=== PATIENT | male | born 1960 | race Caucasian/White ===

== ENCOUNTER 2019-10-27 17:33 | Inpatient (IN) | payer OTHER ==
[~2019-10-27] VITALS: Ht 175.3 cm; Wt 101.2 kg
[~2019-10-27 17:33] MED LIST: ATORVASTATIN CA20 MG PO; ECOTRIN325 MG PO; EXFORGE HCT 101 EAC2 PO; LANTUS100 UNITS/ SC
--- OUTSIDE RECORDS SUMMARY | 2019-10-27 17:36 | XMS REPORT | Clinical Summary ---
Author Author Julián [facility] Organization [facility] Address Unknown Phone Unavailable Care Team Providers Care Boat Master Name Role Phone Balaji Dao MD PCP Allergies Comments Active Allergy Reactions Severity Noted Date Iodine 10/08/2016 Penicillins Shortness Of High 10/08/2016 Breath Medications End Date Status Medication Sig Dispensed Refills Start Date Active atorvastatin (LIPITOR) 10 Take 80 mg by 0 MG tablet mouth daily. Active ergocalciferol (VITAMIN Take 50,000 0 D2) 50,000 unit capsule Units by mouth once a week. Active clopidogrel (PLAVIX) 75 Take 75 mg by 0 mg tablet mouth daily. Active metoprolol succinate XL Take 25 mg by 0 (TOPROL-XL) 25 mg 24 hr mouth daily. tablet Active isosorbide mononitrate Take 30 mg by 0 (IMDUR) 30 MG 24 hr mouth daily. tablet Active traMADol (ULTRAM) 50 mg Take 50 mg by 0 tablet mouth every 6 (six) hours as needed for moderate pain. Active insulin detemir U-100 Inject under 0 (LEVEMIR) 100 unit/mL the skin injection nightly. Active levothyroxine (SYNTHROID, Take 25 mcg 0 LEVOXYL) 25 mcg tablet by mouth daily. Active aspirin (ECOTRIN) 81 MG Take 81 mg by 0 enteric coated tablet mouth daily. Active omeprazole (PriLOSEC) 20 Take 20 mg by 0 MG capsule mouth daily. Active nitroglycerin (NITROSTAT) Place 0.4 mg 0 0.4 MG SL tablet under the tongue every 5 (five) minutes as needed for chest pain. 01/28/2019 Discontinued (Discontinued b y another clinician) carvedilol (COREG) 3.125 Take 3.125 mg 0 MG tablet by mouth daily. 01/28/2019 Discontinued (Discontinued b y another clinician) [id number] Take by mouth 0 iazid 10-320-25 mg tablet daily. 01/28/2019 Discontinued (Discontinued b y another clinician) insulin GLARGINE (LANTUS) Inject 17 0 100 unit/mL injection Units under (vial) the skin nightly. 01/28/2019 Discontinued (Dose adjustmen t) aspirin 325 MG tablet Take 325 mg 0 by mouth daily. Active Problems Patient Care Coordination Note 2019 TRANSPLANT UPDATE COMPLETE; ESRD DM/HTN; CAD; PVD; HX STROKE AND PAGET'S DISEASE DR. ANDRE Marks Noted Date Type 2 diabetes mellitus with stage 3 chronic kidney disease, with 10/08/2016 long-term current use of insulin Hypertensive nephrosclerosis 10/08/2016 Encounters Care Team Description Date Type Specialty Alonzo Muñoz MD 10/12/2019 Lab Lab 10/12/2019 Travel [facility] [place] ([place] - [employer] CM R EQUESTING UPDATED CLINICAL) 09/17/2019 Documentation Transplant Alonzo Muñoz MD 09/08/2019 Lab Lab 09/08/2019 Travel Alonzo Muñoz MD 08/10/2019 Lab Lab Abbey Fontaine MA PRA Kits 07/01/2019 Telephone Transplant Zahida Morales, JENNA 06/28/2019 Documentation Transplant Alonzo Muñoz MD 06/15/2019 Lab Lab Gisell Whitlock MA Speak to Coordinator 05/18/2019 Telephone Transplant Alonzo Muñoz MD 05/12/2019 Lab Lab Alonzo Muñoz MD 03/09/2019 Lab Lab Shweta Hooks, JENNA 01/29/2019 Documentation Transplant Maurice Arriaza MD End stage renal disease (HCC) (Primary D x) 01/28/2019 Lab Lab Maurice Arriaza MD End stage renal disease (HCC) (Primary D x) 01/28/2019 Lab Lab Maurice Arriaza MD End stage renal disease (HCC) (Primary D x) 01/28/2019 Lab Lab Maurice Arriaza MD ESRD (end stage renal disease) ([facility]) 01/28/2019 Hospital Radiology Encounter Maurice Arriaza MD Pre-transplant evaluation for kidney tra nsplant (Primary Dx) 01/28/2019 Office Visit Transplant Maurice Arriaza MD 01/28/2019 Social Work Transplant Maurice Arriaza MD ESRD (end stage renal disease) ([facility]) 01/28/2019 Hospital Procedural Cardiolo gy Encounter Maurice Arriaza MD ESRD (end stage renal disease) ([facility]) 01/28/2019 Office Visit Transplant Alonzo Muñoz MD 01/07/2019 Lab Lab Abbey Fontaine MA Clinical/Office Notes 01/06/2019 Telephone Transplant Delilah Mckeon Appointment 01/05/2019 Telephone Transplant Zahida Morales RN 12/24/2018 Documentation Transplant Alonzo Muñoz MD 12/09/2018 Lab Lab Kimberly Damian Kidney Eval (Listing Class ) 11/23/2018 Documentation Transplant Alonzo Muñoz MD 11/13/2018 Lab Lab Kimberly Damian Appointment (Rcvd call back from pt stat ing he and his are available to attend Kidney Txp Waitlist Listing Class on November 24, 2018. Pt started dialysis 09/04/2018 at [facility]. Added info in Epic & TR. Pt has hemo on MWF. Requested 2728 form. PRA Kits requested, Standing Order & itinerary scanned in Media, copy emailed to pt. ) 11/02/2018 Documentation Transplant Kimberly Damian 11/02/2018 Abstract Transplant Kimberly Damian Appointment (Called left v/m requesting a call back to discuss pt's availability to schedule a Kidney Transplant Waitlist Listing Class. ) 11/02/2018 Documentation Transplant after 2018 Family History Medical History Relation Name Comments Diabetes Father Hypertension Father Cancer Maternal Grandfather Diabetes Mother Hypertension Mother Relation Name Status Comments Father Maternal Grandfather Mother Social History Date Tobacco Use Types Packs/Day Years Used Never Smoker Smokeless Tobacco: Never Used Drinks/Week oz/Week Comments Alcohol Use No Sex Assigned at Date Recorded Not on file Industry Job Start Date Occupation Not on file Not on file Not on file Travel End Travel History Travel Start No recent travel history available. Date Recorded COVID-19 Exposure Response 10/12/2019 1:58 PM CDT In the last month, have you been in contact with Sherie ble to assess someone who was confirmed or suspected to have Coronavirus / COVID-19? Last Filed Vital Signs Reading Time Taken Comments Vital Sign 137/71 01/28/2019 7:50 AM CDT Blood Pressure 62 01/28/2019 7:50 AM CDT Pulse 36.2 C (97.2 F) 01/28/2019 7:29 AM CDT Temperature 17 01/28/2019 7:29 AM CDT Respiratory Rate 100% 01/28/2019 7:29 AM CDT Oxygen Saturation - - Inhaled Oxygen Concentration 92.5 kg (204 lb) 01/28/2019 7:29 AM CDT Weight 172.7 cm (5' 8") 01/28/2019 7:29 AM CDT Height 31.02 01/28/2019 7:29 AM CDT Body Mass Index Plan of Treatment Health Maintenance Due Date Last Done Comments DIABETIC RETINAL EYE EXAM 1960 DIABETIC FOOT EXAM 1968 COLONOSCOPY SCREENING 2008 SHINGLES VACCINES (#1) 2008 INFLUENZA VACCINE 01/15/2020 Procedures Comments Procedure Name Priority Date/Time Associated Diag nosis SINGLE ANTIGEN BEADS Routine 08/09/2019 7:56 AM SALES LEDGER CLERK SINGLE ANTIGEN BEADS Routine 05/10/2019 5:56 PM SALES LEDGER CLERK GRAM STAIN Routine 01/28/2019 12:29 PM CDT URINE CULTURE Routine 01/28/2019 12:29 PM CDT ECG 12-LEAD Routine 01/28/2019 ESRD (end stage renal 9:36 AM CDT disease) ([facility]) TTE COMPLETE, WO Routine 01/28/2019 ESRD (end sta ge renal CONTRAST, W DOPPLER 8:44 AM CDT disease) ([facility]) ([id number]) XR CHEST 2 VW Routine 01/28/2019 ESRD (end stage renal 8:39 AM CDT disease) ([facility]) SINGLE ANTIGEN BEADS Routine 01/28/2019 7:10 AM CDT ESTIMATED GFR Routine 01/28/2019 7:10 AM CDT DRUG ORELLANA 9, SER/MIKE, SCRN Routine 01/28/2019 ESRD (end stage renal W/RFLX TO CONF 7:10 AM CDT disease) ([facility]) URINALYSIS SCREEN AND Routine 01/28/2019 ESRD (en d stage renal MICROSCOPY, WITH REFLEX 7:10 AM CDT disease) ([facility] ) TO CULTURE TB T-SPOT Routine 01/28/2019 ESRD (end stage renal 7:10 AM CDT disease) ([facility]) HEPATITIS C VIRUS Routine 01/28/2019 ESRD (end st age renal QUANTITATIVE BY PCR 7:10 AM CDT disease) ([facility]) PARATHYROID HORMONE Routine 01/28/2019 ESRD (end stage renal 7:10 AM CDT disease) ([facility]) HEMOGLOBIN A1C Routine 01/28/2019 ESRD (end stage renal 7:10 AM CDT disease) ([facility]) PROSTATE SPECIFIC ANTIGEN Routine 01/28/2019 ESRD (end stage renal 7:10 AM CDT disease) ([facility]) LDH Routine 01/28/2019 ESRD (end stage renal 7:10 AM CDT disease) ([facility]) PHOSPHORUS LEVEL Routine 01/28/2019 ESRD (end sta ge renal 7:10 AM CDT disease) ([facility]) LIPID PANEL Routine 01/28/2019 ESRD (end stage renal 7:10 AM CDT disease) ([facility]) C-PEPTIDE Routine 01/28/2019 ESRD (end stage renal 7:10 AM CDT disease) ([facility]) PARTIAL THROMBOPLASTIN Routine 01/28/2019 ESRD (e nd stage renal TIME (PTT) 7:10 AM CDT disease) ([facility]) PROTHROMBIN TIME WITH INR Routine 01/28/2019 ESRD (end stage renal 7:10 AM CDT disease) (HCC) HC COMPLETE BLD COUNT Routine 01/28/2019 ESRD (en d stage renal W/AUTO DIFF 7:10 AM CDT disease) (HCC) SYPHILIS TOTAL ANTIBODY Routine 01/28/2019 ESRD ( end stage renal 7:10 AM CDT disease) (HCC) HEPATITIS C ANTIBODY Routine 01/28/2019 ESRD (end stage renal 7:10 AM CDT disease) (HCC) HEPATITIS B SURFACE AB, Routine 01/28/2019 ESRD ( end stage renal QUANTITATIVE 7:10 AM CDT disease) (HCC) HEPATITIS B SURFACE Routine 01/28/2019 ESRD (end stage renal ANTIGEN 7:10 AM CDT disease) (HCC) HEPATITIS B SURFACE Routine 01/28/2019 ESRD (end stage renal ANTIBODY 7:10 AM CDT disease) (HCC) HEPATITIS B CORE ANTIBODY Routine 01/28/2019 ESRD (end stage renal TOTAL 7:10 AM CDT disease) (HCC) HIV AG/AB COMBINATION Routine 01/28/2019 ESRD (en d stage renal 7:10 AM CDT disease) (HCC) COMPREHENSIVE METABOLIC Routine 01/28/2019 ESRD ( end stage renal PANEL 7:10 AM CDT disease) (HCC) OCCULT BLOOD, STOOL Routine 01/26/2019 End stage renal disease 11:54 AM CDT (HCC) OCCULT BLOOD, STOOL Routine 01/25/2019 End stage renal disease 11:52 AM CDT (HCC) OCCULT BLOOD, STOOL Routine 01/24/2019 11:50 AM CDT SINGLE ANTIGEN BEADS Routine 01/06/2019 11:35 AM CDT SINGLE ANTIGEN BEADS Routine 12/07/2018 8:05 AM CDT SINGLE ANTIGEN BEADS Routine 11/06/2018 8:24 AM CDT after 2018 Results * Single antigen beads (08/09/2019 7:56 AM SALES LEDGER CLERK) Only the most recent of 6 results within the time period is included. SAB serum ID [id number] [facility] SAB serum 08/09/2019 07:56 AM [facility] collection D&T [facility] SAB class I Negative [facility] antibody [facility] SAB cPRA class 0 [facility] SAB class II DP19 [facility] antibody [facility] SAB cPRA class [address] [facility] Single antigen See link below for PDF Lab [facility] beads Report [facility] Specimen Blood Performing Organization Address City/[facility] Ph one Number [facility] DEPARTMENT OF [address] [place] [address] PATHOLOGY AND GENOMIC MEDICINE [address] * Gram stain (01/28/2019 12:29 PM CDT) Pathologist [facility] Gram stain No WBC's or organisms seen. [facility] result Comment: [place] Specimen Information [facility] Specimen Source: Urine Specimen Site: Clean catch Specimen Urine Performing Organization Address City/[facility] Ph one Number [facility] DEPARTMENT OF [address] [place] [address] PATHOLOGY AND GENOMIC MEDICINE [address] * Urine culture (01/28/2019 12:29 PM CDT) Pathologist [facility] Urine culture Klebsiella pneumoniae [facility] isolate 10-4 cfu/ml [facility] HOSPITAL characteristics of this assay on this isolate were validated by the Microbiology Laboratory at [facility]. This source has not been approved by the U.S. Food and Drug Administration. The results are not intended to be used as the sole means for clinical diagnosis or patient management. The Microbiology Laboratory is authorized under the clinical Laboratory Improvement Amendments of 1988 (CLIA-88) to perform high complexity testing. (A) Comment: Specimen Information Specimen Source: Urine Specimen Site: Clean catch Specimen Urine Antibiotic Method Susceptibility Organism Ampicillin ASCENCION >16 mcg/mL: Resistant Klebsiella pneumoniae Amoxicillin/Clavulanate ASCENCION <=2/1 mcg/mL: Susceptible Klebsiella pneumoniae Amikacin ASCENCION <=4 mcg/mL: Susceptible Klebsiella pneumoniae Aztreonam ASCENCION <=1 mcg/mL: Susceptible Klebsiella pneumoniae Ceftazidime ASCENCION <=0.5 mcg/mL: Susceptible Klebsiella pneumoniae Ciprofloxacin ASCENCION <=0.5 mcg/mL: Susceptible Klebsiella pneumoniae Ceftriaxone ASCENCION <=0.5 mcg/mL: Susceptible Klebsiella pneumoniae Cefuroxime Sodium ASCENCION <=4 mcg/mL: Susceptible Klebsiella pneumoniae Cefazolin ASCENCION <=1 mcg/mL: Susceptible Klebsiella pneumoniae Cefepime ASCENCION <=0.5 mcg/mL: Susceptible Klebsiella pneumoniae Nitrofurantoin ASCENCION 64 mcg/mL: Resistant Klebsiella pneumoniae Cefoxitin ASCENCION <=4 mcg/mL: Susceptible Klebsiella pneumoniae Gentamicin ASCENCION 1 mcg/mL: Susceptible Klebsiella pneumoniae Imipenem ASCENCION <=0.25 mcg/mL: Susceptible Klebsiella pneumoniae Levofloxacin ASCENCION <=1 mcg/mL: Susceptible Klebsiella pneumoniae Meropenem ASCENCION <=0.125 mcg/mL: Susceptible Klebsiella pneumoniae Tobramycin ASCENCION 1 mcg/mL: Susceptible Klebsiella pneumoniae Ampicillin/Sulbactam ASCENCION 8/4 mcg/mL: Susceptible Klebsiella pneumoniae Trimethoprim/Sulfamethoxazole ASCENCION >2/38 mcg/mL: Resistant Klebsiella pneumoniae Tetracycline ASCENCION 2 mcg/mL: Susceptible Klebsiella pneumoniae Piperacillin/Tazobactam ASCENCION 4/4 mcg/mL: Susceptible Klebsiella pneumoniae Ertapenem ASCENCION <=0.125 mcg/mL: Susceptible Klebsiella pneumoniae Tigecycline ASCENCION 1 mcg/mL: Susceptible Klebsiella pneumoniae Performing Organization Address City/State/Zipcode Ph one Number [facility] DEPARTMENT OF [address] [place] [address] PATHOLOGY AND GENOMIC MEDICINE [facility] [place] [address] [place] [address] * EKG 12-LEAD (01/28/2019 9:36 AM CDT) Ventricular 69 [facility] MUSE rate Atrial rate 69 [facility] MUSE WV interval 244 [facility] QRSD interval 88 [facility] QT interval 414 [facility] QTC interval 443 [facility] P axis 1 10 [facility] M[facility] QRS axis 1 2 [facility] M[facility] T wave axis 30 [facility] EKG impression Sinus rhythm with 1st degree [facility] MUSE AV block-Otherwise normal ECG-In automated comparison with ECG of 26-NOV-2016 08:37,-No significant change was found- Specimen Narrative Performed At This result has an attachment that is n ot available. Performing Organization Address City/State/Zipcode Ph one Number [facility] MUSE [address] [facility] [place] [address] * Echocardiogram complete w contrast and 3D if needed (01/28/2019 8:44 AM CDT) Specimen Narrative Performed At [facility] Echo cardiography Report [id number] [facility], [place] [address] Pat.Name: MARKO NIXON JR Pat.ID: [id number] .Date: 01/28/2019 Refer.MD: MAURICE ARRIAZA MD Exam Time: 7:54:00 AM Study Type:Routine Echo Height: 68in BSA: 2.06 m2 Age: 5 1960,58Y Sex: MALE BP: 137/71 HR: 62 bpm Sonogrphr: Diana Landeros, BS, RDCS Pa t. Stat.:Outpatient Room: [facility] Study Status:Final Echo Event ID:[id number] Order ID: [id number] Reason for Study:Renal Transplant Evalu ation History / Clinical:Diabetes, Hyperlipid emia, Hypertension, Stroke Procedures:2D Echo, Colorflow Doppler, Strain Race: C SUMMARY: LV EF is normal. RV systolic function is normal. FINDINGS: LV: LV size is normal. LV EF i s normal. Overall wall motion is normal. Estimated EF is 65-69% RV: RV size is normal. RV syst olic function is normal. LA: LA volume is moderately en larged. RA: RA volume is normal. pooss ibly catheter . AO: Aortic root diameter is no rmal. SHER: No pericardial effusion. AV: Aortic valve sclerosis. MV: No structural MV abnormali ties noted. PV: No structural PV abnormali ties noted. TV: No structural TV abnormali ties noted. A trace of tricuspid regurgitation Jones: LV relaxation is reduced, a ppropriate for age. LV filling pressure is normal. Hep atic vein pressure is normal, RA pressure < 5mmHg. Other: Insufficient TR jet to sukumar mate PA systolic pressure. MEASUREMENTS: 2D Parasternal [place] LVOT 2.1 cm LA Ds 4.5 cm LVIDd 4.4 cm Index 2.1 cm/m Ao An 2.4 cm LVIDs 2.9 cm Ao Rtd 3.6 cm Index 1.8 cm/m LV%fs 35 % LV Mass 305.3 g (122-17 4) IVSd 1.5 cm LVM Index 148.2 g/m2 LVPWd 1.7 cm RWT 0.8 Left Ventricle LV EF 62 % (63-7 7) LA Sng Plane LA Area 22.9 cm2 (8.8-23. 4) LA Vol 72.2 ml Index 35.1 ml/m LA LngAx 6.1 cm RA Sng Plane RA Area 12.5 cm2 (8.3-19. 5) RA Vol 28 ml Index 13.6 ml/m RA LngAx 4.6 cm MMODE Tricuspid Valve TAPSE 2.1 cm DOPPLER LVOT Stroke Vol LVOT 2.1 cm LVOT CO 4.6 l/min LVOT TVI 22.1 cm LVOT CI 2.2 l/m/m2 LVOT Tm 351 msec HR 60 bpm LVOT SV 76.6 ml Signed 01/29/2019 10:32 PM Darlene Horan M.D. Procedure Note Interface, Radiology Results In - 01/29/2019 10:32 PM CDT Echocardiography Report [id number] [address] Pat.Name: MARKO NIXON JR Pat.ID: [id number] .Date: 01/28/2019 Refer.MD: MAURICE ARRIAZA MD Exam Time: 7:54:00 AM Study Type:Routine Echo Height: 68in BSA: 2.06 m2 Age: 3 1960,58Y Sex: MALE BP: 137/71 HR: 62 bpm Sonogrphr: ANAHI Jennings, RDCS Pat. Stat.:Outpatient Room: [place] [address] Study Status:Final Echo Event ID:[id number] Order ID: [id number] Reason for Study:Renal Transplant Evaluation History / Clinical:Diabetes, Hyperlipidemia, Hypertension, Stroke Procedures:2D Echo, Colorflow Doppler, Strain Race: C SUMMARY: LV EF is normal. RV systolic function is normal. FINDINGS: LV: LV size is normal. LV EF is normal. Overall wall motion is normal. Estimated EF is 65-69% RV: RV size is normal. RV systolic function is normal. LA: LA volume is moderately enlarged. RA: RA volume is normal. poossibly catheter . AO: Aortic root diameter is normal. SHER: No pericardial effusion. AV: Aortic valve sclerosis. MV: No structural MV abnormalities noted. PV: No structural PV abnormalities noted. TV: No structural TV abnormalities noted. A trace of tricuspid regurgitation Jones: LV relaxation is reduced, appropriate for age. LV filling pressure is normal. Hepatic vein pressure is normal, RA pressure < 5mmHg. Other: Insufficient TR jet to estimate PA systolic pressure. MEASUREMENTS: 2D Parasternal [place] LVOT 2.1 cm LA Ds 4.5 cm LVIDd 4.4 cm Index 2.1 cm/m Ao An 2.4 cm LVIDs 2.9 cm Ao Rtd 3.6 cm Index 1.8 cm/m LV%fs 35 % LV Mass 305.3 g (122-174) IVSd 1.5 cm LVM Index 148.2 g/m2 LVPWd 1.7 cm RWT 0.8 Left Ventricle LV EF 62 % (63-77) LA Sng Plane LA Area 22.9 cm2 (8.8-23.4) LA Vol 72.2 ml Index 35.1 ml/m LA LngAx 6.1 cm RA Sng Plane RA Area 12.5 cm2 (8.3-19.5) RA Vol 28 ml Index 13.6 ml/m RA LngAx 4.6 cm MMODE Tricuspid Valve TAPSE 2.1 cm DOPPLER LVOT Stroke Vol LVOT 2.1 cm LVOT CO 4.6 l/min LVOT TVI 22.1 cm LVOT CI 2.2 l/m/m2 LVOT Tm 351 msec HR 60 bpm LVOT SV 76.6 ml Signed 01/29/2019 10:32 PM Darlene Horan M.D. Performing Organization Address City/State/[facility] Ph one Number [facility] [address] [place] [address] * XR Chest 2 Vw (01/28/2019 8:39 AM CDT) Specimen Narrative Performed At EXAMINATION: XR CHEST 2 VW [facility] CLINICAL HISTORY: N18.6 End stage dee al disease, transplant evalution update COMPARISON: Chest x-ray 11/26/2016, CT AP 01/27/2017 FINDINGS: Lines and tubes: Right IJ tunneled dial ysis catheter is seen with tip overlying the superior cavoatrial junction. Heart and mediastinum: Cardiomediastina l silhouette is normal in contour. Lungs and pleura: Left basilar atelecta sis. Bones: No acute osseous abnormality. Soft tissues: Cholecystectomy clips are visualized. Slightly distended gastric bubble. IMPRESSION: Left basilar atelectasis. Lungs are oth erwise clear of focal airspace disease. [facility]-[id number] Dictated and approved by radiology resi dent/fellow: Nadir Arteaga M.D. I, Tyree Lucas MD, personally reviewed the images and resident's/fellow's findings and agree with the final repor t. Procedure Note Interface, Radiology Results Incoming - 01/28/2019 11:30 AM CDT EXAMINATION: XR CHEST 2 VW CLINICAL HISTORY: N18.6 End stage renal disease, transplant evalution update COMPARISON: Chest x-ray 11/26/2016, CT AP 01/27/2017 FINDINGS: Lines and tubes: Right IJ tunneled dialysis catheter is seen with tip overlying the superior cavoatrial junction. Heart and mediastinum: Cardiomediastinal silhouette is normal in contour. Lungs and pleura: Left basilar atelectasis. Bones: No acute osseous abnormality. Soft tissues: Cholecystectomy clips are visualized. Slightly distended gastric bubble. IMPRESSION: Left basilar atelectasis. Lungs are otherwise clear of focal airspace disease. [facility]-[id number] Dictated and approved by student affairs vice president/fellow: Nadir Arteaga M.D. I, Tyree Lucas MD, personally reviewed the images and resident's/fellow's findings and agree with the final report. Performing Organization Address City/State/[facility] Cent[facility] Ph one Number [facility] [address] [place] [address] * Urinalysis screen and microscopy, with reflex to culture (01/28/2019 7:10 AM CDT) Specimen site Clean catch [facility] Color, UA Michelle [facility] Appearance, UA Cloudy [facility] Specific 1.022 1.001 - 1.035 [facility] gravity, [facility] pH, UA 5.0 5.0 - 8.5 [facility] Protein, UA 3+ (A) Negative [facility] Glucose, UA 1+ (A) Negative [facility] Ketones, UA Trace (A) Negative [facility] Bilirubin, UA Positive@UBIL (A) Negative [facility] Blood, UA Negative Negative [facility] Nitrite, UA Negative Negative [facility] Urobilinogen, 4.0 (A) <2.0 [facility] Leukocyte Trace (A) Negative [facility] esterase, [facility] WBC, UA 3 (H) 0 - 1 /HPF [facility] RBC, UA 2 0 - 5 /HPF [facility] Bacteria, UA Few None seen [facility] Yeast, UA None seen [facility] Yeast with None seen [facility] pseudohyphae[facility] Granular casts, 5 (H) 0 - 1 /LPF [facility] Hyaline casts, >20 (A) /LPF [facility] Specimen Urine Performing Organization Address City/[facility] Cent[facility] Ph one Number [facility] DEPARTMENT OF [address] [place] [address] PATHOLOGY AND GENOMIC MEDICINE [address] * Estimated GFR (01/28/2019 7:10 AM CDT) Pathologist [facility] Estimated GFR 18 (A) mL/min/1.73 m2 [facility] Comment: [facility] Interpretation G1 >=90 Normal or high G2 60-89 Mildly decreased G3a 45-59 Mildly to moderately decreased G3b 30-44 Moderately to severely decreased G4 15-29 Severely decreased G5 <15 Kidney failure The eGFR was calculated using the Chronic Kidney Disease Epidemiology Collaboration (CKD-EPI) equation. Interpretation is based on recommendations of the National Kidney Foundation-Kidney Disease Outcomes Quality Initiative (NKF-KDOQI) published in 2014. Specimen Plasma specimen Performing Organization Address Good [facility] Ph one Number [facility] [place] [address] PATHOLOGY AND [facility] MEDICINE [address] * Syphilis total antibody (01/28/2019 7:10 AM CDT) Pathologist [facility] Syphilis total Non-reactiveComment: No Non-reactive [place] antibody serological evidence of [place] syphilis infection. HOSPITAL Specimen Blood Performing Organization Address City/State/Zipcode Ph one Number [facility] DEPARTMENT OF [address] [place] [address] PATHOLOGY AND GENOMIC MEDICINE [address] * HIV Ag/Ab combination (01/28/2019 7:10 AM CDT) Pathologist [facility] HIV Ag/Ab Non-reactive Non-reactive [facility] Specimen Blood Performing Organization Address City/[facility] Ph one Number [facility] DEPARTMENT OF [address] [place] [address] PATHOLOGY AND GENOMIC MEDICINE [address] [place] [address] HOSPITAL * TB T-SPOT (01/28/2019 7:10 AM CDT) TB T-SPOT SEE NOTE [facility] - [facility] Comment: REF LAB T-SPOT TUBERCULOSIS Nil Control: 0 Panel A: 1 Panel B: 2 Positive Control: SAT Result: NEGATIVE NOTE: TMTC INDICATES TOO MANY SPOTS TO COUNT SAT INDICATES THE WELL WAS SATURATED RESULTS INTERPRETATION: RESULTS ARE NEGATIVE WHEN (PANEL A-NIL) OR (PANEL B-NIL) <= 4 SPOTS, INCLUDING VALUES LESS THAN ZERO. RESULTS ARE POSITIVE WHEN (PANEL A-NIL) OR (PANEL B-NIL) >= 8 SPOTS RESULTS ARE BORDERELINE WHEN EITHER (PANEL A-NIL) OR (PANEL B-NIL) = 5,6,0R 7. THE TEST IS INVALID WHEN EITHER OF THE FOLLOWING CONDITIONS IS MET: 1.) THE NIL CONTROL HAS >10 SPOTS 2.) THE MITOGEN (POSITIVE CONTROL) HAS <20 SPOTS AND BOTH (PANEL A-NIL) AND (PANEL B-NIL) <= 4 SPOTS. M. TUBERCULOSIS INFECTION UNLIKELY, BUT CANNOT BE EXCLUDED ESPECIALLY WHEN: 1. ANY ILLNESS IS CONSISTENT WITH TB DISEASE. 2. LIKELIHOOD OF PROGRESSION TO DISEASE (e.g. DUE TO IMMUNOSUPPRESSION) IS INCREASED. LIMITATIONS: DIAGNOSING OR EXCLUDING TUBERCULOSIS DISEASE, AND ASSESSING THE PROBABILITY OF LTBI, REQUIRES A COMBINATION OF EPIDEMIOLOGICAL, HISTORICAL, MEDICAL, AND DIAGNOSTIC FINDINGS THAT SHOULD BE TAKEN INTO ACCOUNT WHEN INTERPRETING T-SPOT.TB REFER TO THE MOST RECENT CDC GUIDANCE (HTTP: //WWW.CDC.GOV/[email or web address]/TB) FOR DETAILED RECOMMENDATIONS ABOUT DIAGNOSING TB INFECTION (INCLUDING DISEASE) AND SELECTING PERSONS FOR TESTING. 1.) A FALSE NEGATIVE RESULT CAN BE CAUSED BY INCORRECT BLOOD SAMPLE COLLECTION OR IMPROPER HANDLING OF THE SPECIMEN, AFFECTING LYMPHOCYTE FUNCTION 2.) THE PERFORMANCE OF T-SPOT.TB HAS NOT BEEN ADEQUATELY EVALUATED WITH SPECIMENS FROM INDIVIDUALS YOUNGER THAN AGE 17 YEARS, IN WOMEN, AND IN PATIENTS WITH HEMOPHILIA. 3-) A FALSE POSITIVE RESULT WAS OBTAINED FOR T-SPOT.TB WHEN TESTED IN SUBJECTS WITH M. XENOPI, M. KANSASII, AND M. GORDONAE. WHILE ESAT-6 AND CFP-10 ANTIGENS ARE ABSENT FROM BCG STRAINS OF M. BOVIS AND FROM MOST ENVIRONMENTAL MYCOBACTERIA, IT IS POSSIBLE THAT A POSITIVE T-SPOT.TB RESULT MAY BE DUE TO INFECTION WITH M. KANSASII, M. SZULGAI, M. GORDONAE, OR M. MARINUM. ALTERNATIVE TESTS WOULD BE REQUIRED IF THESE INFECTIONS ARE SUSPECTED. 4.) A NEGATIVE TEST RESULT DOES NOT EXCLUDE THE POSSIBILITY OF EXPOSURE TO, OR INFECTION WITH, M. TUBERCULOSIS. PATIENTS WITH RECENT EXPOSURE TO TB INFECTED INDIVIDUALS EXHIBITING A NEGATIVE T-SPOT.TB RESULT SHOULD BE CONSIDERED FOR RETESTING WITHIN 6 WEEKS OR IF OTHER RELEVANT CLINICAL SYMPTOMS INDICATE POSSIBLE INFECTION. 5.) A POSITIVE TEST RESULT DOES NOT RULE IN ACTIVE TB DISEASE; OTHER TESTS SHOULD BE PERFORMED TO CONFIRM THE DIAGNOSIS OF ACTIVE TB DISEASE SUCH SPUTUM SMEAR AND CULTURE, PCR AND CHEST RADIOGRAPHY. 6.) T-SPOT.TB TEST HAS NOT BEEN EVALUATED IN SUBJECTS WHO HAVE RECEIVED >1 MONTH OF ANTI-TB THERAPY. 7. ) REFRIGERATED AND FROZEN SAMPLES ARE NOT RECOMMENDED FOR USE WITH T=SPOT.TB TEST. Performed by: [facility] Molecular Tuberculosis Laboratory [facility] ([id number]) [place], [place] [address] Specimen Blood Performing Organization Address City/State/Zipcode Ph one Number [facility] DEPARTMENT OF [address] [place] [address] PATHOLOGY AND GENOMIC MEDICINE [facility] * Hepatitis B surface Ab, quantitative (01/28/2019 7:10 AM CDT) Pathologist [facility] Hepatitis B >1000.00 IU/L [facility] REF [facility] surface Ab Comment: The anti-HBs is greater than or equal to 10 IU/L. This patient has either had an antibody response to HBV vaccination, received a transfusion, or has recovered from HBV infection. This patient should be considered immune to hepatitis B. An anti-HBs result greater than or equal to 10 IU/L implies immunity. For post-vaccination antibody testing guidelines for the general public refer to MMWR June 07, 2005/Vol. 54(No. 16);1-23, and for healthcare workers refer to MMWR June 04, 2013/Vol. 62(No. 10);1-19. Reference Interval: anti-HBs 9.99 IU/L or less ....... Negative 10.00 IU/L or greater .... Positive Results greater than 1,000.00 IU/L are reported as greater than 1,000.00 IU/L. This assay should not be used for blood donor screening, associated re-entry protocols, or for screening Human Cell, Tissues and Cellular and Tissue-Based Products (HCT/P). Performed by [facility], [address] [place] [address] [email or web address], Arturo Brown MD - Lab. Director Specimen Serum Performing Organization Address City/[facility]/Zipcode Ph one Number [facility] [address] [place] [address] [facility] [address] [place] [address] * Hepatitis C antibody (01/28/2019 7:10 AM CDT) Hepatitis C Ab Non-reactive Non-reactive [facility] Specimen Blood Performing Organization Address City/[facility]/Zipcode Ph one Number [facility] DEPARTMENT OF [address] [place] [address] PATHOLOGY AND GENOMIC MEDICINE [address] * Drug orellana 9, ser/mike, scrn w/rflx to conf (01/28/2019 7:10 AM CDT) Amphetamines, Negative Cutoff 30 ng/mL [facility] B s/p, screen Methamphetamine Negative Cutoff 30 ng/mL [facility] AB , s/p, screen Barbiturates, Negative Cutoff 75 ng/mL [facility] B s/p, screen Benzodiazepines Negative Cutoff 75 ng/mL [facility] , s/p, screen Cocaine, s/p, Negative Cutoff 30 ng/mL [facility] B screen Methadone, s/p, Negative Cutoff 40 ng/mL [facility] screen Opiates, s/p, Negative Cutoff 30 ng/mL [facility] B screen Oxycodone, s/p, Negative Cutoff 30 ng/mL [facility] AB screen Phencyclidine, Negative Cutoff 15 ng/mL [facility] B s/p, screen Cannabinoids, Negative Cutoff 30 ng/mL [facility] B s/p, screen Drug screen See Note [facility] comments, serum Comment: INTERPRETIVE INFORMATION: Drug Screen 9 Panel, Serum or Plasma - Immunoassay Screen with Reflex to Mass Spectrometry Confirmation/Quantitation 1. Methodology: Qualitative Immunoassay Screen 2. Drugs/Drug classes reported as "Positive" are automatically reflexed to mass spectrometry confirmation/quantitation testing. An immunoassay unconfirmed positive screen result may be useful for medical purposes but does not meet forensic standards. 3. The absence of expected drug(s) and/or drug metabolite(s) may indicate non-compliance, inappropriate timing of specimen collection relative to drug administration, poor drug absorption, or limitations of testing. The concentration at which the screening test can detect a drug or metabolite varies within a drug class. Specimens for which drugs or drug classes are detected by the screen are automatically reflexed to a second, more specific technology (mass spectrometry). The concentration value must be greater than or equal to the cutoff to be reported as positive. Interpretive questions should be directed to the laboratory. 4. For medical purposes only; not valid for forensic use. Test developed and characteristics determined by [facility]. See Compliance Statement B: [email or web address] Performed by [facility], [address] [place] [id number] [email or web address], Arturo Brown MD - Lab. Director Specimen Blood Performing Organization Address [facility] one Number [facility] [address] [place] [address] [place] [address] * Hepatitis B core antibody total (01/28/2019 7:10 AM CDT) [facility] Hepatitis B Non-reactive Non-reactive [facility] core total Ab [facility] Specimen Blood Performing Organization Address [facility] Ph one Number [facility] DEPARTMENT OF [address] [place] [address] PATHOLOGY AND GENOMIC MEDICINE [address] * Hepatitis C virus quantitative by PCR (01/28/2019 7:10 AM CDT) [facility] Hepatitis C Not-Detected Not-Detected IU/mL [facility] C See link below for PDF Lab [facility] quantitative, ReportComment: Case Number: [facility] PCR [id number] HOSPITAL Specimen Blood Performing Organization Address [facility] Ph one Number [facility] DEPARTMENT OF [address] [place] [address] PATHOLOGY AND GENOMIC MEDICINE [address] * C-peptide (01/28/2019 7:10 AM CDT) [facility] C-peptide 13.8 (H) 1.1 - 4.4 ng/mL [facility] Specimen Plasma specimen Performing Organization Address City/[facility] Ph one Number [facility] DEPARTMENT OF [address] [place] [address] PATHOLOGY AND [facility] MEDICINE [address] * Hepatitis B surface antibody (01/28/2019 7:10 AM CDT) Pathologist [facility] Hepatitis B Reactive (A) Non-reactive [facility] Ab [facility] Specimen Blood Performing Organization Address City/[facility] one Number [facility] DEPARTMENT OF [address] [place] [address] PATHOLOGY AND [facility] MEDICINE [address] * Hepatitis B surface antigen (01/28/2019 7:10 AM CDT) Pathologist [facility] Hepatitis B Non-reactive Non-reactive [facility] Ag [facility] Specimen Blood Performing Organization Address [facility] one Number [facility] [place] [address] PATHOLOGY AND [facility] MEDICINE [address] * Partial thromboplastin time, activated (01/28/2019 7:10 AM CDT) [facility] PTT 31.2 23.0 - 36.0 sec [facility] Comment: [facility] PTT therapeutic range for HOSPITAL unfractionated heparin is 61.0-112.0 seconds which corresponds to Anti-Xa 0.3-0.7 U/ml. Specimen Blood Performing Organization Address [facility] one Number [facility] DEPARTMENT OF [address] [place] [address] PATHOLOGY AND [facility] MEDICINE [address] * Prothrombin time with INR (01/28/2019 7:10 AM CDT) [facility] Prothrombin 13.7 11.5 - 14.5 sec [facility] INR 1.1 [facility] Comment: [place] The International Normalized HOSPITAL Ratio (INR) is a therapeutic monitoring tool for patients who are stable on oral anticoagulant therapy. An INR of 2.0-3.0 is suggested for deep vein thrombosis/pulmonary embolism. Specimen Blood Performing Organization Address [facility] one Number [facility] DEPARTMENT OF [address] [place] [address] PATHOLOGY AND GENOMIC MEDICINE [address] * CBC with platelet and differential (01/28/2019 7:10 AM CDT) WBC 7.93 4.50 - 11.00 k/uL [facility] RBC 4.03 (L) 4.40 - 6.00 m/uL [facility] HGB 13.2 (L) 14.0 - 18.0 g/dL [facility] HCT 40.3 (L) 41.0 - 51.0 % [facility] MCV 100.0 82.0 - 100.0 fL [facility] MCH 32.8 27.0 - 34.0 pg [facility] MCHC 32.8 31.0 - 37.0 g/dL [facility] RDW - SD 49.7 37.0 - 55.0 fL [facility] MPV 11.2 8.8 - 13.2 fL [facility] Platelet count 136 (L) 150 - 400 k/uL [facility] Nucleated RBC 0.00 /100 WBC [facility] Neutrophils 57.1 39.0 - 69.0 % [facility] Lymphocytes 31.7 25.0 - 45.0 % [facility] Monocytes 7.6 0.0 - 10.0 % [facility] Eosinophils 2.8 0.0 - 5.0 % [facility] Basophils 0.4 0.0 - 1.0 % [facility] Immature 0.4Comment: "Immature 0.0 - 1.0 % [facility] granulocytes granulocytes" (promyelocytes, METHOD IST myelocytes, metamyelocytes) HOSPITAL Specimen Blood Performing Organization Address City/[facility] Ph one Number [facility] DEPARTMENT OF [address] [place] [address] PATHOLOGY AND GENOMIC MEDICINE [address] * Prostate specific antigen (01/28/2019 7:10 AM CDT) Pathologist [facility] PSA 0.5 0.0 - 4.0 ng/mL [facility] Comment: [place] The BENEDICT 8000 PSA immunoassay [facility] was used. Results obtained with different assay methods or kits should not be used interchangeably and may be different. Specimen Plasma specimen Performing Organization Address City/[facility] Ph one Number [facility] DEPARTMENT OF [address] [place] [address] PATHOLOGY AND GENOMIC MEDICINE [address] * Phosphorus level (01/28/2019 7:10 AM CDT) Phosphorus 3.0 2.4 - 4.5 mg/dL [facility] Specimen Plasma specimen Performing Organization Address City/[facility] Ph one Number [facility] DEPARTMENT OF [address] [place] [address] PATHOLOGY AND GENOMIC MEDICINE [address] * Parathyroid hormone (01/28/2019 7:10 AM CDT) PTH 244 (H) 15 - 65 pg/mL [facility] Specimen Blood Performing Organization Address City/[facility] Ph one Number [facility] DEPARTMENT OF [address] [place] [address] PATHOLOGY AND GENOMIC MEDICINE [address] * LDH (01/28/2019 7:10 AM CDT) LDH 199 87 - 225 U/L [facility] Specimen Plasma specimen Performing Organization Address [facility] Ph one Number [facility] DEPARTMENT OF [address] [place] [address] PATHOLOGY AND GENOMIC MEDICINE [address] * Hemoglobin A1c (01/28/2019 7:10 AM CDT) Hemoglobin A1C 5.8 (H) 4.0 - 5.6 % [facility] Comment: [place] HbA1c cutoffs for diagnosing HOSPITAL diabetes: 4.0% - 5.6% = normal 5.7% - 6.4% = increased risk for diabetes (prediabetes) >=6.5% = diabetes Goals for glycemic control (ADA 2016) < 7.0% Target for non adults with diabetes. More or less stringent targets may be appropriate for individual patients. <7.5% Target for Children and adolescents with type 1 diabetes. Specimen Blood Performing Organization Address City/[facility] Ph one Number [facility] DEPARTMENT OF [address] [place] [address] PATHOLOGY AND GENOMIC MEDICINE [address] * Lipid panel (01/28/2019 7:10 AM CDT) Cholesterol 87 <200 mg/dL [facility] Triglycerides 131 <150 mg/dL [facility] HDL cholesterol 43 >40 mg/dL [facility] LDL cholesterol 29Comment: Result obtained by <100 mg/dL [facility] direct LDL measurement [facility] Comment: [place] Total Cholesterol (mg/dL) HOSPITAL <200 Desirable 200-239 Borderline-high >=240 High Triglycerides (mg/dL) <150 Normal 150-199 Borderline-high 200-499 High >=500 Very high HDL Cholesterol (mg/dL) <40 Low (male) <40 Low (female) LDL Cholesterol (mg/dL) <100 Optimal 100-129 Near or above optimal 130-159 Borderline-high 160-189 High >=190 Very high Risk Catergories that modify LDL goals. Risk Catergories LDL goal (mg/dL) CHD and CHD risk equivalent <100 (10-year risk >20%) Multiple (2+) risk factors <130 (10-year risk =<20%) 0-1 risk factors <160 (<10-year risk) Defining levels of lipids in metabolic syndrome Triglycerides >=150 mg/dL HDL Cholesterol Men <40 mg/dL Women <40 mg/dL Non-HDL cholesterol is a second target for therapy in persons with high triglycerides (>=200 mg/dL) Specimen Plasma specimen Performing Organization Address City/State/Zipcoor Ph one Number [facility] DEPARTMENT OF [address] [place] [address] PATHOLOGY AND GENOMIC MEDICINE [address] * Comprehensive metabolic panel (01/28/2019 7:10 AM CDT) Sodium 142 135 - 148 mEq/L [facility] Potassium 4.2 3.5 - 5.0 mEq/L [facility] Chloride 99 98 - 112 mEq/L [facility] CO2 27 24 - 31 mEq/L [facility] Anion gap 16@ANIO (H) 7 - 15 mEq/L [facility] BUN 19 8 - 23 mg/dL [facility] Creatinine 3.51 (H) 0.70 - 1.20 mg/dL [facility] Glucose 135 (H) 65 - 99 mg/dL [facility] Calcium 9.4 8.8 - 10.2 mg/dL [facility] Protein 8.6 (H) 6.3 - 8.3 g/dL [facility] Comment: [facility] 4.6-7.0 g/dL 1 week 4.4-7.6 g/dL 7 months-1year 5.1-7.3 g/dL 1-2 years 5.6-7.5 g/dL >3 years 6.0-8.0 g/dL 18-150 6.3-8.3 g/dL Albumin 4.0 3.5 - 5.0 g/dL [facility] A/G ratio 0.9 0.7 - 3.8 [facility] Alkaline 233 (H) 40 - 129 U/L [facility] phosphatase [facility] AST 33 10 - 50 U/L [facility] ALT 42 5 - 50 U/L [facility] Total bilirubin 1.0 0.0 - 1.2 mg/dL [facility] Specimen Plasma specimen Performing Organization Address [facility] Ph one Number [facility] DEPARTMENT OF [address] [place] [address] PATHOLOGY AND GENOMIC MEDICINE [address] * Occult blood, stool (01/26/2019 11:54 AM CDT) Only the most recent of 3 results within the time period is included. Occult blood, Negative for occult blood. [facility] stool Comment: [facility] Specimen Information HOSPITAL Specimen Source: Stool Specimen Site: Nonpreserved Specimen Stool - Nonpreserved Performing Organization Address City/[facility] Ph one Number [facility] DEPARTMENT OF [address] [place] [address] PATHOLOGY AND GENOMIC MEDICINE [address] after 2018 Insurance Type Payer Benefit Subscriber ID Effective Phone Address Plan / Dates Group Transplant ANNIKA ROBLERO xxxxxxxxxxx [id number] [employer] resent O ANNIKA JOHNSON xxxxxxxxxxx [id number] SEYBOLD resent [facility] [place] Directives For more information, please contact: [phone] 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
--- OUTSIDE RECORDS SUMMARY | 2019-10-27 17:36 | XMS REPORT | Clinical Summary ---
Author Author JEFFY [facility] Organization [facility] Address Unknown Phone Unavailable Care Team Providers Care Machine Wood Sander Name Role Phone Balaji Dao MD PCP Unavailable Rigoberto Gardner Shayy Unavailable Allergies Comments Active Allergy Reactions Severity Noted Date Iodine Shortness Of High 10/08/2016 Breath, Rash Penicillins Shortness Of High 10/08/2016 Breath Shellfish Containing Shortness Of High 6 Products Breath, Rash Medications End Date Status Medication Sig Dispensed Refills Start Date Active insulin detemir (LEVEMIR) Inject 4 0 06/17 100 unit/mL injection Units 8 subcutaneousl y nightly . Active aspirin 81 MG EC tablet Take 81 mg by 0 mouth daily. Active clopidogrel (PLAVIX) 75 Take 75 mg by 0 mg tablet mouth daily. Active isosorbide mononitrate Take 30 mg by 0 (IMDUR) 30 MG 24 hr mouth daily. tablet Active levothyroxine (SYNTHROID, Take 25 mcg 0 LEVOTHROID) 25 MCG tablet by mouth Every morning on an empty stomach. Active metoprolol (TOPROL-XL) 25 Take 25 mg by 0 MG 24 hr tablet mouth daily. Active omeprazole (PRILOSEC) 20 Take 20 mg by 0 MG capsule mouth 2 (two) times daily as needed. Active ondansetron (ZOFRAN-ODT) Take 4 mg by 0 4 MG disintegrating mouth every 8 tablet (eight) hours as needed for Nausea. Active nitroglycerin (NITROSTAT) 1 tablet 0 04/0 0.4 MG SL tablet under the 9 tongue at onset of attack. Repeat as needed up to 3 times. Active atorvastatin (LIPITOR) 80 Take 80 mg by 0 MG tablet mouth daily. Active Bacillus coagulans (BACID Take 1 0 05/0 WITH LACTOSPORE) 1 capsule by 9 billion cell Cap mouth daily. Active diphenhydrAMINE Take 50 mg by 0 (BENADRYL) 50 MG mouth daily. capsuleIndications: allergic reaction Active amLODIPine (NORVASC) 2.5 Take 2.5 mg 0 02/19 MG tablet by mouth 9 daily. 07/06/2019 Discontinued ergocalciferol Take 50,000 0 (ERGOCALCIFEROL) 50,000 Units by unit capsule mouth once a week . 06/24/2019 Discontinued triamcinolone (KENALOG) Apply 0 0.1 % topical cream topically as needed to affected area. . 06/24/2019 Discontinued traMADol (ULTRAM) 50 mg Take 50 mg by 0 tablet mouth every 6 (six) hours as needed for Pain. Active Problems Problem Noted Date End stage renal disease 10/06/2018 ESRD (end stage renal disease) 11/24/2017 Encounters Care Team Description Date Type Specialty Maddie Howe MD ESRD (end stage renal disease) (HCC) (Pr imary Dx) 08/05/2019 Office Visit Cardiology Momo Ingram MD 07/20/2019 Anesthesia Event Maddie Howe MD LAPAROSCOPY,INSERT PERITONEAL CATHETER 07/20/2019 Surgery Maddie Howe MD 07/20/2019 Hospital Encounter Maddie Howe MD 07/19/2019 Orders Only Cardiology 07/06/2019 Hospital Pre-Admission Testi ng Encounter Maddie Howe MD ESRD (end stage renal disease) (HCC) (Pr imary Dx) 06/24/2019 Office Visit Cardiology Maddie Howe MD ESRD (end stage renal disease) (HCC) (Pr imary Dx) 04/29/2019 Office Visit Cardiology Arsenio Mobley MD Chronic renal failure, unspecified CKD s tage 04/15/2019 Hospital Radiology Encounter Arsenio Mobley MD Arteriovenous fistula stenosis, sequela (Primary Dx); Chronic renal failure, unspecified CKD stage 04/12/2019 Outside Orders Central Scheduling Maddie Howe MD ESRD (end stage renal disease) (HCC) (Pr imary Dx) 11/26/2018 Office Visit Cardiology Holden Lawrence MD 11/10/2018 Anesthesia Event Maddie Howe MD CREATION,A-V FISTULA BY BASILIC VEIN TRA NSPOSITION 11/10/2018 Surgery Maddie Howe MD 11/10/2018 Hospital Encounter 10/27/2018 Hospital Pre-Admission Testi ng Encounter after 2018 Family History Medical History Relation Name Comments Diabetes Mother Relation Name Status Comments Father Mother Alive Social History Date Tobacco Use Types Packs/Day Years Used Never Smoker Smokeless Tobacco: Never Used Tobacco Cessation: Counseling Given: No Alcohol Use Drinks/Week oz/Week Comments No Sex Assigned at Date Recorded Not on file Industry Job Start Date Occupation Not on file Not on file Not on file Travel End Travel History Travel Start No recent travel history available. Last Filed Vital Signs Time Taken Vital Sign Reading 08/05/2019 10:17 AM PAPER MILL MANAGER Blood Pressure 129/67 08/05/2019 10:17 AM PAPER MILL MANAGER Pulse 69 08/05/2019 10:17 AM PAPER MILL MANAGER Temperature 36.1 C (97 F) 08/05/2019 10:17 AM PAPER MILL MANAGER Respiratory Rate 14 08/05/2019 10:17 AM PAPER MILL MANAGER Oxygen Saturation 100% - Inhaled Oxygen - Concentration 08/05/2019 10:17 AM PAPER MILL MANAGER Weight 95.3 kg (210 lb) 08/05/2019 10:17 AM PAPER MILL MANAGER Height 171.5 cm (5' 7.5") 08/05/2019 10:17 AM PAPER MILL MANAGER Body Mass Index 32.41 Plan of Treatment Health Maintenance Due Date Last Done Comments COLON CANCER SCREENING 1960 COLONOSCOPY PNEUMOCOCCAL VACCINE 2-64 Completed 10/07/2017, 12/29/2014, 11/05/2001 YEARS AT RISK INFLUENZA VACCINE Completed 02/11/2019, 018, 04/07/2017, Additional history exists Procedures Comments Procedure Name Priority Date/Time Associated Diag nosis TRANSFUSION SERVICE 07/21/2019 REPORT - SCAN 6:06 PM PAPER MILL MANAGER HGB/HCT (H&H) - STAT LAB STAT 07/20/2019 11:43 AM PAPER MILL MANAGER GLUCOSE-STAT LAB STAT 07/20/2019 11:43 AM PAPER MILL MANAGER POTASSIUM-STAT LAB STAT 07/20/2019 11:43 AM PAPER MILL MANAGER LAPAROSCOPY,INSERT 07/20/2019 End stage renal di sease PERITONEAL CATHETER 8:00 AM PAPER MILL MANAGER (HCC) Case Notes HARD COPY ON FILE/PRANAV 06/28 @ 11:18 TYPE AND SCREEN, Routine 07/20/2019 AUTOMATED 7:00 AM PAPER MILL MANAGER GLUCOSE-STAT LAB STAT 07/20/2019 7:00 AM PAPER MILL MANAGER HGB/HCT (H&H) - STAT LAB Routine 07/20/2019 7:00 AM PAPER MILL MANAGER POTASSIUM-STAT LAB STAT 07/20/2019 7:00 AM PAPER MILL MANAGER POCT-GLUCOSE METER Routine 07/20/2019 5:40 AM PAPER MILL MANAGER IR THROMOBOLYSIS/DECLOT Routine 04/15/2019 Chroni c renal failure, AV FISTULA/GRAFT 11:55 AM CDT unspecified CKD sta ge CBC W/PLT COUNT & AUTO Routine 04/15/2019 DIFFERENTIAL 8:24 AM CDT BASIC METABOLIC PANEL (7) Routine 04/15/2019 8:24 AM CDT APTT Routine 04/15/2019 8:24 AM CDT PROTHROMBIN TIME/INR Routine 04/15/2019 8:24 AM CDT CBC W/PLT COUNT & AUTO Routine 04/15/2019 DIFFERENTIAL 8:24 AM CDT RHYTHM STRIP - SCAN 11/12/2018 7:50 AM CDT TRANSFUSION SERVICE 11/11/2018 REPORT - SCAN 6:05 PM CDT HGB/HCT (H&H) - STAT LAB STAT 11/10/2018 4:25 PM CDT GLUCOSE-STAT LAB STAT 11/10/2018 4:25 PM CDT POTASSIUM-STAT LAB STAT 11/10/2018 4:25 PM CDT CREATION,A-V FISTULA BY 11/10/2018 End stage dee al disease BASILIC VEIN 1:00 PM CDT (HCC) TRANSPOSITION Case Notes NO ICU BED NEEDED GLUCOSE-STAT LAB STAT 11/10/2018 9:12 AM CDT POTASSIUM-STAT LAB STAT 11/10/2018 9:12 AM CDT HGB/HCT (H&H) - STAT LAB Routine 11/10/2018 9:12 AM CDT after 2018 Results * TRANSFUSION SERVICE REPORT - SCAN (07/21/2019 6:06 PM PAPER MILL MANAGER) Only the most recent of 2 results within the time period is included. Narrative Performed At This result has an attachment that is n ot available. * Potassium-Stat Lab (07/20/2019 11:43 AM PAPER MILL MANAGER) Only the most recent of 4 results within the time period is included. Potassium 4.1 3.6 - 5.5 meq/L [facility] Specimen Blood, Arterial Performing Organization Address [facility] one Number [address] [phone] [place] [address] * Glucose-Stat Lab (07/20/2019 11:43 AM PAPER MILL MANAGER) Only the most recent of 4 results within the time period is included. Glucose 116 (H) 70 - 110 mg/dL [facility] Specimen Blood, Arterial Performing Organization Address [facility] one Number [address] [facility] * HGB/HCT (H&H)-Stat Lab (07/20/2019 11:43 AM PAPER MILL MANAGER) Only the most recent of 4 results within the time period is included. Hemoglobin 11.3 (L) 13.0 - 16.8 g/dL [facility] Hematocrit 33.0 (L) 40.0 - 50.0 % [facility] Specimen Blood, Arterial Performing Organization Address [facility] one Number [address] 0 [phone] [place] [address] * Type and screen, automated (07/20/2019 7:00 AM PAPER MILL MANAGER) ABO/RH AUTOMATED (BEAKER) A NEGATIVE [facility] Ab Scrn NEGATIVE [facility] Specimen Blood Performing Organization Address [facility] Ph one Number [facility] [address] [place] [address] [facility] * POC-Glucose meter (07/20/2019 5:40 AM PAPER MILL MANAGER) POC-Glucose Meter 119 (H)Comment: : TESTED AT 70 - 110 mg/dL [address] [address]: National Sales Manager/Public Address System Operator ID = [id number] for JACKY VIRAMONTES Specimen Blood Performing Organization Address [facility] one Number [address] [phone] [place] [address] * IR Thromobolysis/Declot AV Fistula/Graft (04/15/2019 11:55 AM CDT) Specimen Narrative Performed At FINAL REPORT [employer] AV shunt evaluation. History: Renal failure, malfunctioning left upper extremity arteriovenous fistula. Modality: Ultrasound and fluoroscopy. Service Restorer Emergency:Hossein Poe MD. Roll Forming Machine Operator: MD Karlee (Fellow) MD Kai (Resident). Sedation: Moderate sedation was adminis tered. 1 mg of Versed and50 mcg of fentanyl IV was used for moderat e sedation monitored under my direction. Total intra-service time of sedation [id number]. The patient's vital signs were monitored th roughout the procedure and recorded in the patient's medical recor d by the nurse. Approach: Left upper extremity AV fistula. Estimated blood loss:< 5 cc. Specimen: None. Fluoroscopy Time: 6.2 min. Reference Air Kerma (Ka, r): 153 mGy. Technique: Informed written consent was obtained. Discussion of risks, benefits, and alternatives were made with the pat ient. The patient expressed understanding and agreed to proceed. A universal timeout was performed prior to starting the procedu re.All elements maximal sterile barrier technique was utilized for this procedure, including utilization of sterile scrub solution f or skin prep, a large sterile sheet to cover the areas of the patient that were not prepped, and hand hygiene, mask, head covering, and sterile gown for performing radiologist and scrub technologist. Initial ultrasound images demonstrate d iffusely diminutive/non-mature left upper extremity arteriovenous fist hafsa. 1% lidocaine was used for local anesthesia. Using ultrasound guid ance, following acquisition of permanent images, the left upper extrem ity arteriovenous fistula was accessed with a 21-gauge micropuncture needle towards the central venous system. A 0.018 wire was advance d centrally. The needle was exchanged for a 4 Lithuanian micropuncture sheath. DSA runs of left upper extremity central venous system were pe rformed. The micropuncture sheath was exchanged over 0.035 Bentson wire for a 6 Lithuanian short vascular sheath. The foc al stenosis the sheath was removed and hemostasis achieved using 2 -0 chromic pursestring suture. At the junction of the left subclavian and brachiocephalic veins was angioplastied using a 10 mm x 4 cm Must ang over the wire balloon, 8 mm high pressure balloon, an 8 mm x 6 c m drug coated balloon. Post angioplasty venography was performed. All catheters and wires were removed. T he sheath were removed and hemostasis achieved using 2-0 chromic p urse-string suture. A sterile dressing was applied. The patient pita ated the procedure without immediate complication. The patient rec eived 3000 units of heparin intravenously during the course the pro cedure. FINDINGS: Left upper extremity arteriovenous fist hafsa evaluation demonstrates approximately 70% stenosis at the junct ion of the left subclavian and brachiocephalic veins. Post angioplasty venography demonstrate s improved flow but with persistent moderate residual stenosis. Remainder of left central veins and art erial anastomosis are patent. IMPRESSION: Successful left upper extremity arterio venous fistula evaluation demonstrating diffusely diminutive/non- mature fistula with high-grade stenosis at the junction of the left hodgson bclavian and brachiocephalic veins. After angioplasty, there is impr reji flow with persistent residual stenosis. Recommend short-term follow-up evaluation for fistula maturation. Signed: Hossein Poe MD Report Verified Date/Time: 9 15:48:14 Reading Location: [facility] P048 Angio Bod y Reading Room Procedure Note Interface, External Ris In - 04/15/2019 3:50 PM CDT FINAL REPORT AV shunt evaluation. History: Renal failure, malfunctioning left upper extremity arteriovenous fistula. Modality: Ultrasound and fluoroscopy. Service Restorer Emergency: Hossein Poe MD. Roll Forming Machine Operator: MD Karlee (Fellow) MD Kai (Resident). Sedation: Moderate sedation was administered. 1 mg of Versed and 50 mcg of fentanyl IV was used for moderate sedation monitored under my direction. Total intra-service time of sedation was 45 minutes. The patient's vital signs were monitored throughout the procedure and recorded in the patient's medical record by the nurse. Approach: Left upper extremity AV fistula. Estimated blood loss: < 5 cc. Specimen: None. Fluoroscopy Time: 6.2 min. Reference Air Kerma (Ka, r): 153 mGy. Technique: Informed written consent was obtained. Discussion of risks, benefits, and alternatives were made with the patient. The patient expressed understanding and agreed to proceed. A universal timeout was performed prior to starting the procedure. All elements maximal sterile barrier technique was utilized for this procedure, including utilization of sterile scrub solution for skin prep, a large sterile sheet to cover the areas of the patient that were not prepped, and hand hygiene, mask, head covering, and sterile gown for performing radiologist and scrub technologist. Initial ultrasound images demonstrate diffusely diminutive/non-mature left upper extremity arteriovenous fistula. 1% lidocaine was used for local anesthesia. Using ultrasound guidance, following acquisition of permanent images, the left upper extremity arteriovenous fistula was accessed with a 21-gauge micropuncture needle towards the central venous system. A 0.018 wire was advanced centrally. The needle was exchanged for a 4 Lithuanian micropuncture sheath. DSA runs of left upper extremity central venous system were performed. The micropuncture sheath was exchanged over 0.035 Bentson wire for a 6 Lithuanian short vascular sheath. The foca l stenosis the sheath was removed and hemostasis achieved using 2-0 chromic pursestring suture. At the junction of the left subclavian and brachiocephalic veins was angioplastied using a 10 mm x 4 cm [place] over the wire balloon, 8 mm high pressure balloon, an 8 mm x 6 cm drug coated balloon. Post angioplasty venography was performed. All catheters and wires were removed. The sheath were removed and hemostasis achieved using 2-0 chromic purse-string suture. A sterile dressing was applied. The patient tolerated the procedure without immediate complication. The patient received 3000 units of heparin intravenously during the course the procedure. FINDINGS: Left upper extremity arteriovenous fistula evaluation demonstrates approximately 70% stenosis at the junction of the left subclavian and brachiocephalic veins. Post angioplasty venography demonstrates improved flow but with persistent moderate residual stenosis. Remainder of left central veins and arterial anastomosis are patent. IMPRESSION: Successful left upper extremity arteriovenous fistula evaluation demonstrating diffusely diminutive/non-mature fistula with high-grade stenosis at the junction of the left subclavian and brachiocephalic veins. After angioplasty, there is improved flow with persistent residual stenosis. Recommend short-term follow-up evaluation for fistula maturation. Signed: Hossein Poe MD Report Verified Date/Time: 04/15/2019 15:48:14 Reading Location: [place] [address] Angio Body Reading Room Performing Organization Address City/State/Zipcode Ph one Number GE RIS * CBC with platelet count + automated diff (04/15/2019 8:24 AM CDT) WBC 6.8 3.5 - 10.5 K/L [facility] RBC 4.00 (L) 4.63 - 6.08 M/L [facility] Hemoglobin 12.9 (L) 13.7 - 17.5 GM/DL [facility] Hematocrit 39.7 (L) 40.1 - 51.0 % [facility] MCV 99.3 (H) 79.0 - 92.2 fL [facility] MCH 32.3 (H) 25.7 - 32.2 pg [facility] MCHC 32.5 32.3 - 36.5 GM/DL [facility] RDW 13.4 11.6 - 14.4 % [facility] Platelets 120 (L) 150 - 450 K/CU MM [facility] MPV 10.5 9.4 - 12.4 fL [facility] nRBC 0 0 - 0 /100 WBC [facility] % Neutros 88 % [facility] % Lymphs 10 % [facility] % Monos 2 % [facility] % Eos 0 % [facility] % Baso 0 % [facility] # Neutros 5.96 (H) 1.78 - 5.38 K/L [facility] # Lymphs 0.68 (L) 1.32 - 3.57 K/L [facility] # Monos 0.10 (L) 0.30 - 0.82 K/L [facility] # Eos 0.00 (L) 0.04 - 0.54 K/L [facility] # Baso 0.02 0.01 - 0.08 K/L [facility] Immature 1 0 - 1 % [facility] Granulocytes-Relative [facility] Specimen Blood Performing Organization Address City/[facility] Ph one Number [place] [address] [phone] [place] [address] * aPTT (04/15/2019 8:24 AM CDT) PTT 31.6 22.5 - 36.0 seconds [facility] Specimen Blood Performing Organization Address City/[facility] Ph one Number [place] [address] [facility] * Prothrombin time/INR (04/15/2019 8:24 AM CDT) Protime 13.6 11.9 - 14.2 seconds [facility] INR 1.1 <=5.9 [facility] Specimen Blood Narrative Performed At Effective 11/11/2018: PT Reference Range Change [facility] Merari Iraheta [facility] New: 11.9-14.2Previous: 11.7-14.7 [facility] MEDICAL CE NTER RECOMMENDED COUMADIN/WARFARIN INR THERA PY RANGES STANDARD DOSE: 2.0-3.0Includes: PRO PHYLAXIS for venous thrombosis, systemic embolization; TREATMENT for venous thro mbosis and/or pulmonary embolus. HIGH RISK: Target INR is 2.5-3.5 for pa tients wiht mechanical heart valves. Performing Organization Address [facility] one Number [address] [facility] * Basic Metabolic Panel (04/15/2019 8:24 AM CDT) Sodium 137 136 - 145 meq/L [facility] Potassium 4.8 3.5 - 5.1 meq/L [facility] Chloride 99 98 - 107 meq/L [facility] CO2 26 22 - 29 meq/L [facility] BUN 50 (H) 7 - 21 mg/dL [facility] Creatinine 4.13 (H) 0.57 - 1.25 mg/dL [facility] Glucose 232 (H) 70 - 105 mg/dL [facility] Calcium 9.6 8.4 - 10.2 mg/dL [facility] EGFR 15Comment: ESTIMATED GFR IS mL/min/1.73 sq m [facility] NOT ACCURATE CREATININE [facility] CLEARANCE IN PREDICTING GLOMERULAR FILTRATION RATE. ESTIMATED GFR IS NOT APPLICABLE FOR DIALYSIS PATIENTS. Specimen Blood Performing Organization Address [facility] Ph one Number [address] [address] [facility] * RHYTHM STRIP - SCAN (11/12/2018 7:50 AM CDT) Narrative Performed At This result has an attachment that is n ot available. after 2018 Insurance Payer Benefit Subscriber ID Type Phone Address Plan / Group [employer] - [employer] xxxxxxxxxxx HMO/POS NETWORK [phone] Advance Directives Patient has advance care planning documents, and code status on file. For more i nformation, please contact: [facility] [address] [place] [address] Date Inactivated Comments Code Status Date Activated 07/20/2019 2:56 PM Full Code 07/20/2019 5:43 AM This code status was determined by: Patient 11/10/2018 9:16 PM Full Code 11/10/2018 9:03 AM This code status was determined by: Patient 10/06/2018 12:40 PM Full Code 10/06/2018 5:52 AM This code status was determined by: Patient 11/24/2017 2:22 PM Full Code 11/24/2017 5:41 AM This code status was determined by: Patient
--- OUTSIDE RECORDS SUMMARY | 2019-10-27 17:37 | XMS REPORT ---
Author Author [facility] t Organization [facility] Address [address] [place] [address] Phone Unavailable Care Team Providers Care Segmental Paving Supervisor Name Role Phone Feliberto LANDEROS, Olvin Carpio PCP Cameron LANDEROS, Duran Rosado Attphys Shaun Pollock Attphys Unavailable YAN HODGE Attphys Unavailable Thalia Fontaine MA Attphys Unavailable Andrew WEST, Zahida Attphys Unavailable Gisell Whitlock MA Attphys Unavailable Judy ROGERS Attphys Unavailable Arsalan LANDEROS, Rigoberto Richards Attphys Jessee WEST, Shweta Attphys Unavailable Delilah Mckeon Attphys Unavailable Kimberly Damian Attphys Unavailable CATIE RG Attphys Unavailable YAN HODGE Admphys Unavailable Judy ROGERS Admphys Unavailable Payers Payer Name Policy Type Policy Number Effective Date Expiration Date S ource CIGNACIGNA LIFESOURCExxxxxxxxxxx2010-PresentTransplant xxxxxxxxxxx 2010 00:00:00 Julián Ryder Problems Condition Name Condition Details Condition Category Status Onset Date Resolution Date Last Treatment Date Treating Clinician Comments Source 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, 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, with long-term current use of insulin Disease Active 2016-10-08 00:00:[address] Hypertensive nephrosclerosis Hypertensive nephrosclerosis Disease Active 2016-10-08 00:00:00 Julián Ryder Allergies, Adverse Reactions, Alerts Allergy Name Allergy Type Status Severity Reaction(s) Onset Date Inacti ve Date Treating Clinician Comments Source iodine DA Active 2018-08-17 00:00:00 [facility] Penicillins DA Active 2018-08-15 00:00:00 [facility] Iodine Propensity to adverse reactions to drug Active 2016-10-08 00:00:00 Julián Ryder Penicillins Propensity to adverse reactions to drug Active Shortness Of Breath 2016-10-08 00:00:00 Julián Ryder Penicillins DA Active 2016-05-26 00:00:00 [facility] SEAFOOD DA Active 2016-05-26 00:00:00 [facility] Family History Family Member Diagnosis Comments Start Date Stop Date Source Natural father Diabetes [facility] Natural father Hypertension Julián Ryder Maternal grandfather [facility] Natural mother Diabetes [facility] Natural mother Hypertension Julián Ryder Social History Social Habit Start Date Stop Date Quantity Comments Source Sex Assigned At Parmjitbobby Ryder Exposure to SARS-CoV-2 (event) Unable to assess Julián Ryder Alcohol intake 2019-01-28 00:00:00 2019-01-28 00:00:00 Current non-drinker of alcohol (finding) Julián Ryder Smoking Status Start Date Stop Date Source Never smoker Julián Schaeffer t Medications Ordered Medication Name Filled Medication Name Start Date Stop Da te Current Medication? Ordering Clinician Indication Dosage Frequency Signature (SIG) Comments Components Source atorvastatin (LIPITOR) 10 MG tablet 2019-01-28 15:19:00 Yes 80mg QD Take 80 mg by mouth daily. Julián Ryder ergocalciferol (VITAMIN D2) 50,000 unit capsule 2019-01-28 15:19 :00 Yes [id number] Q7D Take 50,000 Units by mouth once a week. Julián Ryder insulin detemir U-100 (LEVEMIR) 100 unit/mL injection 2019-01-28 15:19:00 Yes QD Inject under the skin nightly. Julián Ryder levothyroxine (SYNTHROID, LEVOXYL) 25 mcg tablet 2019-01-28 15:19:00 Yes 25ug QD Take 25 mcg by mouth daily. Julián Ryder aspirin (ECOTRIN) 81 MG enteric coated tablet 2019-01-28 15:19:0 0 Yes 81mg QD Take 81 mg by mouth daily. Baylee Ryder omeprazole (PriLOSEC) 20 MG capsule 2019-01-28 15:19:00 Yes 20mg QD Take 20 mg by mouth daily. Julián Ryder nitroglycerin (NITROSTAT) 0.4 MG SL tablet 2019-01-28 15:19:[address] 0.4 mg under the tongue every 5 (five) minutes a s needed for chest pain. Julián Ryder clopidogrel (PLAVIX) 75 mg tablet 2019-01-28 15:18:59 Yes 75mg QD Take 75 mg by mouth daily. Julián Ryder metoprolol succinate XL (TOPROL-XL) 25 mg 24 hr tablet 2019-01-28 15:18:59 Yes 25mg QD Take 25 mg by mouth daily. Julián Ryder isosorbide mononitrate (IMDUR) 30 MG 24 hr tablet 2019-01-28 15:18:59 Yes 30mg QD Take 30 mg by mouth daily. Julián Ryder traMADol (ULTRAM) 50 mg tablet 2019-01-28 15:18:59 Yes 50mg Q6H Take 50 mg by mouth every 6 (six) hours as needed for moderate pain. Julián Ryder insulin GLARGINE (LANTUS) 100 unit/mL injection (vial) 2019-01-28 15:18:28 2019-01-28 00:00:00 No 17U QD Inject 17 Units unde r the skin nightly. Julián Ryder carvedilol (COREG) 3.125 MG tablet 2019-01-28 15:18:18 201 02-21-15 00:00:00 No 3.125mg QD Take 3.125 mg by mouth daily. Julián Ryder jvUHMLRsgq-hizjicyus-nmoogtzms 10-320-25 mg tablet 2019-01-28 15:18:08 2019-01-28 00:00:00 No QD Take by mouth daily. Julián Hagenist aspirin 325 MG tablet 2019-01-28 15:15:46 2019-01-28 00:00:00 No 325mg QD Take 325 mg by mouth daily. Gallego Franck benitez Vital Signs Vital Name Observation Time Observation Value Comments Source Systolic blood pressure 2019-01-28 12:50:00 137 mm[Hg] Julián Hagenist Diastolic blood pressure 2019-01-28 12:50:00 71 mm[Hg] Julián Hagenist Heart rate 2019-01-28 12:50:00 62 /min Julián [facility] Body temperature 2019-01-28 12:29:00 36.22 Kathleen Quang cannon [facility] Respiratory rate 2019-01-28 12:29:00 17 /min Quang Ryder Body height 2019-01-28 12:29:00 172.7 cm Gallego [facility] Body weight 2019-01-28 12:29:00 92.534 kg Julián Hagenist BMI 2019-01-28 12:29:00 31.02 kg/m2 Julián Ryder Oxygen saturation in Arterial blood by Pulse oximetry 01-28 12:29:00 100 /min Julián Ryder Procedures Procedure Date / Time Performed Performing Clinician Sourc e SINGLE ANTIGEN BEADS 2019-08-09 13:56:00 Alonzo Barnes SINGLE ANTIGEN BEADS 2019-05-10 23:56:00 Alonzo Barnes URINE CULTURE 2019-01-28 17:29:00 Kellee Arriaza GRAM STAIN 2019-01-28 17:29:00 Kellee Arriaza ECG 12-LEAD 2019-01-28 14:36:00 Kellee Arriaza TTE COMPLETE, WO CONTRAST, W DOPPLER ([id number]) 2019-01-28 13:4 4:53 Kellee Arriaza XR CHEST 2 VW 2019-01-28 13:39:40 Kellee Arriaza COMPREHENSIVE METABOLIC PANEL 2019-01-28 12:10:00 Vinay Arriaza HIV AG/AB COMBINATION 2019-01-28 12:10:00 Kellee Arriaza HEPATITIS B CORE ANTIBODY TOTAL 2019-01-28 12:10:00 Arriaza, Ramon Ryder HEPATITIS B SURFACE ANTIGEN 2019-01-28 12:10:00 Arriaza, Kellee Ryder HEPATITIS B SURFACE AB, QUANTITATIVE 2019-01-28 12:10:00 Arriaza, Kellee Ryder HEPATITIS C ANTIBODY 2019-01-28 12:10:00 Arriaza, Kellee Ryder SYPHILIS TOTAL ANTIBODY 2019-01-28 12:10:00 Arriaza, Kellee Ryder HC COMPLETE BLD COUNT W/AUTO DIFF 2019-01-28 12:10:00 Arriaza, Kranthi Ryder PROTHROMBIN TIME WITH INR 2019-01-28 12:10:00 Arriaza, Kellee Ryder PARTIAL THROMBOPLASTIN TIME (PTT) 2019-01-28 12:10:00 Arriaza, Kranthi Ryder C-PEPTIDE 2019-01-28 12:10:00 Arriaza, Kellee Ryder LIPID PANEL 2019-01-28 12:10:00 Arriaza, Kellee Ryder PHOSPHORUS LEVEL 2019-01-28 12:10:00 Arriaza, Kellee Chaves on [facility] LDH 2019-01-28 12:10:00 Arriaza, Kellee Ryder PROSTATE SPECIFIC ANTIGEN 2019-01-28 12:10:00 Arriaza, Kellee Ryder HEMOGLOBIN A1C 2019-01-28 12:10:00 Arriaza, Kellee Ryder PARATHYROID HORMONE 2019-01-28 12:10:00 Arriaza, Kellee Ryder HEPATITIS C VIRUS QUANTITATIVE BY PCR 2019-01-28 12:10:00 Arriaza , Kellee Ryder TB T-SPOT 2019-01-28 12:10:00 Arriaza, Kellee Ryder URINALYSIS SCREEN AND MICROSCOPY, WITH REFLEX TO CULTURE 201 02-21-15 12:10:00 Arriaza, Kellee Ryder DRUG MANCIA 9, SER/MIKE, SCRN W/RFLX TO CONF 2019-01-28 12:10:00 Arriaza, Kellee Ryder ESTIMATED GFR 2019-01-28 12:10:00 Arriaza, Kellee Ryder SINGLE ANTIGEN BEADS 2019-01-28 12:10:00 Arriaza, Kellee Ryder OCCULT BLOOD, STOOL 2019-01-26 16:54:00 Kellee Arriaza OCCULT BLOOD, STOOL 2019-01-25 16:52:00 Kellee Arriaza OCCULT BLOOD, STOOL 2019-01-24 16:50:00 Kellee Arriaza SINGLE ANTIGEN BEADS 2019-01-06 16:35:00 Alonzo Barnes [facility] SINGLE ANTIGEN BEADS 2018-12-07 13:05:00 Cameron Alonzo Garzon [facility] [place] [facility] SINGLE ANTIGEN BEADS 2018-11-06 13:24:00 Cameron Alonzo cannon [facility] Plan of Care Planned Activity Planned Date Details Comments Source Future Scheduled Test [code = ] Future Scheduled Test [code = ] Future Scheduled Test [code = ] Future Scheduled Test [code = ] Future Scheduled Test [code = ] Encounters Start Date/Time End Date/Time [facility] Source 2019-10-11 00:00:00 2019-10-11 00:00:00 Outpatient ALONZO BARNES [facility] [id number] Julián Ryder 2019-09-06 00:00:00 2019-09-06 00:00:00 Outpatient CAMERON KATIE [facility] [id number] Julián Ryder 2019-08-09 00:00:00 2019-08-09 00:00:00 Outpatient CAMERON KATIE [facility] [id number] Julián Ryder Results Test Description Test Time Test Comments Results Result Comments Source Single antigen beads 2019-08-19 22:34:08 Test Item SAB serum ID (test code = 5866) [id number] SAB serum collection D&T (test code = 5867) 08/09/2019 07:56 AM SAB class I antibody assignment (test code = 5870) Negative SAB cPRA class I (test code = 5868) 0 SAB class II antibody assignment (test code = 5871) DP19 SAB cPRA class II (test code = 5869) 0 Case number (test code = [id number]) [id number] Single antigen beads (test code = 4604) See link below for PDF Lab Report Julián RyderGLUCOSE-STAT [id number] 12:03:00* Test Item Value Reference Range Interpretation Comments GLUCOSE RANDOM (BEAKER) (test code = 652) 116 mg/dL 70-110 H HGB/HCT (H&H) - STAT [id number] 12:03:00* Test Item Value Reference Range Interpretation Comments HEMOGLOBIN (BEAKER) (test code = 410) 11.3 g/dL 13.0-16.8 L HEMATOCRIT (BEAKER) (test code = 411) 33.0 % 40.0-50.0 L POTASSIUM-STAT [id number] 11:59:00* Test Item Value Reference Range Interpretation Comments POTASSIUM (BEAKER) (test code = 379) 4.1 meq/L 3.6-5.5 GLUCOSE-STAT [id number] 07:17:00* Test Item Value Reference Range Interpretation Comments GLUCOSE RANDOM (BEAKER) (test code = 652) 143 mg/dL 70-110 H HGB/HCT (H&H) - STAT [id number] 07:17:00* Test Item Value Reference Range Interpretation Comments HEMOGLOBIN (BEAKER) (test code = 410) 11.5 g/dL 13.0-16.8 L HEMATOCRIT (BEAKER) (test code = 411) 34.0 % 40.0-50.0 L POTASSIUM-STAT [id number] 07:16:00* Test Item Value Reference Range Interpretation Comments POTASSIUM (BEAKER) (test code = 379) 4.5 meq/L 3.6-5.5 POCT-GLUCOSE [id number] 05:52:00* Test Item Value Reference Range Interpretation Comments POC-GLUCOSE METER (BEAKER) (test code = 1538) 119 mg/dL 70-110 H : TESTED AT [address], [address]: Farmworker Fur/Computer Discovery Teacher ID = [id number] for SAMI VIRAMONTESIVANA WARNER, THROMBECTOMY, A-V [id number] 15:48:00Reason for Exam:->ckd, failure FINAL REPORT AV shunt evaluation. History: Renal failure, malfunctioning left upper extremity arteriovenous fistula. Modality: Ultrasound and fluoro scopy. Household Appliances Service Technician: Hossein Poe MD. Rehabilitation Counsellor: MD Karlee (Fellow)Flavia lacey MD (Resident). Sedation: Moderate sedation w as administered. 1 mg of Versed and 50 [...] 5 cc. Specimen: None. Fluoroscopy Time: 6.2 min.Reference Air Kerma (Ka, r): 153 mGy. Technique: [...] scrub technologist. Initial ultrasound images demonstrate diffusely diminutive/non- mature left upper extremity arteriovenous fistula. 1% lidocaine was used for local anesthesia. Using ultrasound guidance, following acquisition of permanent images, the left upper extremity arteriovenous fistula was accessed with a 21- gauge micropuncture needle towards the central venous system. A 0.018 wire was advanced centrally. The needle was exchanged for a 4 Norwegian micropuncture sheath. DSA runs of left upper extremity central venous system were performed. The micropuncture sheath was exchanged over 0.035 Bentson wire for a 6 Norwegian short vascular sheath. The focal stenosis the sheath was removed and hemostasis achieved using 2-0 chromic pursestring suture. At the junction of the left subc lavian and brachiocephalic veins was angioplastied using a 10 mm x 4 cm Bowman over the wire balloon, 8 mm high pressure balloon, an 8 mm x 6 cm drug coated ba lloon. Post angioplasty venography was performed. All catheters and wires were r emoved. The sheath were removed and hemostasis achieved using 2-0 chromic purse- string suture. A sterile dressing was applied. The patient tolerated the procedu re without immediate complication. The patient received 3000 units of heparin in travenously during the course the procedure. FINDINGS: Left upper extremity arteriovenous fistula e valuation demonstrates approximately 70% stenosis at the junction of the left hodgson bclavian and brachiocephalic veins. Post angioplasty venography demonstrates imp roved flow but with persistent moderate residual stenosis. Remainder of left ce ntral veins and arterial anastomosis are patent. IMPRESSION: Suc cessful left upper extremity arteriovenous fistula evaluation demonstrating diff usely diminutive/non-mature fistula with high-grade stenosis at the junction of the left subclavian and brachiocephalic veins. After angioplasty, there is impro sri flow with persistent residual stenosis. Recommend short-term follow-up evalu ation for fistula maturation. Signed: Hossein Poe MDReport Verified Date/Time: 04/15/2019 15:48:14 Reading Location: [facility] P048 Angio Body Reading Room 2019-04-15 08:57:00* Test Item Value Reference Range Interpretation Comments PARTIAL THROMBOPLASTIN TIME (BEAKER) (test code = 760) 31.6 seconds 22.5-36.0 PROTHROMBIN TIME/[id number] 08:56:00* Test Item Value Reference Range Interpretation Comments PROTIME (BEAKER) (test code = 759) 13.6 seconds 11.9-14.2 INR (BEAKER) (test code = 370) 1.1 <=5.9 Effective 11/11/2018: PT Reference Range ChangeNew: 11.9-14.2 Previous: 11.7-14. 7RECOMMENDED COUMADIN/WARFARIN INR THERAPY RANGESSTANDARD DOSE: 2.0-3.0 Include s: PROPHYLAXIS for venous thrombosis, systemic embolization; TREATMENT for venou s thrombosis and/or pulmonary embolus.HIGH RISK: Target INR is 2.5-3.5 for patie nts wiht mechanical heart valves.BASIC METABOLIC [id number] 08:47:00* Test Item Value Reference Range Interpretation Comments SODIUM (BEAKER) (test code = 381) 137 meq/L 136-145 POTASSIUM (BEAKER) (test code = 379) 4.8 meq/L 3.5-5.1 CHLORIDE (BEAKER) (test code = 382) 99 meq/L 98-107 CO2 (BEAKER) (test code = 355) 26 meq/L 22-29 BLOOD UREA NITROGEN (BEAKER) (test code = 354) 50 mg/dL 7-21 H CREATININE (BEAKER) (test code = 358) 4.13 mg/dL 0.57-1.25 H GLUCOSE RANDOM (BEAKER) (test code = 652) 232 mg/dL 70-105 H CALCIUM (BEAKER) (test code = 697) 9.6 mg/dL 8.4-10.2 EGFR (BEAKER) (test code = 1092) 15 mL/min/1.73 sq m ESTIMATED GFR IS NOT ACCURATE CREATININE CLEARANCE IN PREDICTING GLOMERULAR FILTRATION RATE. ESTIMATED GFR IS NOT APPLICABLE FOR DIALYSIS PATIENTS. CBC W/PLT COUNT & AUTO [id number] 08:39:00* Test Item Value Reference Range Interpretation Comments WHITE BLOOD CELL COUNT (BEAKER) (test code = 775) 6.8 K/ L 3.5- 10.5 RED BLOOD CELL COUNT (BEAKER) (test code = 761) 4.00 M/ L 4.63-6 .08 L HEMOGLOBIN (BEAKER) (test code = 410) 12.9 GM/DL 13.7-17.5 L HEMATOCRIT (BEAKER) (test code = 411) 39.7 % 40.1-51.0 L MEAN CORPUSCULAR VOLUME (BEAKER) (test code = 753) 99.3 fL 79. 0-92.2 H MEAN CORPUSCULAR HEMOGLOBIN (BEAKER) (test code = 751) 32.3 pg 25.7-32.2 H MEAN CORPUSCULAR HEMOGLOBIN CONC (BEAKER) (test code = 752) 32.5 GM/DL 32.3-36.5 RED CELL DISTRIBUTION WIDTH (BEAKER) (test code = 412) 13.4 % 11.6-14.4 PLATELET COUNT (BEAKER) (test code = 756) 120 K/CU MM 150-450 L MEAN PLATELET VOLUME (BEAKER) (test code = 754) 10.5 fL 9.4-12 .4 NUCLEATED RED BLOOD CELLS (BEAKER) (test code = 413) 0 /100 WBC 0 -0 NEUTROPHILS RELATIVE PERCENT (BEAKER) (test code = 429) 88 % LYMPHOCYTES RELATIVE PERCENT (BEAKER) (test code = 430) 10 % MONOCYTES RELATIVE PERCENT (BEAKER) (test code = 431) 2 % EOSINOPHILS RELATIVE PERCENT (BEAKER) (test code = 432) 0 % BASOPHILS RELATIVE PERCENT (BEAKER) (test code = 437) 0 % NEUTROPHILS ABSOLUTE COUNT (BEAKER) (test code = 670) 5.96 K/ L 1.78-5.38 H LYMPHOCYTES ABSOLUTE COUNT (BEAKER) (test code = 414) 0.68 K/ L 1.32-3.57 L MONOCYTES ABSOLUTE COUNT (BEAKER) (test code = 415) 0.10 K/ L 0. 30-0.82 L EOSINOPHILS ABSOLUTE COUNT (BEAKER) (test code = 416) 0.00 K/ L 0.04-0.54 L BASOPHILS ABSOLUTE COUNT (BEAKER) (test code = 417) 0.02 K/ L 0. 01-0.08 IMMATURE GRANULOCYTES-RELATIVE PERCENT (BEAKER) (test code = 2801) 1 % 0-1 Echocardiogram complete w contrast and 3D if [id number] 03:32:00Interface, Radiology Results In - 01/29/2019 10:32 PM CDT Echocardiography Report [address] [place] [address] Pat.Name: MARKO CABRALES JR Pat.ID: [id number] .Date: 01/28/2019 Refer.MD: KELLEE ARRIAZA MD Exam Time: 7:54:00 AM Study Type:Routine Echo Height: 68in BSA: 2.06 m2 Age: 5 1960,58Y Sex: MALE BP: 137/71 HR: 62 bpm Sonogrphr: ANAHI Jennings, RDCS Pat. Stat.:Outpatient Room: Treatment [facility] Study Status:Final Echo Event ID:[id number] Order ID: [id number] Reason for Study: Renal Transplant EvaluationHistory / Clinical:Diabetes, Hyperlipidemia, Hyperten peter, StrokeProcedures:2D Echo, Colorflow Doppler, StrainRace: C SUMMARY: LV EF is normal. RV systolic function is normal. FINDINGS: LV: LV size i s normal. LV EF is normal. Overall wall motion is normal. Estimated EF is 65-69%RV: RV size is normal. RV systolic function is normal.LA: LA volume is moderately enlarged.RA: RA volume is normal. poossibly dasia ter .AO: Aortic root diameter is normal.SHER: No pericardial effusion. AV: Aortic valve sclerosis.MV: No structural MV abnormalities noted. PV: No structural PV abnormalities noted.TV: No structural TV abnorm alities noted. A trace of tricuspid regurgitation Jones: LV relaxati on is reduced, appropriate for age. LV filling pressure is normal. Hep atic vein pressure is normal, RA pressure < 5mmHg.Other: Insufficient TR jet to estimate PA systolic pressure. MEASUREMENTS: 2DParasternal Long [place] LVOT 2.1 cm LA Ds 4.5 cm LVIDd 4.4 cm Index 2.1 cm/m2 Ao An 2.4 cm LVIDs 2.9 cm Ao Rtd 3.6 cm Index 1.8 cm/m2 LV%fs 35 % LV Mass 305.3 g (122-174) IVSd 1.5 cm LVM Index 148.2 g/m2 LVPWd 1.7 cm RWT 0.8 Left Ventricle LV EF 62 % (63-77) LA Sng Plane LA Area 22.9 cm2 (8.8-23.4) LA Vol 72.2 ml Index 35.1 ml/m2 LA LngAx 6.1 cm RA Sng Plane RA Area 12.5 cm2 (8.3-19.5) RA Vol 28 ml Index 13.6 ml/m2 RA LngAx 4.6 cm MMODETricuspid Valve TAPSE 2.1 cm DOPPLERLVOT Stroke Vol LVOT 2.1 cm LVOT CO 4.6 l/min LVOT TVI 22.1 cm LVOT CI 2.2 l/m/m2 LVOT Tm 351 msec HR 60 bpm LVOT SV 76.6 ml Signed 01/29/2019 10:32 PMSu Edgar Horan M.D.[facility] [id number] 21:02:04* Test Item Value Reference Range Interpretation Comments Ventricular rate (test code = 253) 69 Atrial rate (test code = 255) 69 WI interval (test code = 266) 244 QRSD interval (test code = 260) 88 QT interval (test code = 264) 414 QTC interval (test code = 265) 443 P axis 1 (test code = 267) 10 QRS axis 1 (test code = 268) 2 T wave axis (test code = 270) 30 EKG impression (test code = 273) Sinus rhythm with 1st degree AV block-Otherwise normal ECG-In automated comparison with ECG of 26-NOV-2016 08:37,-No significant change was found- [facility] blood, [id number] 20:08:17* Test Item Value Reference Range Interpretation Comments Occult blood, stool (test code = 2334-1) Negative for occult blood. Specimen InformationSpecimen Source: StoolSpecimen Site: Nonpreserved [facility]XR Chest 2 [id number] 16:27:02Hm Interface, Radiology Results Incoming - 01/28/2019 11:30 AM CDTEXAMINATION: XR CHEST 2 VWCLINICAL HISTORY: N18.6 End stage renal disease, transplant evalution updateCOMPARISON: Chest x- ray 11/26/2016, CT AP 01/27/2017FINDINGS:Lines and tubes: Right IJ tunneled dialysis catheter is seen with tip overlying the superior cavoatrial junction.Heart and mediastinum: Cardiomediastinal silhouette is normal in contour.Lungs and pleura: Left basilar atelectasis.Bones: No acute osseous abnormality.Soft tissues: Cholecystectomy clips are visualized.Slightly diste nded gastric bubble.IMPRESSION:Left basilar atelectasis. Lungs are otherwise ibrahima ar of focal airspace disease.[facility]-[id number] and approved by radiology re sident/fellow: Nadir Arteaga M.D.I, Tyree Lucas MD, personally reviewed the images and resident's/fellow's findings and agree with the final report.Julián RyderHGB/HCT (H&H) - STAT [id number] 16:38:00* Test Item Value Reference Range Interpretation Comments HEMOGLOBIN (BEAKER) (test code = 410) 10.2 g/dL 13.0-16.8 L HEMATOCRIT (BEAKER) (test code = 411) 30.0 % 40.0-50.0 L GLUCOSE-STAT [id number] 16:37:00* Test Item Value Reference Range Interpretation Comments GLUCOSE RANDOM (BEAKER) (test code = 652) 107 mg/dL 70-110 POTASSIUM-STAT [id number] 16:37:00* Test Item Value Reference Range Interpretation Comments POTASSIUM (BEAKER) (test code = 379) 3.8 meq/L 3.6-5.5 POTASSIUM-STAT [id number] 09:17:00* Test Item Value Reference Range Interpretation Comments POTASSIUM (BEAKER) (test code = 379) 3.7 meq/L 3.6-5.5 HGB/HCT (H&H) - STAT [id number] 09:17:00* Test Item Value Reference Range Interpretation Comments HEMOGLOBIN (BEAKER) (test code = 410) 10.3 g/dL 13.0-16.8 L HEMATOCRIT (BEAKER) (test code = 411) 30.0 % 40.0-50.0 L GLUCOSE-STAT [id number] 09:17:00* Test Item Value Reference Range Interpretation Comments GLUCOSE RANDOM (BEAKER) (test code = 652) 128 mg/dL 70-110 H GLUCOSE-STAT [id number] 09:27:00* Test Item Value Reference Range Interpretation Comments GLUCOSE RANDOM (BEAKER) (test code = 652) 121 mg/dL 70-110 H HGB/HCT (H&H) - STAT [id number] 09:27:00* Test Item Value Reference Range Interpretation Comments HEMOGLOBIN (BEAKER) (test code = 410) 10.9 g/dL 13.0-16.8 L HEMATOCRIT (BEAKER) (test code = 411) 32.0 % 40.0-50.0 L POTASSIUM-STAT [id number] 09:26:00* Test Item Value Reference Range Interpretation Comments POTASSIUM (BEAKER) (test code = 379) 4.1 meq/L 3.6-5.5 HGB/HCT (H&H) - STAT [id number] 06:36:00* Test Item Value Reference Range Interpretation Comments HEMOGLOBIN (BEAKER) (test code = 410) 11.8 g/dL 13.0-16.8 L HEMATOCRIT (BEAKER) (test code = 411) 35.0 % 40.0-50.0 L GLUCOSE-STAT [id number] 06:36:00* Test Item Value Reference Range Interpretation Comments GLUCOSE RANDOM (BEAKER) (test code = 652) 147 mg/dL 70-110 H POTASSIUM-STAT [id number] 06:34:00* Test Item Value Reference Range Interpretation Comments POTASSIUM (BEAKER) (test code = 379) 3.9 meq/L 3.6-5.5 POCT-GLUCOSE [id number] 06:15:00* Test Item Value Reference Range Interpretation Comments POC-GLUCOSE METER (BEAKER) (test code = 1538) 141 mg/dL 70-110 H TESTED AT [facility] [address] [place] [address] [id number] 12:06:00* Test Item Value Reference Range Interpretation Comments GLUBED (test code = GLUBED) 189 MG/DL 70-110 H Performed by certified sugar reprocess operator head at [facility] [id number] 12:00:00* Test Item Value Reference Range Interpretation Comments GLUBED (test code = GLUBED) 151 MG/DL 70-110 H Performed by certified sugar reprocess operator head at [facility] [id number] 18:42:00* Test Item Value Reference Range Interpretation Comments GLUBED (test code = GLUBED) 149 MG/DL 70-110 H Performed by certified sugar reprocess operator head at [facility] [id number] 10:58:00* Test Item Value Reference Range Interpretation Comments GLUBED (test code = GLUBED) 122 MG/DL 70-110 H Performed by certified sugar reprocess operator head at [facility] [id number] 09:50:00* Test Item Value Reference Range Interpretation Comments GLUBED (test code = GLUBED) 150 MG/DL 70-110 H Performed by certified sugar reprocess operator head at [facility] [id number] 07:41:00* Test Item Value Reference Range Interpretation Comments PHOSPHOROUS (test code = PHOS) 3.9 mg/dL 2.5-4.9 N [id number] 05:53:00* Test Item Value Reference Range Interpretation Comments GLUBED (test code = GLUBED) 115 MG/DL 70-110 H Performed by certified sugar reprocess operator head at [facility] [id number] 19:21:00* Test Item Value Reference Range Interpretation Comments GLUBED (test code = GLUBED) 126 MG/DL 70-110 H Performed by certified sugar reprocess operator head at [facility] [id number] 16:12:00* Test Item Value Reference Range Interpretation Comments GLUBED (test code = GLUBED) 125 MG/DL 70-110 H Performed by certified sugar reprocess operator head at [facility] [id number] 10:54:00* Test Item Value Reference Range Interpretation Comments GLUBED (test code = GLUBED) 180 MG/DL 70-110 H Performed by certified sugar reprocess operator head at [facility] COMPREHENSIVE METABOLIC [id number] 07:47:00* Test Item Value Reference Range Interpretation Comments SODIUM (test code = NA) 139 mEq/L 134-147 N POTASSIUM (test code = K) 3.8 mEq/L 3.4-5.0 N CHLORIDE (test code = CL) 104 mEq/L 100-108 N CARBON DIOXIDE (test code = CO2) 28 mEq/L 21-33 N ANION GAP (test code = GAP) 11 0-20 N GLUCOSE (test code = GLU) 137 mg/dL 70-110 H BLOOD UREA NITROGEN (test code = BUN) 38 mg/dL 7-18 H GLOMERULAR FILTRATION RATE (test code = GFR) 20.0 90-95 L Units of measure = ml/min/1.73 m2 CREATININE (test code = CREAT) 3.2 mg/dL 0.6-1.3 H TOTAL PROTEIN (test code = PROT) 7.5 g/dL 6.4-8.2 N ALBUMIN (test code = ALB) 3.40 g/dL 3.4-5.0 N CALCIUM (test code = CA) 8.5 mg/dL 8.0-10.5 N BILIRUBIN TOTAL (test code = BILT) 0.60 mg/dL 0.0-1.0 N SGOT/AST (test code = AST) 30 IUnit/L 15-37 N SGPT/ALT (test code = ALT) 48 IUnit/L 15-65 N ALKALINE PHOSPHATASE TOTAL (test code = ALKP) 150 IUnit/L 20-125 H CBC W/AUTO [id number] 07:21:00* Test Item Value Reference Range Interpretation Comments WHITE BLOOD CELL (test code = WBC) 8.45 x10 3/uL 4.5-11.0 N RED BLOOD CELL (test code = RBC) 3.44 x10 6/uL 4.00-5.60 L HEMOGLOBIN (test code = HGB) 10.9 g/dL 12.5-16.9 L HEMATOCRIT (test code = HCT) 35.3 % 37.5-50.7 L MEAN CELL VOLUME (test code = MCV) 102.6 fL 81.0-99.0 H MEAN CELL HGB (test code = MCH) 31.7 pg 27.0-33.0 N MEAN CELL HGB CONCETRATION (test code = MCHC) 30.9 g/dL 33.0-37. 0 L RED CELL DISTRIBUTION WIDTH CV (test code = RDW) 14.6 % 11.5- 14.5 H RED CELL DISTRIBUTION WIDTH SD (test code = RDW-SD) 54.0 fL 37 .0-54.0 N PLATELET COUNT (test code = PLT) 206 x10 3/uL 150-400 N MEAN PLATELET VOLUME (test code = MPV) 10.8 fL 7.0-9.0 H NEUTROPHIL % (test code = NT%) 58.1 % 56.0-77.0 N IMMATURE GRANULOCYTE % (test code = IG%) 1.7 % 0.0-2.0 N LYMPHOCYTE % (test code = LY%) 25.2 % 14.0-32.0 N MONOCYTE % (test code = MO%) 9.3 % 4.8-9.0 H EOSINOPHIL % (test code = EO%) 4.9 % 0.3-3.7 H BASOPHIL % (test code = BA%) 0.8 % 0.0-2.0 N NUCLEATED RBC % (test code = NRBC%) 0.0 % 0-0 N NEUTROPHIL # (test code = NT#) 4.91 x10 3/uL 2.0-7.6 N IMMATURE GRANULOCYTE # (test code = IG#) 0.14 x10 3/uL 0.00-0.03 H LYMPHOCYTE # (test code = LY#) 2.13 x10 3/uL 1.0-3.8 N MONOCYTE # (test code = MO#) 0.79 x10 3/uL 0.1-0.8 N EOSINOPHIL # (test code = EO#) 0.41 x10 3/uL 0.0-0.2 H BASOPHIL # (test code = BA#) 0.07 x10 3/uL 0.0-0.2 N NUCLEATED RBC # (test code = NRBC#) 0.00 x10 3/uL 0.0-0.1 N MANUAL DIFF REQUIRED (test code = MDIFF) NO [id number] 06:42:00* Test Item Value Reference Range Interpretation Comments GLUBED (test code = GLUBED) 136 MG/DL 70-110 H Performed by certified sugar reprocess operator head at [facility] [id number] 20:23:00* Test Item Value Reference Range Interpretation Comments GLUBED (test code = GLUBED) 181 MG/DL 70-110 H Performed by certified sugar reprocess operator head at [facility] [id number] 17:30:00* Test Item Value Reference Range Interpretation Comments GLUBED (test code = GLUBED) 99 MG/DL 70-110 N Performed by certified sugar reprocess operator head at [facility] [id number] 13:20:00* Test Item Value Reference Range Interpretation Comments ALBUMIN (test code = ALB) 3.00 g/dL 3.4-5.0 L [id number] 13:20:00* Test Item Value Reference Range Interpretation Comments PREALBUMIN (test code = PREALB) 19.4 mg/dL 16.0-40.0 N [id number] 11:21:00* Test Item Value Reference Range Interpretation Comments GLUBED (test code = GLUBED) 151 MG/DL 70-110 H Performed by certified sugar reprocess operator head at [facility] [id number] 06:32:00* Test Item Value Reference Range Interpretation Comments GLUBED (test code = GLUBED) 170 MG/DL 70-110 H Performed by certified sugar reprocess operator head at [facility] [id number] 20:30:00* Test Item Value Reference Range Interpretation Comments GLUBED (test code = GLUBED) 141 MG/DL 70-110 H Performed by certified sugar reprocess operator head at [facility] [id number] 16:13:00* Test Item Value Reference Range Interpretation Comments GLUBED (test code = GLUBED) 97 MG/DL 70-110 N Performed by certified sugar reprocess operator head at [facility] [id number] 15:51:00* Test Item Value Reference Range Interpretation Comments GLUBED (test code = GLUBED) 126 MG/DL 70-110 H Performed by certified sugar reprocess operator head at [facility] [id number] 05:35:00* Test Item Value Reference Range Interpretation Comments GLUBED (test code = GLUBED) 132 MG/DL 70-110 H Performed by certified sugar reprocess operator head at [facility]2019-03-16 20:19:00* Test Item Value Reference Range Interpretation Comments GLUBED (test code = GLUBED) 126 MG/DL 70-110 H Performed by certified sugar reprocess operator head at [facility] [id number] 18:05:00* Test Item Value Reference Range Interpretation Comments GLUBED (test code = GLUBED) 154 MG/DL 70-110 H Performed by certified sugar reprocess operator head at [facility] [id number] 06:11:00* Test Item Value Reference Range Interpretation Comments GLUBED (test code = GLUBED) 140 MG/DL 70-110 H Performed by certified sugar reprocess operator head at [facility] [id number] 20:26:00* Test Item Value Reference Range Interpretation Comments GLUBED (test code = GLUBED) 129 MG/DL 70-110 H Performed by certified sugar reprocess operator head at [facility] [id number] 17:17:00* Test Item Value Reference Range Interpretation Comments GLUBED (test code = GLUBED) 142 MG/DL 70-110 H Performed by certified sugar reprocess operator head at [facility] [id number] 11:18:00* Test Item Value Reference Range Interpretation Comments GLUBED (test code = GLUBED) 121 MG/DL 70-110 H Performed by certified sugar reprocess operator head at [facility] [id number] 08:13:00* Test Item Value Reference Range Interpretation Comments GLUBED (test code = GLUBED) 116 MG/DL 70-110 H Performed by certified sugar reprocess operator head at [facility] [id number] 05:49:00* Test Item Value Reference Range Interpretation Comments GLUBED (test code = GLUBED) 114 MG/DL 70-110 H Performed by certified sugar reprocess operator head at [facility] [id number] 20:44:00* Test Item Value Reference Range Interpretation Comments GLUBED (test code = GLUBED) 118 MG/DL 70-110 H Performed by certified sugar reprocess operator head at [facility] [id number] 16:04:00* Test Item Value Reference Range Interpretation Comments GLUBED (test code = GLUBED) 103 MG/DL 70-110 N Performed by certified sugar reprocess operator head at [facility] [id number] 11:23:00* Test Item Value Reference Range Interpretation Comments GLUBED (test code = GLUBED) 126 MG/DL 70-110 H Performed by certified sugar reprocess operator head at [facility] [id number] 09:02:00* Test Item Value Reference Range Interpretation Comments GLUBED (test code = GLUBED) 101 MG/DL 70-110 N Performed by certified sugar reprocess operator head at [facility] [id number] 05:48:00* Test Item Value Reference Range Interpretation Comments GLUBED (test code = GLUBED) 152 MG/DL 70-110 H Performed by certified sugar reprocess operator head at [facility] [id number] 20:21:00* Test Item Value Reference Range Interpretation Comments GLUBED (test code = GLUBED) 132 MG/DL 70-110 H Performed by certified sugar reprocess operator head at [facility] [id number] 18:12:00* Test Item Value Reference Range Interpretation Comments GLUBED (test code = GLUBED) 154 MG/DL 70-110 H Performed by certified sugar reprocess operator head at [facility] CBC W/AUTO [id number] 10:17:00* Test Item Value Reference Range Interpretation Comments WHITE BLOOD CELL (test code = WBC) 8.32 x10 3/uL 4.5-11.0 N RED BLOOD CELL (test code = RBC) 2.78 x10 6/uL 4.00-5.60 L HEMOGLOBIN (test code = HGB) 9.1 g/dL 12.5-16.9 L HEMATOCRIT (test code = HCT) 29.4 % 37.5-50.7 L MEAN CELL VOLUME (test code = MCV) 105.8 fL 81.0-99.0 H MEAN CELL HGB (test code = MCH) 32.7 pg 27.0-33.0 N MEAN CELL HGB CONCETRATION (test code = MCHC) 31.0 g/dL 33.0-37. 0 L RED CELL DISTRIBUTION WIDTH CV (test code = RDW) 14.5 % 11.5- 14.5 N RED CELL DISTRIBUTION WIDTH SD (test code = RDW-SD) 56.4 fL 37 .0-54.0 H PLATELET COUNT (test code = PLT) 188 x10 3/uL 150-400 N MEAN PLATELET VOLUME (test code = MPV) 11.1 fL 7.0-9.0 H NEUTROPHIL % (test code = NT%) 49.8 % 56.0-77.0 L IMMATURE GRANULOCYTE % (test code = IG%) 4.2 % 0.0-2.0 H LYMPHOCYTE % (test code = LY%) 28.4 % 14.0-32.0 N MONOCYTE % (test code = MO%) 11.5 % 4.8-9.0 H EOSINOPHIL % (test code = EO%) 5.4 % 0.3-3.7 H BASOPHIL % (test code = BA%) 0.7 % 0.0-2.0 N NUCLEATED RBC % (test code = NRBC%) 0.0 % 0-0 N NEUTROPHIL # (test code = NT#) 4.14 x10 3/uL 2.0-7.6 N IMMATURE GRANULOCYTE # (test code = IG#) 0.35 x10 3/uL 0.00-0.03 H LYMPHOCYTE # (test code = LY#) 2.36 x10 3/uL 1.0-3.8 N MONOCYTE # (test code = MO#) 0.96 x10 3/uL 0.1-0.8 H EOSINOPHIL # (test code = EO#) 0.45 x10 3/uL 0.0-0.2 H BASOPHIL # (test code = BA#) 0.06 x10 3/uL 0.0-0.2 N NUCLEATED RBC # (test code = NRBC#) 0.00 x10 3/uL 0.0-0.1 N MANUAL DIFF REQUIRED (test code = MDIFF) NO RBC [id number] 10:17:00* Test Item Value Reference Range Interpretation Comments POLYCHROMASIA (test code = POLC) 1+ CBC W/AUTO [id number] 08:34:00* Test Item Value Reference Range Interpretation Comments WHITE BLOOD CELL (test code = WBC) 8.32 x10 3/uL 4.5-11.0 N RED BLOOD CELL (test code = RBC) 2.78 x10 6/uL 4.00-5.60 L HEMOGLOBIN (test code = HGB) 9.1 g/dL 12.5-16.9 L HEMATOCRIT (test code = HCT) 29.4 % 37.5-50.7 L MEAN CELL VOLUME (test code = MCV) 105.8 fL 81.0-99.0 H MEAN CELL HGB (test code = MCH) 32.7 pg 27.0-33.0 N MEAN CELL HGB CONCETRATION (test code = MCHC) 31.0 g/dL 33.0-37. 0 L RED CELL DISTRIBUTION WIDTH CV (test code = RDW) 14.5 % 11.5- 14.5 N RED CELL DISTRIBUTION WIDTH SD (test code = RDW-SD) 56.4 fL 37 .0-54.0 H PLATELET COUNT (test code = PLT) 188 x10 3/uL 150-400 N MEAN PLATELET VOLUME (test code = MPV) 11.1 fL 7.0-9.0 H NEUTROPHIL % (test code = NT%) 49.8 % 56.0-77.0 L IMMATURE GRANULOCYTE % (test code = IG%) 4.2 % 0.0-2.0 H LYMPHOCYTE % (test code = LY%) 28.4 % 14.0-32.0 N MONOCYTE % (test code = MO%) 11.5 % 4.8-9.0 H EOSINOPHIL % (test code = EO%) 5.4 % 0.3-3.7 H BASOPHIL % (test code = BA%) 0.7 % 0.0-2.0 N NUCLEATED RBC % (test code = NRBC%) 0.0 % 0-0 N NEUTROPHIL # (test code = NT#) 4.14 x10 3/uL 2.0-7.6 N IMMATURE GRANULOCYTE # (test code = IG#) 0.35 x10 3/uL 0.00-0.03 H LYMPHOCYTE # (test code = LY#) 2.36 x10 3/uL 1.0-3.8 N MONOCYTE # (test code = MO#) 0.96 x10 3/uL 0.1-0.8 H EOSINOPHIL # (test code = EO#) 0.45 x10 3/uL 0.0-0.2 H BASOPHIL # (test code = BA#) 0.06 x10 3/uL 0.0-0.2 N NUCLEATED RBC # (test code = NRBC#) 0.00 x10 3/uL 0.0-0.1 N MANUAL DIFF REQUIRED (test code = MDIFF) NO RBC [id number] 08:34:00* Test Item Value Reference Range Interpretation Comments ANISOCYTOSIS (test code = ANISO) CBC W/AUTO [id number] 08:34:00* Test Item Value Reference Range Interpretation Comments WHITE BLOOD CELL (test code = WBC) 8.32 x10 3/uL 4.5-11.0 N RED BLOOD CELL (test code = RBC) 2.78 x10 6/uL 4.00-5.60 L HEMOGLOBIN (test code = HGB) 9.1 g/dL 12.5-16.9 L HEMATOCRIT (test code = HCT) 29.4 % 37.5-50.7 L MEAN CELL VOLUME (test code = MCV) 105.8 fL 81.0-99.0 H MEAN CELL HGB (test code = MCH) 32.7 pg 27.0-33.0 N MEAN CELL HGB CONCETRATION (test code = MCHC) 31.0 g/dL 33.0-37. 0 L RED CELL DISTRIBUTION WIDTH CV (test code = RDW) 14.5 % 11.5- 14.5 N RED CELL DISTRIBUTION WIDTH SD (test code = RDW-SD) 56.4 fL 37 .0-54.0 H PLATELET COUNT (test code = PLT) 188 x10 3/uL 150-400 N MEAN PLATELET VOLUME (test code = MPV) 11.1 fL 7.0-9.0 H NEUTROPHIL % (test code = NT%) 49.8 % 56.0-77.0 L IMMATURE GRANULOCYTE % (test code = IG%) 4.2 % 0.0-2.0 H LYMPHOCYTE % (test code = LY%) 28.4 % 14.0-32.0 N MONOCYTE % (test code = MO%) 11.5 % 4.8-9.0 H EOSINOPHIL % (test code = EO%) 5.4 % 0.3-3.7 H BASOPHIL % (test code = BA%) 0.7 % 0.0-2.0 N NUCLEATED RBC % (test code = NRBC%) 0.0 % 0-0 N NEUTROPHIL # (test code = NT#) 4.14 x10 3/uL 2.0-7.6 N IMMATURE GRANULOCYTE # (test code = IG#) 0.35 x10 3/uL 0.00-0.03 H LYMPHOCYTE # (test code = LY#) 2.36 x10 3/uL 1.0-3.8 N MONOCYTE # (test code = MO#) 0.96 x10 3/uL 0.1-0.8 H EOSINOPHIL # (test code = EO#) 0.45 x10 3/uL 0.0-0.2 H BASOPHIL # (test code = BA#) 0.06 x10 3/uL 0.0-0.2 N NUCLEATED RBC # (test code = NRBC#) 0.00 x10 3/uL 0.0-0.1 N MANUAL DIFF REQUIRED (test code = MDIFF) NO RBC [id number] 08:34:00* Test Item Value Reference Range Interpretation Comments ANISOCYTOSIS (test code = ANISO) BASIC METABOLIC [id number] 07:46:00* Test Item Value Reference Range Interpretation Comments SODIUM (test code = NA) 137 mEq/L 134-147 N POTASSIUM (test code = K) 3.4 mEq/L 3.4-5.0 N CHLORIDE (test code = CL) 102 mEq/L 100-108 N CARBON DIOXIDE (test code = CO2) 28 mEq/L 21-33 N ANION GAP (test code = GAP) 10 0-20 N GLUCOSE (test code = GLU) 136 mg/dL 70-110 H BLOOD UREA NITROGEN (test code = BUN) 45 mg/dL 7-18 H GLOMERULAR FILTRATION RATE (test code = GFR) 12.5 90-95 L Units of measure = ml/min/1.73 m2 CREATININE (test code = CREAT) 4.8 mg/dL 0.6-1.3 H CALCIUM (test code = CA) 8.1 mg/dL 8.0-10.5 N [id number] 07:20:00* Test Item Value Reference Range Interpretation Comments GLUBED (test code = GLUBED) 192 MG/DL 70-110 H Performed by certified sugar reprocess operator head at [facility] [id number] 22:03:00* Test Item Value Reference Range Interpretation Comments GLUBED (test code = GLUBED) 141 MG/DL 70-110 H Performed by certified sugar reprocess operator head at [facility] [id number] 16:15:00* Test Item Value Reference Range Interpretation Comments GLUBED (test code = GLUBED) 127 MG/DL 70-110 H Performed by certified sugar reprocess operator head at [facility] [id number] 16:15:00* Test Item Value Reference Range Interpretation Comments GLUBED (test code = GLUBED) 138 MG/DL 70-110 H Performed by certified sugar reprocess operator head at [facility] [id number] 16:15:00* Test Item Value Reference Range Interpretation Comments GLUBED (test code = GLUBED) 151 MG/DL 70-110 H Performed by certified sugar reprocess operator head at [facility] [id number] 11:03:00* Test Item Value Reference Range Interpretation Comments GLUBED (test code = GLUBED) 109 MG/DL 70-110 N Performed by certified sugar reprocess operator head at [facility] COMPREHENSIVE METABOLIC [id number] 07:54:00* Test Item Value Reference Range Interpretation Comments SODIUM (test code = NA) 136 mEq/L 134-147 N POTASSIUM (test code = K) 3.8 mEq/L 3.4-5.0 N CHLORIDE (test code = CL) 101 mEq/L 100-108 N CARBON DIOXIDE (test code = CO2) 28 mEq/L 21-33 N ANION GAP (test code = GAP) 11 0-20 N GLUCOSE (test code = GLU) 156 mg/dL 70-110 H BLOOD UREA NITROGEN (test code = BUN) 31 mg/dL 7-18 H GLOMERULAR FILTRATION RATE (test code = GFR) 16.4 90-95 L Units of measure = ml/min/1.73 m2 CREATININE (test code = CREAT) 3.8 mg/dL 0.6-1.3 H TOTAL PROTEIN (test code = PROT) 7.4 g/dL 6.4-8.2 N ALBUMIN (test code = ALB) 3.00 g/dL 3.4-5.0 L CALCIUM (test code = CA) 8.5 mg/dL 8.0-10.5 N BILIRUBIN TOTAL (test code = BILT) 0.70 mg/dL 0.0-1.0 N SGOT/AST (test code = AST) 43 IUnit/L 15-37 H SGPT/ALT (test code = ALT) 75 IUnit/L 15-65 H ALKALINE PHOSPHATASE TOTAL (test code = ALKP) 150 IUnit/L 20-125 H [id number] 07:54:00* Test Item Value Reference Range Interpretation Comments PHOSPHOROUS (test code = PHOS) 3.3 mg/dL 2.5-4.9 N [id number] 07:54:00* Test Item Value Reference Range Interpretation Comments MAGNESIUM (test code = MAG) 1.50 mg/dL 1.8-2.4 L CBC W/AUTO [id number] 06:59:00* Test Item Value Reference Range Interpretation Comments WHITE BLOOD CELL (test code = WBC) 7.39 x10 3/uL 4.5-11.0 N RED BLOOD CELL (test code = RBC) 2.89 x10 6/uL 4.00-5.60 L HEMOGLOBIN (test code = HGB) 9.5 g/dL 12.5-16.9 L HEMATOCRIT (test code = HCT) 30.2 % 37.5-50.7 L MEAN CELL VOLUME (test code = MCV) 104.5 fL 81.0-99.0 H MEAN CELL HGB (test code = MCH) 32.9 pg 27.0-33.0 N MEAN CELL HGB CONCETRATION (test code = MCHC) 31.5 g/dL 33.0-37. 0 L RED CELL DISTRIBUTION WIDTH CV (test code = RDW) 14.4 % 11.5- 14.5 N RED CELL DISTRIBUTION WIDTH SD (test code = RDW-SD) 54.6 fL 37 .0-54.0 H PLATELET COUNT (test code = PLT) 199 x10 3/uL 150-400 N MEAN PLATELET VOLUME (test code = MPV) 11.1 fL 7.0-9.0 H NEUTROPHIL % (test code = NT%) 62.5 % 56.0-77.0 N IMMATURE GRANULOCYTE % (test code = IG%) 2.4 % 0.0-2.0 H LYMPHOCYTE % (test code = LY%) 21.2 % 14.0-32.0 N MONOCYTE % (test code = MO%) 8.1 % 4.8-9.0 N EOSINOPHIL % (test code = EO%) 5.1 % 0.3-3.7 H BASOPHIL % (test code = BA%) 0.7 % 0.0-2.0 N NUCLEATED RBC % (test code = NRBC%) 0.0 % 0-0 N NEUTROPHIL # (test code = NT#) 4.61 x10 3/uL 2.0-7.6 N IMMATURE GRANULOCYTE # (test code = IG#) 0.18 x10 3/uL 0.00-0.03 H LYMPHOCYTE # (test code = LY#) 1.57 x10 3/uL 1.0-3.8 N MONOCYTE # (test code = MO#) 0.60 x10 3/uL 0.1-0.8 N EOSINOPHIL # (test code = EO#) 0.38 x10 3/uL 0.0-0.2 H BASOPHIL # (test code = BA#) 0.05 x10 3/uL 0.0-0.2 N NUCLEATED RBC # (test code = NRBC#) 0.00 x10 3/uL 0.0-0.1 N MANUAL DIFF REQUIRED (test code = MDIFF) NO [id number] 06:53:00* Test Item Value Reference Range Interpretation Comments GLUBED (test code = GLUBED) 183 MG/DL 70-110 H Performed by certified sugar reprocess operator head at [facility] [id number] 06:01:00* Test Item Value Reference Range Interpretation Comments GLUBED (test code = GLUBED) 110 MG/DL 70-110 N Performed by certified sugar reprocess operator head at [facility] [id number] 07:30:00* Test Item Value Reference Range Interpretation Comments GLUBED (test code = GLUBED) 125 MG/DL 70-110 H Performed by certified sugar reprocess operator head at [facility] [id number] 16:30:00* Test Item Value Reference Range Interpretation Comments GLUBED (test code = GLUBED) 149 MG/DL 70-110 H Performed by certified sugar reprocess operator head at [facility] [id number] 08:42:00* Test Item Value Reference Range Interpretation Comments GLUBED (test code = GLUBED) 121 MG/DL 70-110 H Performed by certified sugar reprocess operator head at [facility] [id number] 07:05:00* Test Item Value Reference Range Interpretation Comments GLUBED (test code = GLUBED) 128 MG/DL 70-110 H Performed by certified sugar reprocess operator head at [facility] [id number] 16:49:00* Test Item Value Reference Range Interpretation Comments GLUBED (test code = GLUBED) 141 MG/DL 70-110 H Performed by certified sugar reprocess operator head at [facility] [id number] 11:37:00* Test Item Value Reference Range Interpretation Comments GLUBED (test code = GLUBED) 216 MG/DL 70-110 H Performed by certified sugar reprocess operator head at [facility] [id number] 08:58:00* Test Item Value Reference Range Interpretation Comments GLUBED (test code = GLUBED) 140 MG/DL 70-110 H Performed by certified sugar reprocess operator head at [facility] BASIC METABOLIC [id number] 05:07:00* Test Item Value Reference Range Interpretation Comments SODIUM (test code = NA) 140 mEq/L 134-147 N POTASSIUM (test code = K) 4.2 mEq/L 3.4-5.0 N SP ECIMEN 1+ HEMOLYZED.Results known to be adversely affected by hemolysis are: Potassium Magnesium LDH Phosphorus CHLORIDE (test code = CL) 105 mEq/L 100-108 N CARBON DIOXIDE (test code = CO2) 29 mEq/L 21-33 N ANION GAP (test code = GAP) 10 0-20 N GLUCOSE (test code = GLU) 130 mg/dL 70-110 H BLOOD UREA NITROGEN (test code = BUN) 26 mg/dL 7-18 H GLOMERULAR FILTRATION RATE (test code = GFR) 18.0 90-95 L Units of measure = ml/min/1.73 m2 CREATININE (test code = CREAT) 3.5 mg/dL 0.6-1.3 H CALCIUM (test code = CA) 7.9 mg/dL 8.0-10.5 L CBC W/AUTO [id number] 04:34:00* Test Item Value Reference Range Interpretation Comments WHITE BLOOD CELL (test code = WBC) 6.41 x10 3/uL 4.5-11.0 N RED BLOOD CELL (test code = RBC) 2.62 x10 6/uL 4.00-5.60 L HEMOGLOBIN (test code = HGB) 8.7 g/dL 12.5-16.9 L HEMATOCRIT (test code = HCT) 27.0 % 37.5-50.7 L MEAN CELL VOLUME (test code = MCV) 103.1 fL 81.0-99.0 H MEAN CELL HGB (test code = MCH) 33.2 pg 27.0-33.0 H MEAN CELL HGB CONCETRATION (test code = MCHC) 32.2 g/dL 33.0-37. 0 L RED CELL DISTRIBUTION WIDTH CV (test code = RDW) 14.2 % 11.5- 14.5 N RED CELL DISTRIBUTION WIDTH SD (test code = RDW-SD) 53.1 fL 37 .0-54.0 N PLATELET COUNT (test code = PLT) 173 x10 3/uL 150-400 N MEAN PLATELET VOLUME (test code = MPV) 11.2 fL 7.0-9.0 H NEUTROPHIL % (test code = NT%) 64.4 % 56.0-77.0 N IMMATURE GRANULOCYTE % (test code = IG%) 0.9 % 0.0-2.0 N LYMPHOCYTE % (test code = LY%) 23.2 % 14.0-32.0 N MONOCYTE % (test code = MO%) 8.0 % 4.8-9.0 N EOSINOPHIL % (test code = EO%) 3.0 % 0.3-3.7 N BASOPHIL % (test code = BA%) 0.5 % 0.0-2.0 N NUCLEATED RBC % (test code = NRBC%) 0.0 % 0-0 N NEUTROPHIL # (test code = NT#) 4.13 x10 3/uL 2.0-7.6 N IMMATURE GRANULOCYTE # (test code = IG#) 0.06 x10 3/uL 0.00-0.03 H LYMPHOCYTE # (test code = LY#) 1.49 x10 3/uL 1.0-3.8 N MONOCYTE # (test code = MO#) 0.51 x10 3/uL 0.1-0.8 N EOSINOPHIL # (test code = EO#) 0.19 x10 3/uL 0.0-0.2 N BASOPHIL # (test code = BA#) 0.03 x10 3/uL 0.0-0.2 N NUCLEATED RBC # (test code = NRBC#) 0.00 x10 3/uL 0.0-0.1 N MANUAL DIFF REQUIRED (test code = MDIFF) NO [id number] 17:33:00* Test Item Value Reference Range Interpretation Comments GLUBED (test code = GLUBED) 200 MG/DL 70-110 H Performed by certified sugar reprocess operator head at [facility] [id number] 13:46:00* Test Item Value Reference Range Interpretation Comments GLUBED (test code = GLUBED) 162 MG/DL 70-110 H Performed by certified sugar reprocess operator head at [facility] [id number] 10:08:00* Test Item Value Reference Range Interpretation Comments GLUBED (test code = GLUBED) 153 MG/DL 70-110 H Performed by certified sugar reprocess operator head at [facility] BASIC METABOLIC [id number] 05:00:00* Test Item Value Reference Range Interpretation Comments SODIUM (test code = NA) 137 mEq/L 134-147 N POTASSIUM (test code = K) 3.7 mEq/L 3.4-5.0 N CHLORIDE (test code = CL) 102 mEq/L 100-108 N CARBON DIOXIDE (test code = CO2) 28 mEq/L 21-33 N ANION GAP (test code = GAP) 11 0-20 N GLUCOSE (test code = GLU) 172 mg/dL 70-110 H BLOOD UREA NITROGEN (test code = BUN) 39 mg/dL 7-18 H GLOMERULAR FILTRATION RATE (test code = GFR) 11.9 90-95 L Units of measure = ml/min/1.73 m2 CREATININE (test code = CREAT) 5.0 mg/dL 0.6-1.3 H CALCIUM (test code = CA) 7.7 mg/dL 8.0-10.5 L CBC W/AUTO [id number] 04:40:00* Test Item Value Reference Range Interpretation Comments WHITE BLOOD CELL (test code = WBC) 7.31 x10 3/uL 4.5-11.0 N RED BLOOD CELL (test code = RBC) 2.39 x10 6/uL 4.00-5.60 L HEMOGLOBIN (test code = HGB) 7.9 g/dL 12.5-16.9 L HEMATOCRIT (test code = HCT) 24.7 % 37.5-50.7 L MEAN CELL VOLUME (test code = MCV) 103.3 fL 81.0-99.0 H MEAN CELL HGB (test code = MCH) 33.1 pg 27.0-33.0 H MEAN CELL HGB CONCETRATION (test code = MCHC) 32.0 g/dL 33.0-37. 0 L RED CELL DISTRIBUTION WIDTH CV (test code = RDW) 14.1 % 11.5- 14.5 N RED CELL DISTRIBUTION WIDTH SD (test code = RDW-SD) 53.1 fL 37 .0-54.0 N PLATELET COUNT (test code = PLT) 146 x10 3/uL 150-400 L MEAN PLATELET VOLUME (test code = MPV) 11.0 fL 7.0-9.0 H NEUTROPHIL % (test code = NT%) 68.6 % 56.0-77.0 N IMMATURE GRANULOCYTE % (test code = IG%) 0.8 % 0.0-2.0 N LYMPHOCYTE % (test code = LY%) 22.4 % 14.0-32.0 N MONOCYTE % (test code = MO%) 6.8 % 4.8-9.0 N EOSINOPHIL % (test code = EO%) 1.0 % 0.3-3.7 N BASOPHIL % (test code = BA%) 0.4 % 0.0-2.0 N NUCLEATED RBC % (test code = NRBC%) 0.0 % 0-0 N NEUTROPHIL # (test code = NT#) 5.01 x10 3/uL 2.0-7.6 N IMMATURE GRANULOCYTE # (test code = IG#) 0.06 x10 3/uL 0.00-0.03 H LYMPHOCYTE # (test code = LY#) 1.64 x10 3/uL 1.0-3.8 N MONOCYTE # (test code = MO#) 0.50 x10 3/uL 0.1-0.8 N EOSINOPHIL # (test code = EO#) 0.07 x10 3/uL 0.0-0.2 N BASOPHIL # (test code = BA#) 0.03 x10 3/uL 0.0-0.2 N NUCLEATED RBC # (test code = NRBC#) 0.00 x10 3/uL 0.0-0.1 N MANUAL DIFF REQUIRED (test code = MDIFF) NO - CT HEAD/BRAIN W/O [id number] 18:28:00 Name: MARKO CABRALES [facility] Waldo Ortiz : 1960 Age/S: 57 / M [address] [place] [address] Blvd Unit #: [id number] Loc: [place] [address] Phys: Griselda Reyes MD Acct: [id number] Dis Date: Status: ADM IN PHONE #: [phone] Exam Date: 08/20/2018 1822 FAX #: [phone] Reason: CHANGES IN VISION, DIZZINESS, LIGHTHEADEDNESS EXAMS: CPT CODE: [id number] CT HEAD/BRAIN W/O CONT 35785 STUDY: - CT HEAD/BRAIN W/O CONT 08/20/2018 4:09 PM Ordering Physician: Griselda Jean-Baptiste MD Patient Name: MARKO CABRALES MR: [id number] : 1960; Age: 57 years y/o Male Clinical Indication: CHANGES IN VISION, DIZZINESS, LIGHTHEADEDNESS Comparison: MR brain 05/26/2016. TECHNIQUE: Multiple contiguous transaxial noncontrast CT images were obtained through the head. Coronal and sagittal reformatted images were prepared. DLP: 1143.50 mGy-cm FINDINGS: BRAIN PARENCHYMA: Mild diffuse age-appropriate atrophy is present associated with mild nonspecific periventricular low attenuation most consistent with old microangiopathic ischemic change. No evidence of acute intracranial hemorrhage, mass lesion, mass effect, midline shift, or extra-axial fluid collection. Stable tiny old right occipital lob e infarction. VENTRICLES: The lateral ventricles, third ventricle, fourth ventricle, and basilar cisterns are appropriate for degree of atro phy present. PARANASAL SINUSES: Moderate sized mucus retention cys t in the left maxillary sinus. Minimal mucoperiosteal thickening in the e thmoid sinus. The visualized portions of the remaining paranasal sinuses are clear. MASTOIDS: Minimal thickening inferiorly in the le ft mastoid air cells. The right mastoid air cells are clear. ORBITS: The visualized portions of the orbits are normal. SOFT T ISSUES: No significant abnormality. SKULL: No acute fracture or hodgson spicious osseous lesion. PAGE 1 Signed Report (CONTINUED) Name: MARKO CABRALES [facility] : 1960 Age/S: 57 / M [address] [place] [address] B [address]vd Unit #: [id number] Loc: [place] [address] Phys: Griselda Reyes MD Acct: [id number] Dis Date: Status: ADM IN PHONE #: [phone] Exam Date: 08/20/20181821 FAX #: [phone] Reason: CHANGES IN VISION, DIZZINESS, LIGHTHEAD EDNESS EXAMS: CPT CODE: [id number] CT HEAD/BRAIN W/O CONT 45303 < Continued> IMPRESSION: Mild diffuse age-appropriate atrophy is present associated with mild nonspecific periventricular low attenuation most consistent with old microangiopathic ischemic change. No acute intracranial abnormality. 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 Mild chronic sinusitis. SL: TPAINTER-H at 1828 Reported and signed by: Aren Wang M.D. CC: Griselda Jean-Baptiste MD; Balaji Dao MD; Kellee Silva DO Technologist:Kristian Laird, RT(R)(CT) CTDI: DLP: Trnscb Date/Time: 08/20/2018 (1827) [email or web address] Orig Print D/T: S: 08/20/2018 (183) CTDI: DLP: PAGE 2 Signed Report [id number] 17:40:00* Test Item Value Reference Range Interpretation Comments GLUBED (test code = GLUBED) 184 MG/DL 70-110 H Performed by certified sugar reprocess operator head at [facility] [id number] 11:48:00* Test Item Value Reference Range Interpretation Comments GLUBED (test code = GLUBED) 182 MG/DL 70-110 H Performed by certified sugar reprocess operator head at [facility] [id number] 08:43:00* Test Item Value Reference Range Interpretation Comments GLUBED (test code = GLUBED) 223 MG/DL 70-110 H Performed by certified sugar reprocess operator head at [facility] BASIC METABOLIC [id number] 04:59:00* Test Item Value Reference Range Interpretation Comments SODIUM (test code = NA) 134 mEq/L 134-147 N POTASSIUM (test code = K) 4.2 mEq/L 3.4-5.0 N CHLORIDE (test code = CL) 100 mEq/L 100-108 N CARBON DIOXIDE (test code = CO2) 29 mEq/L 21-33 N ANION GAP (test code = GAP) 9 0-20 N GLUCOSE (test code = GLU) 296 mg/dL 70-110 H BLOOD UREA NITROGEN (test code = BUN) 24 mg/dL 7-18 H GLOMERULAR FILTRATION RATE (test code = GFR) 18.0 90-95 L Units of measure = ml/min/1.73 m2 CREATININE (test code = CREAT) 3.5 mg/dL 0.6-1.3 H CALCIUM (test code = CA) 8.0 mg/dL 8.0-10.5 N CBC W/AUTO [id number] 04:50:00* Test Item Value Reference Range Interpretation Comments WHITE BLOOD CELL (test code = WBC) 5.79 x10 3/uL 4.5-11.0 N RED BLOOD CELL (test code = RBC) 2.70 x10 6/uL 4.00-5.60 L HEMOGLOBIN (test code = HGB) 8.8 g/dL 12.5-16.9 L HEMATOCRIT (test code = HCT) 27.9 % 37.5-50.7 L MEAN CELL VOLUME (test code = MCV) 103.3 fL 81.0-99.0 H MEAN CELL HGB (test code = MCH) 32.6 pg 27.0-33.0 N MEAN CELL HGB CONCETRATION (test code = MCHC) 31.5 g/dL 33.0-37. 0 L RED CELL DISTRIBUTION WIDTH CV (test code = RDW) 13.8 % 11.5- 14.5 N RED CELL DISTRIBUTION WIDTH SD (test code = RDW-SD) 52.0 fL 37 .0-54.0 N PLATELET COUNT (test code = PLT) 133 x10 3/uL 150-400 L MEAN PLATELET VOLUME (test code = MPV) 10.7 fL 7.0-9.0 H NEUTROPHIL % (test code = NT%) 85.1 % 56.0-77.0 H IMMATURE GRANULOCYTE % (test code = IG%) 0.5 % 0.0-2.0 N LYMPHOCYTE % (test code = LY%) 10.4 % 14.0-32.0 L MONOCYTE % (test code = MO%) 4.0 % 4.8-9.0 L EOSINOPHIL % (test code = EO%) 0.0 % 0.3-3.7 L BASOPHIL % (test code = BA%) 0.0 % 0.0-2.0 N NUCLEATED RBC % (test code = NRBC%) 0.0 % 0-0 N NEUTROPHIL # (test code = NT#) 4.93 x10 3/uL 2.0-7.6 N IMMATURE GRANULOCYTE # (test code = IG#) 0.03 x10 3/uL 0.00-0.03 N LYMPHOCYTE # (test code = LY#) 0.60 x10 3/uL 1.0-3.8 L MONOCYTE # (test code = MO#) 0.23 x10 3/uL 0.1-0.8 N EOSINOPHIL # (test code = EO#) 0.00 x10 3/uL 0.0-0.2 N BASOPHIL # (test code = BA#) 0.00 x10 3/uL 0.0-0.2 N NUCLEATED RBC # (test code = NRBC#) 0.00 x10 3/uL 0.0-0.1 N MANUAL DIFF REQUIRED (test code = MDIFF) NO [id number] 17:20:00* Test Item Value Reference Range Interpretation Comments GLUBED (test code = GLUBED) 169 MG/DL 70-110 H Performed by certified sugar reprocess operator head at [facility] [id number] 16:07:00* Test Item Value Reference Range Interpretation Comments GLUBED (test code = GLUBED) 160 MG/DL 70-110 H Performed by certified sugar reprocess operator head at [facility] [id number] 14:09:00* Test Item Value Reference Range Interpretation Comments GLUBED (test code = GLUBED) 98 MG/DL 70-110 N Performed by certified sugar reprocess operator head at [facility] [id number] 13:44:00* Test Item Value Reference Range Interpretation Comments GLUBED (test code = GLUBED) 72 MG/DL 70-110 N Performed by certified sugar reprocess operator head at [facility] [id number] 08:08:00* Test Item Value Reference Range Interpretation Comments GLUBED (test code = GLUBED) 125 MG/DL 70-110 H Performed by certified sugar reprocess operator head at [facility] RENAL FUNCTION [id number] 05:27:00* Test Item Value Reference Range Interpretation Comments SODIUM (test code = NA) 137 mEq/L 134-147 N POTASSIUM (test code = K) 3.7 mEq/L 3.4-5.0 N CHLORIDE (test code = CL) 102 mEq/L 100-108 N CARBON DIOXIDE (test code = CO2) 30 mEq/L 21-33 N ANION GAP (test code = GAP) 9 0-20 N GLUCOSE (test code = GLU) 139 mg/dL 70-110 H BLOOD UREA NITROGEN (test code = BUN) 28 mg/dL 7-18 H GLOMERULAR FILTRATION RATE (test code = GFR) 15.9 90-95 L Units of measure = ml/min/1.73 m2 CREATININE (test code = CREAT) 3.9 mg/dL 0.6-1.3 H ALBUMIN (test code = ALB) 2.60 g/dL 3.4-5.0 L CALCIUM (test code = CA) 7.7 mg/dL 8.0-10.5 L PHOSPHOROUS (test code = PHOS) 4.0 mg/dL 2.5-4.9 CBC W/AUTO [id number] 05:06:00* Test Item Value Reference Range Interpretation Comments WHITE BLOOD CELL (test code = WBC) 6.00 x10 3/uL 4.5-11.0 N RED BLOOD CELL (test code = RBC) 2.57 x10 6/uL 4.00-5.60 L HEMOGLOBIN (test code = HGB) 8.4 g/dL 12.5-16.9 L HEMATOCRIT (test code = HCT) 26.6 % 37.5-50.7 L MEAN CELL VOLUME (test code = MCV) 103.5 fL 81.0-99.0 H MEAN CELL HGB (test code = MCH) 32.7 pg 27.0-33.0 N MEAN CELL HGB CONCETRATION (test code = MCHC) 31.6 g/dL 33.0-37. 0 L RED CELL DISTRIBUTION WIDTH CV (test code = RDW) 13.7 % 11.5- 14.5 N RED CELL DISTRIBUTION WIDTH SD (test code = RDW-SD) 51.8 fL 37 .0-54.0 N PLATELET COUNT (test code = PLT) 124 x10 3/uL 150-400 L MEAN PLATELET VOLUME (test code = MPV) 10.6 fL 7.0-9.0 H NEUTROPHIL % (test code = NT%) 64.1 % 56.0-77.0 N IMMATURE GRANULOCYTE % (test code = IG%) 0.7 % 0.0-2.0 N LYMPHOCYTE % (test code = LY%) 22.0 % 14.0-32.0 N MONOCYTE % (test code = MO%) 8.8 % 4.8-9.0 N EOSINOPHIL % (test code = EO%) 3.7 % 0.3-3.7 N BASOPHIL % (test code = BA%) 0.7 % 0.0-2.0 N NUCLEATED RBC % (test code = NRBC%) 0.0 % 0-0 N NEUTROPHIL # (test code = NT#) 3.85 x10 3/uL 2.0-7.6 N IMMATURE GRANULOCYTE # (test code = IG#) 0.04 x10 3/uL 0.00-0.03 H LYMPHOCYTE # (test code = LY#) 1.32 x10 3/uL 1.0-3.8 N MONOCYTE # (test code = MO#) 0.53 x10 3/uL 0.1-0.8 N EOSINOPHIL # (test code = EO#) 0.22 x10 3/uL 0.0-0.2 H BASOPHIL # (test code = BA#) 0.04 x10 3/uL 0.0-0.2 N NUCLEATED RBC # (test code = NRBC#) 0.00 x10 3/uL 0.0-0.1 N MANUAL DIFF REQUIRED (test code = MDIFF) NO [id number] 15:49:00* Test Item Value Reference Range Interpretation Comments GLUBED (test code = GLUBED) 122 MG/DL 70-110 H Performed by certified sugar reprocess operator head at [facility] - XR FLUOROSCOPY 0-60 [id number] 15:13:00 FAX: Balaji Dimas MD [phone] [place]: St: ADM FAX: Kellee Silva DO FAX: Shine Chang MD [phone] Name: MARKO CABRALES [facility] [place] : 1960 Age/S: 57/M [address] [place] [address] Unit #: [id number] Loc: G.M303 [place] [address] Phys: Shine Azevedo MD Acct: [id number] Dis Date: Status: ADM IN ONE #: [phone] Exam Date: 08/18/2018 1325 FAX #: [phone] Reason: ESRD EXAMS: CPT CODE: [id number] XR FLUOROSCOPY 0-60 MIN 65511 Intraprocedural fluoroscopy was provided by the Department of Radiology. Any images obta ined were interpreted by the surgeon intraoperatively. Refer ence air kerma: 1.9 mGy, fluoroscopy time 6 seconds SL: T R-H at 0235 Reported and signed by: Louie Rocha M.D. CC: Balaji Dao MD; Kellee Silva DO; Shine Azevedo MD Technologist: JOSE ALFREDO Rodriguez) Trnscrd Evelina ate/Time/By: 08/18/2018 (5839) : By: DelmarG Orig Print D/T: S: 10/2018 (7960) PAGE 1 Signed Repor t - XR CHEST 1 [id number] 15:12:00 FAX: Balaji Dimas MD [phone] [place]: St: ADM FAX: Yari Fields NP [phone] FAX: Kellee Silva DO --------- Name: MARKO CABRALES [facility] : 1960 Age/S: 57/M [address] [place] [address] Blvd Un it #: [id number] Loc: [place] [address] Phys: Yari Oliveira NP Acct: [id number] Dis Date: Status: ADM IN ONE #: [phone] Exam Date: 08/18/2018 1450 FAX #: [phone] Reason: s/p right IJ tunneled HD cath placement EXAMS: CPT CODE: [id number] XR CHEST 1 V 62129 EXAM: CHEST SI NGLE VIEW HISTORY: 57-year-old male status post tunneled dialysis catheter placement COMPARISON: Chest radiograph 08/14/2018 FINDINGS: Improved congestion. Improved aeration of the right lung base. Mild left basilar subsegmental atelectasis. No definite pneum othorax identified. The cardiomediastinal silhouette is stably prominent. Osseous structures are unchanged. Interval removal of endotracheal tube and right internal jugular dialysis catheter. Interval placement of tunn eled right internal jugular dialysis catheter with tip in the SVC. IMPRESSION: 1. Interval placement of tunneled right i nternal jugular dialysis catheter with tip in the SVC. 2. Impro sri congestion. SL: [id number] Electr onically Signed by Eduard Correia on 08/18/2018 at 1512 Reported and signed by: Kofi Correia M.D. CC: Balaji Dao MD; Gerardo Oliveira NP; Kellee Silva DO Technologist: RT Yusef(R) Trnscrd Date/Time/By: 08/18/2018 (1512) : By: MontanaRH17 Orig Print D/T: S: 08/18/2018 (3351) PAGE 1 Signed Report [id number] 13:51:00* Test Item Value Reference Range Interpretation Comments GLUBED (test code = GLUBED) 95 MG/DL 70-110 N Performed by certified sugar reprocess operator head at [facility] [id number] 07:41:00* Test Item Value Reference Range Interpretation Comments GLUBED (test code = GLUBED) 129 MG/DL 70-110 H Performed by certified sugar reprocess operator head at [facility] PROTHROMBIN [id number] 05:33:00* Test Item Value Reference Range Interpretation Comments PROTHROMBIN TIME PATIENT (test code = PTP) 12.7 SECONDS 9.3-12.9 N INTERNATIONAL NORMAL RATIO (test code = INR) 1.1 0.8-1.2 N TARGET INR BY INDICATION Indication INR1. Prophylaxis of venous thrombosis 2.0 - 3.0 (orthopedic surgery), Prophylaxis of venous thrombosis (other than high-risk surgery), Treatment of Deep Vein Thrombosis/Pulmonary Embolism, Prevention of systemic embolism - Tissue heart valves, Acute Myocardial Infarction (to prevent systemic embolism), Valvular heart disease, Atrial Fibrillation, Bileaflet mechanical valve in aortic position.2. Mechanical prosthetic valves (high risk), 2.5 - 3.5 Presence of Lupus Anticoagulant or Antiphospholipid Antibodies, Prevention of systemic embolism - Acute Myocardial Infarction (to prevent recurrent infarct). THROMBOPLASTIN TIME [id number] 05:33:00* Test Item Value Reference Range Interpretation Comments THROMBOPLASTIN TIME PARTIAL (test code = PTT) 33.5 Seconds 25.0-39. 5 N Therapeutic Range: 61.8-83.8 Sec Effective 07/14/2013 BASIC METABOLIC [id number] 05:31:00* Test Item Value Reference Range Interpretation Comments SODIUM (test code = NA) 137 mEq/L 134-147 N POTASSIUM (test code = K) 3.7 mEq/L 3.4-5.0 N CHLORIDE (test code = CL) 102 mEq/L 100-108 N CARBON DIOXIDE (test code = CO2) 31 mEq/L 21-33 N ANION GAP (test code = GAP) 8 0-20 N GLUCOSE (test code = GLU) 142 mg/dL 70-110 H BLOOD UREA NITROGEN (test code = BUN) 23 mg/dL 7-18 H GLOMERULAR FILTRATION RATE (test code = GFR) 18.6 90-95 L Units of measure = ml/min/1.73 m2 CREATININE (test code = CREAT) 3.4 mg/dL 0.6-1.3 H CALCIUM (test code = CA) 7.6 mg/dL 8.0-10.5 L COMMENTS: To be done morning of Heart CathCBC W/AUTO [id number] 05:10:00* Test Item Value Reference Range Interpretation Comments WHITE BLOOD CELL (test code = WBC) 6.55 x10 3/uL 4.5-11.0 N RED BLOOD CELL (test code = RBC) 2.45 x10 6/uL 4.00-5.60 L HEMOGLOBIN (test code = HGB) 8.1 g/dL 12.5-16.9 L HEMATOCRIT (test code = HCT) 25.7 % 37.5-50.7 L MEAN CELL VOLUME (test code = MCV) 104.9 fL 81.0-99.0 H MEAN CELL HGB (test code = MCH) 33.1 pg 27.0-33.0 H MEAN CELL HGB CONCETRATION (test code = MCHC) 31.5 g/dL 33.0-37. 0 L RED CELL DISTRIBUTION WIDTH CV (test code = RDW) 13.8 % 11.5- 14.5 N RED CELL DISTRIBUTION WIDTH SD (test code = RDW-SD) 52.8 fL 37 .0-54.0 N PLATELET COUNT (test code = PLT) 113 x10 3/uL 150-400 L MEAN PLATELET VOLUME (test code = MPV) 10.5 fL 7.0-9.0 H NEUTROPHIL % (test code = NT%) 66.7 % 56.0-77.0 N IMMATURE GRANULOCYTE % (test code = IG%) 0.6 % 0.0-2.0 N LYMPHOCYTE % (test code = LY%) 18.5 % 14.0-32.0 N MONOCYTE % (test code = MO%) 9.0 % 4.8-9.0 N EOSINOPHIL % (test code = EO%) 4.6 % 0.3-3.7 H BASOPHIL % (test code = BA%) 0.6 % 0.0-2.0 N NUCLEATED RBC % (test code = NRBC%) 0.0 % 0-0 N NEUTROPHIL # (test code = NT#) 4.37 x10 3/uL 2.0-7.6 N IMMATURE GRANULOCYTE # (test code = IG#) 0.04 x10 3/uL 0.00-0.03 H LYMPHOCYTE # (test code = LY#) 1.21 x10 3/uL 1.0-3.8 N MONOCYTE # (test code = MO#) 0.59 x10 3/uL 0.1-0.8 N EOSINOPHIL # (test code = EO#) 0.30 x10 3/uL 0.0-0.2 H BASOPHIL # (test code = BA#) 0.04 x10 3/uL 0.0-0.2 N NUCLEATED RBC # (test code = NRBC#) 0.00 x10 3/uL 0.0-0.1 N MANUAL DIFF REQUIRED (test code = MDIFF) NO COMMENTS: To be done morning of Heart [id number] 16:17:00* Test Item Value Reference Range Interpretation Comments GLUBED (test code = GLUBED) 191 MG/DL 70-110 H Performed by certified sugar reprocess operator head at [facility] TOTAL IRON BINDING [id number] 12:09:00* Test Item Value Reference Range Interpretation Comments SERUM IRON (test code = IRON) 62 mcg/dL 35-150 N TOTAL IRON BINDING CAPACITY (test code = TIBC) 182 mcg/dL 260-445 L UIBC (test code = UIBC) 120 mcg/dL IRON SATURATION (test code = FESAT) 34.1 % 14-34 H [id number] 12:09:00* Test Item Value Reference Range Interpretation Comments FERRITIN (test code = RIK) 244.8 ng/mL 23.9-336.2 N [id number] 08:07:00* Test Item Value Reference Range Interpretation Comments GLUBED (test code = GLUBED) 116 MG/DL 70-110 H Performed by certified sugar reprocess operator head at [facility] BASIC METABOLIC [id number] 06:52:00* Test Item Value Reference Range Interpretation Comments SODIUM (test code = NA) 137 mEq/L 134-147 N POTASSIUM (test code = K) 3.5 mEq/L 3.4-5.0 N CHLORIDE (test code = CL) 101 mEq/L 100-108 N CARBON DIOXIDE (test code = CO2) 29 mEq/L 21-33 N ANION GAP (test code = GAP) 11 0-20 N GLUCOSE (test code = GLU) 136 mg/dL 70-110 H BLOOD UREA NITROGEN (test code = BUN) 34 mg/dL 7-18 H GLOMERULAR FILTRATION RATE (test code = GFR) 16.4 90-95 L Units of measure = ml/min/1.73 m2 CREATININE (test code = CREAT) 3.8 mg/dL 0.6-1.3 H CALCIUM (test code = CA) 7.4 mg/dL 8.0-10.5 L CBC W/AUTO [id number] 06:48:00* Test Item Value Reference Range Interpretation Comments WHITE BLOOD CELL (test code = WBC) 7.52 x10 3/uL 4.5-11.0 N RED BLOOD CELL (test code = RBC) 2.37 x10 6/uL 4.00-5.60 L HEMOGLOBIN (test code = HGB) 7.8 g/dL 12.5-16.9 L HEMATOCRIT (test code = HCT) 24.4 % 37.5-50.7 L MEAN CELL VOLUME (test code = MCV) 103.0 fL 81.0-99.0 H MEAN CELL HGB (test code = MCH) 32.9 pg 27.0-33.0 N MEAN CELL HGB CONCETRATION (test code = MCHC) 32.0 g/dL 33.0-37. 0 L RED CELL DISTRIBUTION WIDTH CV (test code = RDW) 14.1 % 11.5- 14.5 N RED CELL DISTRIBUTION WIDTH SD (test code = RDW-SD) 52.7 fL 37 .0-54.0 N PLATELET COUNT (test code = PLT) 123 x10 3/uL 150-400 L MEAN PLATELET VOLUME (test code = MPV) 11.3 fL 7.0-9.0 H NEUTROPHIL % (test code = NT%) 67.7 % 56.0-77.0 N IMMATURE GRANULOCYTE % (test code = IG%) 0.7 % 0.0-2.0 N LYMPHOCYTE % (test code = LY%) 18.4 % 14.0-32.0 N MONOCYTE % (test code = MO%) 8.8 % 4.8-9.0 N EOSINOPHIL % (test code = EO%) 4.0 % 0.3-3.7 H BASOPHIL % (test code = BA%) 0.4 % 0.0-2.0 N NUCLEATED RBC % (test code = NRBC%) 0.0 % 0-0 N NEUTROPHIL # (test code = NT#) 5.10 x10 3/uL 2.0-7.6 N IMMATURE GRANULOCYTE # (test code = IG#) 0.05 x10 3/uL 0.00-0.03 H LYMPHOCYTE # (test code = LY#) 1.38 x10 3/uL 1.0-3.8 N MONOCYTE # (test code = MO#) 0.66 x10 3/uL 0.1-0.8 N EOSINOPHIL # (test code = EO#) 0.30 x10 3/uL 0.0-0.2 H BASOPHIL # (test code = BA#) 0.03 x10 3/uL 0.0-0.2 N NUCLEATED RBC # (test code = NRBC#) 0.00 x10 3/uL 0.0-0.1 N MANUAL DIFF REQUIRED (test code = MDIFF) NO [id number] 23:23:00* Test Item Value Reference Range Interpretation Comments TROPONIN-I (test code = TROPI) < 0.015 ng/mL 0.000-0.045 N Negative: <= 0.045 Positive: >= 0.046 Correlation with serial results, other cardiac markers andclinical findings is necessary to determine the clinicalsignificance of this result. Results using different methodologies should not be comparedto one another as quantitative results may vary by method. [id number] 16:25:00* Test Item Value Reference Range Interpretation Comments GLUBED (test code = GLUBED) 167 MG/DL 70-110 H Performed by certified sugar reprocess operator head at [facility] HGB [id number] 14:55:00* Test Item Value Reference Range Interpretation Comments HEMOGLOBIN (test code = HGB) 7.9 g/dL 12.5-16.9 L HEMATOCRIT (test code = HCT) 24.8 % 37.5-50.7 L BASIC METABOLIC [id number] 06:41:00* Test Item Value Reference Range Interpretation Comments SODIUM (test code = NA) 137 mEq/L 134-147 N POTASSIUM (test code = K) 3.5 mEq/L 3.4-5.0 N CHLORIDE (test code = CL) 101 mEq/L 100-108 N CARBON DIOXIDE (test code = CO2) 30 mEq/L 21-33 N ANION GAP (test code = GAP) 10 0-20 N GLUCOSE (test code = GLU) 139 mg/dL 70-110 H BLOOD UREA NITROGEN (test code = BUN) 32 mg/dL 7-18 H GLOMERULAR FILTRATION RATE (test code = GFR) 18.0 90-95 L Units of measure = ml/min/1.73 m2 CREATININE (test code = CREAT) 3.5 mg/dL 0.6-1.3 H CALCIUM (test code = CA) 8.0 mg/dL 8.0-10.5 N [id number] 06:41:00* Test Item Value Reference Range Interpretation Comments PHOSPHOROUS (test code = PHOS) 3.0 mg/dL 2.5-4.9 CBC W/AUTO [id number] 06:10:00* Test Item Value Reference Range Interpretation Comments WHITE BLOOD CELL (test code = WBC) 9.87 x10 3/uL 4.5-11.0 N RED BLOOD CELL (test code = RBC) 2.35 x10 6/uL 4.00-5.60 L HEMOGLOBIN (test code = HGB) 7.8 g/dL 12.5-16.9 L HEMATOCRIT (test code = HCT) 24.3 % 37.5-50.7 L MEAN CELL VOLUME (test code = MCV) 103.4 fL 81.0-99.0 H MEAN CELL HGB (test code = MCH) 33.2 pg 27.0-33.0 H MEAN CELL HGB CONCETRATION (test code = MCHC) 32.1 g/dL 33.0-37. 0 L RED CELL DISTRIBUTION WIDTH CV (test code = RDW) 14.2 % 11.5- 14.5 N RED CELL DISTRIBUTION WIDTH SD (test code = RDW-SD) 53.3 fL 37 .0-54.0 N PLATELET COUNT (test code = PLT) 104 x10 3/uL 150-400 L MEAN PLATELET VOLUME (test code = MPV) 10.9 fL 7.0-9.0 H NEUTROPHIL % (test code = NT%) 78.2 % 56.0-77.0 H IMMATURE GRANULOCYTE % (test code = IG%) 0.9 % 0.0-2.0 N LYMPHOCYTE % (test code = LY%) 10.6 % 14.0-32.0 L MONOCYTE % (test code = MO%) 7.4 % 4.8-9.0 N EOSINOPHIL % (test code = EO%) 2.7 % 0.3-3.7 N BASOPHIL % (test code = BA%) 0.2 % 0.0-2.0 N NUCLEATED RBC % (test code = NRBC%) 0.0 % 0-0 N NEUTROPHIL # (test code = NT#) 7.71 x10 3/uL 2.0-7.6 H IMMATURE GRANULOCYTE # (test code = IG#) 0.09 x10 3/uL 0.00-0.03 H LYMPHOCYTE # (test code = LY#) 1.05 x10 3/uL 1.0-3.8 N MONOCYTE # (test code = MO#) 0.73 x10 3/uL 0.1-0.8 N EOSINOPHIL # (test code = EO#) 0.27 x10 3/uL 0.0-0.2 H BASOPHIL # (test code = BA#) 0.02 x10 3/uL 0.0-0.2 N NUCLEATED RBC # (test code = NRBC#) 0.00 x10 3/uL 0.0-0.1 N MANUAL DIFF REQUIRED (test code = MDIFF) NO [id number] 16:28:00* Test Item Value Reference Range Interpretation Comments GLUBED (test code = GLUBED) 157 MG/DL 70-110 H Performed by certified sugar reprocess operator head at [facility] [id number] 08:50:00* Test Item Value Reference Range Interpretation Comments GLUBED (test code = GLUBED) 95 MG/DL 70-110 N Performed by certified sugar reprocess operator head at [facility] BASIC METABOLIC [id number] 06:11:00* Test Item Value Reference Range Interpretation Comments SODIUM (test code = NA) 137 mEq/L 134-147 N POTASSIUM (test code = K) 3.7 mEq/L 3.4-5.0 N CHLORIDE (test code = CL) 102 mEq/L 100-108 N CARBON DIOXIDE (test code = CO2) 29 mEq/L 21-33 N ANION GAP (test code = GAP) 10 0-20 N GLUCOSE (test code = GLU) 101 mg/dL 70-110 N BLOOD UREA NITROGEN (test code = BUN) 23 mg/dL 7-18 H GLOMERULAR FILTRATION RATE (test code = GFR) 21.5 90-95 L Units of measure = ml/min/1.73 m2 CREATININE (test code = CREAT) 3.0 mg/dL 0.6-1.3 H CALCIUM (test code = CA) 8.4 mg/dL 8.0-10.5 N [id number] 06:11:00* Test Item Value Reference Range Interpretation Comments LIPASE (test code = LIP) 722 IUnit/L 73-393 H CBC W/AUTO [id number] 05:48:00* Test Item Value Reference Range Interpretation Comments WHITE BLOOD CELL (test code = WBC) 12.39 x10 3/uL 4.5-11.0 H RED BLOOD CELL (test code = RBC) 2.76 x10 6/uL 4.00-5.60 L HEMOGLOBIN (test code = HGB) 9.0 g/dL 12.5-16.9 L HEMATOCRIT (test code = HCT) 28.1 % 37.5-50.7 L MEAN CELL VOLUME (test code = MCV) 101.8 fL 81.0-99.0 H MEAN CELL HGB (test code = MCH) 32.6 pg 27.0-33.0 N MEAN CELL HGB CONCETRATION (test code = MCHC) 32.0 g/dL 33.0-37. 0 L RED CELL DISTRIBUTION WIDTH CV (test code = RDW) 14.4 % 11.5- 14.5 N RED CELL DISTRIBUTION WIDTH SD (test code = RDW-SD) 51.9 fL 37 .0-54.0 N PLATELET COUNT (test code = PLT) 113 x10 3/uL 150-400 L MEAN PLATELET VOLUME (test code = MPV) 11.2 fL 7.0-9.0 H NEUTROPHIL % (test code = NT%) 76.0 % 56.0-77.0 N IMMATURE GRANULOCYTE % (test code = IG%) 1.1 % 0.0-2.0 N LYMPHOCYTE % (test code = LY%) 10.1 % 14.0-32.0 L MONOCYTE % (test code = MO%) 10.4 % 4.8-9.0 H EOSINOPHIL % (test code = EO%) 2.1 % 0.3-3.7 N BASOPHIL % (test code = BA%) 0.3 % 0.0-2.0 N NUCLEATED RBC % (test code = NRBC%) 0.0 % 0-0 N NEUTROPHIL # (test code = NT#) 9.41 x10 3/uL 2.0-7.6 H IMMATURE GRANULOCYTE # (test code = IG#) 0.14 x10 3/uL 0.00-0.03 H LYMPHOCYTE # (test code = LY#) 1.25 x10 3/uL 1.0-3.8 N MONOCYTE # (test code = MO#) 1.29 x10 3/uL 0.1-0.8 H EOSINOPHIL # (test code = EO#) 0.26 x10 3/uL 0.0-0.2 H BASOPHIL # (test code = BA#) 0.04 x10 3/uL 0.0-0.2 N NUCLEATED RBC # (test code = NRBC#) 0.00 x10 3/uL 0.0-0.1 N MANUAL DIFF REQUIRED (test code = MDIFF) NO [id number] 16:50:00* Test Item Value Reference Range Interpretation Comments GLUBED (test code = GLUBED) 121 MG/DL 70-110 H Performed by certified sugar reprocess operator head at [facility] ARTERIAL BLOOD [id number] 10:08:00* Test Item Value Reference Range Interpretation Comments ARTERIAL BLOOD GAS PH (test code = PHA) 7.432 7.35-7.45 N ARTERIAL BLOOD GAS PCO2 (test code = PCO2A) 44.0 mmHg 35-45 N ARTERIAL BLOOD GAS PO2 (test code = PO2A) 148 mmHg 80-100 H BICARBONATE TOTAL HCO3 (test code = HCO3) 29.3 mmol/L 22.0-26.0 H BASE EXCESS (test code = DANAE) 5.0 mmol/L -4-4 H ABG O2 SATURATION (test code = SATA) 99 % 90-100 N FIO2 (test code = FIO2A) 35 % ABG DELIVERY (test code = FAMILIA) Vent ABG VENT MODE (test code = MODEA) PSV ABG PEEP (test code = PEEPA) 5 cmH2O ABG PRESSURE SUPPORT (test code = PSABG) 5 cmH2O Performed by certified sugar reprocess operator head at [facility] ABG TEMPERATURE (test code = TEMPA) 98.6 F ABG SITE (test code = SITEA) R Rad PREDICTED AA GRADIENT (test code = AP) 51 PREDICTED PO2 (test code = OP) 146 a/A RATIO (test code = RATIO) 0.75 TCO2 ARTERIAL (test code = TCO2A) 31 A-A GRADIENT (test code = AAGRADE) 49 - XR CHEST 1 [id number] 07:31:00 FAX: Eloise Treadwell MD [phone] [place]: St: [facility] FAX: Balaji Dimas MD [phone] FAX: Kellee Silva DO Name: MARKO CABRALES [facility] : 1960 Age/S: 57/M [address] [place] [address] Unit #: [id number] Loc: G.[address] [address] Phys: Eloise Treadwell MD Acct: [id number] Dis Date: Status: ADM IN ONE #: [phone] Exam Date: 08/14/2018 0555 FAX #: [phone] Reason: ETT EXAMS: CPT CODE: [id number] XR CHEST 1 V 73436 PROCEDURE: [facility] Radiograph. Clinical Indication: Endotracheal tube placement, pancreatitis, renal insufficiency. Comparison: Chest radiogr aph 08/13/2018. FINDINGS: The chest shows minimal va scular congestion and edema. There is blunting of the right costophrenic angle suggesting a small right pleural effusion. There is subsegmental at electasis at the lung bases. Support lines are in stable position. The cardiac silhouette is enlarged. Degenerative change involves the thoracic spine. IMPRESSION: 1. Essentially stable c hest with findings suggesting CHF and bibasilar subsegmental atelectasis . SL: CY-H Electronic ally Signed by Eduard Cano on 08/14/2018 at 0731 Reported and signed by: Morgan mcdermott M.D. CC: Eloise Treadwell MD; Balaji Dao MD; Kellee Soler Technologist: Ella Barahona, RT(R); Brandon Katz, RT(R) Trnscrd Date/Time/By: 08/14/2018 (0731) : By: MontanaTDO Orig Print D/T: S: 06/2018 (0728) PAGE 1 Signed Repo rt BASIC METABOLIC [id number] 05:55:00* Test Item Value Reference Range Interpretation Comments SODIUM (test code = NA) 138 mEq/L 134-147 N POTASSIUM (test code = K) 3.2 mEq/L 3.4-5.0 L CHLORIDE (test code = CL) 104 mEq/L 100-108 N CARBON DIOXIDE (test code = CO2) 29 mEq/L 21-33 N ANION GAP (test code = GAP) 8 0-20 N GLUCOSE (test code = GLU) 102 mg/dL 70-110 N BLOOD UREA NITROGEN (test code = BUN) 29 mg/dL 7-18 H GLOMERULAR FILTRATION RATE (test code = GFR) 15.4 90-95 L Units of measure = ml/min/1.73 m2 CREATININE (test code = CREAT) 4.0 mg/dL 0.6-1.3 H CALCIUM (test code = CA) 7.6 mg/dL 8.0-10.5 L [id number] 05:55:00* Test Item Value Reference Range Interpretation Comments PHOSPHOROUS (test code = PHOS) 2.3 mg/dL 2.5-4.9 L [id number] 05:55:00* Test Item Value Reference Range Interpretation Comments LIPASE (test code = LIP) 1035 IUnit/L 73-393 H CBC W/AUTO [id number] 05:37:00* Test Item Value Reference Range Interpretation Comments WHITE BLOOD CELL (test code = WBC) 9.54 x10 3/uL 4.5-11.0 N RED BLOOD CELL (test code = RBC) 2.52 x10 6/uL 4.00-5.60 L HEMOGLOBIN (test code = HGB) 8.4 g/dL 12.5-16.9 L HEMATOCRIT (test code = HCT) 25.3 % 37.5-50.7 L MEAN CELL VOLUME (test code = MCV) 100.4 fL 81.0-99.0 H MEAN CELL HGB (test code = MCH) 33.3 pg 27.0-33.0 H MEAN CELL HGB CONCETRATION (test code = MCHC) 33.2 g/dL 33.0-37. 0 N RED CELL DISTRIBUTION WIDTH CV (test code = RDW) 14.0 % 11.5- 14.5 N RED CELL DISTRIBUTION WIDTH SD (test code = RDW-SD) 49.7 fL 37 .0-54.0 N PLATELET COUNT (test code = PLT) 107 x10 3/uL 150-400 L MEAN PLATELET VOLUME (test code = MPV) 10.8 fL 7.0-9.0 H NEUTROPHIL % (test code = NT%) 71.4 % 56.0-77.0 N IMMATURE GRANULOCYTE % (test code = IG%) 1.2 % 0.0-2.0 N LYMPHOCYTE % (test code = LY%) 14.4 % 14.0-32.0 N MONOCYTE % (test code = MO%) 9.1 % 4.8-9.0 H EOSINOPHIL % (test code = EO%) 3.7 % 0.3-3.7 N BASOPHIL % (test code = BA%) 0.2 % 0.0-2.0 N NUCLEATED RBC % (test code = NRBC%) 0.0 % 0-0 N NEUTROPHIL # (test code = NT#) 6.82 x10 3/uL 2.0-7.6 N IMMATURE GRANULOCYTE # (test code = IG#) 0.11 x10 3/uL 0.00-0.03 H LYMPHOCYTE # (test code = LY#) 1.37 x10 3/uL 1.0-3.8 N MONOCYTE # (test code = MO#) 0.87 x10 3/uL 0.1-0.8 H EOSINOPHIL # (test code = EO#) 0.35 x10 3/uL 0.0-0.2 H BASOPHIL # (test code = BA#) 0.02 x10 3/uL 0.0-0.2 N NUCLEATED RBC # (test code = NRBC#) 0.00 x10 3/uL 0.0-0.1 N MANUAL DIFF REQUIRED (test code = MDIFF) NO ARTERIAL BLOOD [id number] 04:36:00* Test Item Value Reference Range Interpretation Comments ARTERIAL BLOOD GAS PH (test code = PHA) 7.474 7.35-7.45 H ARTERIAL BLOOD GAS PCO2 (test code = PCO2A) 36.5 mmHg 35-45 N ARTERIAL BLOOD GAS PO2 (test code = PO2A) 110 mmHg 80-100 H BICARBONATE TOTAL HCO3 (test code = HCO3) 26.8 mmol/L 22.0-26.0 H BASE EXCESS (test code = DANAE) 3.0 mmol/L -4-4 N ABG O2 SATURATION (test code = SATA) 99 % 90-100 N FIO2 (test code = FIO2A) 35 % ABG DELIVERY (test code = FAMILIA) Vent ABG VENT MODE (test code = MODEA) AC v con ABG VENT RESP RATE (test code = RRA) 14 /MIN ABG TIDAL VOLUME (test code = TVA) 550 ml ABG PEEP (test code = PEEPA) 5 cmH2O Performed by certified sugar reprocess operator head at [facility] ABG TEMPERATURE (test code = TEMPA) 98.6 F ABG SITE (test code = SITEA) R Rad PREDICTED AA GRADIENT (test code = AP) 53 PREDICTED PO2 (test code = OP) 152 a/A RATIO (test code = RATIO) 0.53 TCO2 ARTERIAL (test code = TCO2A) 28 A-A GRADIENT (test code = AAGRADE) 96 ARTERIAL BLOOD [id number] 17:40:00* Test Item Value Reference Range Interpretation Comments ARTERIAL BLOOD GAS PH (test code = PHA) 7.475 7.35-7.45 H ARTERIAL BLOOD GAS PCO2 (test code = PCO2A) 37.0 mmHg 35-45 N ARTERIAL BLOOD GAS PO2 (test code = PO2A) 68 mmHg 80-100 L BICARBONATE TOTAL HCO3 (test code = HCO3) 27.2 mmol/L 22.0-26.0 H BASE EXCESS (test code = DANAE) 4.0 mmol/L -4-4 N ABG O2 SATURATION (test code = SATA) 95 % 90-100 N FIO2 (test code = FIO2A) 60 % ABG DELIVERY (test code = FAMILIA) Vent ABG VENT MODE (test code = MODEA) AC v con ABG VENT RESP RATE (test code = RRA) 14 /MIN ABG TIDAL VOLUME (test code = TVA) 550 ml ABG PEEP (test code = PEEPA) 5 cmH2O Performed by certified sugar reprocess operator head at [facility] ABG TEMPERATURE (test code = TEMPA) 37.0 F ABG SITE (test code = SITEA) R Rad PREDICTED AA GRADIENT (test code = AP) 99 PREDICTED PO2 (test code = OP) 284 a/A RATIO (test code = RATIO) 0.18 TCO2 ARTERIAL (test code = TCO2A) 28 A-A GRADIENT (test code = AAGRADE) 315 - XR ABDOMEN 1V ([facility])2018-08-13 17:29:00 FAX: Eloise Treadwell MD [phone] [place]: St: ADM FAX: Balaji Dimas MD [phone] FAX: Kellee Silva DO Name: MARKO CABRALES [facility] : 1960 Age/S: 57/M [address] [place] [address] Unit #: [id number] Loc: G.M[address] [place] [address] Phys: Eloise Treadwell MD Acct: [id number] Dis Date: Status: ADM IN ONE #: [phone] Exam Date: 08/13/2018 1726 FAX #: [phone] Reason: NG PLACEMENT EXAMS: CPT CODE: [id number] XR ABDOMEN 1V ([facility]) [address] PROCEDURE: - XR ABDOMEN 1V ([facility]), 08/13/2018 at 1713 hours INDICATION: 57 years Male, NG PLACEMENT. COMPARISON: 08/13/2018 at 1604 hours FINDINGS: Gastric tube courses along the expected esophagus and stom ach with the tip over the distal stomach/proximal duodenum in the right up per quadrant SL: DREW at 1729 Reported and signed by: Liat Bernal M.D. CC: Eloise Treadwell MD; Balaji Hoyt; Kellee Silva DO Technologist: Aimee Hardy, RT(R)(M); Adelina Landon T(R) Trnscrd Date/Time/By: 08/13/2018 (6774) : By: [email or web address] Orig Print D/T: S: 08/13/2018 (9319) PAGE 1 Signed Report [id number] 17:19:00* Test Item Value Reference Range Interpretation Comments TROPONIN-I (test code = TROPI) 0.026 ng/mL 0.000-0.045 N Negative: <= 0.045 Positive: >= 0.046 Correlation with serial results, other cardiac markers andclinical findings is necessary to determine the clinicalsignificance of this result. Results using different methodologies should not be comparedto one another as quantitative results may vary by method. - XR ABDOMEN 1V ([facility])2018-08-13 16:28:00 FAX: Eloise Treadwell MD [phone] [place]: St: ADM FAX: Baljai Dimas MD [phone] FAX: Kellee Silva DO Name: MARKO CABRALES [facility] : 1960 Age/S: 57/M [address] [place] [address] Unit #: [id number] Loc: G.[address] [place] [address] Phys: Eloise Treadwell MD Acct: [id number] Dis Date: Status: ADM IN PH ONE #: [phone] Exam Date: 08/13/2018 1623 FAX #: [phone] Reason: NGT Placement EXAMS: CPT CODE: [id number] XR ABDOMEN 1V ([facility]) [address] 1 VIEW ABDOMEN 4:08 PM INDICATION: NG tube placement. COMP ARISON: Today's 1:29 PM abdomen x-ray. I do not identify an NG tub e within the [id number]. Stomach is moderately distended with air. Valentín wel gas pattern otherwise normal. Soft tissues and bones normal.. IMPRESSION: NG tube is not demonstrated within the fi eld-of-view. The tip does not extend into the gastric lumen. Recommend chest x-ray to locate NG tube. END IMP RESSION [id number] at 9888 Reported and signed by: Eileen Cortes CC: Eloise Treadwell MD; Balaji Dao MD; Kellee Alvarado chnologist: Elvia Solorzano, RT(R), RTT; Maribel Miller RT(R) Trnscrd Date/ Time/By: 08/13/2018 (3344) : By: MontanaRTB Orig Print D/T: S: 08/13/19 (1697) PAGE 1 Signed Report - XR CHEST 1 [id number] 16:23:00 FAX: Eloise Treadwell MD [phone] [place]: St: ADM FAX: Balaji Dimas MD [phone] FAX: Kellee Silva DO --------- Name: MARKO CABRALES [facility] : 1960 Age/S: 57/M [address] [place] [address] it #: [id number] Loc: G.M[address] [place] [address] Phys: Eloise Treadwell MD Acct: [id number] Dis Date: Status: ADM IN ONE #: [phone] Exam Date: 08/13/2018 1622 FAX #: [phone] Reason: Post intubation EXAMS: CPT CODE: [id number] XR CHEST 1 V 61319 1 VIEW CXR. PORTABLE EXAM 4:07 PM HISTORY: ET tube placement. COMPARISON: 08/09/2018 chest x-ray. Endotracheal tube is in pl juliane and the tip is at the level of the medial aspect of the clavicles. St able right IJ central venous catheter. Mild amount of atelectasis left ba se. The lungs are hypoinflated. Cardiomediastinal silhouette stable bone s intact. IMPRESSION: ET tube in apparent good position. Chest otherwise stable at a 4 day interval. END OF IMPRESSION SL: [id number] at 1623 Reported and signed by: Chris Fontaine M.D. CC: Eloise Treadwell MD; Balaji Dao MD; Kellee Silva DO Technologist: Elvia Solorzano, RT(R), RTT; Maribel Miller, RT(R) Trnscrd Date/Time/By: (8415) : By: MontanaRTB Orig Print D/T: S: 08/13/2018 (1823) PAGE 1 Signed Report [id number] 15:42:00* Test Item Value Reference Range Interpretation Comments GLUBED (test code = GLUBED) 144 MG/DL 70-110 H Performed by certified sugar reprocess operator head at [facility] - XR ABDOMEN 1V ([facility])2018-08-13 14:28:00 FAX: Rehan Heck MD [phone] [place]: St: ADM FAX: Balaji Dimas MD [phone] FAX: Kellee Silva DO Name: MARKO ACBRALES [facility] : 1960 Age/S: 57/M [address] [place] [address] Unit #: [id number] Loc: G.M[address] [place] [address] Phys: Rehan Altamirano MD Acct: [id number] Dis Date: Status: ADM IN PH ONE #: [phone] Exam Date: 08/13/2018 1415 FAX #: [phone] Reason: ABDOMINAL PAIN EXAMS: CPT CODE: [id number] XR ABDOMEN 1V ([facility]) 43609 ABDOMEN SINGLE VIEW HISTORY: Pancreatitis. COMPARISON: FINDINGS: There are no dilated small bowel loops or small bowel air-fluid levels. There is no gross colonic abnormality. There is no gr oss free intraperitoneal air. No abnormal calcifications identified. The lung bases are clear. Patient is post cholecystectomy. I MPRESSION: Nonspecific/unobstructed abdominal bowel gas patter n. SL:01 at 1423 Reported and signed by: Momo López M.D. CC: Rehan Altamirano MD; Balaji Dao MD; Kellee Silva DO Technologist: RT Rakesh(Adelina) Trnscrd Date/Time/By: 0 08/13/2018 (2947) : By: Vanita Orig Print D/T: S: 08/13/2018 (0326) PAGE 1 Signed Report [id number] 07:52:00* Test Item Value Reference Range Interpretation Comments GLUBED (test code = GLUBED) 142 MG/DL 70-110 H Performed by certified sugar reprocess operator head at [facility] BASIC METABOLIC [id number] 06:11:00* Test Item Value Reference Range Interpretation Comments SODIUM (test code = NA) 138 mEq/L 134-147 N POTASSIUM (test code = K) 3.6 mEq/L 3.4-5.0 N CHLORIDE (test code = CL) 105 mEq/L 100-108 N CARBON DIOXIDE (test code = CO2) 32 mEq/L 21-33 N ANION GAP (test code = GAP) 5 0-20 N GLUCOSE (test code = GLU) 125 mg/dL 70-110 H BLOOD UREA NITROGEN (test code = BUN) 25 mg/dL 7-18 H GLOMERULAR FILTRATION RATE (test code = GFR) 15.0 90-95 L Units of measure = ml/min/1.73 m2 CREATININE (test code = CREAT) 4.1 mg/dL 0.6-1.3 H CALCIUM (test code = CA) 7.1 mg/dL 8.0-10.5 L [id number] 06:11:00* Test Item Value Reference Range Interpretation Comments ALBUMIN (test code = ALB) 2.30 g/dL 3.4-5.0 L [id number] 06:11:00* Test Item Value Reference Range Interpretation Comments PHOSPHOROUS (test code = PHOS) 2.5 mg/dL 2.5-4.9 [id number] 06:11:00* Test Item Value Reference Range Interpretation Comments PREALBUMIN (test code = PREALB) 9.6 mg/dL 16.0-40.0 L BASIC METABOLIC [id number] 06:05:00* Test Item Value Reference Range Interpretation Comments SODIUM (test code = NA) 138 mEq/L 134-147 N POTASSIUM (test code = K) 3.6 mEq/L 3.4-5.0 N CHLORIDE (test code = CL) 105 mEq/L 100-108 N CARBON DIOXIDE (test code = CO2) 32 mEq/L 21-33 N ANION GAP (test code = GAP) 5 0-20 N GLUCOSE (test code = GLU) 125 mg/dL 70-110 H BLOOD UREA NITROGEN (test code = BUN) 25 mg/dL 7-18 H GLOMERULAR FILTRATION RATE (test code = GFR) 15.0 90-95 L Units of measure = ml/min/1.73 m2 CREATININE (test code = CREAT) 4.1 mg/dL 0.6-1.3 H CALCIUM (test code = CA) 7.1 mg/dL 8.0-10.5 L [id number] 06:05:00* Test Item Value Reference Range Interpretation Comments ALBUMIN (test code = ALB) 2.30 g/dL 3.4-5.0 L [id number] 06:05:00* Test Item Value Reference Range Interpretation Comments PHOSPHOROUS (test code = PHOS) 2.5 mg/dL 2.5-4.9 [id number] 06:05:00* Test Item Value Reference Range Interpretation Comments PREALBUMIN (test code = PREALB) mg/dL 16.0-40.0 CBC W/AUTO [id number] 05:59:00* Test Item Value Reference Range Interpretation Comments WHITE BLOOD CELL (test code = WBC) 9.88 x10 3/uL 4.5-11.0 N RED BLOOD CELL (test code = RBC) 2.51 x10 6/uL 4.00-5.60 L HEMOGLOBIN (test code = HGB) 8.3 g/dL 12.5-16.9 L HEMATOCRIT (test code = HCT) 25.3 % 37.5-50.7 L MEAN CELL VOLUME (test code = MCV) 100.8 fL 81.0-99.0 H MEAN CELL HGB (test code = MCH) 33.1 pg 27.0-33.0 H MEAN CELL HGB CONCETRATION (test code = MCHC) 32.8 g/dL 33.0-37. 0 L RED CELL DISTRIBUTION WIDTH CV (test code = RDW) 13.8 % 11.5- 14.5 N RED CELL DISTRIBUTION WIDTH SD (test code = RDW-SD) 49.7 fL 37 .0-54.0 N PLATELET COUNT (test code = PLT) 102 x10 3/uL 150-400 L MEAN PLATELET VOLUME (test code = MPV) 10.3 fL 7.0-9.0 H NEUTROPHIL % (test code = NT%) 72.7 % 56.0-77.0 N IMMATURE GRANULOCYTE % (test code = IG%) 1.1 % 0.0-2.0 N LYMPHOCYTE % (test code = LY%) 11.5 % 14.0-32.0 L MONOCYTE % (test code = MO%) 10.7 % 4.8-9.0 H EOSINOPHIL % (test code = EO%) 3.7 % 0.3-3.7 N BASOPHIL % (test code = BA%) 0.3 % 0.0-2.0 N NUCLEATED RBC % (test code = NRBC%) 0.0 % 0-0 N NEUTROPHIL # (test code = NT#) 7.17 x10 3/uL 2.0-7.6 N IMMATURE GRANULOCYTE # (test code = IG#) 0.11 x10 3/uL 0.00-0.03 H LYMPHOCYTE # (test code = LY#) 1.14 x10 3/uL 1.0-3.8 N MONOCYTE # (test code = MO#) 1.06 x10 3/uL 0.1-0.8 H EOSINOPHIL # (test code = EO#) 0.37 x10 3/uL 0.0-0.2 H BASOPHIL # (test code = BA#) 0.03 x10 3/uL 0.0-0.2 N NUCLEATED RBC # (test code = NRBC#) 0.00 x10 3/uL 0.0-0.1 N MANUAL DIFF REQUIRED (test code = MDIFF) NO [id number] 16:56:00* Test Item Value Reference Range Interpretation Comments GLUBED (test code = GLUBED) 121 MG/DL 70-110 H Performed by certified sugar reprocess operator head at [facility] [id number] 12:08:00* Test Item Value Reference Range Interpretation Comments GLUBED (test code = GLUBED) 164 MG/DL 70-110 H Performed by certified sugar reprocess operator head at [facility] [id number] 09:49:00* Test Item Value Reference Range Interpretation Comments GLUBED (test code = GLUBED) 147 MG/DL 70-110 H Performed by certified sugar reprocess operator head at [facility] BASIC METABOLIC [id number] 05:47:00* Test Item Value Reference Range Interpretation Comments SODIUM (test code = NA) 139 mEq/L 134-147 N POTASSIUM (test code = K) 3.3 mEq/L 3.4-5.0 L CHLORIDE (test code = CL) 105 mEq/L 100-108 N CARBON DIOXIDE (test code = CO2) 30 mEq/L 21-33 N ANION GAP (test code = GAP) 7 0-20 N GLUCOSE (test code = GLU) 126 mg/dL 70-110 H BLOOD UREA NITROGEN (test code = BUN) 16 mg/dL 7-18 GLOMERULAR FILTRATION RATE (test code = GFR) 21.5 90-95 L Units of measure = ml/min/1.73 m2 CREATININE (test code = CREAT) 3.0 mg/dL 0.6-1.3 H CALCIUM (test code = CA) 6.9 mg/dL 8.0-10.5 L [id number] 05:47:00* Test Item Value Reference Range Interpretation Comments PHOSPHOROUS (test code = PHOS) 1.9 mg/dL 2.5-4.9 L CBC W/AUTO [id number] 05:22:00* Test Item Value Reference Range Interpretation Comments WHITE BLOOD CELL (test code = WBC) 8.70 x10 3/uL 4.5-11.0 N RED BLOOD CELL (test code = RBC) 2.49 x10 6/uL 4.00-5.60 L HEMOGLOBIN (test code = HGB) 8.4 g/dL 12.5-16.9 L HEMATOCRIT (test code = HCT) 25.5 % 37.5-50.7 L MEAN CELL VOLUME (test code = MCV) 102.4 fL 81.0-99.0 H MEAN CELL HGB (test code = MCH) 33.7 pg 27.0-33.0 H MEAN CELL HGB CONCETRATION (test code = MCHC) 32.9 g/dL 33.0-37. 0 L RED CELL DISTRIBUTION WIDTH CV (test code = RDW) 13.8 % 11.5- 14.5 N RED CELL DISTRIBUTION WIDTH SD (test code = RDW-SD) 50.9 fL 37 .0-54.0 N PLATELET COUNT (test code = PLT) 108 x10 3/uL 150-400 L MEAN PLATELET VOLUME (test code = MPV) 10.2 fL 7.0-9.0 H NEUTROPHIL % (test code = NT%) 73.6 % 56.0-77.0 N IMMATURE GRANULOCYTE % (test code = IG%) 1.0 % 0.0-2.0 N LYMPHOCYTE % (test code = LY%) 12.6 % 14.0-32.0 L MONOCYTE % (test code = MO%) 9.1 % 4.8-9.0 H EOSINOPHIL % (test code = EO%) 3.4 % 0.3-3.7 N BASOPHIL % (test code = BA%) 0.3 % 0.0-2.0 N NUCLEATED RBC % (test code = NRBC%) 0.0 % 0-0 N NEUTROPHIL # (test code = NT#) 6.39 x10 3/uL 2.0-7.6 N IMMATURE GRANULOCYTE # (test code = IG#) 0.09 x10 3/uL 0.00-0.03 H LYMPHOCYTE # (test code = LY#) 1.10 x10 3/uL 1.0-3.8 N MONOCYTE # (test code = MO#) 0.79 x10 3/uL 0.1-0.8 N EOSINOPHIL # (test code = EO#) 0.30 x10 3/uL 0.0-0.2 H BASOPHIL # (test code = BA#) 0.03 x10 3/uL 0.0-0.2 N NUCLEATED RBC # (test code = NRBC#) 0.00 x10 3/uL 0.0-0.1 N MANUAL DIFF REQUIRED (test code = MDIFF) NO [id number] 05:05:00* Test Item Value Reference Range Interpretation Comments GLUBED (test code = GLUBED) 120 MG/DL 70-110 H Performed by certified sugar reprocess operator head at [facility] [id number] 21:00:00* Test Item Value Reference Range Interpretation Comments GLUBED (test code = GLUBED) 149 MG/DL 70-110 H Performed by certified sugar reprocess operator head at [facility] [id number] 20:31:00* Test Item Value Reference Range Interpretation Comments GLUBED (test code = GLUBED) 134 MG/DL 70-110 H Performed by certified sugar reprocess operator head at [facility] [id number] 12:01:00* Test Item Value Reference Range Interpretation Comments GLUBED (test code = GLUBED) 156 MG/DL 70-110 H Performed by certified sugar reprocess operator head at [facility] [id number] 08:21:00* Test Item Value Reference Range Interpretation Comments GLUBED (test code = GLUBED) 155 MG/DL 70-110 H Performed by certified sugar reprocess operator head at [facility] ACUTE HEPATITIS [id number] 07:27:00* Test Item Value Reference Range Interpretation Comments AB HEPATITIS A IGM (test code = HAVMAB) NON REACTIVE INDEX NON REAC T. AG HEPATITIS B SURFACE (test code = HBSAG) NON REACTIVE INDEX NonRe active AB HEPATITIS B CORE IGM (test code = HBCMAB) NON REACTIVE INDEX NON REACT. AB HEPATITIS C (test code = HCVAB) NON REACTIVE INDEX NON REACT. COMMENTS: At start of hemodialysisAB HEPATITIS B [id number] 07:27:00* Test Item Value Reference Range Interpretation Comments AB HEPATITIS B SURFACE (test code = HBSAB) < 3.1 mIU/mL Immunity>9. 9 L Status of Immunity Anti-HBs Level Inconsistent with Immunity 0.0 - 9.9Consistent with Immunity >9.9Performed At: [facility] [id number] [place], [place] [id number] Garret Prado MD Ph:[phone] COMMENTS: At start of hemodialysisBASIC METABOLIC [id number] 05:30:00* Test Item Value Reference Range Interpretation Comments SODIUM (test code = NA) 142 mEq/L 134-147 N POTASSIUM (test code = K) 3.3 mEq/L 3.4-5.0 L CHLORIDE (test code = CL) 107 mEq/L 100-108 N CARBON DIOXIDE (test code = CO2) 32 mEq/L 21-33 N ANION GAP (test code = GAP) 6 0-20 N GLUCOSE (test code = GLU) 154 mg/dL 70-110 H BLOOD UREA NITROGEN (test code = BUN) 30 mg/dL 7-18 H GLOMERULAR FILTRATION RATE (test code = GFR) 17.4 90-95 L Units of measure = ml/min/1.73 m2 CREATININE (test code = CREAT) 3.6 mg/dL 0.6-1.3 H CALCIUM (test code = CA) 7.0 mg/dL 8.0-10.5 L [id number] 05:30:00* Test Item Value Reference Range Interpretation Comments LIPASE (test code = LIP) 915 IUnit/L 73-393 H CBC W/AUTO [id number] 05:21:00* Test Item Value Reference Range Interpretation Comments WHITE BLOOD CELL (test code = WBC) 8.30 x10 3/uL 4.5-11.0 N RED BLOOD CELL (test code = RBC) 2.61 x10 6/uL 4.00-5.60 L HEMOGLOBIN (test code = HGB) 8.8 g/dL 12.5-16.9 L HEMATOCRIT (test code = HCT) 26.5 % 37.5-50.7 L MEAN CELL VOLUME (test code = MCV) 101.5 fL 81.0-99.0 H MEAN CELL HGB (test code = MCH) 33.7 pg 27.0-33.0 H MEAN CELL HGB CONCETRATION (test code = MCHC) 33.2 g/dL 33.0-37. 0 N RED CELL DISTRIBUTION WIDTH CV (test code = RDW) 13.9 % 11.5- 14.5 N RED CELL DISTRIBUTION WIDTH SD (test code = RDW-SD) 50.7 fL 37 .0-54.0 N PLATELET COUNT (test code = PLT) 109 x10 3/uL 150-400 L MEAN PLATELET VOLUME (test code = MPV) 10.4 fL 7.0-9.0 H NEUTROPHIL % (test code = NT%) 72.7 % 56.0-77.0 N IMMATURE GRANULOCYTE % (test code = IG%) 1.0 % 0.0-2.0 N LYMPHOCYTE % (test code = LY%) 12.9 % 14.0-32.0 L MONOCYTE % (test code = MO%) 10.5 % 4.8-9.0 H EOSINOPHIL % (test code = EO%) 2.5 % 0.3-3.7 N BASOPHIL % (test code = BA%) 0.4 % 0.0-2.0 N NUCLEATED RBC % (test code = NRBC%) 0.0 % 0-0 N NEUTROPHIL # (test code = NT#) 6.04 x10 3/uL 2.0-7.6 N IMMATURE GRANULOCYTE # (test code = IG#) 0.08 x10 3/uL 0.00-0.03 H LYMPHOCYTE # (test code = LY#) 1.07 x10 3/uL 1.0-3.8 N MONOCYTE # (test code = MO#) 0.87 x10 3/uL 0.1-0.8 H EOSINOPHIL # (test code = EO#) 0.21 x10 3/uL 0.0-0.2 H BASOPHIL # (test code = BA#) 0.03 x10 3/uL 0.0-0.2 N NUCLEATED RBC # (test code = NRBC#) 0.00 x10 3/uL 0.0-0.1 N MANUAL DIFF REQUIRED (test code = MDIFF) NO [id number] 05:19:00* Test Item Value Reference Range Interpretation Comments GLUBED (test code = GLUBED) 144 MG/DL 70-110 H Performed by certified sugar reprocess operator head at [facility] [id number] 04:31:00* Test Item Value Reference Range Interpretation Comments GLUBED (test code = GLUBED) 143 MG/DL 70-110 H Performed by certified sugar reprocess operator head at [facility] [id number] 00:40:00* Test Item Value Reference Range Interpretation Comments GLUBED (test code = GLUBED) 130 MG/DL 70-110 H Performed by certified sugar reprocess operator head at [facility] [id number] 20:30:00* Test Item Value Reference Range Interpretation Comments GLUBED (test code = GLUBED) 183 MG/DL 70-110 H Performed by certified sugar reprocess operator head at [facility] [id number] 18:18:00* Test Item Value Reference Range Interpretation Comments GLUBED (test code = GLUBED) 168 MG/DL 70-110 H Performed by certified sugar reprocess operator head at [facility] [id number] 18:18:00* Test Item Value Reference Range Interpretation Comments GLUBED (test code = GLUBED) 235 MG/DL 70-110 H Performed by certified sugar reprocess operator head at [facility] BASIC METABOLIC [id number] 05:58:00* Test Item Value Reference Range Interpretation Comments SODIUM (test code = NA) 141 mEq/L 134-147 N POTASSIUM (test code = K) 3.5 mEq/L 3.4-5.0 CHLORIDE (test code = CL) 108 mEq/L 100-108 N CARBON DIOXIDE (test code = CO2) 26 mEq/L 21-33 ANION GAP (test code = GAP) 11 0-20 N GLUCOSE (test code = GLU) 176 mg/dL 70-110 H BLOOD UREA NITROGEN (test code = BUN) 68 mg/dL 7-18 H GLOMERULAR FILTRATION RATE (test code = GFR) 9.5 90-95 L Units of measure = ml/min/1.73 m2 CREATININE (test code = CREAT) 6.1 mg/dL 0.6-1.3 H CALCIUM (test code = CA) 7.2 mg/dL 8.0-10.5 L [id number] 05:58:00* Test Item Value Reference Range Interpretation Comments LIPASE (test code = LIP) 999 IUnit/L 73-393 H CBC W/AUTO [id number] 05:44:00* Test Item Value Reference Range Interpretation Comments WHITE BLOOD CELL (test code = WBC) 7.24 x10 3/uL 4.5-11.0 RED BLOOD CELL (test code = RBC) 2.74 x10 6/uL 4.00-5.60 L HEMOGLOBIN (test code = HGB) 8.9 g/dL 12.5-16.9 L HEMATOCRIT (test code = HCT) 27.3 % 37.5-50.7 L MEAN CELL VOLUME (test code = MCV) 99.6 fL 81.0-99.0 H MEAN CELL HGB (test code = MCH) 32.5 pg 27.0-33.0 N MEAN CELL HGB CONCETRATION (test code = MCHC) 32.6 g/dL 33.0-37. 0 L RED CELL DISTRIBUTION WIDTH CV (test code = RDW) 13.9 % 11.5- 14.5 N RED CELL DISTRIBUTION WIDTH SD (test code = RDW-SD) 49.9 fL 37 .0-54.0 N PLATELET COUNT (test code = PLT) 106 x10 3/uL 150-400 L MEAN PLATELET VOLUME (test code = MPV) 10.9 fL 7.0-9.0 H NEUTROPHIL % (test code = NT%) 79.3 % 56.0-77.0 H IMMATURE GRANULOCYTE % (test code = IG%) 0.8 % 0.0-2.0 N LYMPHOCYTE % (test code = LY%) 9.8 % 14.0-32.0 L MONOCYTE % (test code = MO%) 8.6 % 4.8-9.0 N EOSINOPHIL % (test code = EO%) 1.4 % 0.3-3.7 N BASOPHIL % (test code = BA%) 0.1 % 0.0-2.0 N NUCLEATED RBC % (test code = NRBC%) 0.0 % 0-0 N NEUTROPHIL # (test code = NT#) 5.74 x10 3/uL 2.0-7.6 N IMMATURE GRANULOCYTE # (test code = IG#) 0.06 x10 3/uL 0.00-0.03 H LYMPHOCYTE # (test code = LY#) 0.71 x10 3/uL 1.0-3.8 L MONOCYTE # (test code = MO#) 0.62 x10 3/uL 0.1-0.8 N EOSINOPHIL # (test code = EO#) 0.10 x10 3/uL 0.0-0.2 N BASOPHIL # (test code = BA#) 0.01 x10 3/uL 0.0-0.2 N NUCLEATED RBC # (test code = NRBC#) 0.00 x10 3/uL 0.0-0.1 N MANUAL DIFF REQUIRED (test code = MDIFF) NO LACTIC [id number] 05:05:00* Test Item Value Reference Range Interpretation Comments LACTIC ACID (test code = LACT) 0.5 mmol/L 0.4-1.9 N [id number] 04:41:00* Test Item Value Reference Range Interpretation Comments GLUBED (test code = GLUBED) 168 MG/DL 70-110 H Performed by certified sugar reprocess operator head at [facility] [id number] 01:15:00* Test Item Value Reference Range Interpretation Comments GLUBED (test code = GLUBED) 136 MG/DL 70-110 H Performed by certified sugar reprocess operator head at [facility] [id number] 20:47:00* Test Item Value Reference Range Interpretation Comments GLUBED (test code = GLUBED) 150 MG/DL 70-110 H Performed by certified sugar reprocess operator head at [facility] [id number] 18:13:00* Test Item Value Reference Range Interpretation Comments GLUBED (test code = GLUBED) 139 MG/DL 70-110 H Performed by certified sugar reprocess operator head at [facility] TOTAL IRON BINDING [id number] 13:54:00* Test Item Value Reference Range Interpretation Comments SERUM IRON (test code = IRON) 40 mcg/dL 35-150 N TOTAL IRON BINDING CAPACITY (test code = TIBC) 167 mcg/dL 260-445 L UIBC (test code = UIBC) 127 mcg/dL IRON SATURATION (test code = FESAT) 24.0 % 14-34 N VITAMIN [id number] 13:54:00* Test Item Value Reference Range Interpretation Comments VITAMIN B12 (test code = VITB12) 106 pg/mL 193-986 L [id number] 13:54:00* Test Item Value Reference Range Interpretation Comments FERRITIN (test code = RIK) 138.8 ng/mL 23.9-336.2 N [id number] 13:44:00* Test Item Value Reference Range Interpretation Comments GLUBED (test code = GLUBED) 143 MG/DL 70-110 H Performed by certified sugar reprocess operator head at [facility] [id number] 11:19:00* Test Item Value Reference Range Interpretation Comments GLUBED (test code = GLUBED) 124 MG/DL 70-110 H Performed by certified sugar reprocess operator head at [facility] ACUTE HEPATITIS [id number] 10:40:00* Test Item Value Reference Range Interpretation Comments AB HEPATITIS A IGM (test code = HAVMAB) NON REACTIVE INDEX NON REAC T. AG HEPATITIS B SURFACE (test code = HBSAG) NON REACTIVE INDEX NonRe active AB HEPATITIS B CORE IGM (test code = HBCMAB) NON REACTIVE INDEX NON REACT. AB HEPATITIS C (test code = HCVAB) NON REACTIVE INDEX NON REACT. COMMENTS: At start of hemodialysisAB HEPATITIS B [id number] 10:40:00* Test Item Value Reference Range Interpretation Comments AB HEPATITIS B SURFACE (test code = HBSAB) COMMENTS: At start of hemodialysisACUTE HEPATITIS [id number] 10:11:00* Test Item Value Reference Range Interpretation Comments AB HEPATITIS A IGM (test code = HAVMAB) INDEX NON REACT. AG HEPATITIS B SURFACE (test code = HBSAG) NON REACTIVE INDEX NonRe active AB HEPATITIS B CORE IGM (test code = HBCMAB) INDEX NON REACT . AB HEPATITIS C (test code = HCVAB) INDEX NON REACT. COMMENTS: At start of hemodialysisAB HEPATITIS B [id number] 10:11:00* Test Item Value Reference Range Interpretation Comments AB HEPATITIS B SURFACE (test code = HBSAB) COMMENTS: At start of hemodialysisB-TYPE NATRIURETIC [id number] 06:52:00 * Test Item Value Reference Range Interpretation Comments B-TYPE NATRIURETIC PEPTIDE (test code = BNP) 524.7 PG/ML 0-100 H HGBA1C%2018-08-09 06:40:00* Test Item Value Reference Range Interpretation Comments HGBA1C% (test code = HGBA1C%) 5.7 %A1C 4.8-6.0 N - XR CHEST 1 [id number] 05:58:00 FAX: Patito Rebollar MD [place]: St: ADM FAX: Balaji Dimas MD [phone] FAX: Silva,Kellee DO Name: MARKO CABRALES [facility] [place] : 1960 Age/S: 57/M [address] [place] [address] Blvd Unit #: [id number] Loc: G.M303 [place] [address] Phys: Patito Rebollar MD Acct: [id number] Dis Date: Status: ADM IN ONE #: [phone] Exam Date: 08/09/2018542 FAX #: [phone] Reason: r/o pulmonary edema EXAMS: CPT CODE: [id number] XR CHEST 1 V 58165 Chest, single view dated 08/09/2018. HISTORY: Pulmonary edema. Comp arison is made to a prior study dated 08/08/2018. A right jugular c entral venous catheter is identified with the tip projecting the superior vena cava. There is no evidence of pneumothorax. The heart is enlarged. The cardiomediastinal shadow is stable. The lungs appear clear. The pul monary vasculature is normal in caliber. No acute pleural space abnormali ties are detected. IMPRESSION: 1. Cardiomegaly without radiographic evidence of acute congestive heart failure. SL: 131 at 0558 Reported and signed by: Payam Sebastian M.D. CC: Patito Rebollar MD; Balaji Dao MD; Kellee Silva DO Technologist: Arya Butcher, RT(R); RT Rakesh(R) [facility] Date/Time/By: 08/09/19 19 (0558) : By: Bill Orig Print D/T: S: 08/09/2018 (0601) PAGE 1 Signed Report BASIC METABOLIC [id number] 05:24:00* Test Item Value Reference Range Interpretation Comments SODIUM (test code = NA) 138 mEq/L 134-147 N POTASSIUM (test code = K) 5.4 mEq/L 3.4-5.0 H CHLORIDE (test code = CL) 113 mEq/L 100-108 H CARBON DIOXIDE (test code = CO2) 12 mEq/L 21-33 L ANION GAP (test code = GAP) 18 0-20 N GLUCOSE (test code = GLU) 106 mg/dL 70-110 BLOOD UREA NITROGEN (test code = BUN) 119 mg/dL 7-18 H GLOMERULAR FILTRATION RATE (test code = GFR) 5.2 90-95 L Units of measure = ml/min/1.73 m2 CREATININE (test code = CREAT) 10.2 mg/dL 0.6-1.3 H CALCIUM (test code = CA) 7.2 mg/dL 8.0-10.5 L LIPID PROFILE (CORONARY RISK)2018-08-09 05:24:00* Test Item Value Reference Range Interpretation Comments TRIGLYCERIDES (test code = TRIG) 140 mg/dL 40-150 N CHOLESTEROL (test code = CHOL) 56 mg/dL <200 CHOLESTEROL/HDL RATIO (test code = CHOLHDL) 2.43 RATIO 3.43-4.97 L RISK ASSOCIATED WITH CHOL/HDL RATIOS: RISK MALE FEMALE1/2 AVERAGE 3.43 3.27AVERAGE 4.97 4.442X AVERAGE 9.55 7.053X AVERAGE 23.39 11.04 NOTE THAT THE REFERENCE VALUE IS RELATEDTO RISK LEVELS RECOMMENDED BY THE NATL.HEART, LUNG, AND BLOOD INST. HDL CHOLESTEROL (test code = HDL) 23.0 mg/dL 32-72 L LIPOPROTEIN LDL (test code = LDL) 23 mg/dL 0-100 N <100 [id number] NEAR OPTIMAL/ABOVE [id number] HIGH>PX=740 VERY HIGH*Guidelines provided by the National Cholesterol EducationProgram Adult Treatment Panel III [id number] 05:24:00* Test Item Value Reference Range Interpretation Comments PHOSPHOROUS (test code = PHOS) 6.5 mg/dL 2.5-4.9 H [id number] 05:24:00* Test Item Value Reference Range Interpretation Comments LIPASE (test code = LIP) 1040 IUnit/L 73-393 H [id number] 05:24:00* Test Item Value Reference Range Interpretation Comments MAGNESIUM (test code = MAG) 1.80 mg/dL 1.8-2.4 N T4 [id number] 05:24:00* Test Item Value Reference Range Interpretation Comments T4 FREE (test code = T4F) 0.9 ng/dL 0.77-1.61 N THYROID STIMULATING [id number] 05:24:00* Test Item Value Reference Range Interpretation Comments THYROID STIMULATING HORMONE (test code = TSH) 1.45 0.42-5.4 7 N Results in fausto- International Units/mL [id number] 05:24:00* Test Item Value Reference Range Interpretation Comments TROPONIN-I (test code = TROPI) < 0.015 ng/mL 0.000-0.045 N Negative: <= 0.045 Positive: >= 0.046 Correlation with serial results, other cardiac markers andclinical findings is necessary to determine the clinicalsignificance of this result. Results using different methodologies should not be comparedto one another as quantitative results may vary by method. CALCIUM [id number] 05:24:00* Test Item Value Reference Range Interpretation Comments CALCIUM IONIZED (test code = MATT) 1.10 MMOL/L 1.12-1.32 L BASIC METABOLIC [id number] 05:16:00* Test Item Value Reference Range Interpretation Comments SODIUM (test code = NA) mEq/L 134-147 POTASSIUM (test code = K) mEq/L 3.4-5.0 CHLORIDE (test code = CL) mEq/L 100-108 CARBON DIOXIDE (test code = CO2) mEq/L 21-33 ANION GAP (test code = GAP) 0-20 GLUCOSE (test code = GLU) mg/dL 70-110 BLOOD UREA NITROGEN (test code = BUN) mg/dL 7-18 GLOMERULAR FILTRATION RATE (test code = GFR) 90-95 CREATININE (test code = CREAT) mg/dL 0.6-1.3 CALCIUM (test code = CA) mg/dL 8.0-10.5 LIPID PROFILE (CORONARY RISK)2018-08-09 05:16:00* Test Item Value Reference Range Interpretation Comments TRIGLYCERIDES (test code = TRIG) mg/dL 40-150 CHOLESTEROL (test code = CHOL) mg/dL <200 CHOLESTEROL/HDL RATIO (test code = CHOLHDL) RATIO 3.43-4.97 HDL CHOLESTEROL (test code = HDL) mg/dL 32-72 LIPOPROTEIN LDL (test code = LDL) mg/dL 0-100 [id number] 05:16:00* Test Item Value Reference Range Interpretation Comments PHOSPHOROUS (test code = PHOS) mg/dL 2.5-4.9 [id number] 05:16:00* Test Item Value Reference Range Interpretation Comments LIPASE (test code = LIP) IUnit/L 73-393 [id number] 05:16:00* Test Item Value Reference Range Interpretation Comments MAGNESIUM (test code = MAG) mg/dL 1.8-2.4 T4 [id number] 05:16:00* Test Item Value Reference Range Interpretation Comments T4 FREE (test code = T4F) ng/dL 0.77-1.61 THYROID STIMULATING [id number] 05:16:00* Test Item Value Reference Range Interpretation Comments THYROID STIMULATING HORMONE (test code = TSH) 0.42-5.4 7 [id number] 05:16:00* Test Item Value Reference Range Interpretation Comments TROPONIN-I (test code = TROPI) ng/mL 0.000-0.045 CALCIUM [id number] 05:16:00* Test Item Value Reference Range Interpretation Comments CALCIUM IONIZED (test code = MATT) 1.10 MMOL/L 1.12-1.32 L PROTHROMBIN [id number] 05:09:00* Test Item Value Reference Range Interpretation Comments PROTHROMBIN TIME PATIENT (test code = PTP) 12.4 SECONDS 9.3-12.9 N INTERNATIONAL NORMAL RATIO (test code = INR) 1.1 0.8-1.2 N TARGET INR BY INDICATION Indication INR1. Prophylaxis of venous thrombosis 2.0 - 3.0 (orthopedic surgery), Prophylaxis of venous thrombosis (other than high-risk surgery), Treatment of Deep Vein Thrombosis/Pulmonary Embolism, Prevention of systemic embolism - Tissue heart valves, Acute Myocardial Infarction (to prevent systemic embolism), Valvular heart disease, Atrial Fibrillation, Bileaflet mechanical valve in aortic position.2. Mechanical prosthetic valves (high risk), 2.5 - 3.5 Presence of Lupus Anticoagulant or Antiphospholipid Antibodies, Prevention of systemic embolism - Acute Myocardial Infarction (to prevent recurrent infarct). CBC W/AUTO [id number] 04:48:00* Test Item Value Reference Range Interpretation Comments WHITE BLOOD CELL (test code = WBC) 11.30 x10 3/uL 4.5-11.0 H RED BLOOD CELL (test code = RBC) 2.79 x10 6/uL 4.00-5.60 L HEMOGLOBIN (test code = HGB) 9.4 g/dL 12.5-16.9 L HEMATOCRIT (test code = HCT) 29.2 % 37.5-50.7 L MEAN CELL VOLUME (test code = MCV) 104.7 fL 81.0-99.0 H MEAN CELL HGB (test code = MCH) 33.7 pg 27.0-33.0 H MEAN CELL HGB CONCETRATION (test code = MCHC) 32.2 g/dL 33.0-37. 0 L RED CELL DISTRIBUTION WIDTH CV (test code = RDW) 14.0 % 11.5- 14.5 N RED CELL DISTRIBUTION WIDTH SD (test code = RDW-SD) 52.7 fL 37 .0-54.0 N PLATELET COUNT (test code = PLT) 135 x10 3/uL 150-400 L MEAN PLATELET VOLUME (test code = MPV) 11.5 fL 7.0-9.0 H NEUTROPHIL % (test code = NT%) 82.3 % 56.0-77.0 H IMMATURE GRANULOCYTE % (test code = IG%) 0.9 % 0.0-2.0 N LYMPHOCYTE % (test code = LY%) 8.8 % 14.0-32.0 L MONOCYTE % (test code = MO%) 7.4 % 4.8-9.0 N EOSINOPHIL % (test code = EO%) 0.4 % 0.3-3.7 N BASOPHIL % (test code = BA%) 0.2 % 0.0-2.0 N NUCLEATED RBC % (test code = NRBC%) 0.2 % 0-0 H NEUTROPHIL # (test code = NT#) 9.30 x10 3/uL 2.0-7.6 H IMMATURE GRANULOCYTE # (test code = IG#) 0.10 x10 3/uL 0.00-0.03 H LYMPHOCYTE # (test code = LY#) 0.99 x10 3/uL 1.0-3.8 L MONOCYTE # (test code = MO#) 0.84 x10 3/uL 0.1-0.8 H EOSINOPHIL # (test code = EO#) 0.05 x10 3/uL 0.0-0.2 N BASOPHIL # (test code = BA#) 0.02 x10 3/uL 0.0-0.2 N NUCLEATED RBC # (test code = NRBC#) 0.02 x10 3/uL 0.0-0.1 N MANUAL DIFF REQUIRED (test code = MDIFF) NO [id number] 04:37:00* Test Item Value Reference Range Interpretation Comments GLUBED (test code = GLUBED) 72 MG/DL 70-110 N Performed by certified sugar reprocess operator head at [facility] RESPIRATORY VIRUS PANEL [id number] 02:13:00* Test Item Value Reference Range Interpretation Comments RSV A PCR (test code = RSV A) Negative Negative RSV B PCR (test code = RSV B) Negative Negative INFLUENZA A (test code = FLUAPCR) Negative Negative INFLUENZA A SUBTYPE H1 (test code = FLUAH1) Negative Negative INFLUENZA A SUBTYPE H3 (test code = FLUAH3) Negative Negative INFLUENZA B (test code = FLUBPCR) Negative Negative PARAINFLUENZA TYPE 1 PCR (test code = PIF1) Negative Negative PARAINFLUENZA TYPE 2 PCR (test code = PIF2) Negative Negative PARAINFLUENZA TYPE 3 PCR (test code = PIF3) Negative Negative PARAINFLUENZA TYPE 4 PCR (test code = PIF4) Negative Negative RHINOVIRUS PCR (test code = RHINO) Negative Negative METAPNEUMOVIRUS PCR (test code = METAPNEU) Negative Negative ADENOVIRUS PCR (test code = ADENOPCR) Negative Negative BORDETELLA PERTUSSIS DNA PCR (test code = BORDPERDNA) Negative Negative B PARAPERTUSSIS BY PCR (test code = BPARAPCR) Negative Negative BORDETELLA HOLMESII (test code = BORDHOLM) Negative Negative Testing was performed using nucleic acid amplificationincluding Bordetella parapertussis/brochiseptica, Bordetella holmesii, and Bordetella pertussis. COMPLEMENT BETA C1 (test code = COMBC1) RVP Comment Testing was performed using nucleic acid amplificationincluding influenza A, influenza A H1, influenza A H3,influenza B, RSV-A, RSV-B, Adenovirus, HumanMetapneumovirus, Parainfluenza 1,2,3 and 4, Rhinovirus, Bordetella parapertussis/brochiseptica, Bordetella holmesii, and Bordetella pertussis. BASIC METABOLIC [id number] 00:26:00* Test Item Value Reference Range Interpretation Comments SODIUM (test code = NA) 140 mEq/L 134-147 N POTASSIUM (test code = K) 5.2 mEq/L 3.4-5.0 H CHLORIDE (test code = CL) 115 mEq/L 100-108 H CARBON DIOXIDE (test code = CO2) 13 mEq/L 21-33 L ANION GAP (test code = GAP) 17 0-20 N GLUCOSE (test code = GLU) 79 mg/dL 70-110 BLOOD UREA NITROGEN (test code = BUN) 123 mg/dL 7-18 H GLOMERULAR FILTRATION RATE (test code = GFR) 5.0 90-95 L Units of measure = ml/min/1.73 m2 CREATININE (test code = CREAT) 10.7 mg/dL 0.6-1.3 H CALCIUM (test code = CA) 7.1 mg/dL 8.0-10.5 L INFLUENZA A [id number] 00:13:00* Test Item Value Reference Range Interpretation Comments INFLUENZA A (test code = FLUAPCR) Negative Negative INFLUENZA B (test code = FLUBPCR) Negative Negative [id number] 00:04:00* Test Item Value Reference Range Interpretation Comments TROPONIN-I (test code = TROPI) < 0.015 ng/mL 0.000-0.045 N Negative: <= 0.045 Positive: >= 0.046 Correlation with serial results, other cardiac markers andclinical findings is necessary to determine the clinicalsignificance of this result. Results using different methodologies should not be comparedto one another as quantitative results may vary by method. COMMENTS: 3 troponins total (including troponin done in ED)- XR CHEST 1 V 2018-08-08 23:58:00 FAX: Patito Rebollar MD [place]: St: ADM FAX: Balaji Dimas MD [phone] FAX: Kellee Silva DO Name: MARKO CABRALES [facility] : 1960 Age/S: 57/M [address] [place] [address] Bl Unit #: [id number] Loc: G.03 [place] [address] Phys: Patito Rebollar MD Acct: [id number] Dis Date: Status: ADM IN PH ONE #: [phone] Exam Date: 08/08/2018 2352 FAX #: [phone] Reason: post central line placement EXAMS: CPT CODE: [id number] XR CHEST 1 V 60414 CHEST, ONE VIE W: HISTORY: Central line placement COMPARISON EXAM (S): Prior chest x-ray obtained earlier today. FINDINGS: This si ngle portable view was obtained at 2344 hours on 08/08/[address] ment of a right IJ central line with tip projected over the distal third o f the SVC. No evidence of pneumothorax. The cardiac silhoue tte remains moderately enlarged. Shallow inspiration produces crowding of the parenchymal markings. No dominant consolidations, effusions or pneum othorax. IMPRESSION: 1. Status post r ight IJ line placement without complication. 2. Mild to moderate cardi omegaly. 3. No other change since earlier today. SL:01 Electronically Sig will by Eduard Garcia on 08/08/2018 at 235 8 Reported and signed by: Brien pugh M.D. CC: Patito Rebollar MD; Balaji Dao MD; Kellee Silva DO Lexii hnologist: Shayna Ray, RT(R) Trnscrd Date/T ramon/By: 08/08/2018 (8462) : By: Jeremiah Orig Print D/T: S: 9 (0001) PAGE 1 Signed Report [id number] 23:09:00* Test Item Value Reference Range Interpretation Comments GLUBED (test code = GLUBED) 124 MG/DL 70-110 H Performed by certified sugar reprocess operator head at [facility] VENOUS BLOOD [id number] 20:49:00* Test Item Value Reference Range Interpretation Comments VENOUS BLOOD GAS PH (test code = PHV) 7.05 7.33-7.45 LL VENOUS BLOOD GAS PCO2 (test code = PCO2V) 36 mmHg 43-47 L VENOUS BLOOD GAS PO2 (test code = PO2V) 56 mmHg 10-50 H VBG HCO3 (test code = HCO3V) 9.8 mmol/L 22-27 L VBG BASE EXCESS (test code = TANA) -21.0 mmol/L -4.0-4.0 L VENOUS BLOOD GAS O2 SAT. (test code = O2SATV) 75 % 60-80 N VENOUS BLOOD GAS DELIVERY (test code = DELV) Cannula VENOUS BLOOD GAS TEMP (test code = TEMPV) 98.0 F VENOUS BLOOD GAS SITE (test code = SITEV) Other VENOUS TCO2 (test code = TCO2V) 11 BASIC METABOLIC [id number] 20:35:00* Test Item Value Reference Range Interpretation Comments SODIUM (test code = NA) 135 mEq/L 134-147 N POTASSIUM (test code = K) 5.7 mEq/L 3.4-5.0 H CHLORIDE (test code = CL) 112 mEq/L 100-108 H CARBON DIOXIDE (test code = CO2) 12 mEq/L 21-33 L ANION GAP (test code = GAP) 17 0-20 N GLUCOSE (test code = GLU) 111 mg/dL 70-110 H BLOOD UREA NITROGEN (test code = BUN) 120 mg/dL 7-18 H GLOMERULAR FILTRATION RATE (test code = GFR) 5.0 90-95 L Units of measure = ml/min/1.73 m2 CREATININE (test code = CREAT) 10.7 mg/dL 0.6-1.3 H CALCIUM (test code = CA) 7.1 mg/dL 8.0-10.5 L - CT ABD PELVIS W/O [id number] 20:29:00 Name: MARKO CABRALES [facility] : 1960 Age/S: 57 / M [address] [place] [address] Unit #: [id number] Loc: [place] [address] Phys: Dania Ramirez MD Acct: [id number] Dis Date: Status: ADM IN PHONE #: [phone] Exam Date: 08/08/20181944 FAX #: [phone] Reason: n/v/diarrhea llq abdominal pain X 1 week EXAMS: CPT CODE: [id number] CT ABD PELVIS W/O CONT [id number] Clinical Indication: n/v/diarrhea llq abdominal pain X 1 week Comparison: None TECHNIQUE: Helical imaging was performed without injection of IV contrast, from the lung base through the symphysis with multiplanar reformations obtained. IV CONTRAST: No IV contrast was administered. GI CONTRAST: No oral contrast was administered. DLP: 660 mGy-cm FINDINGS: Evaluations of the internal organs are limited due to the lack of IV contrast. ABDOMEN AND PELVIS WITHOUT CONTRAST: LUNG BASE: Atelectasis is seen at the lung bases. The heart is enlarged. LIVER: The liver has normal contour and is unremarkable. GALLBLADDER: The gallbladder has been surgically removed. PANC REAS: The pancreas is unremarkable. SPLEEN: The spleen is unremark able. ADRENALS: The right adrenal gland is unremarkable. The lef t adrenal gland is unremarkable. KIDNEYS: There is no eviden ce of renal or ureteral calculi. There is no evidence of hydronephrosis. BOWEL: The visualized portion of the esophagus is unremarkable. The stomach is unremarkable. The small bowel is normal in caliber and there is no evidence of masses or obstruction. . The colon is normal in c aliber without any masses. APPENDIX: The appendix is unremarkable. PELVIS: There are no pelvic mass. The urinary bladder is decompre ssed. The prostate gland is unremarkable. PERITONEUM: There is no evidence for free intraperitoneal fluid or PAGE 1 Signed Report (CONTINUED) Name: MARKO CABRALES [facility] : 1960 Age/S: 57 / M [address] [place] [address] Blvd Unit #: [id number] Loc: [place] [facility] [place] [address] Phys: Dania Ramirez MD Acct: [id number] Dis Date: Status: A DM IN PHONE #: [phone] Exam Date: 07/18 FAX #: [phone] Reason: n/v/diarrhea l lq abdominal pain X 1 week EXAMS: CPT CODE: [id number] CT ABD PELVIS W/O CONT 7 4176 <Continued> air. There is mild diffuse fat stranding around the mesenteric fat in the mid abdomen. SOFT TISSUES: The soft tissues are unremarkable. There is no evidence of masses or hernias. LYMPH NODES: There is no evidence of mesenteric, retroperitoneal, or inguinal lymphadenopathy. VASCULATURE: The abdominal aorta is normal in caliber. MUSCULOSKELETAL: No aggressive bone lesions are seen. IMPRESSION: Diffuse mesenteric fat stranding in the mid abdomen. 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 Cholecystectomy. Normal appendix. SL: [id number] at 2028 Reported and signed by: Damaso Ku M.D. CC: Balaji Dao MD; Dania Ramirez MD Technologist:Oswaldo Mckinnon RT(R) CTDI: DLP: Trnscb Date/Time: 08/08/2018 (2028) DonnaR.LNV Orig Print D/T: S: 08/08/2018 (2031) CTDI: DLP: PAGE 2 Signed Report HEPATIC FUNCTION [id number] 18:43:00* Test Item Value Reference Range Interpretation Comments TOTAL PROTEIN (test code = PROT) 7.3 g/dL 6.4-8.2 N ALBUMIN (test code = ALB) 3.20 g/dL 3.4-5.0 L BILIRUBIN TOTAL (test code = BILT) 0.40 mg/dL 0.0-1.0 N BILIRUBIN DIRECT (test code = BILD) 0.20 MG/DL 0.0-0.30 N BILIRUBIN INDIRECT (test code = BILIND) 0.20 MG/DL SGOT/AST (test code = AST) 31 IUnit/L 15-37 N SGPT/ALT (test code = ALT) 49 IUnit/L 15-65 N ALKALINE PHOSPHATASE TOTAL (test code = ALKP) 185 IUnit/L 20-125 H [id number] 18:43:00* Test Item Value Reference Range Interpretation Comments LIPASE (test code = LIP) 1520 IUnit/L 73-393 H PROTHROMBIN [id number] 18:34:00* Test Item Value Reference Range Interpretation Comments PROTHROMBIN TIME PATIENT (test code = PTP) 11.7 SECONDS 9.3-12.9 N INTERNATIONAL NORMAL RATIO (test code = INR) 1.1 0.8-1.2 N TARGET INR BY INDICATION Indication INR1. Prophylaxis of venous thrombosis 2.0 - 3.0 (orthopedic surgery), Prophylaxis of venous thrombosis (other than high-risk surgery), Treatment of Deep Vein Thrombosis/Pulmonary Embolism, Prevention of systemic embolism - Tissue heart valves, Acute Myocardial Infarction (to prevent systemic embolism), Valvular heart disease, Atrial Fibrillation, Bileaflet mechanical valve in aortic position.2. Mechanical prosthetic valves (high risk), 2.5 - 3.5 Presence of Lupus Anticoagulant or Antiphospholipid Antibodies, Prevention of systemic embolism - Acute Myocardial Infarction (to prevent recurrent infarct). THROMBOPLASTIN TIME [id number] 18:34:00* Test Item Value Reference Range Interpretation Comments THROMBOPLASTIN TIME PARTIAL (test code = PTT) 29.8 Seconds 25.0-39. 5 N Therapeutic Range: 61.8-83.8 Sec Effective 07/14/2013 CBC W/AUTO [id number] 18:29:00* Test Item Value Reference Range Interpretation Comments WHITE BLOOD CELL (test code = WBC) 10.15 x10 3/uL 4.5-11.0 N RED BLOOD CELL (test code = RBC) 3.02 x10 6/uL 4.00-5.60 L HEMOGLOBIN (test code = HGB) 10.1 g/dL 12.5-16.9 L HEMATOCRIT (test code = HCT) 31.2 % 37.5-50.7 L MEAN CELL VOLUME (test code = MCV) 103.3 fL 81.0-99.0 H MEAN CELL HGB (test code = MCH) 33.4 pg 27.0-33.0 H MEAN CELL HGB CONCETRATION (test code = MCHC) 32.4 g/dL 33.0-37. 0 L RED CELL DISTRIBUTION WIDTH CV (test code = RDW) 14.0 % 11.5- 14.5 N RED CELL DISTRIBUTION WIDTH SD (test code = RDW-SD) 52.5 fL 37 .0-54.0 N PLATELET COUNT (test code = PLT) 130 x10 3/uL 150-400 L MEAN PLATELET VOLUME (test code = MPV) 11.2 fL 7.0-9.0 H NEUTROPHIL % (test code = NT%) 83.0 % 56.0-77.0 H IMMATURE GRANULOCYTE % (test code = IG%) 0.7 % 0.0-2.0 N LYMPHOCYTE % (test code = LY%) 9.8 % 14.0-32.0 L MONOCYTE % (test code = MO%) 5.3 % 4.8-9.0 N EOSINOPHIL % (test code = EO%) 0.9 % 0.3-3.7 N BASOPHIL % (test code = BA%) 0.3 % 0.0-2.0 N NUCLEATED RBC % (test code = NRBC%) 0.0 % 0-0 N NEUTROPHIL # (test code = NT#) 8.43 x10 3/uL 2.0-7.6 H IMMATURE GRANULOCYTE # (test code = IG#) 0.07 x10 3/uL 0.00-0.03 H LYMPHOCYTE # (test code = LY#) 0.99 x10 3/uL 1.0-3.8 L MONOCYTE # (test code = MO#) 0.54 x10 3/uL 0.1-0.8 N EOSINOPHIL # (test code = EO#) 0.09 x10 3/uL 0.0-0.2 N BASOPHIL # (test code = BA#) 0.03 x10 3/uL 0.0-0.2 N NUCLEATED RBC # (test code = NRBC#) 0.00 x10 3/uL 0.0-0.1 N MANUAL DIFF REQUIRED (test code = MDIFF) NO TROPONIN-I [id number] 18:12:00* Test Item Value Reference Range Interpretation Comments TROPONIN-I RAPID (test code = TROPIRAP) 0.01 ng/mL 0.00-0.08 N Performed by certified sugar reprocess operator head [facility] Global Task Force with joint leadership from the EuropeanSociety of Cardiology (ESC), the [place] [employer] Foundation (ACCF), the [place] [employer] Association(AHA) and the World Heart Federation (WHF) refined past criteria of myocardial infarction (NV) with a universal definition of myocardial infarction that supports the use of cTnI as a preferred biomarker for myocardial injury. The universal definition of NV, according to this taskforce, is defined as a typical rise and gradual fall ofcardiac biomarkers (preferably troponin) with at least onevalue above the 99th percentile of the upper reference limit (URL) together with evidence of myocardial ischemia with at least one of the following:* ischemic symptoms,* pathological Q waves on electrocardiogram (ECG),* ischemic ECG changes,* or imaging evidence of new loss of viable myocardium or new regional wall motion abnormality. An elevated troponin value alone is not sufficient todiagnose a myocardial infarction. Rather, the patient sclinical presentation (history, physical exam) and ECGshould be used in conjunction with troponin in thediagnostic evaluation of suspected myocardial infarction. Aserial sampling protocol is recommended to facilitate the identification of temporal changes in troponin levels characteristic of NV. - XR CHEST 1 [id number] 18:12:00 FAX: Balaji Dimas MD [phone] [place]: St: REG FAX: Dania Leo MD [phone] Name: MARKO CABRALES [facility] : 1960 Age/S: 57/M [address] [place] [address] Unit #: [id number] Loc: [place] [address] Phys: Dania Ramirez MD Acct: [id number] Dis Date: Status: REG ER PHONE #: [phone] Exam Date: 08/08/20181809 FAX #: [phone] Reason: Abdominal Pain EXAMS: CPT CODE: [id number] XR CHEST 1 V 71137 Clinical Indication: Abdominal Pain Comparison: None FINDINGS: The frontal chest radiograph shows normal lung volumes without interstitial or airspace opacities, pleural effusions or pneumothorax. The heart is normal in size. The trachea is midline. There are no clinically significant osseous abnormalities noted. IMPRESSION: No chest radiographic evidence of acute cardiopulmonary disease. SL: [id number] at 1812 Reported and signed by: Damaso Ku M.D. CC: Balaji Dao MD; Dania Ramirez MD Technologist: Bridgette Zimmerman RT(R) Trnscrd Date/Time/By: 08/08/2018 (1811) : By: MontanaLNV Orig Print D/T: S: 08/08/2018 (1814) PAGE 1 Signed Report CHEMISTRY 8 PROFILE 2018-08-08 18:09:00* Test Item Value Reference Range Interpretation Comments ISTAT-SODIUM (test code = NAP) MMOL/L 134-147 ISTAT-POTASSIUM (test code = KP) MMOL/L 3.4-5.0 ISTAT-CHLORIDE (test code = CLP) MMOL/L 100-108 ISTAT CARBON DIOXIDE (test code = ISTAT-CO2) mmol/L 21-33 L ISTAT CALCIUM IONIZED (test code = ISTAT-MATT) MG/DL 1.12-1.3 2 ISTAT-GLUCOSE (test code = GLUP) MG/DL 70-110 H ISTAT-BUN (test code = BUNP) MG/DL 7-18 H BEDSIDE CREATININE (test code = CREATBED) MG/DL 0.6-1.3 H GLOMERULAR FILTRATION RATE POC (test code = GFRBED) 5 ML/MIN CHEMISTRY 8 [id number] 18:09:00* Test Item Value Reference Range Interpretation Comments ISTAT-SODIUM (test code = NAP) 136 MMOL/L 134-147 N ISTAT-POTASSIUM (test code = KP) 5.5 MMOL/L 3.4-5.0 H ISTAT-CHLORIDE (test code = CLP) 111 MMOL/L 100-108 H Performed by certified sugar reprocess operator head at [facility] ISTAT CARBON DIOXIDE (test code = ISTAT-CO2) 13.0 mmol/L 21-33 L ISTAT CALCIUM IONIZED (test code = ISTAT-MATT) 1.06 MG/DL 1.12-1.3 2 L ISTAT-GLUCOSE (test code = GLUP) 118 MG/DL 70-110 H ISTAT-BUN (test code = BUNP) 124 MG/DL 7-18 H BEDSIDE CREATININE (test code = CREATBED) 12.0 MG/DL 0.6-1.3 H GLOMERULAR FILTRATION RATE POC (test code = GFRBED) 5 ML/MIN LACTIC ACID [id number] 18:09:00* Test Item Value Reference Range Interpretation Comments LACTIC ACID POC (test code = LACTP) 1.1 MMOL/L 0.90-1.70 N Performed by certified sugar reprocess operator head at [facility] POTASSIUM-STAT [id number] 10:07:00* Test Item Value Reference Range Interpretation Comments POTASSIUM (BEAKER) (test code = 379) 4.3 meq/L 3.6-5.5 GLUCOSE-STAT [id number] 10:07:00* Test Item Value Reference Range Interpretation Comments GLUCOSE RANDOM (BEAKER) (test code = 652) 124 mg/dL 70-110 H [id number] 07:17:00* Test Item Value Reference Range Interpretation Comments POTASSIUM (BEAKER) (test code = 379) 4.7 meq/L 3.5-5.1 If diabeticIf Potassium greater than 5.5 mEq/L, call nephrologistGLUCOSE 2017-11-24 07:17:00* Test Item Value Reference Range Interpretation Comments GLUCOSE RANDOM (BEAKER) (test code = 652) 139 mg/dL 70-105 H If diabeticIf Potassium greater than 5.5 mEq/L, call nephrologistHEMOGLOBIN AND [id number] 06:34:00* Test Item Value Reference Range Interpretation Comments HEMOGLOBIN (BEAKER) (test code = 410) 11.0 GM/DL 13.7-17.5 L HEMATOCRIT (BEAKER) (test code = 411) 33.5 % 40.1-51.0 L CBC W/PLT COUNT & AUTO [id number] 23:17:00* Test Item Value Reference Range Interpretation Comments WHITE BLOOD CELL COUNT (BEAKER) (test code = 775) 7.9 10e3/ L 4.0- 10.0 RED BLOOD CELL COUNT (BEAKER) (test code = 761) 3.05 10e6/ L 4.20-5 .80 L HEMOGLOBIN (BEAKER) (test code = 410) 10.7 g/dL 13.0-16.8 L HEMATOCRIT (BEAKER) (test code = 411) 31.6 % 40.0-50.0 L MEAN CORPUSCULAR VOLUME (BEAKER) (test code = 753) 103.8 fL 82. 0-98.0 H MEAN CORPUSCULAR HEMOGLOBIN (BEAKER) (test code = 751) 35.0 pg 27.0-33.0 H MEAN CORPUSCULAR HEMOGLOBIN CONC (BEAKER) (test code = 752) 33.7 g/dL 32.0-36.0 RED CELL DISTRIBUTION WIDTH (BEAKER) (test code = 412) 13.6 % 10.3-14.2 PLATELET COUNT (BEAKER) (test code = 756) 164 10e3/ L 150-430 MEAN PLATELET VOLUME (BEAKER) (test code = 754) 7.4 fL 6.5-10 .5 NEUTROPHILS RELATIVE PERCENT (BEAKER) (test code = 429) 64 % LYMPHOCYTES RELATIVE PERCENT (BEAKER) (test code = 430) 25 % MONOCYTES RELATIVE PERCENT (BEAKER) (test code = 431) 6 % EOSINOPHILS RELATIVE PERCENT (BEAKER) (test code = 432) 4 % BASOPHILS RELATIVE PERCENT (BEAKER) (test code = 437) 1 % NEUTROPHILS ABSOLUTE COUNT (BEAKER) (test code = 670) 5.09 10e3/ L 1.80-8.00 LYMPHOCYTES ABSOLUTE COUNT (BEAKER) (test code = 414) 1.99 10e3/ L 1.48-4.50 MONOCYTES ABSOLUTE COUNT (BEAKER) (test code = 415) 0.49 10e3/ L 0. 00-1.30 EOSINOPHILS ABSOLUTE COUNT (BEAKER) (test code = 416) 0.29 10e3/ L 0.00-0.50 BASOPHILS ABSOLUTE COUNT (BEAKER) (test code = 417) 0.06 10e3/ L 0. 00-0.20 COMPREHENSIVE METABOLIC [id number] 23:17:00* Test Item Value Reference Range Interpretation Comments TOTAL PROTEIN (BEAKER) (test code = 770) 7.1 gm/dL 6.0-8.5 ALBUMIN (BEAKER) (test code = 1145) 3.7 g/dL 3.5-5.0 ALKALINE PHOSPHATASE (BEAKER) (test code = 346) 166 U/L 30-115 H BILIRUBIN TOTAL (BEAKER) (test code = 377) 0.7 mg/dL 0.1-1.2 SODIUM (BEAKER) (test code = 381) 142 meq/L 135-148 POTASSIUM (BEAKER) (test code = 379) 5.3 meq/L 3.6-5.5 CHLORIDE (BEAKER) (test code = 382) 108 meq/L 98-106 H CO2 (BEAKER) (test code = 355) 20 meq/L 24-32 L BLOOD UREA NITROGEN (BEAKER) (test code = 354) 39 mg/dL 10-26 H CREATININE (BEAKER) (test code = 358) 3.06 mg/dL 0.50-1.20 H GLUCOSE RANDOM (BEAKER) (test code = 652) 106 mg/dL 70-110 CALCIUM (BEAKER) (test code = 697) 8.4 mg/dL 8.5-10.5 L AST (SGOT) (BEAKER) (test code = 353) 22 U/L 5-40 ALT (SGPT) (BEAKER) (test code = 347) 33 U/L 5-50 EGFR (BEAKER) (test code = 1092) 21 mL/min/1.73 sq m ESTIMATED GFR IS NOT ACCURATE CREATININE CLEARANCE IN PREDICTING GLOMERULAR FILTRATION RATE. ESTIMATED GFR IS NOT APPLICABLE FOR DIALYSIS PATIENTS.
[2019-10-27] MEDS ORDERED: MORPHINE SULFATE 2 MG/ML SYR 1ML IV PRN (18:15)
[2019-10-27] MEDS ORDERED: ONDANSETRON HCL INJ 2MG/ML 2ML 2 MG/ML VIAL IV PRN (18:15)
[2019-10-27] MEDS ORDERED: DEXTROSE 50% SYRINGE 50 ML IV PRN (18:15)
[2019-10-27] MEDS ORDERED: NITROGLYCERIN 0.4 MG SUBL SL PRN (18:15)
--- OUTSIDE RECORDS SUMMARY | 2019-10-27 18:17 | XMS REPORT | Clinical Summary ---
Author Author JEFFY [facility] Organization [facility] Address Unknown Phone Unavailable Care Team Providers [facility] [employer] [employer] Name Role Phone Balaji Dao MD PCP [...] Taken Vital Sign Reading 08/05/2019 10:17 AM SPRING MACHINE OPERATOR Blood Pressure 129/67 08/05/2019 10:17 AM SPRING MACHINE OPERATOR Pulse 69 08/05/2019 10:17 AM SPRING MACHINE OPERATOR Temperature 36.1 C (97 F) 08/05/2019 10:17 AM SPRING MACHINE OPERATOR Respiratory Rate 14 08/05/2019 10:17 AM SPRING MACHINE OPERATOR Oxygen Saturation 100% - Inhaled Oxygen - Concentration 08/05/2019 10:17 AM SPRING MACHINE OPERATOR Weight 95.3 kg (210 lb) 08/05/2019 10:17 AM SPRING MACHINE OPERATOR Height 171.5 cm (5' 7.5") 08/05/2019 10:17 AM SPRING MACHINE OPERATOR Body Mass Index 32.41 Plan of Treatment Health Maintenance Due Date Last Done Comments COLON CANCER SCREENING 1960 COLONOSCOPY PNEUMOCOCCAL VACCINE 2-64 Completed 10/07/2017, 12/29/2014, 11/05/2001 YEARS AT RISK INFLUENZA VACCINE Completed 02/11/2019, 018, 04/07/2017, Additional history exists Procedures Comments Procedure Name Priority Date/Time Associated Diag nosis TRANSFUSION SERVICE 07/21/2019 REPORT - SCAN 6:06 PM SPRING MACHINE OPERATOR HGB/HCT (H&H) - STAT LAB STAT 07/20/2019 11:43 AM SPRING MACHINE OPERATOR GLUCOSE-STAT LAB STAT 07/20/2019 11:43 AM SPRING MACHINE OPERATOR POTASSIUM-STAT LAB STAT 07/20/2019 11:43 AM SPRING MACHINE OPERATOR LAPAROSCOPY,INSERT 07/20/2019 End stage renal di sease PERITONEAL CATHETER 8:00 AM SPRING MACHINE OPERATOR (HCC) Case Notes HARD COPY ON FILE/PRANAV 06/28 @ 11:18 TYPE AND SCREEN, Routine 07/20/2019 AUTOMATED 7:00 AM SPRING MACHINE OPERATOR GLUCOSE-STAT LAB STAT 07/20/2019 7:00 AM SPRING MACHINE OPERATOR HGB/HCT (H&H) - STAT LAB Routine 07/20/2019 7:00 AM SPRING MACHINE OPERATOR POTASSIUM-STAT LAB STAT 07/20/2019 7:00 AM SPRING MACHINE OPERATOR POCT-GLUCOSE METER Routine 07/20/2019 5:40 AM SPRING MACHINE OPERATOR IR THROMOBOLYSIS/DECLOT Routine 04/15/2019 Chroni c renal [...] SERVICE REPORT - SCAN (07/21/2019 6:06 PM SPRING MACHINE OPERATOR) Only the most recent of 2 results within the time period is included. Narrative Performed At This result has an attachment that is n ot available. * Potassium-Stat Lab (07/20/2019 11:43 AM SPRING MACHINE OPERATOR) Only the most recent of 4 results within the time period is included. Potassium 4.1 3.6 - 5.5 meq/L [facility] Specimen Blood, Arterial Performing Organization Address [facility] one Number [address] 0 [phone] [place] [address] * Glucose-Stat Lab (07/20/2019 11:43 AM SPRING MACHINE OPERATOR) Only the most recent of 4 results within the time period is included. Glucose 116 (H) 70 - 110 mg/dL [facility] Specimen Blood, Arterial Performing Organization Address [facility] one Number [address] [facility] * HGB/HCT (H&H)-Stat Lab (07/20/2019 11:43 AM SPRING MACHINE OPERATOR) Only the most recent of 4 results within the time period is included. Hemoglobin 11.3 (L) 13.0 - 16.8 g/dL [facility] Hematocrit 33.0 (L) 40.0 - 50.0 % [facility] Specimen Blood, Arterial Performing Organization Address [facility] one Number [address] 0 [phone] [place] [address] * Type and screen, automated (07/20/2019 7:00 AM SPRING MACHINE OPERATOR) ABO/RH AUTOMATED (BEAKER) A NEGATIVE [facility] Ab Scrn NEGATIVE [facility] Specimen Blood Performing Organization Address [facility] Ph one Number [facility] [address] [place] [address] [facility] * POC-Glucose meter (07/20/2019 5:40 AM SPRING MACHINE OPERATOR) POC-Glucose Meter 119 (H)Comment: : TESTED AT 70 - 110 mg/dL [address] [address]: Climatology Professor/Sign Painter Apprentice ID = [id number] for JACKY VIRAMONTES Specimen Blood Performing Organization Address [facility] Ph one Number [address] [phone] [place] [address] * IR Thromobolysis/Declot AV Fistula/Graft (04/15/2019 11:55 AM CDT) Specimen Narrative Performed At FINAL REPORT [employer] AV shunt evaluation. History: Renal failure, malfunctioning left upper extremity arteriovenous fistula. Modality: Ultrasound and fluoroscopy. Quality Process Engineer:Hossein Poe MD. Park Interpreter: MD Karlee (Fellow) MD Kai (Resident). Sedation: Moderate sedation was adminis tered. 1 mg of Versed and50 mcg of fentanyl IV was used for moderat e sedation monitored under my direction. Total intra-service time of sedation [id number]. The patient's vital signs were monitored th [...] The needle was exchanged for a 4 [place] micropuncture sheath. DSA runs of left upper extremity central venous system were pe rformed. The micropuncture sheath was exchanged over 0.035 Bentson wire for a 6 [place] short vascular sheath. The foc al stenosis [...] Report Verified Date/Time: 9 15:48:14 Reading Location: [facility] P048 Angio Bod y Reading Room Procedure Note Interface, External Ris In - 04/15/2019 3:50 PM CDT FINAL REPORT AV shunt evaluation. History: Renal failure, malfunctioning left upper extremity arteriovenous fistula. Modality: Ultrasound and fluoroscopy. Quality Process Engineer: Hossein Poe MD. Park Interpreter: MD Karlee (Fellow) MD Kai (Resident). Sedation: [...] The needle was exchanged for a 4 [place] micropuncture sheath. DSA runs of left upper extremity central venous system were performed. The micropuncture sheath was exchanged over 0.035 Bentson wire for a 6 [place] short vascular sheath. The foca l stenosis the sheath was removed and hemostasis achieved using 2-0 chromic pursestring suture. At the junction of the left subclavian and brachiocephalic veins was angioplastied using a 10 mm x 4 cm [place] over the wire balloon, 8 mm high [...] Report Verified Date/Time: 04/15/2019 15:48:14 Reading Location: [place] [address] Angio Body Reading Room Performing Organization Address City/State/Zipcode Ph one Number [facility] * CBC with platelet count + automated diff (04/15/2019 8:24 AM CDT) WBC 6.8 3.5 - 10.5 K/L [facility] RBC 4.00 (L) 4.63 - 6.08 M/L [facility] Hemoglobin 12.9 (L) 13.7 - 17.5 GM/DL [facility] Hematocrit 39.7 (L) 40.1 - 51.0 % [facility] MCV 99.3 (H) 79.0 - 92.2 fL [facility] MCH 32.3 (H) 25.7 - 32.2 pg [facility] MCHC 32.5 32.3 - 36.5 GM/DL [facility] RDW 13.4 11.6 - 14.4 % [facility] Platelets 120 (L) 150 - 450 K/CU MM [facility] MPV 10.5 9.4 - 12.4 fL [facility] nRBC 0 0 - 0 /100 WBC [facility] % Neutros 88 % [facility] % Lymphs 10 % [facility] % Monos 2 % [facility] % Eos 0 % [facility] % Baso 0 % [facility] # Neutros 5.96 (H) 1.78 - 5.38 K/L [facility] # Lymphs 0.68 (L) 1.32 - 3.57 K/L [facility] # Monos 0.10 (L) 0.30 - 0.82 K/L [facility] # Eos 0.00 (L) 0.04 - 0.54 K/L [facility] # Baso 0.02 0.01 - 0.08 K/L [facility] Immature 1 0 - 1 % [facility] Granulocytes-Relative [facility] Specimen Blood Performing Organization Address City/[facility] Ph one Number [place] [address] [phone] [place] [address] * aPTT (04/15/2019 8:24 AM CDT) PTT 31.6 22.5 - 36.0 seconds [facility] Specimen Blood Performing Organization Address City/[facility] Ph one Number [place] [address] [facility] * Prothrombin time/INR (04/15/2019 8:24 AM CDT) Protime 13.6 11.9 - 14.2 seconds [facility] INR 1.1 <=5.9 [facility] Specimen Blood Narrative Performed At Effective 11/11/2018: PT Reference Range Change [facility] Merari Iraheta [facility] New: 11.9-14.2Previous: 11.7-14.7 [facility] MED[facility] CE NTER RECOMMENDED COUMADIN/WARFARIN INR THERA PY RANGES STANDARD DOSE: 2.0-3.0Includes: PRO PHYLAXIS for venous thrombosis, systemic embolization; TREATMENT for venous thro mbosis and/or pulmonary embolus. HIGH RISK: Target INR is 2.5-3.5 for pa tients wiht mechanical heart valves. Performing Organization Address [facility] one Number [address] [facility] * Basic Metabolic Panel (04/15/2019 8:24 AM CDT) Sodium 137 136 - 145 meq/L [facility] Potassium 4.8 3.5 - 5.1 meq/L [facility] Chloride 99 98 - 107 meq/L [facility] CO2 26 22 - 29 meq/L [facility] BUN 50 (H) 7 - 21 mg/dL [facility] Creatinine 4.13 (H) 0.57 - 1.25 mg/dL [facility] Glucose 232 (H) 70 - 105 mg/dL [facility] Calcium 9.6 8.4 - 10.2 mg/dL [facility] EGFR 15Comment: ESTIMATED GFR IS mL/min/1.73 sq m NOT ACCURATE CREATININE [facility] CLEARANCE IN PREDICTING GLOMERULAR FILTRATION RATE. ESTIMATED GFR IS NOT APPLICABLE FOR DIALYSIS PATIENTS. Specimen Blood Performing Organization Address [facility] Ph one Number [address] [address] [facility] * RHYTHM STRIP - SCAN (11/12/2018 7:50 AM CDT) Narrative Performed At This result has an attachment that is n ot available. after 2018 Insurance Payer Benefit Subscriber ID Type Phone Address Plan / Group [employer] xxxxxxxxxxx HMO/POS NETWORK [phone] Advance Directives Patient has advance care planning documents, and code status on file. For more i nformation, please contact: [facility] [address] [place] [address] Date Inactivated Comments Code Status Date Activated [...]
--- OUTSIDE RECORDS SUMMARY | 2019-10-27 18:17 | XMS REPORT | Clinical Summary ---
Author Author Julián Denominational Organization [employer] Den[employer] Address Unknown Phone Unavailable Care Team Providers Care House Father Name Role Phone Balaji Dao MD PCP [...] 01/28/2019 Discontinued (Discontinued b y another clinician) [id number] Take by mouth 0 iazid 10-320-25 mg [...] Lab Alonzo Muñoz MD 03/09/2019 Lab Lab Shwtea Hooks, JENNA 01/29/2019 Documentation Transplant Maurice Arriaza MD End stage renal disease (HCC) (Primary D x) 01/28/2019 Lab Lab Maurice Arriaza MD End stage renal disease (HCC) (Primary D x) 01/28/2019 Lab Lab Maurice Arriaza MD End stage renal disease (HCC) (Primary D x) 01/28/2019 Lab Lab Maurice Arriaza MD ESRD (end stage renal disease) ([facility]) 01/28/2019 Hospital Radiology Encounter Maurice Arriaza MD Pre-transplant evaluation for kidney tra nsplant (Primary Dx) 01/28/2019 Office Visit Transplant Maurice Arriaza MD 01/28/2019 Social Work Transplant Maurice Arriaza MD ESRD (end stage renal disease) ([facility]) 01/28/2019 Hospital Procedural Cardiolo gy Encounter Maurice Arriaza MD ESRD (end stage renal disease) ([facility]) 01/28/2019 Office Visit Transplant Alonzo [...] 24, 2018. Pt started dialysis 09/04/2018 at [facility]. Added info in Epic & TR. 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 SINGLE ANTIGEN BEADS Routine 05/10/2019 5:56 PM [employer] INSPECTOR GRAM STAIN Routine 01/28/2019 12:29 PM CDT URINE CULTURE Routine 01/28/2019 12:29 PM CDT ECG 12-LEAD Routine 01/28/2019 ESRD (end stage renal 9:36 AM CDT disease) ([facility]) TTE COMPLETE, WO Routine 01/28/2019 ESRD (end sta ge renal CONTRAST, W DOPPLER 8:44 AM CDT disease) ([facility]) ([id number]) XR CHEST 2 VW Routine 01/28/2019 ESRD (end stage renal 8:39 AM CDT disease) ([facility]) SINGLE ANTIGEN BEADS Routine 01/28/2019 7:10 AM CDT ESTIMATED GFR Routine 01/28/2019 7:10 AM CDT DRUG ORELLANA 9, SER/MIKE, SCRN Routine 01/28/2019 ESRD (end stage renal W/RFLX TO CONF 7:10 AM CDT disease) ([facility]) URINALYSIS SCREEN AND Routine 01/28/2019 ESRD (en d stage renal MICROSCOPY, WITH REFLEX 7:10 AM CDT disease) ([facility] ) TO CULTURE TB T-SPOT Routine 01/28/2019 ESRD (end stage renal 7:10 AM CDT disease) ([facility]) HEPATITIS C VIRUS Routine 01/28/2019 ESRD (end st age renal QUANTITATIVE BY PCR 7:10 AM CDT disease) ([facility]) PARATHYROID HORMONE Routine 01/28/2019 ESRD (end stage renal 7:10 AM CDT disease) ([facility]) HEMOGLOBIN A1C Routine 01/28/2019 ESRD (end stage renal 7:10 AM CDT disease) ([facility]) PROSTATE SPECIFIC ANTIGEN Routine 01/28/2019 ESRD (end stage renal 7:10 AM CDT disease) ([facility]) LDH Routine 01/28/2019 ESRD (end stage renal 7:10 AM CDT disease) ([facility]) PHOSPHORUS LEVEL Routine 01/28/2019 ESRD (end sta ge renal 7:10 AM CDT disease) ([facility]) LIPID PANEL Routine 01/28/2019 ESRD (end stage renal 7:10 AM CDT disease) ([facility]) C-PEPTIDE Routine 01/28/2019 ESRD (end stage renal 7:10 AM CDT disease) ([facility]) PARTIAL THROMBOPLASTIN Routine 01/28/2019 ESRD (e nd stage renal TIME (PTT) 7:10 AM CDT disease) ([facility]) PROTHROMBIN TIME WITH INR Routine [...] * Single antigen beads (08/09/2019 7:56 AM DRY GOODS INSPECTOR) Only the most recent of 6 results within the time period is included. SAB serum ID [id number] [facility] SAB serum 08/09/2019 07:56 AM [place] collection D&T [facility] SAB class I Negative [facility] antibody [facility] SAB cPRA class [address] [facility] SAB class II DP19 [facility] antibody [facility] SAB cPRA class 0 [facility] Single antigen See link below for PDF Lab [facility] beads Report [facility] Specimen Blood Performing Organization Address City/[facility] Ph one Number [facility] DEPARTMENT OF [address] [place] [address] PATHOLOGY AND GENOMIC MEDICINE [address] * Gram stain (01/28/2019 12:29 PM CDT) Pathologist [facility] Gram stain No WBC's or organisms seen. [facility] [place] result Comment: [facility] Specimen Information [facility] Specimen Source: Urine Specimen Site: Clean catch Specimen Urine Performing Organization Address City/[facility] Ph one Number [facility] DEPARTMENT OF [address] [place] [address] PATHOLOGY AND GENOMIC MEDICINE [address] * Urine culture (01/28/2019 12:29 PM CDT) Pathologist [facility] Urine culture Klebsiella pneumoniae [facility] [place] isolate 10-4 cfu/ml [facility] HOSPITAL characteristics of this assay on this isolate were validated by the Microbiology Laboratory at [facility]. This source has not been approved by [...] Performing Organization Address City/State/Zipcode Ph one Number [facility] DEPARTMENT OF [address] [place] [address] PATHOLOGY AND GENOMIC MEDICINE [facility] [place] [facility] [address] [place] [address] * EKG 12-LEAD (01/28/2019 9:36 AM CDT) Ventricular 69 [facility] MUSE rate Atrial rate 69 [facility] MUSE WV interval 244 [facility] M[facility] QRSD interval 88 [facility] MUSE QT interval 414 [facility] MUSE QTC interval 443 [facility] MUSE P axis 1 10 [facility] MUSE QRS axis 1 2 [facility] MUSE T wave axis 30 [facility] MUSE EKG impression Sinus rhythm with 1st degree [facility] MUSE AV block-Otherwise normal ECG-In automated comparison with ECG of 26-NOV-2016 08:37,-No significant change was found- Specimen Narrative Performed At This result has an attachment that is n ot available. Performing Organization Address City/State/Zipcode Ph one Number [facility] MUSE [address] [facility] [place] [address] * Echocardiogram complete w contrast and 3D if needed (01/28/2019 8:44 AM CDT) Specimen Narrative Performed At [facility] Echo cardiography Report [id number] [facility], [place] [address] Pat.Name: MARKO NIXON JR Pat.ID: [id number] .Date: 01/28/2019 Refer.MD: MAURICE ARRIAZA MD Exam Time: 7:54:00 AM Study Type:Routine Echo Height: 68in BSA: 2.06 m2 Age: 5 1960,58Y Sex: MALE BP: 137/71 HR: 62 bpm Sonogrphr: Diana Landeros, BS, RDCS Pa t. Stat.:Outpatient Room: Treatment [facility] Study Status:Final Echo Event ID:[id number] Order ID: [id number] Reason for Study:Renal Transplant Evalu ation History [...] PA systolic pressure. MEASUREMENTS: 2D Parasternal [place] LVOT 2.1 cm LA Ds 4.5 cm [...] - 01/29/2019 10:32 PM CDT Echocardiography Report [id number] [address] Pat.Name: MARKO NIXON JR Pat.ID: [id number] .Date: 01/28/2019 Refer.MD: MAURICE ARRIAZA MD Exam Time: 7:54:00 AM Study Type:Routine Echo Height: 68in BSA: 2.06 m2 Age: 5 1960,58Y Sex: MALE BP: 137/71 HR: 62 bpm Sonogrphr: ANAHI Jennings, RDCS Pat. Stat.:Outpatient Room: [place] [address] Study Status:Final Echo Event ID:[id number] Order ID: [id number] Reason for Study:Renal Transplant Evaluation History / [...] PA systolic pressure. MEASUREMENTS: 2D Parasternal [place] LVOT 2.1 cm LA Ds 4.5 cm [...] PM Darlene Horan M.D. Performing Organization Address City/State/[facility] Ph one Number [facility] [address] [place] [address] * XR Chest 2 Vw (01/28/2019 8:39 [...] oth erwise clear of focal airspace disease. [facility]-[id number] Dictated and approved by radiology resi dent/fellow: [...] are otherwise clear of focal airspace disease. [facility]-[id number] Dictated and approved by sr vice president/fellow: Nadir Arteaga M.D. I, Tyree Lucas MD, personally reviewed the images and resident's/fellow's findings and agree with the final report. Performing Organization Address City/State/[facility] Ph one Number [facility] [address] [place] [address] * Urinalysis screen and microscopy, with reflex to culture (01/28/2019 7:10 AM CDT) Specimen site Clean catch [facility] Color, UA Michelle [facility] Appearance, UA Cloudy [facility] Specific 1.022 1.001 - 1.035 [place] gravity, [facility] pH, UA 5.0 5.0 - 8.5 [facility] Protein, UA 3+ (A) Negative [facility] Glucose, UA 1+ (A) Negative [facility] Ketones, UA Trace (A) Negative [facility] Bilirubin, UA Positive@UBIL (A) Negative [facility] Blood, UA Negative Negative [facility] Nitrite, UA Negative Negative [facility] Urobilinogen, 4.0 (A) <2.0 [facility] Leukocyte Trace (A) Negative [facility] [place] esterase, [facility] WBC, UA 3 (H) 0 - 1 /HPF [facility] RBC, UA 2 0 - 5 /HPF [facility] Bacteria, UA Few None seen [facility] Yeast, UA None seen [facility] Yeast with None seen [facility] [place] [facility] Granular casts, 5 (H) 0 - 1 /LPF [facility] Hyaline casts, >20 (A) /LPF [facility] Specimen Urine Performing Organization Address City/[facility] Ph one Number [facility] DEPARTMENT OF [address] [place] [address] PATHOLOGY AND GENOMIC MEDICINE [address] * Estimated GFR (01/28/2019 7:10 AM CDT) Pathologist [facility] Estimated GFR 18 (A) mL/min/1.73 m2 [facility] [place] Comment: [facility] Interpretation G1 >=90 Normal or high G2 [...] 2014. Specimen Plasma specimen Performing Organization Address [facility] Ph one Number [facility] [place] [address] PATHOLOGY AND [facility] MEDICINE [address] * Syphilis total antibody (01/28/2019 7:10 AM CDT) Pathologist [facility] Syphilis total Non-reactiveComment: No Non-reactive [place] [facility] antibody serological evidence of [facility] syphilis infection. HOSPITAL Specimen Blood Performing Organization Address City/State/Zipcode Ph one Number [facility] DEPARTMENT OF [address] [place] [address] PATHOLOGY AND GENOMIC MEDICINE [address] * HIV Ag/Ab combination (01/28/2019 7:10 AM CDT) Pathologist [facility] HIV Ag/Ab Non-reactive Non-reactive [facility] Specimen Blood Performing Organization Address City/[facility] Cent[facility] Ph one Number [facility] DEPARTMENT OF [address] [place] [address] PATHOLOGY AND GENOMIC MEDICINE [address] [place] [address] HOSPITAL * TB T-SPOT (01/28/2019 7:10 AM [...] FOR USE WITH T=SPOT.TB TEST. Performed by: [facility] Molecular Tuberculosis Laboratory [facility] ([id number]) [place], [place] [address] Specimen Blood Performing Organization Address City/State/Zipcode Ph one Number [facility] DEPARTMENT OF [address] [place] [address] PATHOLOGY AND GENOMIC MEDICINE [facility] * Hepatitis B surface Ab, quantitative (01/28/2019 7:10 AM CDT) Pathologist [facility] Hepatitis B >1000.00 IU/L [facility] REF LAB surface Ab Comment: The anti-HBs [...] Cellular and Tissue-Based Products (HCT/P). Performed by [facility], [address] [place] [address] www.[email or web address], Arturo Brown MD - Lab. Director Specimen Serum Performing Organization Address City/[facility]/Zipcode Ph one Number [facility] [address] [place] [address] [facility] [address] [place] [address] * Hepatitis C antibody (01/28/2019 7:10 AM CDT) Hepatitis C Ab Non-reactive Non-reactive [facility] Specimen Blood Performing Organization Address City/[facility]/Zipcode Ph one Number [facility] DEPARTMENT OF [address] [place] [address] PATHOLOGY AND GENOMIC MEDICINE [address] * Drug orellana 9, ser/mike, scrn [...] use. Test developed and characteristics determined by [facility]. See Compliance Statement B: Canines.Five minutes/CS Performed by [facility], [address] [place] [id number] www.[email or web address], Arturo Brown MD - Lab. Director Specimen Blood Performing Organization Address [facility] one Number [facility] [address] [place] [address] REF [address] [place] [address] * Hepatitis B core antibody total (01/28/2019 7:10 AM CDT) [facility] Hepatitis B Non-reactive Non-reactive [place] core total Ab [facility] Specimen Blood Performing Organization Address [facility] Ph one Number [facility] DEPARTMENT OF [address] [place] [address] PATHOLOGY AND GENOMIC MEDICINE [address] * Hepatitis C virus quantitative by PCR (01/28/2019 7:10 AM CDT) [facility] Hepatitis C Not-Detected Not-Detected IU/mL [facility] Hepatitis C See link below for PDF Lab [facility] [place] quantitative, ReportComment: Case Number: [facility] PCR [id number] HOSPITAL Specimen Blood Performing Organization Address [facility] Ph one Number [facility] DEPARTMENT OF [address] [place] [address] PATHOLOGY AND GENOMIC MEDICINE [address] * C-peptide (01/28/2019 7:10 AM CDT) [facility] C-peptide 13.8 (H) 1.1 - 4.4 ng/mL [facility] Specimen Plasma specimen Performing Organization Address City/[facility] Ph one Number [facility] DEPARTMENT OF [address] [place] [address] PATHOLOGY AND [facility] [address] * Hepatitis B surface antibody (01/28/2019 7:10 AM CDT) Pathologist [facility] Hepatitis B Reactive (A) Non-reactive [facility] Ab [facility] Specimen Blood Performing Organization Address City/[facility] one Number [facility] DEPARTMENT OF [address] [place] [address] PATHOLOGY AND [facility] [address] * Hepatitis B surface antigen (01/28/2019 7:10 AM CDT) Pathologist [facility] Hepatitis B Non-reactive Non-reactive [facility] Ag [facility] Specimen Blood Performing Organization Address [facility] one Number [facility] [place] [address] PATHOLOGY AND [facility] [address] * Partial thromboplastin time, activated (01/28/2019 7:10 AM CDT) [facility] PTT 31.2 23.0 - 36.0 sec [place] [place] Comment: [facility] PTT therapeutic range for HOSPITAL unfractionated heparin is 61.0-112.0 seconds which corresponds to Anti-Xa 0.3-0.7 U/ml. Specimen Blood Performing Organization Address [facility] one Number [facility] DEPARTMENT OF [address] [place] [address] PATHOLOGY AND [facility] [address] * Prothrombin time with INR (01/28/2019 7:10 AM CDT) [facility] Prothrombin 13.7 11.5 - 14.5 sec [facility] INR 1.1 [place] Comment: [facility] The International Normalized HOSPITAL Ratio (INR) is a therapeutic monitoring tool for patients who are stable on oral anticoagulant therapy. An INR of 2.0-3.0 is suggested for deep vein thrombosis/pulmonary embolism. Specimen Blood Performing Organization Address [facility] one Number [facility] DEPARTMENT OF [address] [place] [address] PATHOLOGY AND GENOMIC MEDICINE [address] * CBC with platelet and differential (01/28/2019 7:10 AM CDT) WBC 7.93 4.50 - 11.00 k/uL [facility] RBC 4.03 (L) 4.40 - 6.00 m/uL [facility] HGB 13.2 (L) 14.0 - 18.0 g/dL [facility] HCT 40.3 (L) 41.0 - 51.0 % [facility] MCV 100.0 82.0 - 100.0 fL [facility] MCH 32.8 27.0 - 34.0 pg [facility] MCHC 32.8 31.0 - 37.0 g/dL [facility] RDW - SD 49.7 37.0 - 55.0 fL [facility] MPV 11.2 8.8 - 13.2 fL [facility] Platelet count 136 (L) 150 - 400 k/uL [facility] Nucleated RBC 0.00 /100 WBC [facility] Neutrophils 57.1 39.0 - 69.0 % [facility] Lymphocytes 31.7 25.0 - 45.0 % [facility] Monocytes 7.6 0.0 - 10.0 % [facility] Eosinophils 2.8 0.0 - 5.0 % [facility] Basophils 0.4 0.0 - 1.0 % [facility] Immature 0.4Comment: "Immature 0.0 - 1.0 % [facility] [place] granulocytes granulocytes" (promyelocytes, METHOD IST myelocytes, metamyelocytes) HOSPITAL Specimen Blood Performing Organization Address City/[facility] Ph one Number [facility] DEPARTMENT OF [address] [place] [address] PATHOLOGY AND GENOMIC MEDICINE [address] * Prostate specific antigen (01/28/2019 7:10 AM CDT) Pathologist [facility] PSA 0.5 0.0 - 4.0 ng/mL [place] Comment: [facility] The BENEDICT 8000 PSA immunoassay [facility] was used. Results obtained with different assay methods or kits should not be used interchangeably and may be different. Specimen Plasma specimen Performing Organization Address City/[facility] Ph one Number [facility] DEPARTMENT OF [address] [place] [address] PATHOLOGY AND GENOMIC MEDICINE [address] * Phosphorus level (01/28/2019 7:10 AM CDT) Phosphorus 3.0 2.4 - 4.5 mg/dL [facility] Specimen Plasma specimen Performing Organization Address City/[facility] Ph one Number [facility] DEPARTMENT OF [address] [place] [address] PATHOLOGY AND GENOMIC MEDICINE [address] * Parathyroid hormone (01/28/2019 7:10 AM CDT) PTH 244 (H) 15 - 65 pg/mL [facility] Specimen Blood Performing Organization Address City/[facility] Ph one Number [facility] DEPARTMENT OF [address] [place] [address] PATHOLOGY AND GENOMIC MEDICINE [address] * LDH (01/28/2019 7:10 AM CDT) LDH 199 87 - 225 U/L [facility] Specimen Plasma specimen Performing Organization Address [facility] Ph one Number [facility] DEPARTMENT OF [address] [place] [address] PATHOLOGY AND GENOMIC MEDICINE [address] * Hemoglobin A1c (01/28/2019 7:10 AM CDT) Hemoglobin A1C 5.8 (H) 4.0 - 5.6 % [facility] [place] Comment: [facility] HbA1c cutoffs for diagnosing HOSPITAL diabetes: 4.0% - 5.6% = normal 5.7% - 6.4% = increased risk for diabetes (prediabetes) >=6.5% = diabetes Goals for glycemic control (ADA 2016) < 7.0% Target for non adults with diabetes. More or less stringent targets may be appropriate for individual patients. <7.5% Target for Children and adolescents with type 1 diabetes. Specimen Blood Performing Organization Address City/[facility] Ph one Number [facility] DEPARTMENT OF [address] [place] [address] PATHOLOGY AND GENOMIC MEDICINE [address] * Lipid panel (01/28/2019 7:10 AM CDT) Cholesterol 87 <200 mg/dL [facility] Triglycerides 131 <150 mg/dL [facility] HDL cholesterol 43 >40 mg/dL [facility] LDL cholesterol 29Comment: Result obtained by <100 mg/dL [facility] direct LDL measurement [facility] Lipid panel [facility] interpretation Comment: [facility] Total Cholesterol (mg/dL) HOSPITAL <200 Desirable 200-239 [...] mg/dL) Specimen Plasma specimen Performing Organization Address City/State/Zipcosc Ph one Number [facility] DEPARTMENT OF [address] [place] [address] PATHOLOGY AND GENOMIC MEDICINE [address] * Comprehensive metabolic panel (01/28/2019 7:10 AM CDT) Sodium 142 135 - 148 mEq/L [facility] Potassium 4.2 3.5 - 5.0 mEq/L [facility] Chloride 99 98 - 112 mEq/L [facility] CO2 27 24 - 31 mEq/L [facility] Anion gap 16@ANIO (H) 7 - 15 mEq/L [facility] BUN 19 8 - 23 mg/dL [facility] Creatinine 3.51 (H) 0.70 - 1.20 mg/dL [facility] Glucose 135 (H) 65 - 99 mg/dL [facility] Calcium 9.4 8.8 - 10.2 mg/dL [facility] Protein 8.6 (H) 6.3 - 8.3 g/dL [facility] [place] Comment: [facility] 4.6-7.0 g/dL 1 week 4.4-7.6 g/dL 7 months-1year 5.1-7.3 g/dL 1-2 years 5.6-7.5 g/dL >3 years 6.0-8.0 g/dL 18-150 6.3-8.3 g/dL Albumin 4.0 3.5 - 5.0 g/dL [facility] A/G ratio 0.9 0.7 - 3.8 [facility] Alkaline 233 (H) 40 - 129 U/L [facility] [place] phosphatase [facility] AST 33 10 - 50 U/L [facility] ALT 42 5 - 50 U/L [facility] Total bilirubin 1.0 0.0 - 1.2 mg/dL [facility] Specimen Plasma specimen Performing Organization Address [facility] Ph one Number [facility] DEPARTMENT OF [address] [place] [address] PATHOLOGY AND GENOMIC MEDICINE [address] * Occult blood, stool (01/26/2019 11:54 AM CDT) Only the most recent of 3 results within the time period is included. Occult blood, Negative for occult blood. [facility] [place] stool Comment: [facility] Specimen Information HOSPITAL Specimen Source: Stool Specimen Site: Nonpreserved Specimen Stool - Nonpreserved Performing Organization Address City/[facility] Ph one Number [facility] DEPARTMENT OF [address] [place] [address] PATHOLOGY AND GENOMIC MEDICINE [address] after 2018 Insurance Type Payer Benefit Subscriber ID Effective Phone Address Plan / Dates Group Transplant ANNIKA ROBLERO xxxxxxxxxxx 2010-P LIFES[employer] resent O ANNIKA JOHNSON xxxxxxxxxxx 2010-P SEYBOLD resent [facility] Advance Directives For more information, please contact: [phone] Patient 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
--- OUTSIDE RECORDS SUMMARY | 2019-10-27 18:18 | XMS REPORT ---
Author Author [facility] t Organization [facility] Address [address] [place] [address] Phone Unavailable Care Team Providers Care Bait Tier Name Role Phone Feliberto LANDEROS, Olvin Carpio [...] Comments Source iodine DA Active 2018-08-17 00:00:00 [facility] Penicillins DA Active 2018-08-15 00:00:00 [facility] Iodine Propensity to adverse reactions to drug Active 2016-10-08 00:00:00 Julián Ryder Penicillins Propensity to adverse reactions to drug Active Shortness Of Breath 2016-10-08 00:00:00 Julián Ryder Penicillins DA Active 2016-05-26 00:00:00 [facility] SEAFOOD DA Active 2016-05-26 00:00:00 [facility] Family History Family Member Diagnosis Comments Start Date Stop Date Source Natural father Diabetes [facility]odist Natural father Hypertension Julián Ryder Maternal grandfather Cancer [facility] Natural mother Diabetes [facility] Natural mother Hypertension Julián Ryder Social History Social Habit Start Date Stop Date Quantity Comments Source Sex Assigned At Parmjit bondsloulou Ryder Exposure to SARS-CoV-2 (event) Unable to [...] 50,000 unit capsule 2019-01-28 15:19 :00 Yes [id number] Q7D Take 50,000 Units by mouth once [...] 3.125 mg by mouth daily. Julián Ryder azTYECFubr-nqzrovkij-mkecnxabb 10-320-25 mg tablet 2019-01-28 15:18:08 2019-01-28 00:00:00 No QD Take by mouth daily. Julián Ryder aspirin 325 MG tablet 2019-01-28 15:15:46 2019-01-28 00:00:00 No 325mg QD Take 325 mg by mouth daily. Julián Franck benitez Vital Signs Vital Name Observation Time Observation Value Comments Source Systolic blood pressure 2019-01-28 12:50:00 137 mm[Hg] Julián Ryder Diastolic blood pressure 2019-01-28 12:50:00 71 mm[Hg] Julián Ryder Heart rate 2019-01-28 12:50:00 62 /min Julián Ryder Body temperature 2019-01-28 12:29:00 36.22 Kathleen Quang davis [facility] Respiratory rate 2019-01-28 12:29:00 17 /min Quang Ryder Body height 2019-01-28 12:29:00 172.7 cm Julián Ryder Body weight 2019-01-28 12:29:00 92.534 kg Julián Ryder BMI 2019-01-28 12:29:00 31.02 kg/m2 Julián Ryder [...] Arriaza TTE COMPLETE, WO CONTRAST, W DOPPLER ([id number]) 2019-01-28 13:4 4:53 Kellee Arriaza XR CHEST [...] LEVEL 2019-01-28 12:10:00 Arriaza, Kellee Chaves on [facility] LDH 2019-01-28 12:10:00 Arriaza, Kellee Ryder PROSTATE SPECIFIC ANTIGEN 2019-01-28 12:10:00 Arriaza, Kellee Ryder HEMOGLOBIN A1C 2019-01-28 12:10:00 Arriaza, Kellee Ryder PARATHYROID HORMONE 2019-01-28 12:10:00 Arriaza, Kellee Ryder HEPATITIS C VIRUS QUANTITATIVE BY PCR 2019-01-28 12:10:00 Arriaza , Kellee Ryder TB T-SPOT 2019-01-28 12:10:00 Arriaza, Kellee Ryder URINALYSIS SCREEN AND MICROSCOPY, WITH REFLEX TO CULTURE 201 02-21-15 12:10:00 Arsalan, Kellee Ryder DRUG MANCIA 9, SER/MIKE, SCRN W/RFLX TO CONF 2019-01-28 12:10:00 Arriaza, Kellee Ryder ESTIMATED GFR 2019-01-28 12:10:00 Arriaza, Kellee Ryder SINGLE ANTIGEN BEADS 2019-01-28 12:10:00 Arriaza, Kellee Ryder OCCULT BLOOD, STOOL 2019-01-26 16:54:00 Kellee Arriaza OCCULT BLOOD, STOOL 2019-01-25 16:52:00 Kellee Arriaza OCCULT BLOOD, STOOL 2019-01-24 16:50:00 Kellee Arriaza SINGLE ANTIGEN BEADS 2019-01-06 16:35:00 Alonzo Barnes [facility] SINGLE ANTIGEN BEADS 2018-12-07 13:05:00 Alonzo Barnes [facility] SINGLE ANTIGEN BEADS 2018-11-06 13:24:00 Cameron Alonzo cannon [facility] Plan of Care Planned Activity Planned Date Details Comments Source Future Scheduled Test [code = ] Future Scheduled Test [code = ] Future Scheduled Test [code = ] Future Scheduled Test [code = ] Future Scheduled Test [code = ] Encounters Start Date/Time End Date/Time [facility]counter [facility] ID Source 2019-10-11 00:00:00 2019-10-11 00:00:00 Outpatient ALONZO BARNES [facility] [id number] Julián Ryder 2019-09-06 00:00:00 2019-09-06 00:00:00 Outpatient CAMERON KATIE [facility] [id number] Julián Ryder 2019-08-09 00:00:00 2019-08-09 00:00:00 Outpatient CAMERON KATIE [facility] [id number] Julián Ryder Results Test Description Test Time Test Comments Results Result Comments Source Single antigen beads 2019-08-19 22:34:08 Test Item SAB serum ID (test code = 5866) [id number] SAB serum collection D&T (test code = 5867) 08/09/2019 07:56 AM SAB class I antibody assignment (test code = 5870) Negative SAB cPRA class I (test code = 5868) 0 SAB class II antibody assignment (test code = 5871) DP19 SAB cPRA class II (test code = 5869) 0 Case number (test code = 9329716) [id number] Single antigen beads (test code = 4604) See link below for PDF Lab Report Julián RyderGLUCOSE-STAT [id number] 12:03:00* Test Item Value Reference Range Interpretation Comments GLUCOSE RANDOM (BEAKER) (test code = 652) 116 mg/dL 70-110 H HGB/HCT (H&H) - STAT [id number] 12:03:00* Test Item Value Reference Range Interpretation Comments HEMOGLOBIN (BEAKER) (test code = 410) 11.3 g/dL 13.0-16.8 L HEMATOCRIT (BEAKER) (test code = 411) 33.0 % 40.0-50.0 L POTASSIUM-STAT [id number] 11:59:00* Test Item Value Reference Range Interpretation Comments POTASSIUM (BEAKER) (test code = 379) 4.1 meq/L 3.6-5.5 GLUCOSE-STAT [id number] 07:17:00* Test Item Value Reference Range Interpretation Comments GLUCOSE RANDOM (BEAKER) (test code = 652) 143 mg/dL 70-110 H HGB/HCT (H&H) - STAT [id number] 07:17:00* Test Item Value Reference Range Interpretation Comments HEMOGLOBIN (BEAKER) (test code = 410) 11.5 g/dL 13.0-16.8 L HEMATOCRIT (BEAKER) (test code = 411) 34.0 % 40.0-50.0 L POTASSIUM-STAT [id number] 07:16:00* Test Item Value Reference Range Interpretation Comments POTASSIUM (BEAKER) (test code = 379) 4.5 meq/L 3.6-5.5 POCT-GLUCOSE [id number] 05:52:00* Test Item Value Reference Range Interpretation Comments POC-GLUCOSE METER (BEAKER) (test code = 1538) 119 mg/dL 70-110 H : TESTED AT [address], [address]: Offset Platemaker/Paste Mixer ID = [id number] for WANDERJACKY, THROMBECTOMY, A-V [id number] 15:48:00Reason for Exam:->ckd, failure FINAL REPORT AV shunt evaluation. History: Renal failure, malfunctioning left upper extremity arteriovenous fistula. Modality: Ultrasound and fluoro scopy. Sprinkler Fitter: Hossein Poe MD. Venture Capital Analyst: MD Karlee (Fellow)Flavia lacey MD (Resident). Sedation: [...] The needle was exchanged for a 4 Togolese micropuncture sheath. DSA runs of left upper extremity central venous system were performed. The micropuncture sheath was exchanged over 0.035 Bentson wire for a 6 Togolese short vascular sheath. The focal stenosis the sheath was removed and hemostasis achieved using 2-0 chromic pursestring suture. At the junction of the left subc lavian and brachiocephalic veins was angioplastied using a 10 mm x 4 cm Dante over the wire balloon, 8 mm high [...] MDReport Verified Date/Time: 04/15/2019 15:48:14 Reading Location: [facility] P048 Angio Body Reading Room 2019-04-15 08:57:00* Test Item Value Reference Range Interpretation Comments PARTIAL THROMBOPLASTIN TIME (BEAKER) (test code = 760) 31.6 seconds 22.5-36.0 PROTHROMBIN TIME/[id number] 08:56:00* Test Item Value Reference Range Interpretation [...] patie nts wiht mechanical heart valves.BASIC METABOLIC [id number] 08:47:00* Test Item Value Reference Range Interpretation [...] DIALYSIS PATIENTS. CBC W/PLT COUNT & AUTO [id number] 08:39:00* Test Item Value Reference Range Interpretation [...] Echocardiogram complete w contrast and 3D if [id number] 03:32:00Interface, Radiology Results In - 01/29/2019 10:32 PM CDT Echocardiography Report [address] [place] [address] Pat.Name: MARKO CABRALES Pat.ID: [id number] .Date: 01/28/2019 Refer.MD: KELLEE ARRIAZA MD Exam Time: 7:54:00 AM Study Type:Routine Echo Height: 68in BSA: 2.06 m2 Age: 3 1960,58Y Sex: MALE BP: 137/71 HR: 62 bpm Sonogrphr: ANAHI Jennings, CS Pat. Stat.:Outpatient Room: Treatment [facility] Study Status:Final Echo Event ID:[id number] Order ID: [id number] Reason for Study: Renal Transplant EvaluationHistory / [...] estimate PA systolic pressure. MEASUREMENTS: 2DParasternal Long Stafford LVOT 2.1 cm LA Ds 4.5 cm [...] ml Signed 01/29/2019 10:32 PMSu Edgar Horan M.D.[facility] [id number] 21:02:04* Test Item Value Reference Range Interpretation Comments Ventricular rate (test code = 253) 69 Atrial rate (test code = 255) 69 CO interval (test code = 266) 244 QRSD [...] of 26-NOV-2016 08:37,-No significant change was found- [place] MethodistOccult blood, [id number] 20:08:17* Test Item Value Reference Range Interpretation Comments Occult blood, stool (test code = 2334-1) Negative for occult blood. Specimen InformationSpecimen Source: StoolSpecimen Site: Nonpreserved [place] MethodistXR Chest 2 [id number] 16:27:02Hm Interface, Radiology Results Incoming - 01/28/2019 [...] are otherwise ibrahima ar of focal airspace disease.[facility]-[id number] and approved by radiology re sident/fellow: Nadir Arteaga M.D.I, Tyree Lucas MD, personally reviewed the images and resident's/fellow's findings and agree with the final report.Julián MethodkrystalHGB/HCT (H&H) - STAT [id number] 16:38:00* Test Item Value Reference Range Interpretation Comments HEMOGLOBIN (BEAKER) (test code = 410) 10.2 g/dL 13.0-16.8 L HEMATOCRIT (BEAKER) (test code = 411) 30.0 % 40.0-50.0 L GLUCOSE-STAT [id number] 16:37:00* Test Item Value Reference Range Interpretation Comments GLUCOSE RANDOM (BEAKER) (test code = 652) 107 mg/dL 70-110 POTASSIUM-STAT [id number] 16:37:00* Test Item Value Reference Range Interpretation Comments POTASSIUM (BEAKER) (test code = 379) 3.8 meq/L 3.6-5.5 POTASSIUM-STAT [id number] 09:17:00* Test Item Value Reference Range Interpretation Comments POTASSIUM (BEAKER) (test code = 379) 3.7 meq/L 3.6-5.5 HGB/HCT (H&H) - STAT [id number] 09:17:00* Test Item Value Reference Range Interpretation Comments HEMOGLOBIN (BEAKER) (test code = 410) 10.3 g/dL 13.0-16.8 L HEMATOCRIT (BEAKER) (test code = 411) 30.0 % 40.0-50.0 L GLUCOSE-STAT [id number] 09:17:00* Test Item Value Reference Range Interpretation Comments GLUCOSE RANDOM (BEAKER) (test code = 652) 128 mg/dL 70-110 H GLUCOSE-STAT [id number] 09:27:00* Test Item Value Reference Range Interpretation Comments GLUCOSE RANDOM (BEAKER) (test code = 652) 121 mg/dL 70-110 H HGB/HCT (H&H) - STAT [id number] 09:27:00* Test Item Value Reference Range Interpretation Comments HEMOGLOBIN (BEAKER) (test code = 410) 10.9 g/dL 13.0-16.8 L HEMATOCRIT (BEAKER) (test code = 411) 32.0 % 40.0-50.0 L POTASSIUM-STAT [id number] 09:26:00* Test Item Value Reference Range Interpretation Comments POTASSIUM (BEAKER) (test code = 379) 4.1 meq/L 3.6-5.5 HGB/HCT (H&H) - STAT [id number] 06:36:00* Test Item Value Reference Range Interpretation Comments HEMOGLOBIN (BEAKER) (test code = 410) 11.8 g/dL 13.0-16.8 L HEMATOCRIT (BEAKER) (test code = 411) 35.0 % 40.0-50.0 L GLUCOSE-STAT [id number] 06:36:00* Test Item Value Reference Range Interpretation Comments GLUCOSE RANDOM (BEAKER) (test code = 652) 147 mg/dL 70-110 H POTASSIUM-STAT [id number] 06:34:00* Test Item Value Reference Range Interpretation Comments POTASSIUM (BEAKER) (test code = 379) 3.9 meq/L 3.6-5.5 POCT-GLUCOSE [id number] 06:15:00* Test Item Value Reference Range Interpretation Comments POC-GLUCOSE METER (BEAKER) (test code = 1538) 141 mg/dL 70-110 H TESTED AT [facility] [address] [facility] [address] [id number] 12:06:00* Test Item Value Reference Range Interpretation Comments GLUBED (test code = GLUBED) 189 MG/DL 70-110 H Performed by certified paver operator at [facility] [id number] 12:00:00* Test Item Value Reference Range Interpretation Comments GLUBED (test code = GLUBED) 151 MG/DL 70-110 H Performed by certified paver operator at [facility] [id number] 18:42:00* Test Item Value Reference Range Interpretation Comments GLUBED (test code = GLUBED) 149 MG/DL 70-110 H Performed by certified paver operator at [facility] [id number] 10:58:00* Test Item Value Reference Range Interpretation Comments GLUBED (test code = GLUBED) 122 MG/DL 70-110 H Performed by certified paver operator at [facility] [id number] 09:50:00* Test Item Value Reference Range Interpretation Comments GLUBED (test code = GLUBED) 150 MG/DL 70-110 H Performed by certified paver operator at [facility] [id number] 07:41:00* Test Item Value Reference Range Interpretation Comments PHOSPHOROUS (test code = PHOS) 3.9 mg/dL 2.5-4.9 N [id number] 05:53:00* Test Item Value Reference Range Interpretation Comments GLUBED (test code = GLUBED) 115 MG/DL 70-110 H Performed by certified paver operator at [facility] [id number] 19:21:00* Test Item Value Reference Range Interpretation Comments GLUBED (test code = GLUBED) 126 MG/DL 70-110 H Performed by certified paver operator at [facility] [id number] 16:12:00* Test Item Value Reference Range Interpretation Comments GLUBED (test code = GLUBED) 125 MG/DL 70-110 H Performed by certified paver operator at [facility] [id number] 10:54:00* Test Item Value Reference Range Interpretation Comments GLUBED (test code = GLUBED) 180 MG/DL 70-110 H Performed by certified paver operator at [facility] COMPREHENSIVE METABOLIC [id number] 07:47:00* Test Item Value Reference Range Interpretation [...] ALKP) 150 IUnit/L 20-125 H CBC W/AUTO [id number] 07:21:00* Test Item Value Reference Range Interpretation [...] DIFF REQUIRED (test code = MDIFF) NO [id number] 06:42:00* Test Item Value Reference Range Interpretation Comments GLUBED (test code = GLUBED) 136 MG/DL 70-110 H Performed by certified paver operator at [facility] [id number] 20:23:00* Test Item Value Reference Range Interpretation Comments GLUBED (test code = GLUBED) 181 MG/DL 70-110 H Performed by certified paver operator at [facility] [id number] 17:30:00* Test Item Value Reference Range Interpretation Comments GLUBED (test code = GLUBED) 99 MG/DL 70-110 N Performed by certified paver operator at [facility] [id number] 13:20:00* Test Item Value Reference Range Interpretation Comments ALBUMIN (test code = ALB) 3.00 g/dL 3.4-5.0 L [id number] 13:20:00* Test Item Value Reference Range Interpretation Comments PREALBUMIN (test code = PREALB) 19.4 mg/dL 16.0-40.0 N [id number] 11:21:00* Test Item Value Reference Range Interpretation Comments GLUBED (test code = GLUBED) 151 MG/DL 70-110 H Performed by certified paver operator at [facility] [id number] 06:32:00* Test Item Value Reference Range Interpretation Comments GLUBED (test code = GLUBED) 170 MG/DL 70-110 H Performed by certified paver operator at [facility] [id number] 20:30:00* Test Item Value Reference Range Interpretation Comments GLUBED (test code = GLUBED) 141 MG/DL 70-110 H Performed by certified paver operator at [facility] [id number] 16:13:00* Test Item Value Reference Range Interpretation Comments GLUBED (test code = GLUBED) 97 MG/DL 70-110 N Performed by certified paver operator at [facility] [id number] 15:51:00* Test Item Value Reference Range Interpretation Comments GLUBED (test code = GLUBED) 126 MG/DL 70-110 H Performed by certified paver operator at [facility]2019-03-17 05:35:00* Test Item Value Reference Range Interpretation Comments GLUBED (test code = GLUBED) 132 MG/DL 70-110 H Performed by certified paver operator at [facility]2019-03-16 20:19:00* Test Item Value Reference Range Interpretation Comments GLUBED (test code = GLUBED) 126 MG/DL 70-110 H Performed by certified paver operator at [facility] [id number] 18:05:00* Test Item Value Reference Range Interpretation Comments GLUBED (test code = GLUBED) 154 MG/DL 70-110 H Performed by certified paver operator at [facility] [id number] 06:11:00* Test Item Value Reference Range Interpretation Comments GLUBED (test code = GLUBED) 140 MG/DL 70-110 H Performed by certified paver operator at [facility] [id number] 20:26:00* Test Item Value Reference Range Interpretation Comments GLUBED (test code = GLUBED) 129 MG/DL 70-110 H Performed by certified paver operator at [facility] [id number] 17:17:00* Test Item Value Reference Range Interpretation Comments GLUBED (test code = GLUBED) 142 MG/DL 70-110 H Performed by certified paver operator at [facility] [id number] 11:18:00* Test Item Value Reference Range Interpretation Comments GLUBED (test code = GLUBED) 121 MG/DL 70-110 H Performed by certified paver operator at [facility] [id number] 08:13:00* Test Item Value Reference Range Interpretation Comments GLUBED (test code = GLUBED) 116 MG/DL 70-110 H Performed by certified paver operator at [facility] [id number] 05:49:00* Test Item Value Reference Range Interpretation Comments GLUBED (test code = GLUBED) 114 MG/DL 70-110 H Performed by certified paver operator at [facility] [id number] 20:44:00* Test Item Value Reference Range Interpretation Comments GLUBED (test code = GLUBED) 118 MG/DL 70-110 H Performed by certified paver operator at [facility] [id number] 16:04:00* Test Item Value Reference Range Interpretation Comments GLUBED (test code = GLUBED) 103 MG/DL 70-110 N Performed by certified paver operator at [facility] [id number] 11:23:00* Test Item Value Reference Range Interpretation Comments GLUBED (test code = GLUBED) 126 MG/DL 70-110 H Performed by certified paver operator at [facility] [id number] 09:02:00* Test Item Value Reference Range Interpretation Comments GLUBED (test code = GLUBED) 101 MG/DL 70-110 N Performed by certified paver operator at [facility] [id number] 05:48:00* Test Item Value Reference Range Interpretation Comments GLUBED (test code = GLUBED) 152 MG/DL 70-110 H Performed by certified paver operator at [facility] [id number] 20:21:00* Test Item Value Reference Range Interpretation Comments GLUBED (test code = GLUBED) 132 MG/DL 70-110 H Performed by certified paver operator at [facility] [id number] 18:12:00* Test Item Value Reference Range Interpretation Comments GLUBED (test code = GLUBED) 154 MG/DL 70-110 H Performed by certified paver operator at [facility] CBC W/AUTO [id number] 10:17:00* Test Item Value Reference Range Interpretation [...] REQUIRED (test code = MDIFF) NO RBC [id number] 10:17:00* Test Item Value Reference Range Interpretation Comments POLYCHROMASIA (test code = POLC) 1+ CBC W/AUTO [id number] 08:34:00* Test Item Value Reference Range Interpretation [...] REQUIRED (test code = MDIFF) NO RBC [id number] 08:34:00* Test Item Value Reference Range Interpretation Comments ANISOCYTOSIS (test code = ANISO) CBC W/AUTO [id number] 08:34:00* Test Item Value Reference Range Interpretation [...] REQUIRED (test code = MDIFF) NO RBC [id number] 08:34:00* Test Item Value Reference Range Interpretation Comments ANISOCYTOSIS (test code = ANISO) BASIC METABOLIC [id number] 07:46:00* Test Item Value Reference Range Interpretation [...] code = CA) 8.1 mg/dL 8.0-10.5 N [id number] 07:20:00* Test Item Value Reference Range Interpretation Comments GLUBED (test code = GLUBED) 192 MG/DL 70-110 H Performed by certified paver operator at [facility] [id number] 22:03:00* Test Item Value Reference Range Interpretation Comments GLUBED (test code = GLUBED) 141 MG/DL 70-110 H Performed by certified paver operator at [facility] [id number] 16:15:00* Test Item Value Reference Range Interpretation Comments GLUBED (test code = GLUBED) 127 MG/DL 70-110 H Performed by certified paver operator at [facility] [id number] 16:15:00* Test Item Value Reference Range Interpretation Comments GLUBED (test code = GLUBED) 138 MG/DL 70-110 H Performed by certified paver operator at [facility] [id number] 16:15:00* Test Item Value Reference Range Interpretation Comments GLUBED (test code = GLUBED) 151 MG/DL 70-110 H Performed by certified paver operator at [facility] [id number] 11:03:00* Test Item Value Reference Range Interpretation Comments GLUBED (test code = GLUBED) 109 MG/DL 70-110 N Performed by certified paver operator at [facility] COMPREHENSIVE METABOLIC [id number] 07:54:00* Test Item Value Reference Range Interpretation [...] code = ALKP) 150 IUnit/L 20-125 H [id number] 07:54:00* Test Item Value Reference Range Interpretation Comments PHOSPHOROUS (test code = PHOS) 3.3 mg/dL 2.5-4.9 N [id number] 07:54:00* Test Item Value Reference Range Interpretation Comments MAGNESIUM (test code = MAG) 1.50 mg/dL 1.8-2.4 L CBC W/AUTO [id number] 06:59:00* Test Item Value Reference Range Interpretation [...] DIFF REQUIRED (test code = MDIFF) NO [id number] 06:53:00* Test Item Value Reference Range Interpretation Comments GLUBED (test code = GLUBED) 183 MG/DL 70-110 H Performed by certified paver operator at [facility] [id number] 06:01:00* Test Item Value Reference Range Interpretation Comments GLUBED (test code = GLUBED) 110 MG/DL 70-110 N Performed by certified paver operator at [facility] [id number] 07:30:00* Test Item Value Reference Range Interpretation Comments GLUBED (test code = GLUBED) 125 MG/DL 70-110 H Performed by certified paver operator at [facility] [id number] 16:30:00* Test Item Value Reference Range Interpretation Comments GLUBED (test code = GLUBED) 149 MG/DL 70-110 H Performed by certified paver operator at [facility] [id number] 08:42:00* Test Item Value Reference Range Interpretation Comments GLUBED (test code = GLUBED) 121 MG/DL 70-110 H Performed by certified paver operator at [facility] [id number] 07:05:00* Test Item Value Reference Range Interpretation Comments GLUBED (test code = GLUBED) 128 MG/DL 70-110 H Performed by certified paver operator at [facility] [id number] 16:49:00* Test Item Value Reference Range Interpretation Comments GLUBED (test code = GLUBED) 141 MG/DL 70-110 H Performed by certified paver operator at [facility] [id number] 11:37:00* Test Item Value Reference Range Interpretation Comments GLUBED (test code = GLUBED) 216 MG/DL 70-110 H Performed by certified paver operator at [facility] [id number] 08:58:00* Test Item Value Reference Range Interpretation Comments GLUBED (test code = GLUBED) 140 MG/DL 70-110 H Performed by certified paver operator at [facility] BASIC METABOLIC [id number] 05:07:00* Test Item Value Reference Range Interpretation [...] CA) 7.9 mg/dL 8.0-10.5 L CBC W/AUTO [id number] 04:34:00* Test Item Value Reference Range Interpretation [...] DIFF REQUIRED (test code = MDIFF) NO [id number] 17:33:00* Test Item Value Reference Range Interpretation Comments GLUBED (test code = GLUBED) 200 MG/DL 70-110 H Performed by certified paver operator at [facility] [id number] 13:46:00* Test Item Value Reference Range Interpretation Comments GLUBED (test code = GLUBED) 162 MG/DL 70-110 H Performed by certified paver operator at [facility] [id number] 10:08:00* Test Item Value Reference Range Interpretation Comments GLUBED (test code = GLUBED) 153 MG/DL 70-110 H Performed by certified paver operator at [facility] BASIC METABOLIC [id number] 05:00:00* Test Item Value Reference Range Interpretation [...] CA) 7.7 mg/dL 8.0-10.5 L CBC W/AUTO [id number] 04:40:00* Test Item Value Reference Range Interpretation [...] = MDIFF) NO - CT HEAD/BRAIN W/O [id number] 18:28:00 Name: MARKO CABRALES [facility] Waldo Ortiz : 1960 Age/S: 57 / M [address] [place] [address] Blvd Unit #: [id number] Loc: [place] [address] Phys: Griselda Reyes MD Acct: [id number] Dis Date: Status: ADM IN PHONE #: [phone] Exam Date: 08/20/2018 1822 FAX #: [phone] Reason: CHANGES IN VISION, DIZZINESS, LIGHTHEADEDNESS EXAMS: CPT CODE: [id number] CT HEAD/BRAIN W/O CONT 85669 STUDY: - CT HEAD/BRAIN W/O CONT 08/20/2018 4:09 PM Ordering Physician: Griselda Jean-Baptiste MD Patient Name: MARKO CABRALES MR: [id number] : 1960; Age: 57 years y/o Male [...] 1 Signed Report (CONTINUED) Name: MARKO CABRALES [facility] : 1960 Age/S: 57 / M [address] [place] [address] [address] Unit #: [id number] Loc: [place] [address] Phys: Griselda Reyes MD Acct: [id number] Dis Date: Status: ADM IN PHONE #: [phone] Exam Date: 08/20/20181821 FAX #: [phone] Reason: CHANGES IN VISION, DIZZINESS, LIGHTHEAD EDNESS EXAMS: CPT CODE: [id number] CT HEAD/BRAIN W/O CONT 55074 < Continued> IMPRESSION: Mild diffuse age-appropriate atrophy [...] RT(R)(CT) CTDI: DLP: Trnscb Date/Time: 08/20/2018 (1827) t.SDR.TP6 Orig Print D/T: S: 08/20/2018 (183) CTDI: DLP: PAGE 2 Signed Report [id number] 17:40:00* Test Item Value Reference Range Interpretation Comments GLUBED (test code = GLUBED) 184 MG/DL 70-110 H Performed by certified paver operator at [facility] [id number] 11:48:00* Test Item Value Reference Range Interpretation Comments GLUBED (test code = GLUBED) 182 MG/DL 70-110 H Performed by certified paver operator at [facility] [id number] 08:43:00* Test Item Value Reference Range Interpretation Comments GLUBED (test code = GLUBED) 223 MG/DL 70-110 H Performed by certified paver operator at [facility] BASIC METABOLIC [id number] 04:59:00* Test Item Value Reference Range Interpretation [...] CA) 8.0 mg/dL 8.0-10.5 N CBC W/AUTO [id number] 04:50:00* Test Item Value Reference Range Interpretation [...] DIFF REQUIRED (test code = MDIFF) NO [id number] 17:20:00* Test Item Value Reference Range Interpretation Comments GLUBED (test code = GLUBED) 169 MG/DL 70-110 H Performed by certified paver operator at [facility] [id number] 16:07:00* Test Item Value Reference Range Interpretation Comments GLUBED (test code = GLUBED) 160 MG/DL 70-110 H Performed by certified paver operator at [facility] [id number] 14:09:00* Test Item Value Reference Range Interpretation Comments GLUBED (test code = GLUBED) 98 MG/DL 70-110 N Performed by certified paver operator at [facility] [id number] 13:44:00* Test Item Value Reference Range Interpretation Comments GLUBED (test code = GLUBED) 72 MG/DL 70-110 N Performed by certified paver operator at [facility] [id number] 08:08:00* Test Item Value Reference Range Interpretation Comments GLUBED (test code = GLUBED) 125 MG/DL 70-110 H Performed by certified paver operator at [facility] RENAL FUNCTION [id number] 05:27:00* Test Item Value Reference Range Interpretation [...] = PHOS) 4.0 mg/dL 2.5-4.9 CBC W/AUTO [id number] 05:06:00* Test Item Value Reference Range Interpretation [...] DIFF REQUIRED (test code = MDIFF) NO [id number] 15:49:00* Test Item Value Reference Range Interpretation Comments GLUBED (test code = GLUBED) 122 MG/DL 70-110 H Performed by certified paver operator at [facility] - XR FLUOROSCOPY 0-60 [id number] 15:13:00 FAX: Balaji Dimas MD [phone] [place]: St: ADM FAX: Kellee Silva DO FAX: Shine Chang MD [phone] Name: MARKO CABRALES [facility] : 1960 Age/S: 57/M [address] [place] [address] Unit #: [id number] Loc: [address] [place] [address] Phys: Shine Azevedo MD Acct: [id number] Dis Date: Status: ADM IN ONE #: [phone] Exam Date: 08/18/2018 1325 FAX #: [phone] Reason: ESRD EXAMS: CPT CODE: [id number] XR FLUOROSCOPY 0-60 MIN 43733 Intraprocedural fluoroscopy was provided by the Department of Radiology. Any images obta ined were interpreted by the surgeon intraoperatively. Refer ence air kerma: 1.9 mGy, fluoroscopy time 6 seconds SL: T R-H at 1873 Reported and signed by: Louie Rocha M.D. CC: Balaji Dao MD; Kellee Silva DO; Shine Azevedo MD Technologist: JOSE ALFREDO Rodriguez) Trnscrd Evelina ate/Time/By: 08/18/2018 (0763) : By: DelmarG Orig Print D/T: S: 10/2018 (4734) PAGE 1 Signed Repor t - XR CHEST 1 [id number] 15:12:00 FAX: Balaji Dimas MD [phone] [place]: St: ADM FAX: Yari Fields NP [phone] FAX: Kellee Silva DO --------- Name: MARKO CABRALES [facility] : 1960 Age/S: 57/M [address] [place] [address] Blvd Un it #: [id number] Loc: [place] [address] Phys: Yari Oliveira NP Acct: [id number] Dis Date: Status: ADM IN ONE #: [phone] Exam Date: 08/18/2018 1450 FAX #: [phone] Reason: s/p right IJ tunneled HD cath placement EXAMS: CPT CODE: [id number] XR CHEST 1 V 24586 EXAM: CHEST SI NGLE VIEW HISTORY: 57-year-old [...] the SVC. 2. Impro sri congestion. SL: [id number] Electr onically Signed by Eduard Correia on 08/18/2018 at 1512 Reported and signed by: Kofi Correia M.D. CC: Balaji Dao MD; Gerardo Oliveira NP; Kellee Silva DO Technologist: RT Yusef(R) Trnscrd Date/Time/By: 08/18/2018 (1512) : By: [email or web address] Orig Print D/T: S: 08/18/2018 (0807) PAGE 1 Signed Report [id number] 13:51:00* Test Item Value Reference Range Interpretation Comments GLUBED (test code = GLUBED) 95 MG/DL 70-110 N Performed by certified paver operator at [facility] [id number] 07:41:00* Test Item Value Reference Range Interpretation Comments GLUBED (test code = GLUBED) 129 MG/DL 70-110 H Performed by certified paver operator at [facility] PROTHROMBIN [id number] 05:33:00* Test Item Value Reference Range Interpretation [...] Infarction (to prevent recurrent infarct). THROMBOPLASTIN TIME [id number] 05:33:00* Test Item Value Reference Range Interpretation Comments THROMBOPLASTIN TIME PARTIAL (test code = PTT) 33.5 Seconds 25.0-39. 5 N Therapeutic Range: 61.8-83.8 Sec Effective 07/14/2013 BASIC METABOLIC [id number] 05:31:00* Test Item Value Reference Range Interpretation [...] be done morning of Heart CathCBC W/AUTO [id number] 05:10:00* Test Item Value Reference Range Interpretation [...] COMMENTS: To be done morning of Heart [id number] 16:17:00* Test Item Value Reference Range Interpretation Comments GLUBED (test code = GLUBED) 191 MG/DL 70-110 H Performed by certified paver operator at [facility] TOTAL IRON BINDING [id number] 12:09:00* Test Item Value Reference Range Interpretation Comments SERUM IRON (test code = IRON) 62 mcg/dL 35-150 N TOTAL IRON BINDING CAPACITY (test code = TIBC) 182 mcg/dL 260-445 L UIBC (test code = UIBC) 120 mcg/dL IRON SATURATION (test code = FESAT) 34.1 % 14-34 H [id number] 12:09:00* Test Item Value Reference Range Interpretation Comments FERRITIN (test code = RIK) 244.8 ng/mL 23.9-336.2 N [id number] 08:07:00* Test Item Value Reference Range Interpretation Comments GLUBED (test code = GLUBED) 116 MG/DL 70-110 H Performed by certified paver operator at [facility] BASIC METABOLIC [id number] 06:52:00* Test Item Value Reference Range Interpretation [...] CA) 7.4 mg/dL 8.0-10.5 L CBC W/AUTO [id number] 06:48:00* Test Item Value Reference Range Interpretation [...] DIFF REQUIRED (test code = MDIFF) NO [id number] 23:23:00* Test Item Value Reference Range Interpretation Comments TROPONIN-I (test code = TROPI) < 0.015 ng/mL 0.000-0.045 N Negative: <= 0.045 Positive: >= 0.046 Correlation with serial results, other cardiac markers andclinical findings is necessary to determine the clinicalsignificance of this result. Results using different methodologies should not be comparedto one another as quantitative results may vary by method. [id number] 16:25:00* Test Item Value Reference Range Interpretation Comments GLUBED (test code = GLUBED) 167 MG/DL 70-110 H Performed by certified paver operator at [facility] HGB [id number] 14:55:00* Test Item Value Reference Range Interpretation Comments HEMOGLOBIN (test code = HGB) 7.9 g/dL 12.5-16.9 L HEMATOCRIT (test code = HCT) 24.8 % 37.5-50.7 L BASIC METABOLIC [id number] 06:41:00* Test Item Value Reference Range Interpretation [...] code = CA) 8.0 mg/dL 8.0-10.5 N [id number] 06:41:00* Test Item Value Reference Range Interpretation Comments PHOSPHOROUS (test code = PHOS) 3.0 mg/dL 2.5-4.9 CBC W/AUTO [id number] 06:10:00* Test Item Value Reference Range Interpretation [...] DIFF REQUIRED (test code = MDIFF) NO [id number] 16:28:00* Test Item Value Reference Range Interpretation Comments GLUBED (test code = GLUBED) 157 MG/DL 70-110 H Performed by certified paver operator at [facility] [id number] 08:50:00* Test Item Value Reference Range Interpretation Comments GLUBED (test code = GLUBED) 95 MG/DL 70-110 N Performed by certified paver operator at [facility] BASIC METABOLIC [id number] 06:11:00* Test Item Value Reference Range Interpretation [...] code = CA) 8.4 mg/dL 8.0-10.5 N [id number] 06:11:00* Test Item Value Reference Range Interpretation Comments LIPASE (test code = LIP) 722 IUnit/L 73-393 H CBC W/AUTO [id number] 05:48:00* Test Item Value Reference Range Interpretation [...] DIFF REQUIRED (test code = MDIFF) NO [id number] 16:50:00* Test Item Value Reference Range Interpretation Comments GLUBED (test code = GLUBED) 121 MG/DL 70-110 H Performed by certified paver operator at [facility] ARTERIAL BLOOD [id number] 10:08:00* Test Item Value Reference Range Interpretation [...] = PSABG) 5 cmH2O Performed by certified paver operator at [facility] ABG TEMPERATURE (test code = TEMPA) 98.6 F ABG SITE (test code = SITEA) R Rad PREDICTED AA GRADIENT (test code = AP) 51 PREDICTED PO2 (test code = OP) 146 a/A RATIO (test code = RATIO) 0.75 TCO2 ARTERIAL (test code = TCO2A) 31 A-A GRADIENT (test code = AAGRADE) 49 - XR CHEST 1 [id number] 07:31:00 FAX: Eloise Treadwell MD [phone] [place]: St: [facility] FAX: Balaji Dimas MD [phone] FAX: Kellee Silva DO Name: MARKO CABRALES [facility] : 1960 Age/S: 57/M [address] [place] [address] Unit #: [id number] Loc: .[address] [address] Phys: Eloise Treadwell MD Acct: [id number] Dis Date: Status: ADM IN ONE #: [phone] Exam Date: 08/14/2018 0555 FAX #: [phone] Reason: ETT EXAMS: CPT CODE: [id number] XR CHEST 1 V 84205 PROCEDURE: [facility] Radiograph. Clinical Indication: Endotracheal tube placement, [...] By: MontanaTDO Orig Print D/T: S: 06/2018 (0787) PAGE 1 Signed Repo rt BASIC METABOLIC [id number] 05:55:00* Test Item Value Reference Range Interpretation [...] code = CA) 7.6 mg/dL 8.0-10.5 L [id number] 05:55:00* Test Item Value Reference Range Interpretation Comments PHOSPHOROUS (test code = PHOS) 2.3 mg/dL 2.5-4.9 L [id number] 05:55:00* Test Item Value Reference Range Interpretation Comments LIPASE (test code = LIP) 1035 IUnit/L 73-393 H CBC W/AUTO [id number] 05:37:00* Test Item Value Reference Range Interpretation [...] (test code = MDIFF) NO ARTERIAL BLOOD [id number] 04:36:00* Test Item Value Reference Range Interpretation [...] = PEEPA) 5 cmH2O Performed by certified paver operator at [facility] ABG TEMPERATURE (test code = TEMPA) 98.6 F ABG SITE (test code = SITEA) R Rad PREDICTED AA GRADIENT (test code = AP) 53 PREDICTED PO2 (test code = OP) 152 a/A RATIO (test code = RATIO) 0.53 TCO2 ARTERIAL (test code = TCO2A) 28 A-A GRADIENT (test code = AAGRADE) 96 ARTERIAL BLOOD [id number] 17:40:00* Test Item Value Reference Range Interpretation [...] = PEEPA) 5 cmH2O Performed by certified paver operator at [facility] ABG TEMPERATURE (test code = TEMPA) 37.0 F ABG SITE (test code = SITEA) R Rad PREDICTED AA GRADIENT (test code = AP) 99 PREDICTED PO2 (test code = OP) 284 a/A RATIO (test code = RATIO) 0.18 TCO2 ARTERIAL (test code = TCO2A) 28 A-A GRADIENT (test code = AAGRADE) 315 - XR ABDOMEN 1V (KUB)2018-08-13 17:29:00 FAX: Eloise Treadwell MD [phone] [place]: St: ADM FAX: Balaji Dimas MD [phone] FAX: Kellee Silva DO Name: MARKO CABRALES [facility] : 1960 Age/S: 57/M [address] [place] [address] Unit #: [id number] Loc: [address] [place] [address] Phys: Eloise Treadwell MD Acct: [id number] Dis Date: Status: ADM IN PH ONE #: [phone] Exam Date: 08/13/2018 1726 FAX #: [phone] Reason: NG PLACEMENT EXAMS: CPT CODE: [id number] XR ABDOMEN 1V ([facility]) [address] PROCEDURE: - XR ABDOMEN 1V ([facility]), 08/13/2018 at 1713 hours INDICATION: 57 [...] Kellee Silva DO Technologist: Aimee Hardy, RT(R)(M); Maribel Miller R T(R) Trnscrd Date/Time/By: 08/13/2018 (7166) : By: MontanaJH8 Orig Print D/T: S: 08/13/2018 (9171) PAGE 1 Signed Report [id number] 17:19:00* Test Item Value Reference Range Interpretation Comments TROPONIN-I (test code = TROPI) 0.026 ng/mL 0.000-0.045 N Negative: <= 0.045 Positive: >= 0.046 Correlation with serial results, other cardiac markers andclinical findings is necessary to determine the clinicalsignificance of this result. Results using different methodologies should not be comparedto one another as quantitative results may vary by method. - XR ABDOMEN 1V (KU)2018-08-13 16:28:00 FAX: Eloise Treadwell MD [phone] [place]: St: ADM FAX: Balaji Dimas MD [phone] FAX: Kellee Silva DO Name: MARKO CABRALES [facility] : 1960 Age/S: 57/M [address] [place] [address] Unit #: [id number] Loc: [address] [place] [address] Phys: Eloise Treadwell MD Acct: [id number] Dis Date: Status: ADM IN PH ONE #: [phone] Exam Date: 08/13/2018 1623 FAX #: [phone] Reason: NGT Placement EXAMS: CPT CODE: [id number] XR ABDOMEN 1V ([facility]) 66286 1 VIEW ABDOMEN 4:08 PM INDICATION: NG tube placement. COMP ARISON: Today's 1:29 PM abdomen x-ray. I do not identify an NG tub e within the wvyal-kl-yxbp. Stomach is moderately distended with air. Valentín wel gas pattern otherwise normal. Soft tissues and bones normal.. IMPRESSION: NG tube is not demonstrated within the fi eld-of-view. The tip does not extend into the gastric lumen. Recommend chest x-ray to locate NG tube. END IMP RESSION [id number] at 4088 Reported and signed by: Eileen Cortes CC: Eloise Treadwell MD; Balaji Doa MD; Kellee Silva DO chnologist: Elvia Solorzano, RT(R), RTT; Maribel Miller RT(R) Trnscrd Date/ Time/By: 08/13/2018 (6848) : By: MontanaRTB Orig Print D/T: S: 08/13/19 (2755) PAGE 1 Signed Report - XR CHEST 1 [id number] 16:23:00 FAX: Eloise Treadwell MD [phone] [place]: St: ADM FAX: Balaji Dimas MD [phone] FAX: Kellee Silva DO --------- Name: MARKO CABRALES [facility] : 1960 Age/S: 57/M [address] [place] [address] it #: [id number] Loc: [address] [place] [address] Phys: Eloise Treadwell MD Acct: [id number] Dis Date: Status: ADM IN ONE #: [phone] Exam Date: 08/13/2018 1622 FAX #: [phone] Reason: Post intubation EXAMS: CPT CODE: [id number] XR CHEST 1 V 44799 1 VIEW CXR. PORTABLE EXAM 4:07 PM [...] 4 day interval. END OF IMPRESSION SL: [id number] at 1623 Reported and signed by: Chris Fontaine M.D. CC: Eloise Treadwell MD; Balaji Dao MD; Kellee Silva DO Technologist: Elvia Solorzano, RT(R), RTT; Maribel Miller, RT(R) Trnscrd Date/Time/By: (9030) : By: MontanaRTB Orig Print D/T: S: 08/13/2018 (3828) PAGE 1 Signed Report [id number] 15:42:00* Test Item Value Reference Range Interpretation Comments GLUBED (test code = GLUBED) 144 MG/DL 70-110 H Performed by certified paver operator at [facility] - XR ABDOMEN 1V (KUB)2018-08-13 14:28:00 FAX: Rehan Heck MD [phone] [place]: St: ADM FAX: Balaji Dimas MD [phone] FAX: Kellee Silva DO Name: MARKO CABRALES [facility] : 1960 Age/S: 57/M [address] [place] [address] Unit #: [id number] Loc: [address] [place] [address] Phys: Rehan Altamirano MD Acct: [id number] Dis Date: Status: ADM IN PH ONE #: [phone] Exam Date: 08/13/2018 1415 FAX #: [phone] Reason: ABDOMINAL PAIN EXAMS: CPT CODE: [id number] XR ABDOMEN 1V (KUB) 46288 ABDOMEN SINGLE VIEW HISTORY: Pancreatitis. COMPARISON: FINDINGS: There are no dilated small bowel loops or small bowel air-fluid levels. There is no gross colonic abnormality. There is no gr oss free intraperitoneal air. No abnormal calcifications identified. The lung bases are clear. Patient is post cholecystectomy. I MPRESSION: Nonspecific/unobstructed abdominal bowel gas patter n. SL:01 at 1420 Reported and signed by: Momo López M.D. CC: Rehan Altamirano MD; Balaji Dao MD; Kellee Silva DO Technologist: RT Rakesh(Adelina) Trnscrd Date/Time/By: 0 08/13/2018 (3417) : By: Vanita Orig Print D/T: S: 08/13/2018 (8458) PAGE 1 Signed Report [id number] 07:52:00* Test Item Value Reference Range Interpretation Comments GLUBED (test code = GLUBED) 142 MG/DL 70-110 H Performed by certified paver operator at [facility] BASIC METABOLIC [id number] 06:11:00* Test Item Value Reference Range Interpretation [...] code = CA) 7.1 mg/dL 8.0-10.5 L [id number] 06:11:00* Test Item Value Reference Range Interpretation Comments ALBUMIN (test code = ALB) 2.30 g/dL 3.4-5.0 L [id number] 06:11:00* Test Item Value Reference Range Interpretation Comments PHOSPHOROUS (test code = PHOS) 2.5 mg/dL 2.5-4.9 [id number] 06:11:00* Test Item Value Reference Range Interpretation Comments PREALBUMIN (test code = PREALB) 9.6 mg/dL 16.0-40.0 L BASIC METABOLIC [id number] 06:05:00* Test Item Value Reference Range Interpretation [...] code = CA) 7.1 mg/dL 8.0-10.5 L [id number] 06:05:00* Test Item Value Reference Range Interpretation Comments ALBUMIN (test code = ALB) 2.30 g/dL 3.4-5.0 L [id number] 06:05:00* Test Item Value Reference Range Interpretation Comments PHOSPHOROUS (test code = PHOS) 2.5 mg/dL 2.5-4.9 [id number] 06:05:00* Test Item Value Reference Range Interpretation Comments PREALBUMIN (test code = PREALB) mg/dL 16.0-40.0 CBC W/AUTO [id number] 05:59:00* Test Item Value Reference Range Interpretation [...] DIFF REQUIRED (test code = MDIFF) NO [id number] 16:56:00* Test Item Value Reference Range Interpretation Comments GLUBED (test code = GLUBED) 121 MG/DL 70-110 H Performed by certified paver operator at [facility] [id number] 12:08:00* Test Item Value Reference Range Interpretation Comments GLUBED (test code = GLUBED) 164 MG/DL 70-110 H Performed by certified paver operator at [facility] [id number] 09:49:00* Test Item Value Reference Range Interpretation Comments GLUBED (test code = GLUBED) 147 MG/DL 70-110 H Performed by certified paver operator at [facility] BASIC METABOLIC [id number] 05:47:00* Test Item Value Reference Range Interpretation [...] code = CA) 6.9 mg/dL 8.0-10.5 L [id number] 05:47:00* Test Item Value Reference Range Interpretation Comments PHOSPHOROUS (test code = PHOS) 1.9 mg/dL 2.5-4.9 L CBC W/AUTO [id number] 05:22:00* Test Item Value Reference Range Interpretation [...] DIFF REQUIRED (test code = MDIFF) NO [id number] 05:05:00* Test Item Value Reference Range Interpretation Comments GLUBED (test code = GLUBED) 120 MG/DL 70-110 H Performed by certified paver operator at [facility] [id number] 21:00:00* Test Item Value Reference Range Interpretation Comments GLUBED (test code = GLUBED) 149 MG/DL 70-110 H Performed by certified paver operator at [facility] [id number] 20:31:00* Test Item Value Reference Range Interpretation Comments GLUBED (test code = GLUBED) 134 MG/DL 70-110 H Performed by certified paver operator at [facility] [id number] 12:01:00* Test Item Value Reference Range Interpretation Comments GLUBED (test code = GLUBED) 156 MG/DL 70-110 H Performed by certified paver operator at [facility] [id number] 08:21:00* Test Item Value Reference Range Interpretation Comments GLUBED (test code = GLUBED) 155 MG/DL 70-110 H Performed by certified paver operator at [facility] ACUTE HEPATITIS [id number] 07:27:00* Test Item Value Reference Range Interpretation [...] COMMENTS: At start of hemodialysisAB HEPATITIS B [id number] 07:27:00* Test Item Value Reference Range Interpretation Comments AB HEPATITIS B SURFACE (test code = HBSAB) < 3.1 mIU/mL Immunity>9. 9 L Status of Immunity Anti-HBs Level Inconsistent with Immunity 0.0 - 9.9Consistent with Immunity >9.9Performed At: [facility] [id number] [place], [place] [id number] Garret Prado MD Ph:[phone] COMMENTS: At start of hemodialysisBASIC METABOLIC [id number] 05:30:00* Test Item Value Reference Range Interpretation [...] code = CA) 7.0 mg/dL 8.0-10.5 L [id number] 05:30:00* Test Item Value Reference Range Interpretation Comments LIPASE (test code = LIP) 915 IUnit/L 73-393 H CBC W/AUTO [id number] 05:21:00* Test Item Value Reference Range Interpretation [...] DIFF REQUIRED (test code = MDIFF) NO [id number] 05:19:00* Test Item Value Reference Range Interpretation Comments GLUBED (test code = GLUBED) 144 MG/DL 70-110 H Performed by certified paver operator at [facility] [id number] 04:31:00* Test Item Value Reference Range Interpretation Comments GLUBED (test code = GLUBED) 143 MG/DL 70-110 H Performed by certified paver operator at [facility] [id number] 00:40:00* Test Item Value Reference Range Interpretation Comments GLUBED (test code = GLUBED) 130 MG/DL 70-110 H Performed by certified paver operator at [facility] [id number] 20:30:00* Test Item Value Reference Range Interpretation Comments GLUBED (test code = GLUBED) 183 MG/DL 70-110 H Performed by certified paver operator at [facility] [id number] 18:18:00* Test Item Value Reference Range Interpretation Comments GLUBED (test code = GLUBED) 168 MG/DL 70-110 H Performed by certified paver operator at [facility] [id number] 18:18:00* Test Item Value Reference Range Interpretation Comments GLUBED (test code = GLUBED) 235 MG/DL 70-110 H Performed by certified paver operator at [facility] BASIC METABOLIC [id number] 05:58:00* Test Item Value Reference Range Interpretation [...] code = CA) 7.2 mg/dL 8.0-10.5 L [id number] 05:58:00* Test Item Value Reference Range Interpretation Comments LIPASE (test code = LIP) 999 IUnit/L 73-393 H CBC W/AUTO [id number] 05:44:00* Test Item Value Reference Range Interpretation [...] REQUIRED (test code = MDIFF) NO LACTIC [id number] 05:05:00* Test Item Value Reference Range Interpretation Comments LACTIC ACID (test code = LACT) 0.5 mmol/L 0.4-1.9 N [id number] 04:41:00* Test Item Value Reference Range Interpretation Comments GLUBED (test code = GLUBED) 168 MG/DL 70-110 H Performed by certified paver operator at [facility] [id number] 01:15:00* Test Item Value Reference Range Interpretation Comments GLUBED (test code = GLUBED) 136 MG/DL 70-110 H Performed by certified paver operator at [facility] [id number] 20:47:00* Test Item Value Reference Range Interpretation Comments GLUBED (test code = GLUBED) 150 MG/DL 70-110 H Performed by certified paver operator at [facility] [id number] 18:13:00* Test Item Value Reference Range Interpretation Comments GLUBED (test code = GLUBED) 139 MG/DL 70-110 H Performed by certified paver operator at [facility] TOTAL IRON BINDING [id number] 13:54:00* Test Item Value Reference Range Interpretation Comments SERUM IRON (test code = IRON) 40 mcg/dL 35-150 N TOTAL IRON BINDING CAPACITY (test code = TIBC) 167 mcg/dL 260-445 L UIBC (test code = UIBC) 127 mcg/dL IRON SATURATION (test code = FESAT) 24.0 % 14-34 N VITAMIN [id number] 13:54:00* Test Item Value Reference Range Interpretation Comments VITAMIN B12 (test code = VITB12) 106 pg/mL 193-986 L [id number] 13:54:00* Test Item Value Reference Range Interpretation Comments FERRITIN (test code = RIK) 138.8 ng/mL 23.9-336.2 N [id number] 13:44:00* Test Item Value Reference Range Interpretation Comments GLUBED (test code = GLUBED) 143 MG/DL 70-110 H [facility] [facility] [id number] 11:19:00* Test Item Value Reference Range Interpretation Comments GLUBED (test code = GLUBED) 124 MG/DL 70-110 H Performed by certified paver operator at [facility] ACUTE HEPATITIS [id number] 10:40:00* Test Item Value Reference Range Interpretation [...] COMMENTS: At start of hemodialysisAB HEPATITIS B [id number] 10:40:00* Test Item Value Reference Range Interpretation Comments AB HEPATITIS B SURFACE (test code = HBSAB) COMMENTS: At start of hemodialysisACUTE HEPATITIS [id number] 10:11:00* Test Item Value Reference Range Interpretation Comments AB HEPATITIS A IGM (test code = HAVMAB) INDEX NON REACT. AG HEPATITIS B SURFACE (test code = HBSAG) NON REACTIVE INDEX NonRe active AB HEPATITIS B CORE IGM (test code = HBCMAB) INDEX NON REACT . AB HEPATITIS C (test code = HCVAB) INDEX NON REACT. COMMENTS: At start of hemodialysisAB HEPATITIS B [id number] 10:11:00* Test Item Value Reference Range Interpretation Comments AB HEPATITIS B SURFACE (test code = HBSAB) COMMENTS: At start of hemodialysisB-TYPE NATRIURETIC [id number] 06:52:00 * Test Item Value Reference Range Interpretation Comments B-TYPE NATRIURETIC PEPTIDE (test code = BNP) 524.7 PG/ML 0-100 H HGBA1C%2018-08-09 06:40:00* Test Item Value Reference Range Interpretation Comments HGBA1C% (test code = HGBA1C%) 5.7 %A1C 4.8-6.0 N - XR CHEST 1 [id number] 05:58:00 FAX: Patito Rebollar MD [place]: St: ADM FAX: Balaji Dimas MD [phone] FAX: Silva,Kellee DO Name: MARKO CABRALES [facility] [place] : 1960 Age/S: 57/M [address] [place] [address] Blvd Unit #: [id number] Loc: G.M[address] [place] [address] Phys: Patito Rebollar MD Acct: [id number] Dis Date: Status: ADM IN ONE #: [phone] Exam Date: 08/09/2018542 FAX #: [phone] Reason: r/o pulmonary edema EXAMS: CPT CODE: [id number] XR CHEST 1 V 99558 Chest, single view dated 08/09/2018. HISTORY: Pulmonary [...] Kellee Silva DO Technologist: Arya Butcher, RT(R); Shayna Ray RT(R) Trnazrd Date/Time/By: 08/09/19 19 (0558) : By: Bill Orig Print D/T: S: 08/09/2018 (0601) PAGE 1 Signed Report BASIC METABOLIC [id number] 05:24:00* Test Item Value Reference Range Interpretation [...] = LDL) 23 mg/dL 0-100 N <100 [id number] NEAR OPTIMAL/ABOVE [id number] HIGH>HV=527 VERY HIGH*Guidelines provided by the National Cholesterol EducationProgram Adult Treatment Panel III [id number] 05:24:00* Test Item Value Reference Range Interpretation Comments PHOSPHOROUS (test code = PHOS) 6.5 mg/dL 2.5-4.9 H [id number] 05:24:00* Test Item Value Reference Range Interpretation Comments LIPASE (test code = LIP) 1040 IUnit/L 73-393 H [id number] 05:24:00* Test Item Value Reference Range Interpretation Comments MAGNESIUM (test code = MAG) 1.80 mg/dL 1.8-2.4 N T4 [id number] 05:24:00* Test Item Value Reference Range Interpretation Comments T4 FREE (test code = T4F) 0.9 ng/dL 0.77-1.61 N THYROID STIMULATING [id number] 05:24:00* Test Item Value Reference Range Interpretation Comments THYROID STIMULATING HORMONE (test code = TSH) 1.45 0.42-5.4 7 N Results in fausto- International Units/mL [id number] 05:24:00* Test Item Value Reference Range Interpretation Comments TROPONIN-I (test code = TROPI) < 0.015 ng/mL 0.000-0.045 N Negative: <= 0.045 Positive: >= 0.046 Correlation with serial results, other cardiac markers andclinical findings is necessary to determine the clinicalsignificance of this result. Results using different methodologies should not be comparedto one another as quantitative results may vary by method. CALCIUM [id number] 05:24:00* Test Item Value Reference Range Interpretation Comments CALCIUM IONIZED (test code = MATT) 1.10 MMOL/L 1.12-1.32 L BASIC METABOLIC [id number] 05:16:00* Test Item Value Reference Range Interpretation [...] LDL (test code = LDL) mg/dL 0-100 [id number] 05:16:00* Test Item Value Reference Range Interpretation Comments PHOSPHOROUS (test code = PHOS) mg/dL 2.5-4.9 [id number] 05:16:00* Test Item Value Reference Range Interpretation Comments LIPASE (test code = LIP) IUnit/L 73-393 [id number] 05:16:00* Test Item Value Reference Range Interpretation Comments MAGNESIUM (test code = MAG) mg/dL 1.8-2.4 T4 [id number] 05:16:00* Test Item Value Reference Range Interpretation Comments T4 FREE (test code = T4F) ng/dL 0.77-1.61 THYROID STIMULATING [id number] 05:16:00* Test Item Value Reference Range Interpretation Comments THYROID STIMULATING HORMONE (test code = TSH) 0.42-5.4 7 [id number] 05:16:00* Test Item Value Reference Range Interpretation Comments TROPONIN-I (test code = TROPI) ng/mL 0.000-0.045 CALCIUM [id number] 05:16:00* Test Item Value Reference Range Interpretation Comments CALCIUM IONIZED (test code = MATT) 1.10 MMOL/L 1.12-1.32 L PROTHROMBIN [id number] 05:09:00* Test Item Value Reference Range Interpretation [...] Infarction (to prevent recurrent infarct). CBC W/AUTO [id number] 04:48:00* Test Item Value Reference Range Interpretation [...] DIFF REQUIRED (test code = MDIFF) NO [id number] 04:37:00* Test Item Value Reference Range Interpretation Comments GLUBED (test code = GLUBED) 72 MG/DL 70-110 N Performed by certified paver operator at [facility] RESPIRATORY VIRUS PANEL [id number] 02:13:00* Test Item Value Reference Range Interpretation [...] Bordetella holmesii, and Bordetella pertussis. BASIC METABOLIC [id number] 00:26:00* Test Item Value Reference Range Interpretation [...] CA) 7.1 mg/dL 8.0-10.5 L INFLUENZA A [id number] 00:13:00* Test Item Value Reference Range Interpretation Comments INFLUENZA A (test code = FLUAPCR) Negative Negative INFLUENZA B (test code = FLUBPCR) Negative Negative [id number] 00:04:00* Test Item Value Reference Range Interpretation [...] V 2018-08-08 23:58:00 FAX: Patito Rebollar MD [place]: St: ADM FAX: Balaji Dimas MD [phone] FAX: Kellee Silva DO Name: MARKO CABRALES [facility] : 1960 Age/S: 57/M [address] [place] [address] Unit #: [id number] Loc: [address] [address] Phys: Patito Rebollar MD Acct: [id number] Dis Date: Status: ADM IN ONE #: [phone] Exam Date: 08/08/2018 2352 FAX #: [phone] Reason: post central line placement EXAMS: CPT CODE: [id number] XR CHEST 1 V 98955 CHEST, ONE VIE W: HISTORY: Central line [...] MD; Kellee Silva DO Lexii hnologist: Shayna Ray RT(R) Trnscrd Date/T ramon/By: 08/08/2018 (3156) : By: Jeremiah Orig Print D/T: S: 9 (0001) PAGE 1 Signed Report [id number] 23:09:00* Test Item Value Reference Range Interpretation Comments GLUBED (test code = GLUBED) 124 MG/DL 70-110 H Performed by certified paver operator at [facility] VENOUS BLOOD [id number] 20:49:00* Test Item Value Reference Range Interpretation [...] (test code = TCO2V) 11 BASIC METABOLIC [id number] 20:35:00* Test Item Value Reference Range Interpretation [...] 8.0-10.5 L - CT ABD PELVIS W/O [id number] 20:29:00 Name: MARKO CABRALES [facility] : 1960 Age/S: 57 / M [address] [place] [address] Unit #: [id number] Loc: [facility] [address] Phys: Dania Ramirez MD Acct: [id number] Dis Date: Status: ADM IN PHONE #: [phone] Exam Date: 08/08/20181944 FAX #: [phone] Reason: n/v/diarrhea llq abdominal pain X 1 week EXAMS: CPT CODE: [id number] CT ABD PELVIS W/O CONT 14350 Clinical Indication: n/v/diarrhea llq abdominal pain X [...] 1 Signed Report (CONTINUED) Name: MARKO CABRALES [facility] : 1960 Age/S: 57 / M [address] [place], [place] [address]vd Unit #: [id number] Loc: [place] [address] Phys: Dania Ramirez MD Acct: [id number] Dis Date: Status: A DM IN PHONE #: [phone] Exam Date: 07/18 FAX #: [phone] Reason: n/v/diarrhea l lq abdominal pain X 1 week EXAMS: CPT CODE: [id number] CT ABD PELVIS W/O CONT 7 4176 [...] in mesenteric panniculitis. Cholecystectomy. Normal appendix. SL: [id number] at 2028 Reported and signed by: Damaso Ku M.D. CC: Balaji Dao MD; Dania Ramirez MD Technologist:RT Neri(R) CTDI: DLP: Trnscb Date/Time: 08/08/2018 (2028) DonnaR.LNV Orig Print D/T: S: 08/08/2018 (2031) CTDI: DLP: PAGE 2 Signed Report HEPATIC FUNCTION [id number] 18:43:00* Test Item Value Reference Range Interpretation [...] code = ALKP) 185 IUnit/L 20-125 H [id number] 18:43:00* Test Item Value Reference Range Interpretation Comments LIPASE (test code = LIP) 1520 IUnit/L 73-393 H PROTHROMBIN [id number] 18:34:00* Test Item Value Reference Range Interpretation [...] Infarction (to prevent recurrent infarct). THROMBOPLASTIN TIME [id number] 18:34:00* Test Item Value Reference Range Interpretation Comments THROMBOPLASTIN TIME PARTIAL (test code = PTT) 29.8 Seconds 25.0-39. 5 N Therapeutic Range: 61.8-83.8 Sec Effective 07/14/2013 CBC W/AUTO [id number] 18:29:00* Test Item Value Reference Range Interpretation [...] REQUIRED (test code = MDIFF) NO TROPONIN-I [id number] 18:12:00* Test Item Value Reference Range Interpretation Comments TROPONIN-I RAPID (test code = TROPIRAP) 0.01 ng/mL 0.00-0.08 N [facility] Global Task Force with joint leadership from the EuropeanSociety of Cardiology (ESC), the [place] College of Cardiology Foundation (ACCF), the [place] Heart Association(AHA) and the World Heart Federation (WHF) refined past criteria of myocardial infarction ([place]) with a universal definition of myocardial infarction that supports the use of cTnI as a preferred biomarker for myocardial injury. The universal definition of [place], according to this taskforce, is defined as [...] temporal changes in troponin levels characteristic of [place]. - XR CHEST 1 [id number] 18:12:00 FAX: Balaji Dimas MD [phone] [place]: St: REG FAX: Dania Leo MD [phone] Name: MARKO CABRALES [facility] : 1960 Age/S: 57/M [address] [place] [address] Unit #: [id number] Loc: [place] [address] Phys: Dania Ramirez MD Acct: [id number] Dis Date: Status: REG ER PHONE #: [phone] Exam Date: 08/08/20181809 FAX #: [phone] Reason: Abdominal Pain EXAMS: CPT CODE: [id number] XR CHEST 1 V 16846 Clinical Indication: Abdominal Pain Comparison: None FINDINGS: The frontal chest radiograph shows normal lung volumes without interstitial or airspace opacities, pleural effusions or pneumothorax. The heart is normal in size. The trachea is midline. There are no clinically significant osseous abnormalities noted. IMPRESSION: No chest radiographic evidence of acute cardiopulmonary disease. SL: [id number] at 1812 Reported and signed by: Damaso Ku M.D. CC: Balaji Dao MD; Dania Ramirez MD Technologist: Bridgette Zimmerman, RT(R) Trnscrd Date/Time/By: 08/08/2018 (1811) : By: [...] code = GFRBED) 5 ML/MIN CHEMISTRY 8 [id number] 18:09:00* Test Item Value Reference Range Interpretation Comments ISTAT-SODIUM (test code = NAP) 136 MMOL/L 134-147 N ISTAT-POTASSIUM (test code = KP) 5.5 MMOL/L 3.4-5.0 H ISTAT-CHLORIDE (test code = CLP) 111 MMOL/L 100-108 H Performed by certified paver operator at [facility] ISTAT CARBON DIOXIDE (test code = ISTAT-CO2) 13.0 mmol/L 21-33 L ISTAT CALCIUM IONIZED (test code = ISTAT-MATT) 1.06 MG/DL 1.12-1.3 2 L ISTAT-GLUCOSE (test code = GLUP) 118 MG/DL 70-110 H ISTAT-BUN (test code = BUNP) 124 MG/DL 7-18 H BEDSIDE CREATININE (test code = CREATBED) 12.0 MG/DL 0.6-1.3 H GLOMERULAR FILTRATION RATE POC (test code = GFRBED) 5 ML/MIN LACTIC ACID [id number] 18:09:00* Test Item Value Reference Range Interpretation Comments LACTIC ACID POC (test code = LACTP) 1.1 MMOL/L 0.90-1.70 N Performed by certified paver operator at [facility] POTASSIUM-STAT [id number] 10:07:00* Test Item Value Reference Range Interpretation Comments POTASSIUM (BEAKER) (test code = 379) 4.3 meq/L 3.6-5.5 GLUCOSE-STAT [id number] 10:07:00* Test Item Value Reference Range Interpretation Comments GLUCOSE RANDOM (BEAKER) (test code = 652) 124 mg/dL 70-110 H [id number] 07:17:00* Test Item Value Reference Range Interpretation Comments POTASSIUM (BEAKER) (test code = 379) 4.7 meq/L 3.5-5.1 If diabeticIf Potassium greater than 5.5 mEq/L, call nephrologistGLUCOSE 2017-11-24 07:17:00* Test Item Value Reference Range Interpretation Comments GLUCOSE RANDOM (BEAKER) (test code = 652) 139 mg/dL 70-105 H If diabeticIf Potassium greater than 5.5 mEq/L, call nephrologistHEMOGLOBIN AND [id number] 06:34:00* Test Item Value Reference Range Interpretation Comments HEMOGLOBIN (BEAKER) (test code = 410) 11.0 GM/DL 13.7-17.5 L HEMATOCRIT (BEAKER) (test code = 411) 33.5 % 40.1-51.0 L CBC W/PLT COUNT & AUTO [id number] 23:17:00* Test Item Value Reference Range Interpretation [...] 0.06 10e3/ L 0. 00-0.20 COMPREHENSIVE METABOLIC [id number] 23:17:00* Test Item Value Reference Range Interpretation [...]
--- NOTE | 2019-10-27 18:22 | Emergency Department Note ---
History of Present Illnes History of Present Illness Chief Complaint: General Medicine Complaints History of Present Illness This is a 59 year old male who had syncope at HD center. He says while on HD he was having intermittent CP (points to his GERARDO area), at near-end of HD he had them disconnect so he could go to restroom, had BM, washed hands, walked back to his chair and became SOB, sat down, leaned back in chair and passed out. 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 Any updates have been documented here. 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 but could not get past the lesion so they are treating medically Past Surgical History: PCI Other Surgery: RIGHT BKA, KNEE SX, SHOULDER SX, R ARM FX REPAIR Social History Smoking Cessation: Never Smoker Counseling Performed: No Alcohol Use: Occasional Any Illegal Drug Use: No TB Exposure/Symptoms: No Physically hurt or threatened: No Family History Family history of heart diseas: No Other Last Tetanus: UNKNOWN Any Pre-Existing Lines (PICC,: Yes (Temporary hemodialysis) Is patient up to date on immun: Yes Last Flu: UTD Last Pneumovax: UTD Review of Systems Review of Systems Constitutional: no symptoms EENTM: no symptoms Cardiovascular: chest pain, syncope Respiratory: dyspnea Gastrointestinal: abdominal pain Genitourinary: no symptoms Musculoskeletal: no symptoms Integumentary: no symptoms Neurological: no symptoms Psychological: no symptoms Endocrine: no symptoms Hematological/Lymphatic: no symptoms Review of other systems All other systems reviewed and negative. Physical Exam Related Data Allergies: Coded Allergies: Penicillins (Verified Allergy, Unknown, 10/27/19) iodine (Verified Allergy, Unknown, 10/27/19) Uncoded Allergies: SEAFOOD (Allergy, Unknown, 10/27/19) Triage Vital Signs Vital Signs Date Time Temp Pulse Resp B/P (MAP) Pulse Ox O2 Delivery O2 Flow Rate FiO2 10/27/19 17:55 97.6 60 18 161/85 100 Physical Exam CONSTITUTIONAL Constitutional: well-developed, well-nourished HENT HENT: normocephalic, atraumatic, oropharynx clear/moist, nose normal HENT - Ear: left ext ear normal, right ext ear normal EYES Eyes: PERRL, conjunctivae normal NECK Neck: ROM normal PULMONARY Pulmonary: effort normal, breath sounds normal CARDIOVASCULAR Cardiovascular: regular rhythm, heart sounds normal, capillary refill normal, normal rate GASTROINTESTINAL Abdominal: soft, nontender, bowel sounds normal, other (HAS RIGHT LOWER PD CATH IN PLACE (NOT BEING USED YET)) GENITOURINARY Genitourinary: exam deferred SKIN Skin: warm, dry MUSCULOSKELETAL Musculoskeletal: ROM normal, other (right BKA) NEUROLOGICAL Neurological: alert, oriented x 3, no gross motor or sensory deficits PSYCHOLOGICAL Psychiatric/behavioral: mood/affect normal, judgement normal Results Laboratory Laboratory Laboratory Tests Test 10/27/19 18:10 White Blood Count 10.88 x10e3/uL (4.8-10.8) Red Blood Count 3.97 x10e6/uL (4.3-5.7) Hemoglobin 12.9 g/dL (14.0-18.0) Hematocrit 38.9 % (38.2-49.6) Mean Corpuscular Volume 98.0 fL (81-99) Mean Corpuscular Hemoglobin 32.5 pg (28-32) Mean Corpuscular Hemoglobin Concent 33.2 g/dL (31-35) Red Cell Distribution Width 12.9 % (11.7-14.4) Platelet Count 156 x10e3/uL (140-360) Neutrophils (%) (Auto) 76.8 % (38.7-80.0) Lymphocytes (%) (Auto) 16.5 % (18.0-39.1) Monocytes (%) (Auto) 4.0 % (4.4-11.3) Eosinophils (%) (Auto) 1.5 % (0.0-6.0) Basophils (%) (Auto) 0.5 % (0.0-1.0) Neutrophils # (Auto) 8.4 (2.1-6.9) Lymphocytes # (Auto) 1.8 (1.0-3.2) Monocytes # (Auto) 0.4 (0.2-0.8) Eosinophils # (Auto) 0.2 (0.0-0.4) Basophils # (Auto) 0.1 (0.0-0.1) Absolute Immature Granulocyte (auto 0.08 x10e3/uL (0-0.1) Prothrombin Time 13.5 seconds (11.9-14.5) Prothromb Time International Ratio 0.97 Activated Partial Thromboplast Time 92.5 seconds (23.8-35.5) Sodium Level 141 mmol/L (136-145) Potassium Level 3.0 mmol/L (3.5-5.1) Chloride Level 102 mmol/L (98-107) Carbon Dioxide Level 24 mmol/L (22-29) Anion Gap 18.0 mmol/L (8-16) Blood Urea Nitrogen 16 mg/dL (7-26) Creatinine 2.22 mg/dL (0.72-1.25) Estimat Glomerular Filtration Rate 30 ML/MIN (60-) BUN/Creatinine Ratio 7 (6-25) Glucose Level 144 mg/dL (74-118) Calcium Level 8.2 mg/dL (8.4-10.2) Magnesium Level 1.7 MG/DL (1.3-2.1) Total Bilirubin 1.0 mg/dL (0.2-1.2) Aspartate Amino Transf (AST/SGOT) 32 IU/L (5-34) Alanine Aminotransferase (ALT/SGPT) 39 IU/L (0-55) Alkaline Phosphatase 181 IU/L (40-150) Creatine Kinase 175 IU/L (30-200) Total Protein 8.2 g/dL (6.5-8.1) Albumin 4.0 g/dL (3.5-5.0) Globulin 4.2 g/dL (2.3-3.5) Albumin/Globulin Ratio 1.0 (0.8-2.0) Lab results reviewed: Yes Imaging Imaging results reviewed: Yes Diagnostics Tests Diagnostic test(s) reviewed: Yes Procedures 12 Lead ECG Interpretation Development Administrator: Interpreted by ED physician Date: October 27, 2019 Time: 17:53 Prior LABOR ARBITRATOR tracings: reviewed Rhythm: sinus rhythm Rate: normal (65) QRS axis: normal Conduction: 1st degree ST Segments Normal: Yes T Waves Normal: No T Wave Flattening: III Other findings: no other findings Clinical Impression: abnormal ECG (1st degree AVB, TWI lead III) Critical Care Time Subsequent provider I assumed direction of critical care for this patient from another provider of my specialty. Assessment & Plan Assessment & Plan Problems: (1) Syncope (2) CAD (coronary artery disease) Reassessment Reassessment SPOKE TO DR TAFOYA FOR ADMISSION Depart Disposition: ADMITTED Last Vital Signs Date Time Temp Pulse Resp B/P (MAP) Pulse Ox O2 Delivery O2 Flow Rate FiO2 10/27/19 17:55 97.6 60 18 161/85 100 Home Meds Reported Medications Aspirin (ECOTRIN) 325 Mg Tablet.dr, 325 MG PO DAILY 11/02/12 Insulin Glargine (LANTUS) 100 Units/Ml Ml, 30 UNITS SC QHS 11/02/12 Amlodipine/Valsartan/Hctz (EXFORGE HCT 10-320-25 MG TAB) 1 Each Tablet, 1 TAB PO DAILY 11/02/12 Atorvastatin Calcium (ATORVASTATIN CALCIUM) 20 Mg Tablet, 20 MG PO QHS 11/02/12 Medications in the ED Aspirin 81 mg QAM PO ; Start 10/28/19 at 09:00; Stop 11/27/19 at 08:59; Status UNV Nitroglycerin 0.4 mg Q5M PRN SL CHEST PAIN; Start 10/27/19 at 18:15; Status UNV Morphine Sulfate 2 mg Q3H PRN IV MODERATE PAIN (4-6); Start 10/27/19 at 18:15; Stop 11/03/19 at 18:14; Status UNV Famotidine 20 mg Q12H IV ; Start 10/27/19 at 18:15; Stop 11/26/19 at 18:14; Status UNV Ondansetron HCl 4 mg Q4H PRN IV NAUSEA AND VOMITING; Start 10/27/19 at 18:15; Stop 11/26/19 at 18:14; Status UNV Insulin Human Lispro ACHS SQ ; Start 10/27/19 at 21:00; Stop 11/26/19 at 20:59; Status UNV Dextrose 50 ml PRN PRN IV BLOOD SUGAR; Start 10/27/19 at 18:15; Stop 11/26/19 at 18:14; Status UNV MONTANA MUÑOZ MD October 27, 2019 18:22
[2019-10-27 18:38] LABS: BASOPHILS # (AUTO) 0.1 (0.0-0.1); BASOPHILS % 0.5 % (0.0-1.0); EOSINOPHILS # (AUTO) 0.2 (0.0-0.4); EOSINOPHILS % 1.5 % (0.0-6.0); HEMATOCRIT 38.9 % (38.2-49.6); HEMOGLOBIN 12.9 g/dL (14.0-18.0); LYMPHOCYTES # (AUTO) 1.8 (1.0-3.2); LYMPHOCYTES % 16.5 % (18.0-39.1); MEAN CORPUSCULAR HEMOGLOBIN 32.5 pg (28-32); MEAN CORPUSCULAR HGB CONC 33.2 g/dL (31-35); MONOCYTES # (AUTO) 0.4 (0.2-0.8); NEUTROPHILS # (AUTO) 8.4 (2.1-6.9); NEUTROPHILS % 76.8 % (38.7-80.0); PLATELET COUNT 156 x10e3/uL (140-360); RED BLOOD COUNT 3.97 x10e6/uL (4.3-5.7); RED CELL DISTRIBUTION WIDTH 12.9 % (11.7-14.4)
[2019-10-27 18:55] LABS: INR 0.97; PROTHROMBIN TIME 13.5 seconds (11.9-14.5)
[2019-10-27 18:57] LABS: PARTIAL THROMBOPLASTIN TIME 92.5 seconds (23.8-35.5)
[2019-10-27 19:03] LABS: CALCIUM 8.2 mg/dL (8.4-10.2); CREATININE, SERUM 2.22 mg/dL (0.72-1.25); MAGNESIUM 1.7 MG/DL (1.3-2.1)
[2019-10-27 19:10] LABS: CREATINE KINASE MB 5.9 ng/mL (0-5.0)
--- NOTE | 2019-10-27 22:49 | Diagnostic Imaging Report ---
EXAMINATION: CHEST SINGLE (PORTABLE) INDICATION: ^SYNCOPE, CP ^[id number] ^1830 COMPARISON: None FINDINGS: AP view TUBES and LINES: Right IJ tunneled central venous catheter terminates in the mid SVC. LUNGS: Low lung volumes. Lungs are clear. There is no evidence of pneumonia or pulmonary edema. PLEURA: No pleural effusion or pneumothorax. HEART AND MEDIASTINUM: The cardiomediastinal silhouette is at the upper limit of normal in size. BONES AND SOFT TISSUES: No acute osseous lesion. Soft tissues are unremarkable. UPPER ABDOMEN: No free air under the diaphragm. IMPRESSION: No acute thoracic radiographic abnormality. Signed by: Elkin Damon MD on 10/27/2019 10:46 PM
[2019-10-27] MEDS: INSULIN LISPRO 100 UNIT/1 ML 3ML VIAL SQ SCH (23:57)
[2019-10-27] MEDS: FAMOTIDINE 20 MG/2 ML VIAL IV SCH (23:58)
[2019-10-28 06:16] LABS: BASOPHILS % 0.4 % (0.0-1.0); EOSINOPHILS # (AUTO) 0.3 (0.0-0.4); EOSINOPHILS % 3.3 % (0.0-6.0); HEMATOCRIT 32.6 % (38.2-49.6); HEMOGLOBIN 10.8 g/dL (14.0-18.0); LYMPHOCYTES # (AUTO) 1.8 (1.0-3.2); LYMPHOCYTES % 18.7 % (18.0-39.1); MEAN CORPUSCULAR HEMOGLOBIN 32.3 pg (28-32); MEAN CORPUSCULAR HGB CONC 33.1 g/dL (31-35); MEAN CORPUSCULAR VOLUME 97.6 fL (81-99); MONOCYTES # (AUTO) 0.7 (0.2-0.8); MONOCYTES % 7.8 % (4.4-11.3); NEUTROPHILS # (AUTO) 6.5 (2.1-6.9); NEUTROPHILS % 69.1 % (38.7-80.0); PLATELET COUNT 119 x10e3/uL (140-360); RED BLOOD COUNT 3.34 x10e6/uL (4.3-5.7); RED CELL DISTRIBUTION WIDTH 13.1 % (11.7-14.4)
[2019-10-28] MEDS ORDERED: BACID WITH LAC PO (06:29)
[2019-10-28] MEDS ORDERED: AMLODIPINE BESYL5 MG PO (06:29)
[2019-10-28] MEDS ORDERED: BENADRYL25 M1 PO (06:29)
[2019-10-28] MEDS ORDERED: METOPROLOL SUCC25 MG PO (06:29)
[2019-10-28] MEDS ORDERED: CLOPIDOGREL75 MG PO (06:29)
[2019-10-28] MEDS ORDERED: OMEPRAZOLE40 MG PO (06:29)
[2019-10-28] MEDS ORDERED: ASPIRIN81 MG PO (06:29)
[2019-10-28] MEDS ORDERED: LEVOTHYROXINE50 MCG PO (06:29)
[2019-10-28] MEDS ORDERED: LEVEMIR100 UNIT/1 SC (06:29)
[2019-10-28] MEDS ORDERED: ISOSORBIDE MONO20 MG PO (06:29)
[2019-10-28] MEDS ORDERED: ONDANSETRON2 MG/1 ML PO (06:29)
[2019-10-28] MEDS ORDERED: NITROGLYCERIN0.4 MG SL (06:29)
[2019-10-28 06:44] LABS: ALBUMIN 3.4 g/dL (3.5-5.0); ANION GAP 10.5 mmol/L (8-16); CALCIUM 8.8 mg/dL (8.4-10.2); CHOL/HDL RATIO 2.7 (3.9-4.7); CREATININE, SERUM 2.93 mg/dL (0.72-1.25); POTASSIUM 3.5 mmol/L (3.5-5.1)
--- NOTE | 2019-10-28 07:10 | NUR ---
called Dr. Cedillo with lab results. order to consult Dr. Huynh
--- NOTE | 2019-10-28 07:12 | NUR ---
called Dr. Huynh, orders for NPO and iv fluids placed entered into chart
[2019-10-28] MEDS: INSULIN LISPRO 100 UNIT/1 ML 3ML VIAL SQ SCH ×4 (07:26→20:38)
[2019-10-28] MEDS: FAMOTIDINE 20 MG/2 ML VIAL IV SCH (07:26)
[2019-10-28] MEDS ORDERED: SODIUM CHLORIDE 0.9% 1000ML 1,000 ML IV SCH (07:30)
[2019-10-28] MEDS ORDERED: LOPERAMIDE HCL 2 MG CAP PO ONE (10:15)
[2019-10-28] MEDS: ASPIRIN 81 MG ENTERIC COATED PO SCH (10:25)
[2019-10-28] MEDS ORDERED: CLOPIDOGREL BISULFATE 75 MG TAB PO ONE (10:40)
[2019-10-28 14:33] LABS: CREATINE KINASE MB 7.9 ng/mL (0-5.0)
--- NOTE | 2019-10-28 14:34 | Consultation ---
DATE OF CONSULTATION: 10/28/2019 REASON FOR CONSULTATION: Elevated troponin. CHIEF COMPLAINT: Chest pain. HISTORY OF PRESENT ILLNESS: This is a 59-year-old male with history of CAD, hypertension, hyperlipidemia, diabetes, end-stage renal disease on HD therapy Friday, Friday, Friday, history of stroke with good neurological recovery. The patient presents to [facility] ER after having dialysis, had a syncopal episode with chest pain, was noted to have elevated troponin of 1.6. Cardiology was consulted. The patient is seen in room. Reports had dialysis yesterday morning as routine, however, after dialysis reported to feel dizzy, lightheaded, and some chest discomfort, went to the restroom and came back. When he came back, chest pain was severe, pressure, tightness, nonradiating, became diaphoretic, sat down and passed out. However, reports chest pain lasted for about one hour and subsided on its own. Troponins were noted initially 0.09. Repeat was 1.6. Currently at this time, the patient denies any chest pain, however, does report for the past several weeks, worsening exertional dyspnea. The patient reports being compliant to his cardiac medications. PAST MEDICAL HISTORY: CAD, hypertension, hyperlipidemia, diabetes, end-stage renal disease on HD therapy Friday, Friday, Friday, and history of stroke. PAST SURGICAL HISTORY: Recent PD catheter right lower abdomen, left AV fistula nonfunctioning, right BKA status post accident, cholecystectomy, and bilateral knee surgeries, right hand weakness and deformity post accident. 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 He is . Denies any alcohol or tobacco use. FAMILY HISTORY: Father , history of Lyme disease and diabetes. Mother , history of diabetes. HOME MEDICATIONS: Include amlodipine 10 mg, valsartan 320 mg, hydrochlorothiazide 25 mg, aspirin 81 mg daily, Lipitor 81 mg daily, Plavix 75 mg daily, isosorbide 30 mg daily, levothyroxine 25 mcg daily, metoprolol succinate 25 mg daily, and vitamin D 1250 mg daily. ALLERGIES: TO PENICILLIN, SEAFOOD, AND IODINE. REVIEW OF SYSTEMS: GENERAL: Denies any weight changes, fatigue, weakness, fevers, chills, or night sweats. SKIN: No rashes or sores. HEENT: Positive for nausea. No vomiting. Denies any blurred vision, double vision, epistaxis, sore throat, or swollen gums. CARDIAC: Positive for chest pain. Positive for dyspnea on exertion. Denies any orthopnea, PND, or lower extremity edema. RESPIRATORY: Positive shortness of breath. Denies any wheezing, coughing, or hemoptysis. GI: Reports good appetite. Positive nausea. Positive for diarrhea. Denies any melena, tarry or bloody stools. URINARY: Denies any frequency, urgency, dysuria, or hematuria. VASCULAR: Denies any lower extremity edema or claudication. MUSCULOSKELETAL: Positive for generalized joint pains and back pain. NEUROLOGIC: Denies any numbness, tingling, tremors, weakness, paralysis, blackouts, or seizures. HEMATOLOGY: Denies any bruising or bleeding. ENDOCRINE: Denies any heat or cold intolerance, polyuria, polydipsia, or polyphagia. PHYSICAL EXAMINATION: VITAL SIGNS: Height 68 inches, 230 pounds, BMI 35. Temperature 97.6, pulse 56, respiratory rate 17, blood pressure 141/74, and pulse ox 98% on room air. GENERAL: Appears stated age, reliable informant, no acute distress. SKIN: No rashes or bruises noted. HEENT: Normocephalic. Pupils are equal and reactive. Extraocular movements intact. Trachea midline. No JVD. No carotid bruit. HEART: Regular rate and rhythm. No murmurs or clicks noted. LUNGS: Tunneled HD catheter, Bilateral breath sounds clear to auscultation. Good airway entry and exit. ABDOMEN: Soft, nontender, and nondistended. No organomegaly. Right PD catheter noted. MUSCULOSKELETAL: Does have a right BKA. VASCULAR: no right radial pulse, +1 DP/PT pulse on the left leg. Does have a right BKA. NEUROLOGIC: Cranial nerves 2 through 12 seem intact, right hand weakness and deformity. LABORATORY DATA: Sodium 138, potassium 3.5, chloride 105, BUN 23, creatinine 2.9, and glucose 116. Troponin 0.09, next 1.6. White count 9, hemoglobin 10, hematocrit 32, and platelets 119. Chest x-ray showing no acute abnormalities. EKG showing first- degree AV block. ASSESSMENT AND PLAN: 1. Hfm-KP-rtcyxssfa myocardial infarction. 2. History of coronary artery disease. 3. End-stage renal disease, on dialysis Friday, Friday, Friday. 4. Hyperlipidemia. 5. Hypertension. 6. Diabetes. 7. Hypothyroidism. PLAN: The patient presents to [facility] ER with chest pain and syncopal episode. Notable elevation in troponin. Left heart catheterization discussed at length with the patient including risks and benefits. Questions were answered. The patient wishes to proceed with left heart catheterization. We will load the patient with Plavix 600 mg. Continue aspirin, beta-gertrude, and statin therapy. Continue telemonitoring. We will get an echo to evaluate heart function and structure. Further recommendations post left heart catheterization. Thank you very much for this consult. Dictated by Kolotn Byrd NP Mihaela Huynh MD DC/SHARON /[id number] MTDEvelina
[2019-10-28] MEDS ORDERED: METHYLPREDNISOLONE SOD SUCC 125 MG/2ML VIAL ONE (14:39)
[2019-10-28] MEDS ORDERED: DIPHENHYDRAMINE HCL INJ 50 MG/ML VIAL ONE (14:40)
[2019-10-28] MEDS ORDERED: MIDAZOLAM HCL 2 MG/2 ML VIAL ONE (14:40)
[2019-10-28] MEDS ORDERED: LIDOCAINE HCL 2% LOCAL 20 ML VIAL ONE (14:41)
[2019-10-28] MEDS ORDERED: FENTANYL CITRATE/PF 100MCG/2 ML INJ ONE (14:41)
[2019-10-28] MEDS ORDERED: IOPAMIDOL 370 MG/ML 200 ML INFUS..BTL INJ ONE ×2 (14:43→15:44)
[2019-10-28] MEDS ORDERED: HEPARIN SOD/SOD CHLORIDE 2,000 ML ONE (14:43)
[2019-10-28] MEDS ORDERED: SODIUM CHLORIDE 0.9% 1000ML 1,000 ML ONE (14:44)
[2019-10-28] MEDS ORDERED: HYDRALAZINE HCL 20 MG/ML VIAL ONE (15:52)
--- NOTE | 2019-10-28 16:45 | History and Physical ---
PRIMARY CARE DOCTOR: Dr. Balaji Dao. CHIEF COMPLAINT: Syncope. HISTORY OF PRESENT ILLNESS: This is a 59-year-old male, who was on dialysis Friday, Friday, Friday. Yesterday, while he was having dialysis, the patient was having chest discomfort. Afterwards while in the sitting position, the patient felt dizzy and apparently per report, his eyes rolled back and the patient passed out. Somewhere like last year, the patient had pancreatitis and went into renal failure on dialysis. Also, had cardiac arrest back then. According to the patient, left heart catheterization was done, however, the vessels were too small for intervention and currently, the patient is back to baseline. No chest pain or shortness of breath. No nausea, vomiting. PAST MEDICAL AND SURGICAL HISTORY: 1. Coronary artery disease. 2. Hypertension. 3. End-stage renal disease, on dialysis Friday, Friday, Friday. 4. Diabetes. 5. Dyslipidemia. 6. Old stroke. 7. Recent peritoneal dialysis catheter. 8. Failed left AV fistula placement x2. 9. Right pqxqf-gfp-krtj amputation due to an accident. 10. Previous cholecystectomy. 11. The patient also has cured Paget disease. MEDICATIONS: Please see medication reconciliation form. SOCIAL HISTORY: No smoking. No drinking. 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 FAMILY HISTORY: Positive for diabetes. REVIEW OF SYSTEMS: A 10-point review of system obtained and nothing else is significant other what is stated in HPI. PHYSICAL EXAMINATION: VITAL SIGNS: Temperature 97.6, pulse 55, respiratory rate 20, blood pressure 145/93. GENERAL: No acute distress. SKIN: No rash. HEENT: Anicteric. Oropharynx is clear. LUNGS: Clear. HEART: Regular rate and rhythm. Normal S1, S2. GI: Abdomen is soft, nondistended, and nontender. Normoactive bowel sounds. MUSCULOSKELETAL: Painless range of motion in joints. NEUROLOGIC: Alert and oriented x3. Cranial nerves 2 through 12 are grossly intact. PSYCHIATRIC: No hallucination. LABORATORY DATA: Laboratory barnes, creatinine 2.9. Troponin peaked at 1.6. LDL is 29. Albumin 3.4. White count 10, hemoglobin 10, platelet count 119. Chest x-ray, no acute disease. EKG normal sinus rhythm, nonspecific. ASSESSMENT AND PLAN: 1. Syncope, possibly due to [id number] myocardial infarction. The patient was seen by Cardiology. The plan is for left heart catheterization. We will also check echocardiogram and carotid ultrasound. 2. End-stage renal disease due to diabetes. We will consult Nephrology for dialysis. We will also put the patient on a sliding scale. 3. Gastrointestinal deep venous thrombosis prophylaxis. No anticoagulation due to planned procedure. I have updated his at the bedside. I will also update his primary care doctor. MD ADIS Alvarado/SHARON /[id number] cc: [facility]
[2019-10-28] MEDS: METOPROLOL TARTRATE 25 MG TAB PO SCH (17:00)
--- NOTE | 2019-10-28 18:41 | Operative Report ---
DATE OF PROCEDURE: 10/28/2019 SURGEON: Mihaela Huynh MD TITLE OF THE PROCEDURE: Left cardiac catheterization. INDICATION: [id number] myocardial infarction. TECHNICAL DETAILS: After the usual sterile preparation and draping procedure, intravenous Versed and fentanyl given for sedation, local xylocaine for anesthesia. A 4-Romanian sheath established in the right common femoral artery. Asha left 4 and 3DRC catheters to engage the coronary, pigtail for hemodynamic measurement and left ventriculogram. At the end of the procedure, sheath was removed. Hemostasis achieved manually. No complication. No blood loss. RESULTS: A. Coronary angiogram: 1. Left main. 2. LAD: Plaquing and calcification is noted. Mid to distal LAD, it is old, diffusely diseased at 90% with the lumen of less than 0.5 mm. 3. Circumflex coronary artery: 40%-50% circumflex at the origin of the 1st obtuse marginal after that the artery is typical diabetic, diffusely diseased at 80% to 90% of 2nd OM. 4. Right coronary artery: Several plaques at 40%-50%, 60% at the origin of small PDA. a. Hemodynamic: Aorta pressure 180/70, LV pressure 173/12. b. Left ventriculogram: The right anterior oblique view showed normal size and ventricle with an ejection fraction of 60%. IMPRESSION: 1. Very severe calcified diffusely diseased distal mid to distal LAD, 2nd OM, and several plaques in the other arteries at 30%, 40% to 50% as described above. 2. Preserved left ventricular systolic function at 60%. RECOMMENDATION: Aggressive medical therapy. COMPLICATION: None. BLOOD LOSS: None. MD YOVANI Garza/MODL /[id number]
[2019-10-28 19:45] VITALS: BP 141/84
[2019-10-28] MEDS: ATORVASTATIN 40 MG TAB PO SCH (20:46)
[2019-10-28 21:00] VITALS: BP 141/84
[2019-10-28 21:15] VITALS: BP 141/84
[2019-10-28 23:00] VITALS: BP 150/70
[2019-10-29] VITALS (7 sets, daily range): BP systolic 122–159; BP diastolic 66–90
[2019-10-29 05:11] LABS: BASOPHILS % 0.1 % (0.0-1.0); HEMATOCRIT 32.8 % (38.2-49.6); LYMPHOCYTES % 11.7 % (18.0-39.1); MEAN CORPUSCULAR HEMOGLOBIN 32.5 pg (28-32); MEAN CORPUSCULAR HGB CONC 33.5 g/dL (31-35); MONOCYTES # (AUTO) 0.4 (0.2-0.8); MONOCYTES % 4.2 % (4.4-11.3); NEUTROPHILS # (AUTO) 6.9 (2.1-6.9); NEUTROPHILS % 83.4 % (38.7-80.0); PLATELET COUNT 132 x10e3/uL (140-360); RED BLOOD COUNT 3.38 x10e6/uL (4.3-5.7)
[2019-10-29 05:32] LABS: ALBUMIN 3.5 g/dL (3.5-5.0); CALCIUM 9.7 mg/dL (8.4-10.2); CHOL/HDL RATIO 2.8 (3.9-4.7); CREATININE, SERUM 3.57 mg/dL (0.72-1.25)
[2019-10-29 05:56] LABS: THYROID STIMULATING HORMONE 0.421 uIU/mL (0.350-4.940)
[2019-10-29] MEDS ORDERED: LEVOTHYROXINE SODIUM 25 MCG TABLET PO SCH (06:00)
[2019-10-29] MEDS: ASPIRIN 81 MG ENTERIC COATED PO SCH (08:10)
[2019-10-29] MEDS: METOPROLOL TARTRATE 25 MG TAB PO SCH ×2 (08:12→17:01)
[2019-10-29] MEDS: INSULIN LISPRO 100 UNIT/1 ML 3ML VIAL SQ SCH ×4 (08:13→21:00)
[2019-10-29] MEDS ORDERED: CLOPIDOGREL BISULFATE 75 MG TAB PO SCH (09:00)
[2019-10-29] MEDS ORDERED: AMLODIPINE BESYLATE 5 MG TAB PO SCH (09:00)
--- NOTE | 2019-10-29 09:15 | NUR ---
ASSESSMENT: Spiritual concern Pt concerned his family is "worried" about him. Intervention: Provided hospitality and empathic listening. Provided prayer. Outcome: No need to follow at this time. TERESSA MONAE Services Engineer Spiritual Care Department O: [phone]
[2019-10-29] MEDS ORDERED: SODIUM CHLORIDE 0.9% 1000ML 1,000 ML ONE (18:11)
[2019-10-29] MEDS ORDERED: HEPARIN SOD (PORCINE) 1000 UNIT/ML SDV IV PRN (18:15)
[2019-10-29] MEDS ORDERED: SODIUM CHLORIDE 0.9% 1000ML 2,000 ML IV PRN (18:15)
--- NOTE | 2019-10-29 18:29 | Consultation ---
DATE OF CONSULTATION: 10/29/2019 HISTORY OF PRESENT ILLNESS: A 59-year-old gentleman, known to our Nephrology Service, dialyzes at [facility] Friday, Friday, Friday. Last time he had a syncopal episode on dialysis, sent here, this was on Friday, spent a whole day in the emergency room on Friday and then subsequently transferred here apparently and seen by Cardiology. I have been notified this morning. He is perfectly awake, alert, oriented x3. No apparent distress. No nausea, vomiting noted. Denies any chest pain, fever, or chills. He has had a syncopal episode once before when he had acute pancreatitis and ended up on dialysis at [facility] in 2019, underwent cardiac cath, has significant coronary artery disease with a preserved ejection fraction. Please see Dr. Huynh's note for detail. Has underlying history of hypertension, hyperlipidemia, type 2 diabetes, right lower extremity amputation, wears a knee brace above knee. Has failed AV fistula left upper arm. Has a PD catheter placed recently and currently undergoing training at [facility]. Has a right-sided tunneled dialysis catheter. He has underlying history of hypothyroidism, secondary hyperparathyroidism, anemia, chronic kidney disease. LABORATORY DATA: White count of 8.2, hemoglobin 11. Sodium 137, potassium 4, bicarb 21, creatinine approximately 4. Troponin I is 0.983. TSH 0.421. ALLERGIES: TO SEA FOOD, PENICILLIN, AND IODINE. CURRENT MEDICATIONS: Please see MAR for details. He is on amlodipine 2.5 mg daily, aspirin 81 mg in a.m., atorvastatin 80 mg at bedtime. He is on insulin, levothyroxine, morphine p.r.n., nitroglycerin p.r.n., and ondansetron p.r.n. SOCIAL HISTORY: Does not smoke or drink. 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 FAMILY HISTORY: Significant for hypertension. PHYSICAL EXAMINATION: GENERAL: Awake, alert, oriented x3, lying supine, in no apparent distress. VITAL SIGNS: Blood pressure 124/81, pulse rate 69, afebrile, respiratory rate 17, had oxygen saturation 99% on room air. HEAD AND NECK: Corneas are clear. Oral mucosa moist. LUNGS: Relatively clear. No rales or rhonchi. HEART: S1 and S2 audible. No murmurs, gallops, or rubs. Very soft S1, S2. ABDOMEN: Obese, soft, nontender. Dressing noted right over the tunneled dialysis catheter. There is a dried scab noted. Otherwise, the exit site appears benign. EXTREMITIES: Lower extremity examination shows no edema, left lower extremity. IMPRESSION AND PLAN: 1. End-stage renal disease, stable volume status. 2. Syncope. 3. Coronary artery disease. Discussed with Dr. Huynh, Dr. Avila to be consulted for possible EP study. I will arrange for dialysis. Renal diet fluid restriction. Further recommendations to follow. MD LAURA Gonzales/MODL /[id number]
--- NOTE | 2019-10-29 21:11 | NUR ---
Report from previous RN stated Dr. Cameron cleared patient to discharge. Notified Dr. Cedillo of information. Dr. Cedillo gave OK to discharge tonight after HD and f/u with PCP in 1 week. No adjustment to medications needed.
[2019-10-29] MEDS: ATORVASTATIN 40 MG TAB PO SCH (22:30)
--- NOTE | 2019-10-29 23:11 | NUR ---
Patient escorted off the unit at 2245 via WC with RN and . All belongings present and noted for. Patient is is no acute distress. Discharge instructions given and patient/ verbalized understanding. Patient left hospital by private vehicle, driving.
--- NOTE | 2019-10-29 23:35 | Consultation ---
DATE OF CONSULTATION: 10/29/2019 REASON FOR CONSULT: Syncope. HISTORY OF PRESENT ILLNESS: This is a 59-year-old gentleman with a history of end-stage renal disease, on hemodialysis, history of hypertension, who presented after an episode of syncope preceding dialyses, he states he just felt dizzy and all of a sudden went unresponsive for about a few seconds and then recovered spontaneously. No chest pain. No other symptoms. He states he had another episode about 6 months ago. It was similar. Otherwise, he has had some episodes of dizziness, but otherwise no palpitations. The patient underwent heart catheterization demonstrating CAD amenable for medical therapy. REVIEW OF SYSTEMS: CONSTITUTIONAL: Negative. CARDIOVASCULAR: As per HPI. RESPIRATORY: Negative. GASTROINTESTINAL: Negative. GENITOURINARY: Negative. MUSCULOSKELETAL: Negative. EYES: Negative. ENT: Negative. ALLERGY/IMMUNOLOGY: Negative. PSYCHIATRIC: Negative. PAST MEDICAL HISTORY: Hypertension, end-stage renal disease, on hemodialysis. SURGICAL HISTORY: Dialysis catheter. FAMILY HISTORY: No premature coronary artery disease. SOCIAL HISTORY: Denies smoking, alcohol. PHYSICAL EXAMINATION: VITAL SIGNS: Blood pressure 148/60, pulse 70, respirations 20, O2 saturation 98%. GENERAL: No acute distress. HEENT: Moist mucous membranes. CARDIOVASCULAR: Regular. RESPIRATORY: Clear. ABDOMEN: Soft and nontender. MUSCULOSKELETAL: 2+ distal pulses. NEUROLOGICAL: No focal deficits. SKIN: No lesions. PSYCHIATRY: Normal thought process. LABORATORY STUDIES: EKG, sinus rhythm, first-degree AV block. IMPRESSION: 1. Syncope, unclear etiology. It could be arrhythmia driven, could also be hypotension versus vasovagal. 2. Coronary artery disease with normal ejection fraction. RECOMMENDATIONS: I had a discussion with the patient, explained to him that he needs farther monitoring to rule out any potential arrhythmias versus bradycardia that could potentially cause syncope, so we will go ahead and arrange for an event monitor for one month and will provide further recommendations depending on the findings. The patient is to come to our office to nut picker the event monitor. We will arrange for it as an outpatient. From an EP standpoint, he is okay to be discharged. Follow up as an outpatient. He was provided with our contact information. Thank you for letting us participate in Mr. Nixon' healthcare. MD JAZMIN Morrell/MODL /[id number]
--- NOTE | 2019-11-01 08:08 | Discharge Summary ---
PRIMARY CARE DOCTOR: Dr. Balaji Dao. FINAL DIAGNOSIS: Rwy-[id number]-ozrlbrmym myocardial infarction. SECONDARY DIAGNOSES: 1. Syncope. 2. Hypertension. 3. End-stage renal disease due to diabetes, on dialysis Friday, Friday, and Friday. 4. Old stroke. CONSULTANTS: 1. Dr. Sorto, Nephrology. 2. Dr. Huynh, Cardiology. 3. Dr. Cameron, EP Cardiology. PROCEDURE/STUDIES PERFORMED: 1. Left heart catheterization, which shows very severe calcified diffusely diseased. No intervention was possible. 2. Echocardiogram showed normal EF. HISTORY: Per H and P. HOSPITAL COURSE: The patient's second troponin bumped and also peaked at 1.6, therefore the patient was taken to the specialist employee labor relations, which was not amenable to intervention, just like last year at [facility]. We will continue aggressive medical management. Given his syncope, the patient was evaluated by EP Cardiology, nothing to be done at this time; however, the patient will follow up with EP Cardiology as an outpatient. The patient was dialyzed prior to discharge. His hemoglobin A1c is 5.9. His LDL is 54. The patient was seen and examined today. I have discussed this case with Dr. Huynh. I have also updated his primary care doctor, whom he will follow up in a week. I have also updated the at the bedside as well. The patient was seen and examined today. It took 32 minutes total to discharge this patient. CONDITION ON DISCHARGE: Improved. DISCHARGE MEDICATIONS: Please see medication reconciliation form. MD ADIS Alvarado/SHARON /[id number] cc: [facility]
== END 2019-10-29 22:45 | disposition home or self-care (01) | DRG 280 ==
LOC: ER 17:33 → ERHOLD 18:05 → OBSVTOIN 10-28 16:09 → IMCU 10-28 19:17
PROVIDERS: ADMIT Internal Medicine; ATTEND Internal Medicine
PROC: 4A023N7 Measurement of Cardiac Sampling and Pressure, Left Heart, Percutaneous Approach (ICD-10-PCS; principal; 2019-10-28)
PROC: B2111ZZ Fluoroscopy of Multiple Coronary Arteries using Low Osmolar Contrast (ICD-10-PCS; 2019-10-28)
PROC: B2151ZZ Fluoroscopy of Left Heart using Low Osmolar Contrast (ICD-10-PCS; 2019-10-28)
PROC: 5A1D70Z Performance of Urinary Filtration, Intermittent, Less than 6 Hours Per Day (ICD-10-PCS; 2019-10-28)
DX: I21.4 Non-ST elevation (NSTEMI) myocardial infarction (principal); N18.6 End stage renal disease; I12.0 Hypertensive chronic kidney disease with stage 5 chronic kidney disease or end stage renal disease; Z99.2 Dependence on renal dialysis; Z86.73 Personal history of transient ischemic attack (TIA), and cerebral infarction without residual deficits; I25.10 Atherosclerotic heart disease of native coronary artery without angina pectoris; E03.9 Hypothyroidism, unspecified; E11.9 Type 2 diabetes mellitus without complications
CPT/HCPCS: 36415; 71045; 80053; 80061; 82550; 82553; 82948; 83036; 83690; 83735; 84443; 84484; 85025; 85610; 85730; 86704; 86705; 86706; 87340; 87635; 93005; 93306; 93458; 93880; 96374; 99152; 99153; 99285; C1766; G0378; J0360; J1200; J1644; J2001; J2250; J2930; J3010; J7030; Q9967

== ENCOUNTER 2021-02-26 13:42 | Inpatient (IN) | payer MEDICARE, OTHER ==
[~2021-02-26] VITALS: Ht 175.3 cm; Wt 101.2 kg
[~2021-02-26 13:42] MED LIST changes: +AMLODIPINE BESYL5 MG PO; +ASPIRIN81 MG PO; +BACID WITH LAC PO; +BENADRYL25 M1 PO; +CLOPIDOGREL75 MG PO; +ISOSORBIDE MONO20 MG PO; +LEVEMIR100 UNIT/1 SC; +LEVOTHYROXINE50 MCG PO; +METOPROLOL SUCC25 MG PO; +NITROGLYCERIN0.4 MG SL; +OMEPRAZOLE40 MG PO; +ONDANSETRON2 MG/1 ML PO
[2021-02-26 15:12] LABS: BASOPHILS % 0.4 % (0.0-1.0); EOSINOPHILS # (AUTO) 0.1 (0.0-0.4); EOSINOPHILS % 1.6 % (0.0-6.0); HEMOGLOBIN 10.5 g/dL (14.0-18.0); LYMPHOCYTES # (AUTO) 1.1 (1.0-3.2); LYMPHOCYTES % 12.6 % (18.0-39.1); MEAN CORPUSCULAR HEMOGLOBIN 31.1 pg (28-32); MEAN CORPUSCULAR HGB CONC 31.8 g/dL (31-35); MEAN CORPUSCULAR VOLUME 97.6 fL (81-99); MONOCYTES # (AUTO) 0.5 (0.2-0.8); MONOCYTES % 6.1 % (4.4-11.3); NEUTROPHILS # (AUTO) 6.7 (2.1-6.9); NEUTROPHILS % 78.4 % (38.7-80.0); PLATELET COUNT 190 x10e3/uL (140-360); RED BLOOD COUNT 3.38 x10e6/uL (4.3-5.7); RED CELL DISTRIBUTION WIDTH 12.6 % (11.7-14.4)
[2021-02-26 15:19] LABS: ALBUMIN 2.1 g/dL (3.5-5.0); ALBUMIN/GLOBULIN RATIO 0.5 (0.8-2.0); ANION GAP 12.4 mmol/L (8-16); CALCIUM 8.1 mg/dL (8.4-10.2); CREATININE, SERUM 2.89 mg/dL (0.72-1.25); POTASSIUM 4.4 mmol/L (3.5-5.1)
[2021-02-26 20:51] VITALS: BP 184/84
[2021-02-26 20:52] VITALS: BP 184/84
[2021-02-26 21:00] VITALS: BP 184/84
[2021-02-27] VITALS (8 sets, daily range): BP systolic 140–165; BP diastolic 77–99
[2021-02-27 07:01] LABS: BASOPHILS % 0.4 % (0.0-1.0); EOSINOPHILS # (AUTO) 0.2 (0.0-0.4); EOSINOPHILS % 2.4 % (0.0-6.0); HEMOGLOBIN 9.8 g/dL (14.0-18.0); LYMPHOCYTES # (AUTO) 1.3 (1.0-3.2); LYMPHOCYTES % 18.7 % (18.0-39.1); MEAN CORPUSCULAR HEMOGLOBIN 33.6 pg (28-32); MEAN CORPUSCULAR VOLUME 95.9 fL (81-99); MONOCYTES # (AUTO) 0.5 (0.2-0.8); NEUTROPHILS % 70.8 % (38.7-80.0); PLATELET COUNT 144 x10e3/uL (140-360); RED BLOOD COUNT 2.92 x10e6/uL (4.3-5.7); RED CELL DISTRIBUTION WIDTH 13.2 % (11.7-14.4)
[2021-02-27 07:23] LABS: ALBUMIN 1.9 g/dL (3.5-5.0); ALBUMIN/GLOBULIN RATIO 0.5 (0.8-2.0); ANION GAP 12.2 mmol/L (8-16); CALCIUM 7.8 mg/dL (8.4-10.2); CREATININE, SERUM 2.74 mg/dL (0.72-1.25); POTASSIUM 4.2 mmol/L (3.5-5.1)
[2021-02-27] MEDS ORDERED: DEXTROSE 50% SYRINGE 50 ML IV PRN (09:15)
[2021-02-27] MEDS: INSULIN LISPRO 100 UNIT/1 ML 3ML VIAL SQ SCH ×3 (09:17→21:00)
[2021-02-27] MEDS: DIPHENOXYLATE/ATROPINE TAB PO PRN ×2 (09:37→16:03)
[2021-02-27] MEDS: AMLODIPINE BESYLATE 5 MG TAB PO SCH (09:37)
[2021-02-27] MEDS: METOPROLOL SUCCINATE 25 MG TAB XL PO SCH ×2 (09:38→17:00)
[2021-02-27] MEDS ORDERED: HEPARIN SOD (PORCINE) 1000 UNIT/ML SDV ONE (11:11)
[2021-02-27] MEDS ORDERED: Vancomycin IV 1 GM in SODIUM CHLORIDE 0.9% 250ML 250 ML IV ONE (12:45)
[2021-02-27] MEDS: GENTAMICIN 120MG/NS 100ML 100 ML IV ONE ×2 (14:15→15:05)
[2021-02-27] MEDS ORDERED: SODIUM CHLORIDE 0.9% 50ML 50 ML ONE (14:58)
[2021-02-27] MEDS ORDERED: MANNITOL 25% 12.5GM/50 ML VIAL IV ONE (16:00)
[2021-02-27] MEDS ORDERED: SODIUM CHLORIDE 0.9% 1000ML 2,000 ML ONE (16:10)
[2021-02-27] MEDS ORDERED: HEPARIN SOD (PORCINE) 1000 UNIT/ML SDV IV PRN (16:45)
[2021-02-28] VITALS (8 sets, daily range): BP systolic 121–162; BP diastolic 48–96
[2021-02-28 05:52] LABS: ANION GAP 12.8 mmol/L (8-16); CALCIUM 8.1 mg/dL (8.4-10.2); CREATININE, SERUM 2.61 mg/dL (0.72-1.25); POTASSIUM 3.8 mmol/L (3.5-5.1)
[2021-02-28] MEDS: INSULIN LISPRO 100 UNIT/1 ML 3ML VIAL SQ SCH ×4 (07:30→21:00)
[2021-02-28] MEDS: AMLODIPINE BESYLATE 5 MG TAB PO SCH ×2 (08:49→12:15)
[2021-02-28] MEDS: METOPROLOL SUCCINATE 25 MG TAB XL PO SCH ×3 (08:49→17:20)
[2021-02-28] MEDS ORDERED: BUPIVACAINE HCL 0.5% INJ 30 ML VIAL INJ ONE (12:22)
[2021-02-28] MEDS ORDERED: Vancomycin IV 0 MG ONE (13:33)
[2021-02-28] MEDS ORDERED: MORPHINE SULFATE INJ 2 MG/ML SYR IV PRN (14:00)
[2021-02-28] MEDS: HYDROCODONE/APAP 5MG-325MG TAB PO PRN ×2 (14:58→21:56)
[2021-02-28] MEDS ORDERED: GLYCOPYRROLATE INJ 0.2 MG/ML VIAL ONE (17:54)
[2021-02-28] MEDS ORDERED: LIDOCAINE HCL 2% LOCAL INJ 5 ML SDV VIAL INJ ONE (17:54)
[2021-02-28] MEDS ORDERED: SUCCINYLCHOLINE CHLORIDE 20 MG/ML 10ML VIAL ONE (17:54)
[2021-02-28] MEDS ORDERED: PROPOFOL IV EMULSION 10 MG/ML 20 ML VIAL ONE (17:54)
[2021-02-28] MEDS ORDERED: NEOSTIGMINE 1 MG/ML 10ML VIAL ONE (17:54)
[2021-02-28] MEDS ORDERED: POVIDONE IODINE 0.05% 0.05 % ML PO ONE (17:54)
[2021-02-28] MEDS ORDERED: ROCURONIUM BROMIDE 10 MG/ML 5ML VIAL IV ONE (17:54)
[2021-03-01] VITALS (8 sets, daily range): BP systolic 126–138; BP diastolic 60–76
[2021-03-01] MEDS: HYDROCODONE/APAP 5MG-325MG TAB PO PRN ×3 (04:23→22:50)
[2021-03-01 07:58] LABS: BASOPHILS % 0.5 % (0.0-1.0); EOSINOPHILS # (AUTO) 0.2 (0.0-0.4); EOSINOPHILS % 1.9 % (0.0-6.0); HEMATOCRIT 33.1 % (38.2-49.6); HEMOGLOBIN 10.4 g/dL (14.0-18.0); LYMPHOCYTES # (AUTO) 1.1 (1.0-3.2); LYMPHOCYTES % 12.1 % (18.0-39.1); MEAN CORPUSCULAR HGB CONC 31.4 g/dL (31-35); MEAN CORPUSCULAR VOLUME 98.8 fL (81-99); MONOCYTES # (AUTO) 0.5 (0.2-0.8); MONOCYTES % 5.4 % (4.4-11.3); NEUTROPHILS # (AUTO) 6.9 (2.1-6.9); NEUTROPHILS % 79.4 % (38.7-80.0); PLATELET COUNT 196 x10e3/uL (140-360); RED BLOOD COUNT 3.35 x10e6/uL (4.3-5.7); RED CELL DISTRIBUTION WIDTH 12.6 % (11.7-14.4)
[2021-03-01] MEDS: INSULIN LISPRO 100 UNIT/1 ML 3ML VIAL SQ SCH ×4 (08:15→20:47)
[2021-03-01 08:22] LABS: CALCIUM 7.7 mg/dL (8.4-10.2)
[2021-03-01] MEDS: METOPROLOL SUCCINATE 25 MG TAB XL PO SCH ×2 (09:00→17:39)
[2021-03-01] MEDS ORDERED: Vancomycin IV 1 GM in SODIUM CHLORIDE 0.9% 250ML 250 ML IV ONE (10:30)
[2021-03-01 10:55] LABS: INR 1.04; PROTHROMBIN TIME 13.8 seconds (11.9-14.5)
[2021-03-01] MEDS ORDERED: GENTAMICIN 120MG/NS 100ML 100 ML IV ONE (12:00)
[2021-03-01] MEDS ORDERED: CLINDAMYCIN 600MG / 50ML 50 ML IV ONE (14:08)
[2021-03-01] MEDS ORDERED: MIDAZOLAM HCL 2 MG/2 ML VIAL ONE (14:09)
[2021-03-01] MEDS ORDERED: FENTANYL CITRATE/PF 100MCG/2 ML INJ ONE (14:10)
[2021-03-01] MEDS ORDERED: SODIUM CHLORIDE 0.9% 250ML 250 ML ONE (14:37)
[2021-03-01] MEDS ORDERED: LIDOCAINE HCL 1% LOCAL INJ 20 ML VIAL ONE (14:37)
[2021-03-01] MEDS ORDERED: HEPARIN SOD (PORCINE) 1000 UNIT/ML SDV ONE (14:53)
[2021-03-01] MEDS: AMLODIPINE BESYLATE 5 MG TAB PO SCH (17:40)
[2021-03-02] VITALS (7 sets, daily range): BP systolic 112–136; BP diastolic 59–68
[2021-03-02] MEDS: METOPROLOL SUCCINATE 25 MG TAB XL PO SCH ×2 (09:06→16:48)
[2021-03-02] MEDS: AMLODIPINE BESYLATE 5 MG TAB PO SCH (09:06)
[2021-03-02] MEDS: INSULIN LISPRO 100 UNIT/1 ML 3ML VIAL SQ SCH ×4 (09:07→20:20)
[2021-03-02] MEDS: HYDROCODONE/APAP 5MG-325MG TAB PO PRN (10:57)
[2021-03-03] VITALS: BP 133/65
[2021-03-03 04:00] VITALS: BP 156/71
[2021-03-03 08:11] VITALS: BP 156/71
[2021-03-03 08:25] LABS: BASOPHILS % 0.2 % (0.0-1.0); EOSINOPHILS # (AUTO) 0.2 (0.0-0.4); EOSINOPHILS % 2.9 % (0.0-6.0); HEMATOCRIT 30.3 % (38.2-49.6); HEMOGLOBIN 9.6 g/dL (14.0-18.0); LYMPHOCYTES # (AUTO) 1.5 (1.0-3.2); LYMPHOCYTES % 17.9 % (18.0-39.1); MEAN CORPUSCULAR HEMOGLOBIN 30.8 pg (28-32); MEAN CORPUSCULAR HGB CONC 31.7 g/dL (31-35); MEAN CORPUSCULAR VOLUME 97.1 fL (81-99); MONOCYTES # (AUTO) 0.6 (0.2-0.8); MONOCYTES % 7.1 % (4.4-11.3); NEUTROPHILS # (AUTO) 5.9 (2.1-6.9); NEUTROPHILS % 70.8 % (38.7-80.0); PLATELET COUNT 154 x10e3/uL (140-360); RED BLOOD COUNT 3.12 x10e6/uL (4.3-5.7); RED CELL DISTRIBUTION WIDTH 12.9 % (11.7-14.4)
[2021-03-03 08:39] VITALS: BP 161/77
[2021-03-03 08:42] LABS: ALBUMIN 2.2 g/dL (3.5-5.0); ALBUMIN/GLOBULIN RATIO 0.6 (0.8-2.0); CALCIUM 7.9 mg/dL (8.4-10.2); CREATININE, SERUM 3.4 mg/dL (0.72-1.25)
[2021-03-03] MEDS: AMLODIPINE BESYLATE 5 MG TAB PO SCH (09:18)
[2021-03-03] MEDS: METOPROLOL SUCCINATE 25 MG TAB XL PO SCH (09:19)
[2021-03-03] MEDS: SODIUM CHLORIDE 0.9% 1000ML 1,000 ML IV PRN (09:20)
[2021-03-03] MEDS: INSULIN LISPRO 100 UNIT/1 ML 3ML VIAL SQ SCH ×2 (09:54→11:30)
[2021-03-03 12:46] VITALS: BP 126/68
== END 2021-03-03 17:12 | disposition home or self-care (01) | DRG 907 ==
LOC: ER 13:49 → ERHOLD 15:59 → MED/SURG2 19:45 → OBSVTOIN 02-28 08:56
PROVIDERS: ADMIT Family Medicine; ATTEND Family Medicine
PROC: 0WPG03Z Removal of Infusion Device from Peritoneal Cavity, Open Approach (ICD-10-PCS; principal; 2021-02-27)
PROC: 02HV33Z Insertion of Infusion Device into Superior Vena Cava, Percutaneous Approach (ICD-10-PCS; 2021-02-27)
PROC: 0JH63XZ Insertion of Tunneled Vascular Access Device into Chest Subcutaneous Tissue and Fascia, Percutaneous Approach (ICD-10-PCS; 2021-03-01)
PROC: 02HV33Z Insertion of Infusion Device into Superior Vena Cava, Percutaneous Approach (ICD-10-PCS; 2021-03-01)
PROC: 5A1D70Z Performance of Urinary Filtration, Intermittent, Less than 6 Hours Per Day (ICD-10-PCS; 2021-03-01)
DX: T85.611A Breakdown (mechanical) of intraperitoneal dialysis catheter, initial encounter (principal); N18.6 End stage renal disease; I12.0 Hypertensive chronic kidney disease with stage 5 chronic kidney disease or end stage renal disease; E11.22 Type 2 diabetes mellitus with diabetic chronic kidney disease; Z99.2 Dependence on renal dialysis; Z79.899 Other long term (current) drug therapy; E78.5 Hyperlipidemia, unspecified; Z20.822 Contact with and (suspected) exposure to COVID-19; Z89.511 Acquired absence of right leg below knee; I25.10 Atherosclerotic heart disease of native coronary artery without angina pectoris; E66.9 Obesity, unspecified; Z68.32 Body mass index [BMI] 32.0-32.9, adult
CPT/HCPCS: 36415; 36556; 36558; 74176; 74470; 76937; 77001; 80048; 80053; 82948; 85025; 85610; 86704; 86706; 87340; 93005; 99284; C1752; C1769; C1892; G0378; J0330; J1580; J1644; J2001; J2150; J2250; J2710; J3010; J3370; J7030; J7050; U0002

== ENCOUNTER 2021-11-01 04:03 | Inpatient (IN) | payer MEDICARE, OTHER ==
[~2021-11-01] VITALS: Ht 170.2 cm; Wt 93.0 kg
[2021-11-01 04:30] LABS: BASOPHILS # (AUTO) 0.1 (0.0-0.1); BASOPHILS % 0.7 % (0.0-1.0); EOSINOPHILS # (AUTO) 0.3 (0.0-0.4); EOSINOPHILS % 2.6 % (0.0-6.0); HEMATOCRIT 37.5 % (38.2-49.6); HEMOGLOBIN 12.4 g/dL (14.0-18.0); LYMPHOCYTES # (AUTO) 1.8 (1.0-3.2); LYMPHOCYTES % 18.2 % (18.0-39.1); MEAN CORPUSCULAR HEMOGLOBIN 32.4 pg (28-32); MEAN CORPUSCULAR HGB CONC 33.1 g/dL (31-35); MEAN CORPUSCULAR VOLUME 97.9 fL (81-99); MONOCYTES # (AUTO) 0.7 (0.2-0.8); MONOCYTES % 6.7 % (4.4-11.3); NEUTROPHILS % 70.6 % (38.7-80.0); PLATELET COUNT 173 x10e3/uL (140-360); RED BLOOD COUNT 3.83 x10e6/uL (4.3-5.7)
[2021-11-01] MEDS ORDERED: DIATRIZOATE MEGL/DIATRIZOA SOD 30 ML BTL PO ONE (04:39)
[2021-11-01 04:43] LABS: AMYLASE 64 U/L (25-125); LIPASE 26 U/L (8-78)
[2021-11-01 04:46] LABS: ALBUMIN 2.5 g/dL (3.5-5.0); ALBUMIN/GLOBULIN RATIO 0.6 (0.8-2.0); ANION GAP 15.3 mmol/L (8-16); CALCIUM 7.2 mg/dL (8.4-10.2); CREATININE, SERUM 3.24 mg/dL (0.72-1.25); POTASSIUM 3.3 mmol/L (3.5-5.1)
[2021-11-01 04:54] LABS: CLARITY,URINE SL CLOUDY (CLEAR); COLOR,URINE YELLOW (YELLOW); KETONES,URINE NEGATIVE (NEGATIVE); LEUKOCYTE ESTERASE ,URINE NEGATIVE (NEGATIVE); NITRITE,URINE NEGATIVE (NEGATIVE); PROTEIN,URINE DIPSTICK >=300 (NEGATIVE); URINE UROBILINOGEN 0.2 mg/dL (0.2 - 1)
[2021-11-01 04:57] LABS: BACTERIA,URINE FEW /HPF; EPITHELIAL CELLS,URINE FEW /LPF; RBC,URINE >50 /HPF (0-5)
[2021-11-01] MEDS ORDERED: ONDANSETRON HCL INJ 2MG/ML 2ML 2 MG/ML VIAL IV PRN (06:45)
[2021-11-01] MEDS ORDERED: Morphine 2mg Syringe 2 MG/ML SYR IV PRN (06:45)
[2021-11-01] MEDS ORDERED: POTASSIUM CHLORIDE 20 MEQ TAB CR PO STA (12:08)
[2021-11-01] MEDS ORDERED: Vancomycin IV 1 GM in SODIUM CHLORIDE 0.9% 250ML 250 ML IV ONE (12:15)
[2021-11-01 14:26] LABS: BODY FLUID COLOR COLORLESS; BODY FLUID TYPE PERITONEAL
[2021-11-01 14:27] LABS: BODY FLUID APPEARANCE CLEAR
[2021-11-01 15:04] LABS: RBC,BODY FLUID < 2000 cells/uL; WBC,BODY FLUID 132 cells/uL
[2021-11-01 15:51] LABS: EOSINOPHILS,BODY FLUID 18 %; LYMPHOCYTES,BODY FLUID 6 %; MONO/MACROPHG,BODY FLUID 11 %; NEUTROPHILS,BODY FLUID 65 %
[2021-11-01 16:27] VITALS: BP 141/97
[2021-11-01 16:45] VITALS: BP 141/97
[2021-11-01 20:00] VITALS: BP 155/89
[2021-11-02] VITALS: BP 120/79
[2021-11-02 04:00] VITALS: BP 153/90
[2021-11-02 05:00] LABS: BASOPHILS # (AUTO) 0.1 (0.0-0.1); BASOPHILS % 0.6 % (0.0-1.0); EOSINOPHILS # (AUTO) 0.3 (0.0-0.4); EOSINOPHILS % 3.6 % (0.0-6.0); HEMATOCRIT 34.7 % (38.2-49.6); HEMOGLOBIN 11.3 g/dL (14.0-18.0); LYMPHOCYTES # (AUTO) 1.8 (1.0-3.2); LYMPHOCYTES % 20.5 % (18.0-39.1); MEAN CORPUSCULAR HEMOGLOBIN 31.7 pg (28-32); MEAN CORPUSCULAR HGB CONC 32.6 g/dL (31-35); MEAN CORPUSCULAR VOLUME 97.2 fL (81-99); MONOCYTES # (AUTO) 0.6 (0.2-0.8); MONOCYTES % 6.5 % (4.4-11.3); NEUTROPHILS # (AUTO) 5.9 (2.1-6.9); NEUTROPHILS % 67.9 % (38.7-80.0); PLATELET COUNT 168 x10e3/uL (140-360); RED BLOOD COUNT 3.57 x10e6/uL (4.3-5.7); RED CELL DISTRIBUTION WIDTH 12.9 % (11.7-14.4)
[2021-11-02 05:36] LABS: ALBUMIN 2.1 g/dL (3.5-5.0); ALBUMIN/GLOBULIN RATIO 0.6 (0.8-2.0); ANION GAP 12.5 mmol/L (8-16); CREATININE, SERUM 2.75 mg/dL (0.72-1.25); POTASSIUM 3.5 mmol/L (3.5-5.1)
[2021-11-02 05:37] LABS: CALCIUM 6.9 mg/dL (8.4-10.2)
[2021-11-02 08:00] VITALS: BP 133/66
[2021-11-02 08:46] VITALS: BP 133/66
[2021-11-02] MEDS ORDERED: AMLODIPINE BESYLATE 5 MG TAB PO SCH (10:00)
[2021-11-02] MEDS ORDERED: ISOSORBIDE MONONITRATE 30 MG TAB CR PO SCH (10:00)
[2021-11-02] MEDS ORDERED: CALCIUM GLUC 1 G/50 ML NACL 50 ML IV ONE (11:45)
[2021-11-02] MEDS ORDERED: POTASSIUM CHLORIDE 20 MEQ TAB CR PO ONE (11:45)
[2021-11-02 12:16] VITALS: BP 114/63
[2021-11-02] MEDS ORDERED: ONDANSETRON HCL 4 MG ORAL DISINTEGRATING TAB PO PRN (13:15)
[2021-11-02] MEDS ORDERED: METOPROLOL SUCCINATE 25 MG TAB XL PO SCH (17:00)
[2021-11-02] MEDS ORDERED: ATORVASTATIN 40 MG TAB PO SCH (21:00)
[2021-11-03] MEDS ORDERED: BACILLUS COAGULANS PO SCH (09:00)
== END 2021-11-02 13:10 | disposition home or self-care (01) | DRG 919 ==
LOC: ER 04:20 → ERHOLD 06:54 → MED/SURG2 14:39
PROVIDERS: ADMIT Family Medicine; ATTEND Family Medicine
PROC: 3E1M39Z Irrigation of Peritoneal Cavity using Dialysate, Percutaneous Approach (ICD-10-PCS; principal; 2021-11-01)
DX: T85.898A Other specified complication of other internal prosthetic devices, implants and grafts, initial encounter (principal); N18.6 End stage renal disease; I12.0 Hypertensive chronic kidney disease with stage 5 chronic kidney disease or end stage renal disease; E11.22 Type 2 diabetes mellitus with diabetic chronic kidney disease; Z99.2 Dependence on renal dialysis; Z79.4 Long term (current) use of insulin; E87.5 Hyperkalemia; K66.8 Other specified disorders of peritoneum; Z20.822 Contact with and (suspected) exposure to COVID-19; Z88.0 Allergy status to penicillin; Z91.041 Radiographic dye allergy status; I25.10 Atherosclerotic heart disease of native coronary artery without angina pectoris
CPT/HCPCS: 36415; 74176; 76870; 80053; 81001; 82150; 82948; 83690; 85025; 87040; 87070; 87086; 87205; 89051; 93976; 99284; J0696; J3370; J7050; Q9963

== ENCOUNTER 2021-11-03 14:49 | Inpatient (IN) | payer MEDICARE ==
[~2021-11-03] VITALS: Ht 170.2 cm; Wt 93.0 kg
[2021-11-03] MEDS ORDERED: SODIUM CHLORIDE FLUSH 10 ML SYR IV PRN (15:15)
[2021-11-03 15:48] LABS: BASOPHILS # (AUTO) 0.1 (0.0-0.1); BASOPHILS % 0.5 % (0.0-1.0); EOSINOPHILS # (AUTO) 0.1 (0.0-0.4); EOSINOPHILS % 0.5 % (0.0-6.0); HEMATOCRIT 36.6 % (38.2-49.6); HEMOGLOBIN 12.1 g/dL (14.0-18.0); LYMPHOCYTES # (AUTO) 0.8 (1.0-3.2); LYMPHOCYTES % 7.2 % (18.0-39.1); MEAN CORPUSCULAR HEMOGLOBIN 32.3 pg (28-32); MEAN CORPUSCULAR HGB CONC 33.1 g/dL (31-35); MEAN CORPUSCULAR VOLUME 97.6 fL (81-99); MONOCYTES # (AUTO) 0.4 (0.2-0.8); MONOCYTES % 3.9 % (4.4-11.3); NEUTROPHILS # (AUTO) 9.3 (2.1-6.9); NEUTROPHILS % 87.2 % (38.7-80.0); PLATELET COUNT 172 x10e3/uL (140-360); RED BLOOD COUNT 3.75 x10e6/uL (4.3-5.7); RED CELL DISTRIBUTION WIDTH 13.2 % (11.7-14.4)
[2021-11-03 16:04] LABS: INR 0.91; PROTHROMBIN TIME 13.1 seconds (11.9-14.5)
[2021-11-03 16:05] LABS: PARTIAL THROMBOPLASTIN TIME 28.8 seconds (23.8-35.5)
[2021-11-03 16:12] LABS: ALBUMIN 2.4 g/dL (3.5-5.0); ALBUMIN/GLOBULIN RATIO 0.6 (0.8-2.0); ANION GAP 14.6 mmol/L (8-16); CALCIUM 7.3 mg/dL (8.4-10.2); CREATININE, SERUM 3.38 mg/dL (0.72-1.25); POTASSIUM 3.6 mmol/L (3.5-5.1)
[2021-11-03] MEDS ORDERED: Morphine 4mg Syringe 4 MG/ML INJ IV ONE (16:30)
[2021-11-03] MEDS ORDERED: ONDANSETRON HCL INJ 2MG/ML 2ML 2 MG/ML VIAL IV NR (16:30)
[2021-11-03] MEDS ORDERED: Vancomycin IV 1 GM in SODIUM CHLORIDE 0.9% 250ML 250 ML IV STA (17:55)
[2021-11-03] MEDS ORDERED: PIPERACILLIN/TAZOBACTAM 3.375 GM VIAL ONE (18:16)
[2021-11-03] MEDS ORDERED: SODIUM CHLORIDE 0.9% 250ML 250 ML ONE (18:17)
[2021-11-03] MEDS ORDERED: PIPERACILLIN/TAZOBACTAM SOD 2.25 GM VIAL ONE (18:22)
[2021-11-03] MEDS: Morphine 4mg Syringe 4 MG/ML INJ IV PRN (20:10)
[2021-11-03] MEDS: ONDANSETRON HCL INJ 2MG/ML 2ML 2 MG/ML VIAL IV PRN (20:10)
[2021-11-03 22:53] LABS: CLARITY,URINE CLEAR (CLEAR); COLOR,URINE YELLOW (YELLOW); KETONES,URINE NEGATIVE (NEGATIVE); LEUKOCYTE ESTERASE ,URINE NEGATIVE (NEGATIVE); NITRITE,URINE NEGATIVE (NEGATIVE); PROTEIN,URINE DIPSTICK 2+ (NEGATIVE); URINE UROBILINOGEN 0.2 mg/dL (0.2 - 1)
[2021-11-03 22:54] LABS: AMPHETAMINES SCREEN,URINE NEGATIVE (NEGATIVE); BENZODIAZEPINES SCREEN,URINE NEGATIVE (NEGATIVE); PHENCYCLIDINE SCREEN,URINE NEGATIVE (NEGATIVE)
[2021-11-03 23:07] LABS: BACTERIA,URINE MODERATE /HPF; EPITHELIAL CELLS,URINE FEW /LPF; RBC,URINE >50 /HPF (0-5); WBC,URINE (MAN) 21-50 /HPF (0-5)
[2021-11-04 00:46] LABS: CLARITY,URINE SL CLOUDY (CLEAR); COLOR,URINE YELLOW (YELLOW); KETONES,URINE NEGATIVE (NEGATIVE); LEUKOCYTE ESTERASE ,URINE NEGATIVE (NEGATIVE); NITRITE,URINE NEGATIVE (NEGATIVE); PROTEIN,URINE DIPSTICK 1+ (NEGATIVE); URINE UROBILINOGEN 0.2 mg/dL (0.2 - 1)
[2021-11-04 00:51] LABS: BACTERIA,URINE MODERATE /HPF; EPITHELIAL CELLS,URINE FEW /LPF; RBC,URINE >50 /HPF (0-5); WBC,URINE (MAN) 21-50 /HPF (0-5)
[2021-11-04 05:59] LABS: BASOPHILS % 0.5 % (0.0-1.0); EOSINOPHILS # (AUTO) 0.2 (0.0-0.4); HEMATOCRIT 33.9 % (38.2-49.6); HEMOGLOBIN 10.8 g/dL (14.0-18.0); LYMPHOCYTES # (AUTO) 1.7 (1.0-3.2); LYMPHOCYTES % 21.2 % (18.0-39.1); MEAN CORPUSCULAR HEMOGLOBIN 32.1 pg (28-32); MEAN CORPUSCULAR HGB CONC 31.9 g/dL (31-35); MEAN CORPUSCULAR VOLUME 100.9 fL (81-99); MONOCYTES # (AUTO) 0.5 (0.2-0.8); MONOCYTES % 6.1 % (4.4-11.3); NEUTROPHILS # (AUTO) 5.5 (2.1-6.9); NEUTROPHILS % 68.2 % (38.7-80.0); PLATELET COUNT 92 x10e3/uL (140-360); RED BLOOD COUNT 3.36 x10e6/uL (4.3-5.7); RED CELL DISTRIBUTION WIDTH 13.2 % (11.7-14.4)
[2021-11-04 06:21] LABS: ALBUMIN 2.2 g/dL (3.5-5.0); ALBUMIN/GLOBULIN RATIO 0.7 (0.8-2.0); ANION GAP 12.3 mmol/L (8-16); CREATININE, SERUM 3.27 mg/dL (0.72-1.25); POTASSIUM 3.3 mmol/L (3.5-5.1)
[2021-11-04] MEDS: ONDANSETRON HCL INJ 2MG/ML 2ML 2 MG/ML VIAL IV PRN (06:22)
[2021-11-04 06:29] LABS: CALCIUM 6.8 mg/dL (8.4-10.2)
[2021-11-04] MEDS ORDERED: OMEPRAZOLE40 MG PO (07:21)
[2021-11-04 08:05] VITALS: BP 136/87
[2021-11-04 09:00] VITALS: BP 136/87
[2021-11-04] MEDS ORDERED: LEVEMIR FL100 UNIT/1 SC (11:34)
[2021-11-04 12:12] VITALS: BP 148/79
[2021-11-04 16:39] VITALS: BP 145/79
[2021-11-04] MEDS ORDERED: DEXTROSE 50% SYRINGE 50 ML IV PRN (16:45)
[2021-11-04] MEDS ORDERED: SODIUM CHLORIDE 0.9% 250ML 250 ML ONE (18:24)
[2021-11-04 19:47] VITALS: BP 144/87
[2021-11-04 20:00] VITALS: BP 144/87
[2021-11-04] MEDS: ATORVASTATIN 40 MG TAB PO SCH (20:51)
[2021-11-04] MEDS: INSULIN LISPRO 100 UNIT/1 ML 3ML VIAL SQ SCH (20:51)
[2021-11-04] MEDS: INSULIN GLARGINE 100 UNITS/ML VIAL SQ SCH (20:52)
[2021-11-04] MEDS ORDERED: INSULIN DETEMIR 20 UNIT SC SCH (21:00)
[2021-11-05] VITALS (7 sets, daily range): BP systolic 98–138; BP diastolic 66–76
[2021-11-05] MEDS: INSULIN LISPRO 100 UNIT/1 ML 3ML VIAL SQ SCH ×4 (07:30→20:32)
[2021-11-05] MEDS: BACILLUS COAGULANS PO SCH (08:55)
[2021-11-05] MEDS: ASPIRIN 81 MG CHEW TAB PO SCH (08:55)
[2021-11-05] MEDS: AMLODIPINE BESYLATE 5 MG TAB PO SCH (08:56)
[2021-11-05] MEDS: CLOPIDOGREL BISULFATE 75 MG TAB PO SCH (08:56)
[2021-11-05] MEDS: ISOSORBIDE MONONITRATE 30 MG TAB CR PO SCH (08:56)
[2021-11-05] MEDS: METOPROLOL SUCCINATE 25 MG TAB XL PO SCH (08:56)
[2021-11-05] MEDS: ATORVASTATIN 40 MG TAB PO SCH (20:29)
[2021-11-05] MEDS: INSULIN GLARGINE 100 UNITS/ML VIAL SQ SCH (20:32)
[2021-11-06] VITALS (7 sets, daily range): BP systolic 93–128; BP diastolic 65–78
[2021-11-06 06:29] LABS: ALBUMIN/GLOBULIN RATIO 0.6 (0.8-2.0); ANION GAP 11.3 mmol/L (8-16); CREATININE, SERUM 3.56 mg/dL (0.72-1.25); POTASSIUM 3.3 mmol/L (3.5-5.1)
[2021-11-06 06:33] LABS: CALCIUM 6.7 mg/dL (8.4-10.2)
[2021-11-06] MEDS: INSULIN LISPRO 100 UNIT/1 ML 3ML VIAL SQ SCH ×4 (07:30→21:00)
[2021-11-06] MEDS: ASPIRIN 81 MG CHEW TAB PO SCH (08:57)
[2021-11-06] MEDS: AMLODIPINE BESYLATE 5 MG TAB PO SCH (08:57)
[2021-11-06] MEDS: ISOSORBIDE MONONITRATE 30 MG TAB CR PO SCH (08:57)
[2021-11-06] MEDS: CLOPIDOGREL BISULFATE 75 MG TAB PO SCH (08:58)
[2021-11-06] MEDS: METOPROLOL SUCCINATE 25 MG TAB XL PO SCH (08:58)
[2021-11-06] MEDS: BACILLUS COAGULANS PO SCH (09:00)
[2021-11-06] MEDS ORDERED: POTASSIUM CHLORIDE 20MEQ/100ML 100 ML IV ONE (10:30)
[2021-11-06] MEDS: Morphine 4mg Syringe 4 MG/ML INJ IV PRN (15:44)
[2021-11-06] MEDS ORDERED: POTASSIUM CHLORIDE 20 MEQ TAB CR PO ONE (16:35)
[2021-11-06] MEDS: INSULIN GLARGINE 100 UNITS/ML VIAL SQ SCH (21:00)
[2021-11-06] MEDS: ATORVASTATIN 40 MG TAB PO SCH (21:05)
[2021-11-07] VITALS: BP 106/47
[2021-11-07 04:00] VITALS: BP 130/75
[2021-11-07] MEDS: INSULIN LISPRO 100 UNIT/1 ML 3ML VIAL SQ SCH ×2 (07:30→11:30)
[2021-11-07] MEDS: ONDANSETRON HCL INJ 2MG/ML 2ML 2 MG/ML VIAL IV PRN (08:10)
[2021-11-07 08:21] VITALS: BP 118/52
[2021-11-07] MEDS: BACILLUS COAGULANS PO SCH (09:00)
[2021-11-07] MEDS ORDERED: B&O 60MG R/S 60 MG SUPP PR ONE (10:35)
[2021-11-07] MEDS ORDERED: IOPAMIDOL 610MG/1ML 300 MG/ML VIAL IV ONE (10:35)
[2021-11-07] MEDS ORDERED: PHENAZOPYRIDINE HCL 100 MG TAB PO PRN (11:00)
[2021-11-07] MEDS: ASPIRIN 81 MG CHEW TAB PO SCH (12:01)
[2021-11-07] MEDS: CLOPIDOGREL BISULFATE 75 MG TAB PO SCH (12:03)
[2021-11-07] MEDS: AMLODIPINE BESYLATE 5 MG TAB PO SCH (12:03)
[2021-11-07] MEDS: METOPROLOL SUCCINATE 25 MG TAB XL PO SCH (12:03)
[2021-11-07] MEDS: ISOSORBIDE MONONITRATE 30 MG TAB CR PO SCH (12:03)
[2021-11-07 13:09] VITALS: BP 144/72
[2021-11-07] MEDS ORDERED: DEXAMETHASONE SOD PHOS INJ 4 MG/ML SDV ONE (13:31)
[2021-11-07] MEDS ORDERED: ONDANSETRON HCL INJ 2MG/ML 2ML 2 MG/ML VIAL ONE (13:31)
[2021-11-07] MEDS ORDERED: PROPOFOL IV EMULSION 10 MG/ML 20 ML VIAL ONE (13:31)
[2021-11-07] MEDS ORDERED: POVIDONE IODINE 0.05% 0.05 % ML PO ONE (13:31)
[2021-11-07] MEDS ORDERED: SEVOFLURANE INHAL SOLN 250 ML PEN BTL ONE (13:31)
[2021-11-07] MEDS ORDERED: LIDOCAINE HCL 2% LOCAL INJ 5 ML SDV VIAL INJ ONE (13:31)
[2021-11-07] MEDS ORDERED: ONDANSETRON HCL 4 MG ORAL DISINTEGRATING TAB PO PRN (14:45)
== END 2021-11-07 15:15 | disposition home or self-care (01) | DRG 690 ==
LOC: ER 15:10 → ERHOLD 18:01 → MED/SURG 11-04 08:10
PROVIDERS: ADMIT Family Medicine; ATTEND Family Medicine
PROC: 3E1M39Z Irrigation of Peritoneal Cavity using Dialysate, Percutaneous Approach (ICD-10-PCS; 2021-11-04)
PROC: BT141ZZ Fluoroscopy of Kidneys, Ureters and Bladder using Low Osmolar Contrast (ICD-10-PCS; principal; 2021-11-07 10:38)
DX: N13.6 Pyonephrosis (principal); I12.0 Hypertensive chronic kidney disease with stage 5 chronic kidney disease or end stage renal disease; K66.8 Other specified disorders of peritoneum; N18.6 End stage renal disease; E83.51 Hypocalcemia; E11.319 Type 2 diabetes mellitus with unspecified diabetic retinopathy without macular edema; E11.22 Type 2 diabetes mellitus with diabetic chronic kidney disease; E11.42 Type 2 diabetes mellitus with diabetic polyneuropathy; D64.9 Anemia, unspecified; N40.0 Benign prostatic hyperplasia without lower urinary tract symptoms; K80.80 Other cholelithiasis without obstruction; I25.10 Atherosclerotic heart disease of native coronary artery without angina pectoris; E78.5 Hyperlipidemia, unspecified; I25.2 Old myocardial infarction; Z89.511 Acquired absence of right leg below knee; Z87.442 Personal history of urinary calculi; Z95.5 Presence of coronary angioplasty implant and graft; Z88.5 Allergy status to narcotic agent; Z88.0 Allergy status to penicillin; Z91.013 Allergy to seafood; Z82.49 Family history of ischemic heart disease and other diseases of the circulatory system; Z90.49 Acquired absence of other specified parts of digestive tract; Z99.2 Dependence on renal dialysis; Z86.73 Personal history of transient ischemic attack (TIA), and cerebral infarction without residual deficits; Z77.098 Contact with and (suspected) exposure to other hazardous, chiefly nonmedicinal, chemicals; E66.9 Obesity, unspecified; Z68.32 Body mass index [BMI] 32.0-32.9, adult; Z79.82 Long term (current) use of aspirin; Z79.4 Long term (current) use of insulin; Z20.822 Contact with and (suspected) exposure to COVID-19; Y82.8 Other medical devices associated with adverse incidents
CPT/HCPCS: 36415; 71045; 74176; 74420; 80053; 80307; 81001; 84484; 85025; 85610; 85730; 87071; 87075; 87086; 87205; 93005; 99284; C1758; C1769; J0610; J0692; J1100; J1815; J2001; J2270; J2405; J2543; J3370; J3480; J7050; U0002

== ENCOUNTER 2022-04-15 18:11 | Inpatient (IN) | payer MEDICARE ==
[~2022-04-15] VITALS: Ht 170.2 cm; Wt 94.3 kg
[~2022-04-15 18:11] MED LIST changes: +LEVEMIR FL100 UNIT/1 SC
[2022-04-15] MEDS ORDERED: ONDANSETRON HCL INJ 2MG/ML 2ML 2 MG/ML VIAL IV STA (18:20)
[2022-04-15] MEDS ORDERED: Morphine 4mg INJECTION 4 MG/ML INJ IV ONE (18:30)
[2022-04-15 18:35] LABS: BASOPHILS % 0.3 % (0.0-1.0); EOSINOPHILS % 0.2 % (0.0-6.0); HEMATOCRIT 34.5 % (38.2-49.6); LYMPHOCYTES # (AUTO) 0.8 (1.0-3.2); LYMPHOCYTES % 6.2 % (18.0-39.1); MEAN CORPUSCULAR HEMOGLOBIN 32.1 pg (28-32); MEAN CORPUSCULAR HGB CONC 31.9 g/dL (31-35); MEAN CORPUSCULAR VOLUME 100.6 fL (81-99); MONOCYTES # (AUTO) 0.7 (0.2-0.8); MONOCYTES % 5.5 % (4.4-11.3); NEUTROPHILS # (AUTO) 11.2 (2.1-6.9); NEUTROPHILS % 87.1 % (38.7-80.0); PLATELET COUNT 212 x10e3/uL (140-360); RED BLOOD COUNT 3.43 x10e6/uL (4.3-5.7); RED CELL DISTRIBUTION WIDTH 13.2 % (11.7-14.4)
[2022-04-15 18:43] LABS: CLARITY,URINE CLOUDY (CLEAR); COLOR,URINE BROWN (YELLOW)
[2022-04-15 18:44] LABS: KETONES,URINE TRACE (NEGATIVE); LEUKOCYTE ESTERASE ,URINE SMALL (NEGATIVE); NITRITE,URINE NEGATIVE (NEGATIVE); PROTEIN,URINE DIPSTICK >=300 (NEGATIVE); URINE UROBILINOGEN 0.2 mg/dL (0.2 - 1)
[2022-04-15 18:54] LABS: ALBUMIN 2.6 g/dL (3.5-5.0); ALBUMIN/GLOBULIN RATIO 0.6 (0.8-2.0); ANION GAP 16.2 mmol/L (8-16); CALCIUM 8.2 mg/dL (8.4-10.2); CREATININE, SERUM 3.55 mg/dL (0.72-1.25); POTASSIUM 3.2 mmol/L (3.5-5.1)
[2022-04-15 18:59] LABS: BACTERIA,URINE RARE /HPF
[2022-04-15] MEDS: Morphine 4mg INJECTION 4 MG/ML INJ IV PRN (20:14)
[2022-04-15] MEDS: ONDANSETRON HCL INJ 2MG/ML 2ML 2 MG/ML VIAL IV PRN (20:14)
[2022-04-15] MEDS: SODIUM CHLORIDE FLUSH 10 ML SYR INJ PRN (20:14)
[2022-04-15] MEDS ORDERED: ACETAMINOPHEN 325 MG TAB PO ONE (23:15)
[2022-04-15] MEDS ORDERED: SODIUM CHLORIDE 0.9% 1000ML 1,000 ML IV ONE (23:30)
[2022-04-15] MEDS ORDERED: ACETAMINOPHEN 325 MG TAB ONE (23:31)
[2022-04-15] MEDS ORDERED: ACETAMINOPHEN 1000 MG/100 ML IV STA (23:36)
[2022-04-15] MEDS ORDERED: SODIUM CHLORIDE 0.9% 1000ML 1,000 ML ONE (23:38)
[2022-04-15] MEDS ORDERED: ACETAMINOPHEN 1000 MG/100 ML 100 ML IV ONE (23:52)
[2022-04-16] VITALS (7 sets, daily range): BP systolic 104–130; BP diastolic 47–68
[2022-04-16 00:12] LABS: CREATINE KINASE MB 9.5 ng/mL (0-5.0)
[2022-04-16] MEDS: MAGNESIUM SULFATE 2GM/50ML 50 ML IV ONE ×2 (01:56→05:31)
[2022-04-16] MEDS ORDERED: SODIUM CHLORIDE 0.9% 1000ML 1,000 ML IV ONE ×2 (03:00→03:15)
[2022-04-16] MEDS ORDERED: SODIUM CHLORIDE 0.9% 1000ML 1,000 ML ONE (03:18)
[2022-04-16] MEDS: Morphine 4mg INJECTION 4 MG/ML INJ IV PRN (03:47)
[2022-04-16] MEDS: NOREPINEPHRINE 8 MG/D5W 250 ML 250 ML IV SCH ×2 (05:15→23:49)
[2022-04-16] MEDS ORDERED: MIDODRINE 2.5 MG TAB PO ONE (05:45)
[2022-04-16] MEDS ORDERED: Vancomycin IV 1 GM in SODIUM CHLORIDE 0.9% 250ML 250 ML IV ONE (05:45)
[2022-04-16 07:03] LABS: ALBUMIN/GLOBULIN RATIO 0.6 (0.8-2.0); ANION GAP 20.6 mmol/L (8-16); CALCIUM 7.5 mg/dL (8.4-10.2); CREATININE, SERUM 4.22 mg/dL (0.72-1.25); POTASSIUM 3.6 mmol/L (3.5-5.1)
[2022-04-16] MEDS ORDERED: ONDANSETRON HCL INJ 2MG/ML 2ML 2 MG/ML VIAL IV PRN (07:30)
[2022-04-16] MEDS ORDERED: ACETAMINOPHEN 325 MG TAB PO PRN (07:30)
[2022-04-16] MEDS ORDERED: DEXTROSE 50% SYRINGE 50 ML IV PRN (07:45)
[2022-04-16 07:55] LABS: CREATINE KINASE MB 28.4 ng/mL (0-5.0)
[2022-04-16] MEDS: CLOPIDOGREL BISULFATE 75 MG TAB PO SCH (09:00)
[2022-04-16] MEDS: INSULIN REGULAR, HUMAN 100 UNIT/1 ML SQ SCH ×3 (11:30→22:06)
[2022-04-16] MEDS ORDERED: ALBUMIN 25% 25GM 100ML 0.25 GM/ML BTL IV ONE (13:00)
[2022-04-16] MEDS ORDERED: ALBUMIN 25% 12.5GM 50ML 100 ML IV ONE (15:31)
[2022-04-16] MEDS ORDERED: MAGNESIUM SULFATE 2GM/50ML 50 ML IV ONE ×2 (17:32→17:45)
[2022-04-16 18:36] LABS: BASOPHILS # (AUTO) 0.1 (0.0-0.1); BASOPHILS % 0.3 % (0.0-1.0); HEMATOCRIT 36.3 % (38.2-49.6); LYMPHOCYTES # (AUTO) 0.6 (1.0-3.2); LYMPHOCYTES % 1.8 % (18.0-39.1); MEAN CORPUSCULAR HEMOGLOBIN 31.9 pg (28-32); MEAN CORPUSCULAR HGB CONC 30.3 g/dL (31-35); MEAN CORPUSCULAR VOLUME 105.2 fL (81-99); MONOCYTES # (AUTO) 3.2 (0.2-0.8); MONOCYTES % 10.5 % (4.4-11.3); NEUTROPHILS # (AUTO) 25.4 (2.1-6.9); NEUTROPHILS % 83.2 % (38.7-80.0); PLATELET COUNT 82 x10e3/uL (140-360); RED BLOOD COUNT 3.45 x10e6/uL (4.3-5.7); RED CELL DISTRIBUTION WIDTH 14.1 % (11.7-14.4)
[2022-04-16 19:18] LABS: AMYLASE 30 U/L (25-125); LIPASE 5 U/L (8-78)
[2022-04-16 19:43] LABS: LYMPHOCYTES % (MANUAL) 5 % (19-48); METAMYELOCYTES % (MANUAL) 1 % (0-0); MONOCYTES % (MANUAL) 5 % (3.4-9.0); NEUTROPHILS % (MANUAL) 89 % (40-74)
[2022-04-16 19:44] LABS: PLATELET ESTIMATE SLIGHTLY DECREASED; PLATELET MORPHOLOGY COMMENT NORMAL; RBC MORPHOLOGY COMMENT NORMAL
[2022-04-16] MEDS: ATORVASTATIN 20 MG TAB PO SCH (21:59)
[2022-04-16] MEDS: INSULIN GLARGINE 100 UNITS/ML VIAL SQ SCH (22:06)
[2022-04-17] VITALS (78 sets, daily range): BP systolic 72–149; BP diastolic 35–126
[2022-04-17 04:56] LABS: BASOPHILS # (AUTO) 0.1 (0.0-0.1); BASOPHILS % 0.3 % (0.0-1.0); EOSINOPHILS % 0.1 % (0.0-6.0); HEMATOCRIT 33.8 % (38.2-49.6); HEMOGLOBIN 10.3 g/dL (14.0-18.0); LYMPHOCYTES # (AUTO) 0.8 (1.0-3.2); LYMPHOCYTES % 3.5 % (18.0-39.1); MEAN CORPUSCULAR HEMOGLOBIN 31.9 pg (28-32); MEAN CORPUSCULAR HGB CONC 30.5 g/dL (31-35); MEAN CORPUSCULAR VOLUME 104.6 fL (81-99); MONOCYTES # (AUTO) 1.7 (0.2-0.8); MONOCYTES % 7.5 % (4.4-11.3); NEUTROPHILS # (AUTO) 18.5 (2.1-6.9); NEUTROPHILS % 80.7 % (38.7-80.0); PLATELET COUNT 74 x10e3/uL (140-360); RED BLOOD COUNT 3.23 x10e6/uL (4.3-5.7); RED CELL DISTRIBUTION WIDTH 14.1 % (11.7-14.4)
[2022-04-17 05:18] LABS: ALBUMIN 2.2 g/dL (3.5-5.0); ALBUMIN/GLOBULIN RATIO 0.6 (0.8-2.0); ANION GAP 21.6 mmol/L (8-16); CALCIUM 7.1 mg/dL (8.4-10.2); CREATININE, SERUM 5.23 mg/dL (0.72-1.25); MAGNESIUM 1.5 MG/DL (1.3-2.1); POTASSIUM 3.6 mmol/L (3.5-5.1)
[2022-04-17 05:34] LABS: BAND NEUTROPHILS % (MANUAL) 12 %; LYMPHOCYTES % (MANUAL) 4 % (19-48); METAMYELOCYTES % (MANUAL) 4 % (0-0); MYELOCYTES % (MANUAL) 2 % (0-0); NEUTROPHILS % (MANUAL) 78 % (40-74)
[2022-04-17 05:35] LABS: PLATELET ESTIMATE MODERATELY DECREASED; PLATELET MORPHOLOGY COMMENT NORMAL; RBC MORPHOLOGY COMMENT ABNORMAL
[2022-04-17] MEDS: NOREPINEPHRINE 8 MG/D5W 250 ML 250 ML IV SCH ×2 (06:28→15:28)
[2022-04-17] MEDS: CLOPIDOGREL BISULFATE 75 MG TAB PO SCH (07:57)
[2022-04-17] MEDS: INSULIN REGULAR, HUMAN 100 UNIT/1 ML SQ SCH ×4 (07:58→20:16)
[2022-04-17] MEDS: Morphine 2mg Syringe 2 MG/ML SYR IV PRN ×2 (07:59→14:58)
[2022-04-17] MEDS: ONDANSETRON HCL INJ 2MG/ML 2ML 2 MG/ML VIAL IV PRN ×2 (08:07→14:58)
[2022-04-17] MEDS ORDERED: ALBUMIN 25% 25GM 100ML 0.25 GM/ML BTL IV ONE (08:15)
[2022-04-17] MEDS ORDERED: VASOPRESSIN 60 UNIT in DEXTROSE 5% 50ML 57 ML IV PRN (10:00)
[2022-04-17 14:42] LABS: BODY FLUID APPEARANCE CLEAR; BODY FLUID COLOR YELLOW; BODY FLUID TYPE PERITONEAL; RBC,BODY FLUID < 2000 cells/uL; WBC,BODY FLUID 75 cells/uL
[2022-04-17 15:58] LABS: EOSINOPHILS,BODY FLUID 1 %; LYMPHOCYTES,BODY FLUID 65 %; MONO/MACROPHG,BODY FLUID 12 %; NEUTROPHILS,BODY FLUID 22 %
[2022-04-17 18:30] LABS: BASOPHILS # (AUTO) 0.1 (0.0-0.1); BASOPHILS % 0.4 % (0.0-1.0); EOSINOPHILS # (AUTO) 0.1 (0.0-0.4); EOSINOPHILS % 0.7 % (0.0-6.0); HEMATOCRIT 30.2 % (38.2-49.6); HEMOGLOBIN 9.4 g/dL (14.0-18.0); LYMPHOCYTES # (AUTO) 0.9 (1.0-3.2); LYMPHOCYTES % 5.4 % (18.0-39.1); MEAN CORPUSCULAR HEMOGLOBIN 31.4 pg (28-32); MEAN CORPUSCULAR HGB CONC 31.1 g/dL (31-35); MONOCYTES # (AUTO) 0.8 (0.2-0.8); MONOCYTES % 4.7 % (4.4-11.3); NEUTROPHILS # (AUTO) 12.3 (2.1-6.9); NEUTROPHILS % 74.2 % (38.7-80.0); PLATELET COUNT 51 x10e3/uL (140-360); RED BLOOD COUNT 2.99 x10e6/uL (4.3-5.7); RED CELL DISTRIBUTION WIDTH 13.8 % (11.7-14.4)
[2022-04-17 18:48] LABS: ALBUMIN 2.2 g/dL (3.5-5.0); ALBUMIN/GLOBULIN RATIO 0.6 (0.8-2.0); ANION GAP 16.3 mmol/L (8-16); POTASSIUM 3.3 mmol/L (3.5-5.1)
[2022-04-17 18:50] LABS: CALCIUM 6.9 mg/dL (8.4-10.2)
[2022-04-17] MEDS: ATORVASTATIN 20 MG TAB PO SCH (20:16)
[2022-04-17] MEDS: INSULIN GLARGINE 100 UNITS/ML VIAL SQ SCH (20:17)
[2022-04-18] VITALS (54 sets, daily range): BP systolic 63–135; BP diastolic 21–99
[2022-04-18] MEDS ORDERED: METOCLOPRAMIDE HCL 10 MG/2ML VIAL IV ONE (01:00)
[2022-04-18] MEDS: Morphine 2mg Syringe 2 MG/ML SYR IV PRN ×3 (02:08→23:29)
[2022-04-18] MEDS: ONDANSETRON HCL INJ 2MG/ML 2ML 2 MG/ML VIAL IV PRN ×3 (02:09→23:29)
[2022-04-18] MEDS: ZOLPIDEM TARTRATE 5 MG TAB PO PRN (02:50)
[2022-04-18] MEDS: NOREPINEPHRINE 8 MG/D5W 250 ML 250 ML IV SCH (04:00)
[2022-04-18] MEDS: METOCLOPRAMIDE HCL 10 MG/2ML VIAL IV SCH ×4 (05:56→23:20)
[2022-04-18 06:40] LABS: BASOPHILS # (AUTO) 0.1 (0.0-0.1); BASOPHILS % 0.4 % (0.0-1.0); EOSINOPHILS # (AUTO) 0.2 (0.0-0.4); EOSINOPHILS % 0.9 % (0.0-6.0); HEMATOCRIT 29.8 % (38.2-49.6); HEMOGLOBIN 9.5 g/dL (14.0-18.0); LYMPHOCYTES # (AUTO) 0.9 (1.0-3.2); LYMPHOCYTES % 5.3 % (18.0-39.1); MEAN CORPUSCULAR HEMOGLOBIN 31.7 pg (28-32); MEAN CORPUSCULAR HGB CONC 31.9 g/dL (31-35); MEAN CORPUSCULAR VOLUME 99.3 fL (81-99); MONOCYTES # (AUTO) 0.7 (0.2-0.8); MONOCYTES % 4.3 % (4.4-11.3); NEUTROPHILS # (AUTO) 14.1 (2.1-6.9); NEUTROPHILS % 87.9 % (38.7-80.0); RED CELL DISTRIBUTION WIDTH 13.4 % (11.7-14.4)
[2022-04-18 06:43] LABS: PLATELET COUNT 46 x10e3/uL (140-360)
[2022-04-18 07:14] LABS: ALBUMIN/GLOBULIN RATIO 0.6 (0.8-2.0); CREATININE, SERUM 4.96 mg/dL (0.72-1.25)
[2022-04-18 07:16] LABS: CALCIUM 6.9 mg/dL (8.4-10.2)
[2022-04-18] MEDS: INSULIN REGULAR, HUMAN 100 UNIT/1 ML SQ SCH ×4 (08:09→21:00)
[2022-04-18] MEDS: CLOPIDOGREL BISULFATE 75 MG TAB PO SCH (08:10)
[2022-04-18 09:05] LABS: LYMPHOCYTES % (MANUAL) 2 % (19-48); MONOCYTES % (MANUAL) 11 % (3.4-9.0); NEUTROPHILS % (MANUAL) 87 % (40-74); PLATELET ESTIMATE MODERATELY DECREASED; PLATELET MORPHOLOGY COMMENT NORMAL; RBC MORPHOLOGY COMMENT NORMAL
[2022-04-18 11:20] LABS: INR 1.05; PROTHROMBIN TIME 14.6 seconds (11.9-14.5)
[2022-04-18 11:21] LABS: PARTIAL THROMBOPLASTIN TIME 37.4 seconds (23.8-35.5)
[2022-04-18] MEDS ORDERED: POTASSIUM CHLORIDE 20 MEQ TAB CR PO ONE (11:30)
[2022-04-18] MEDS: FLUDROCORTISONE ACETATE 0.1 MG TAB PO SCH (11:36)
[2022-04-18] MEDS: MIDODRINE HCL 5 MG TABLET PO SCH ×2 (11:37→16:26)
[2022-04-18] MEDS: INSULIN GLARGINE 100 UNITS/ML VIAL SQ SCH (21:00)
[2022-04-18] MEDS: ATORVASTATIN 20 MG TAB PO SCH (21:13)
[2022-04-19] VITALS (49 sets, daily range): BP systolic 63–135; BP diastolic 36–92
[2022-04-19] MEDS: NOREPINEPHRINE 8 MG/D5W 250 ML 250 ML IV SCH (05:00)
[2022-04-19] MEDS: METOCLOPRAMIDE HCL 10 MG/2ML VIAL IV SCH ×2 (05:37→12:24)
[2022-04-19] MEDS: ONDANSETRON HCL INJ 2MG/ML 2ML 2 MG/ML VIAL IV PRN ×2 (05:37→12:41)
[2022-04-19] MEDS: Morphine 2mg Syringe 2 MG/ML SYR IV PRN ×2 (05:38→20:03)
[2022-04-19 06:46] LABS: BASOPHILS # (AUTO) 0.1 (0.0-0.1); BASOPHILS % 0.4 % (0.0-1.0); EOSINOPHILS # (AUTO) 0.3 (0.0-0.4); EOSINOPHILS % 1.7 % (0.0-6.0); HEMOGLOBIN 9.2 g/dL (14.0-18.0); LYMPHOCYTES # (AUTO) 1.4 (1.0-3.2); LYMPHOCYTES % 8.3 % (18.0-39.1); MEAN CORPUSCULAR HEMOGLOBIN 31.4 pg (28-32); MEAN CORPUSCULAR HGB CONC 31.7 g/dL (31-35); MONOCYTES # (AUTO) 1.2 (0.2-0.8); MONOCYTES % 7.3 % (4.4-11.3); NEUTROPHILS # (AUTO) 13.5 (2.1-6.9); NEUTROPHILS % 81.3 % (38.7-80.0); RED BLOOD COUNT 2.93 x10e6/uL (4.3-5.7); RED CELL DISTRIBUTION WIDTH 13.3 % (11.7-14.4)
[2022-04-19 06:54] LABS: PLATELET COUNT 44 x10e3/uL (140-360)
[2022-04-19 07:11] LABS: ALBUMIN 2.1 g/dL (3.5-5.0); ALBUMIN/GLOBULIN RATIO 0.6 (0.8-2.0); ANION GAP 16.3 mmol/L (8-16); CALCIUM 7.3 mg/dL (8.4-10.2); CREATININE, SERUM 5.26 mg/dL (0.72-1.25); POTASSIUM 3.3 mmol/L (3.5-5.1)
[2022-04-19] MEDS: INSULIN REGULAR, HUMAN 100 UNIT/1 ML SQ SCH ×4 (08:27→21:45)
[2022-04-19] MEDS: MIDODRINE HCL 5 MG TABLET PO SCH ×3 (08:27→17:15)
[2022-04-19] MEDS: FLUDROCORTISONE ACETATE 0.1 MG TAB PO SCH (11:02)
[2022-04-19] MEDS ORDERED: POTASSIUM CHLORIDE 20 MEQ TAB CR PO ONE (11:30)
[2022-04-19] MEDS ORDERED: POTASSIUM CHLORIDE 20MEQ/100ML 100 ML IV ONE ×2 (13:00→16:15)
[2022-04-19] MEDS: NYSTATIN SUSPENSION 5 ML UDC PO SCH ×2 (14:00→21:52)
[2022-04-19] MEDS: PHENAZOPYRIDINE HCL 100 MG TAB PO SCH (18:39)
[2022-04-19] MEDS: ATORVASTATIN 40 MG TAB PO SCH (21:42)
[2022-04-19] MEDS: INSULIN GLARGINE 100 UNITS/ML VIAL SQ SCH (21:47)
[2022-04-20] VITALS (57 sets, daily range): BP systolic 77–157; BP diastolic 20–130
[2022-04-20] MEDS: PHENAZOPYRIDINE HCL 100 MG TAB PO SCH ×3 (02:58→17:06)
[2022-04-20] MEDS: NOREPINEPHRINE 8 MG/D5W 250 ML 250 ML IV SCH (05:00)
[2022-04-20] MEDS: INSULIN REGULAR, HUMAN 100 UNIT/1 ML SQ SCH ×4 (07:30→21:29)
[2022-04-20] MEDS: FLUDROCORTISONE ACETATE 0.1 MG TAB PO SCH (09:44)
[2022-04-20] MEDS: MIDODRINE HCL 5 MG TABLET PO SCH ×3 (09:44→16:00)
[2022-04-20] MEDS: NYSTATIN SUSPENSION 5 ML UDC PO SCH ×2 (13:02→22:08)
[2022-04-20] MEDS ORDERED: LACTULOSE SYRUP 20 GM/30 ML UDC PO PRN (14:30)
[2022-04-20] MEDS ORDERED: EPOETIN ALFA-EPBX 10,000 UNIT/ML VIAL SC SCH (14:30)
[2022-04-20] MEDS: Morphine 2mg Syringe 2 MG/ML SYR IV PRN (19:53)
[2022-04-20] MEDS: ONDANSETRON HCL INJ 2MG/ML 2ML 2 MG/ML VIAL IV PRN (19:57)
[2022-04-20] MEDS: DOCUSATE SODIUM 100 MG CAP PO SCH (21:08)
[2022-04-20] MEDS: ATORVASTATIN 40 MG TAB PO SCH (21:09)
[2022-04-20] MEDS: INSULIN GLARGINE 100 UNITS/ML VIAL SQ SCH (21:30)
[2022-04-20] MEDS: ZOLPIDEM TARTRATE 5 MG TAB PO PRN (22:47)
[2022-04-21] VITALS (24 sets, daily range): BP systolic 105–148; BP diastolic 46–76
[2022-04-21] MEDS: PHENAZOPYRIDINE HCL 100 MG TAB PO SCH ×3 (01:54→17:30)
[2022-04-21] MEDS: NOREPINEPHRINE 8 MG/D5W 250 ML 250 ML IV SCH (05:00)
[2022-04-21] MEDS: NYSTATIN SUSPENSION 5 ML UDC PO SCH ×3 (06:00→21:29)
[2022-04-21 06:27] LABS: BASOPHILS # (AUTO) 0.1 (0.0-0.1); BASOPHILS % 0.7 % (0.0-1.0); EOSINOPHILS # (AUTO) 0.3 (0.0-0.4); EOSINOPHILS % 3.6 % (0.0-6.0); HEMATOCRIT 26.7 % (38.2-49.6); HEMOGLOBIN 8.9 g/dL (14.0-18.0); LYMPHOCYTES # (AUTO) 1.6 (1.0-3.2); LYMPHOCYTES % 18.5 % (18.0-39.1); MEAN CORPUSCULAR HEMOGLOBIN 31.6 pg (28-32); MEAN CORPUSCULAR HGB CONC 33.3 g/dL (31-35); MEAN CORPUSCULAR VOLUME 94.7 fL (81-99); MONOCYTES # (AUTO) 1.1 (0.2-0.8); MONOCYTES % 12.7 % (4.4-11.3); NEUTROPHILS # (AUTO) 5.3 (2.1-6.9); NEUTROPHILS % 62.8 % (38.7-80.0); RED BLOOD COUNT 2.82 x10e6/uL (4.3-5.7); RED CELL DISTRIBUTION WIDTH 13.8 % (11.7-14.4)
[2022-04-21 06:38] LABS: PLATELET COUNT 46 x10e3/uL (140-360)
[2022-04-21 06:41] LABS: ALBUMIN/GLOBULIN RATIO 0.6 (0.8-2.0); ANION GAP 12.2 mmol/L (8-16); CALCIUM 7.7 mg/dL (8.4-10.2); CREATININE, SERUM 5.31 mg/dL (0.72-1.25); POTASSIUM 3.2 mmol/L (3.5-5.1)
[2022-04-21] MEDS: INSULIN REGULAR, HUMAN 100 UNIT/1 ML SQ SCH ×4 (07:16→21:00)
[2022-04-21] MEDS ORDERED: CALCIUM GLUC 1 G/50 ML NACL 50 ML IV ONE (08:00)
[2022-04-21] MEDS ORDERED: POTASSIUM CHLORIDE 20 MEQ TAB CR PO ONE (08:00)
[2022-04-21] MEDS: FLUDROCORTISONE ACETATE 0.1 MG TAB PO SCH (08:11)
[2022-04-21] MEDS: MIDODRINE HCL 5 MG TABLET PO SCH ×3 (08:11→16:00)
[2022-04-21] MEDS: POTASSIUM CHLORIDE 10MEQ EA PO SCH (08:13)
[2022-04-21] MEDS: ONDANSETRON HCL INJ 2MG/ML 2ML 2 MG/ML VIAL IV PRN ×3 (14:25→23:23)
[2022-04-21] MEDS: Morphine 2mg Syringe 2 MG/ML SYR IV PRN ×3 (14:26→23:24)
[2022-04-21] MEDS: DOCUSATE SODIUM 100 MG CAP PO SCH (20:54)
[2022-04-21] MEDS: ATORVASTATIN 40 MG TAB PO SCH (20:54)
[2022-04-21] MEDS: INSULIN GLARGINE 100 UNITS/ML VIAL SQ SCH (21:00)
[2022-04-22] VITALS (24 sets, daily range): BP systolic 99–151; BP diastolic 50–74
[2022-04-22] MEDS: PHENAZOPYRIDINE HCL 100 MG TAB PO SCH ×3 (02:00→16:48)
[2022-04-22] MEDS: ONDANSETRON HCL INJ 2MG/ML 2ML 2 MG/ML VIAL IV PRN (03:32)
[2022-04-22] MEDS: Morphine 2mg Syringe 2 MG/ML SYR IV PRN (03:33)
[2022-04-22] MEDS: NOREPINEPHRINE 8 MG/D5W 250 ML 250 ML IV SCH (05:00)
[2022-04-22 05:31] LABS: ANION GAP 11.9 mmol/L (8-16); CALCIUM 7.7 mg/dL (8.4-10.2); CREATININE, SERUM 5.14 mg/dL (0.72-1.25); PHOSPHORUS 3.7 MG/DL (2.3-4.7)
[2022-04-22 05:45] LABS: POTASSIUM 2.9 mmol/L (3.5-5.1)
[2022-04-22] MEDS: NYSTATIN SUSPENSION 5 ML UDC PO SCH ×3 (06:12→21:37)
[2022-04-22] MEDS: INSULIN REGULAR, HUMAN 100 UNIT/1 ML SQ SCH ×4 (07:30→21:39)
[2022-04-22] MEDS: ASPIRIN 81 MG ENTERIC COATED PO SCH (08:08)
[2022-04-22] MEDS: POTASSIUM CHLORIDE 10MEQ EA PO SCH (08:08)
[2022-04-22] MEDS: MIDODRINE HCL 5 MG TABLET PO SCH ×3 (08:08→16:43)
[2022-04-22] MEDS: FLUDROCORTISONE ACETATE 0.1 MG TAB PO SCH (08:08)
[2022-04-22] MEDS ORDERED: POTASSIUM CHLORIDE 20 MEQ TAB CR PO ONE ×2 (09:30→10:45)
[2022-04-22] MEDS: DOCUSATE SODIUM 100 MG CAP PO SCH (21:37)
[2022-04-22] MEDS: ATORVASTATIN 40 MG TAB PO SCH (21:37)
[2022-04-22] MEDS: TEMAZEPAM 7.5 MG CAP PO PRN (21:37)
[2022-04-22] MEDS: INSULIN GLARGINE 100 UNITS/ML VIAL SQ SCH (21:40)
[2022-04-23] VITALS (13 sets, daily range): BP systolic 102–143; BP diastolic 55–68
[2022-04-23] MEDS: PHENAZOPYRIDINE HCL 100 MG TAB PO SCH ×3 (02:02→16:29)
[2022-04-23] MEDS: ONDANSETRON HCL INJ 2MG/ML 2ML 2 MG/ML VIAL IV PRN ×2 (05:25→12:10)
[2022-04-23] MEDS: Morphine 2mg Syringe 2 MG/ML SYR IV PRN ×2 (05:26→12:10)
[2022-04-23] MEDS: NYSTATIN SUSPENSION 5 ML UDC PO SCH ×3 (06:00→21:32)
[2022-04-23 07:17] LABS: BASOPHILS % 0.3 % (0.0-1.0); EOSINOPHILS # (AUTO) 0.2 (0.0-0.4); EOSINOPHILS % 2.1 % (0.0-6.0); HEMATOCRIT 26.9 % (38.2-49.6); HEMOGLOBIN 8.4 g/dL (14.0-18.0); LYMPHOCYTES # (AUTO) 1.1 (1.0-3.2); LYMPHOCYTES % 12.6 % (18.0-39.1); MEAN CORPUSCULAR HGB CONC 31.2 g/dL (31-35); MEAN CORPUSCULAR VOLUME 99.3 fL (81-99); MONOCYTES # (AUTO) 0.8 (0.2-0.8); MONOCYTES % 9.2 % (4.4-11.3); NEUTROPHILS # (AUTO) 6.5 (2.1-6.9); NEUTROPHILS % 73.1 % (38.7-80.0); PLATELET COUNT 76 x10e3/uL (140-360); RED BLOOD COUNT 2.71 x10e6/uL (4.3-5.7); RED CELL DISTRIBUTION WIDTH 13.6 % (11.7-14.4)
[2022-04-23] MEDS: INSULIN REGULAR, HUMAN 100 UNIT/1 ML SQ SCH ×4 (07:19→21:00)
[2022-04-23 07:46] LABS: ALBUMIN/GLOBULIN RATIO 0.6 (0.8-2.0); ANION GAP 13.3 mmol/L (8-16); CALCIUM 7.5 mg/dL (8.4-10.2); CREATININE, SERUM 5.1 mg/dL (0.72-1.25); POTASSIUM 3.3 mmol/L (3.5-5.1)
[2022-04-23] MEDS: MIDODRINE HCL 5 MG TABLET PO SCH ×3 (08:09→16:28)
[2022-04-23] MEDS: POTASSIUM CHLORIDE 10MEQ EA PO SCH (08:09)
[2022-04-23] MEDS: FLUDROCORTISONE ACETATE 0.1 MG TAB PO SCH (08:09)
[2022-04-23] MEDS: ASPIRIN 81 MG ENTERIC COATED PO SCH (08:09)
[2022-04-23] MEDS ORDERED: POTASSIUM CHLORIDE 20 MEQ TAB CR PO ONE (14:30)
[2022-04-23] MEDS: DOCUSATE SODIUM 100 MG CAP PO SCH (21:00)
[2022-04-23] MEDS: ATORVASTATIN 40 MG TAB PO SCH (21:32)
[2022-04-23] MEDS: TEMAZEPAM 7.5 MG CAP PO PRN (21:33)
[2022-04-23] MEDS ORDERED: SODIUM CHLORIDE 0.9% 250ML 250 ML ONE (21:37)
[2022-04-23] MEDS: INSULIN GLARGINE 100 UNITS/ML VIAL SQ SCH (21:56)
[2022-04-24] VITALS (7 sets, daily range): BP systolic 114–166; BP diastolic 59–71
[2022-04-24] MEDS: PHENAZOPYRIDINE HCL 100 MG TAB PO SCH ×3 (03:00→17:52)
[2022-04-24 05:51] LABS: BASOPHILS % 0.6 % (0.0-1.0); EOSINOPHILS # (AUTO) 0.2 (0.0-0.4); EOSINOPHILS % 3.1 % (0.0-6.0); HEMATOCRIT 25.6 % (38.2-49.6); HEMOGLOBIN 8.4 g/dL (14.0-18.0); LYMPHOCYTES # (AUTO) 1.4 (1.0-3.2); MEAN CORPUSCULAR HEMOGLOBIN 31.5 pg (28-32); MEAN CORPUSCULAR HGB CONC 32.8 g/dL (31-35); MEAN CORPUSCULAR VOLUME 95.9 fL (81-99); MONOCYTES # (AUTO) 0.7 (0.2-0.8); MONOCYTES % 10.3 % (4.4-11.3); NEUTROPHILS # (AUTO) 4.7 (2.1-6.9); NEUTROPHILS % 64.6 % (38.7-80.0); PLATELET COUNT 89 x10e3/uL (140-360); RED BLOOD COUNT 2.67 x10e6/uL (4.3-5.7); RED CELL DISTRIBUTION WIDTH 14.2 % (11.7-14.4)
[2022-04-24] MEDS: NYSTATIN SUSPENSION 5 ML UDC PO SCH ×4 (06:18→22:00)
[2022-04-24 06:29] LABS: ANION GAP 14.2 mmol/L (8-16); CALCIUM 7.6 mg/dL (8.4-10.2); CREATININE, SERUM 4.78 mg/dL (0.72-1.25); POTASSIUM 3.2 mmol/L (3.5-5.1)
[2022-04-24] MEDS: INSULIN REGULAR, HUMAN 100 UNIT/1 ML SQ SCH ×4 (07:30→20:29)
[2022-04-24] MEDS: CLOPIDOGREL BISULFATE 75 MG TAB PO SCH (09:34)
[2022-04-24] MEDS: POTASSIUM CHLORIDE 10MEQ EA PO SCH (09:34)
[2022-04-24] MEDS: ASPIRIN 81 MG ENTERIC COATED PO SCH (09:34)
[2022-04-24] MEDS: FLUDROCORTISONE ACETATE 0.1 MG TAB PO SCH (09:34)
[2022-04-24] MEDS: MIDODRINE HCL 5 MG TABLET PO SCH ×3 (09:34→16:00)
[2022-04-24] MEDS ORDERED: TEMAZEPAM 15 MG CAP PO PRN (12:15)
[2022-04-24] MEDS ORDERED: POTASSIUM CHLORIDE 20 MEQ TAB CR PO ONE (12:45)
[2022-04-24] MEDS: ATORVASTATIN 40 MG TAB PO SCH (20:28)
[2022-04-24] MEDS: DOCUSATE SODIUM 100 MG CAP PO SCH ×2 (20:28→21:00)
[2022-04-24] MEDS: INSULIN GLARGINE 100 UNITS/ML VIAL SQ SCH (20:30)
[2022-04-24] MEDS: SODIUM CHLORIDE FLUSH 10 ML SYR INJ PRN (20:34)
[2022-04-25] VITALS: BP 127/67
[2022-04-25] MEDS: PHENAZOPYRIDINE HCL 100 MG TAB PO SCH ×2 (02:21→09:26)
[2022-04-25 04:00] VITALS: BP 125/66
[2022-04-25] MEDS: NYSTATIN SUSPENSION 5 ML UDC PO SCH ×2 (05:37→14:08)
[2022-04-25 05:51] LABS: ANION GAP 14.3 mmol/L (8-16); CALCIUM 7.6 mg/dL (8.4-10.2); CREATININE, SERUM 4.4 mg/dL (0.72-1.25); POTASSIUM 3.3 mmol/L (3.5-5.1)
[2022-04-25] MEDS: INSULIN REGULAR, HUMAN 100 UNIT/1 ML SQ SCH ×2 (07:30→11:30)
[2022-04-25 08:19] VITALS: BP 132/70
[2022-04-25] MEDS: CLOPIDOGREL BISULFATE 75 MG TAB PO SCH (09:25)
[2022-04-25] MEDS: POTASSIUM CHLORIDE 10MEQ EA PO SCH (09:25)
[2022-04-25] MEDS: ASPIRIN 81 MG ENTERIC COATED PO SCH (09:25)
[2022-04-25] MEDS: MIDODRINE HCL 5 MG TABLET PO SCH (09:25)
[2022-04-25 09:29] VITALS: BP 132/70
[2022-04-25] MEDS ORDERED: POTASSIUM CHLORIDE 20 MEQ TAB CR PO ONE (11:15)
[2022-04-25] MEDS ORDERED: MIDODRINE HCL 5 MG TABLET PO SCH (12:00)
[2022-04-25 12:33] VITALS: BP 153/75
[2022-04-25] MEDS ORDERED: KEFLEX125 MG/5 M PO (13:20)
[2022-04-25] MEDS ORDERED: ONDANSETRON HCL 4 MG ORAL DISINTEGRATING TAB PO PRN (14:00)
== END 2022-04-25 15:36 | disposition home or self-care (01) | DRG 871 ==
LOC: ER 18:16 → ERHOLD 20:00 → OBSVTOIN 04-16 05:04 → ICU 04-16 22:23 → MED/SURG 04-23 17:40
PROVIDERS: ADMIT Family Medicine; ATTEND Family Medicine
PROC: 3E043XZ Introduction of Vasopressor into Central Vein, Percutaneous Approach (ICD-10-PCS; 2022-04-16)
PROC: 3E04329 Introduction of Other Anti-infective into Central Vein, Percutaneous Approach (ICD-10-PCS; 2022-04-16)
PROC: 3E1M39Z Irrigation of Peritoneal Cavity using Dialysate, Percutaneous Approach (ICD-10-PCS; principal; 2022-04-17)
DX: A41.59 Other Gram-negative sepsis (principal); I21.A1 Myocardial infarction type 2; N18.6 End stage renal disease; R65.21 Severe sepsis with septic shock; I12.0 Hypertensive chronic kidney disease with stage 5 chronic kidney disease or end stage renal disease; N13.30 Unspecified hydronephrosis; E87.20 Acidosis, unspecified; N13.4 Hydroureter; N39.0 Urinary tract infection, site not specified; A41.9 Sepsis, unspecified organism; E11.22 Type 2 diabetes mellitus with diabetic chronic kidney disease; Z99.2 Dependence on renal dialysis; Z79.4 Long term (current) use of insulin; D64.9 Anemia, unspecified; I25.2 Old myocardial infarction; Z89.511 Acquired absence of right leg below knee; I25.10 Atherosclerotic heart disease of native coronary artery without angina pectoris; Z79.899 Other long term (current) drug therapy; F45.8 Other somatoform disorders; E78.5 Hyperlipidemia, unspecified; E11.69 Type 2 diabetes mellitus with other specified complication; D69.6 Thrombocytopenia, unspecified; B96.4 Proteus (mirabilis) (morganii) as the cause of diseases classified elsewhere; I25.119 Atherosclerotic heart disease of native coronary artery with unspecified angina pectoris; R33.9 Retention of urine, unspecified
CPT/HCPCS: 36415; 36555; 70450; 71045; 74176; 74181; 76700; 80048; 80053; 81001; 82150; 82550; 82553; 82947; 82948; 83605; 83690; 83735; 84100; 84484; 85025; 85379; 85384; 85610; 85730; 87040; 87070; 87086; 87186; 87205; 89051; 93005; 93306; 94799; 96372; 99251; 99284; G0378; J0690; J0696; J1815; J1817; J2185; J2270; J2405; J2765; J3370; J3475; J3480; J7030; J7050; P9047

== ENCOUNTER 2022-09-16 10:42 | Inpatient (IN) | payer MEDICARE ==
[~2022-09-16] VITALS: Ht 170.2 cm; Wt 94.3 kg
[~2022-09-16 10:42] MED LIST changes: +KEFLEX125 MG/5 M PO
[2022-09-16] MEDS ORDERED: ONDANSETRON HCL INJ 2MG/ML 2ML 2 MG/ML VIAL IV PRN (11:15)
[2022-09-16] MEDS ORDERED: IOPAMIDOL 370 MG/ML 100 ML INFUS..BTL INJ ONE (11:35)
[2022-09-16 12:16] LABS: ALBUMIN 1.9 g/dL (3.5-5.0); ALBUMIN/GLOBULIN RATIO 0.4 (0.8-2.0); ANION GAP 16.4 mmol/L (8-16); CALCIUM 7.1 mg/dL (8.4-10.2); CREATININE, SERUM 4.34 mg/dL (0.72-1.25); POTASSIUM 3.4 mmol/L (3.5-5.1)
[2022-09-16 13:04] LABS: CLARITY,URINE CLEAR (CLEAR); COLOR,URINE YELLOW (YELLOW)
[2022-09-16 13:07] LABS: LEUKOCYTE ESTERASE ,URINE NEGATIVE (NEGATIVE); NITRITE,URINE NEGATIVE (NEGATIVE); PROTEIN,URINE DIPSTICK 2+ (NEGATIVE)
[2022-09-16 13:08] LABS: KETONES,URINE TRACE (NEGATIVE); URINE UROBILINOGEN 1 mg/dL (0.2 - 1)
[2022-09-16 13:09] LABS: BACTERIA,URINE FEW /HPF; EPITHELIAL CELLS,URINE FEW /LPF; RBC,URINE 0-5 /HPF (0-5)
[2022-09-16 13:23] LABS: BASOPHILS % 0.3 % (0.0-1.0); EOSINOPHILS # (AUTO) 0.1 (0.0-0.4); EOSINOPHILS % 1.1 % (0.0-6.0); HEMATOCRIT 24.8 % (38.2-49.6); HEMOGLOBIN 8.1 g/dL (14.0-18.0); LYMPHOCYTES # (AUTO) 0.8 (1.0-3.2); LYMPHOCYTES % 8.6 % (18.0-39.1); MEAN CORPUSCULAR HEMOGLOBIN 31.3 pg (28-32); MEAN CORPUSCULAR HGB CONC 32.7 g/dL (31-35); MEAN CORPUSCULAR VOLUME 95.8 fL (81-99); MONOCYTES # (AUTO) 0.6 (0.2-0.8); MONOCYTES % 5.7 % (4.4-11.3); NEUTROPHILS % 83.3 % (38.7-80.0); PLATELET COUNT 194 x10e3/uL (140-360); RED BLOOD COUNT 2.59 x10e6/uL (4.3-5.7); RED CELL DISTRIBUTION WIDTH 13.6 % (11.7-14.4)
[2022-09-16] MEDS ORDERED: SODIUM CHLORIDE 0.9% 1000ML 1,000 ML IV ONE (14:15)
[2022-09-16] MEDS ORDERED: FENTANYL CITRATE/PF 100MCG/2 ML INJ IV ONE (14:15)
[2022-09-16] MEDS ORDERED: SODIUM CHLORIDE FLUSH 10 ML SYR INJ PRN (14:30)
[2022-09-16] MEDS: Morphine 4mg INJECTION 4 MG/ML INJ IV PRN ×2 (14:38→21:31)
[2022-09-16] MEDS: ONDANSETRON HCL INJ 2MG/ML 2ML 2 MG/ML VIAL IV PRN ×2 (14:38→21:31)
[2022-09-16] MEDS: VANCOMYCIN HCL 125 MG CAPSULE PO SCH ×2 (14:38→21:32)
[2022-09-16] MEDS: METRONIDAZOLE 500MG/NS 100ML 100 ML IV SCH (18:00)
[2022-09-16 18:25] VITALS: BP 111/57; PULSE 72; RESP 20; TEMP 98.7; O2SAT 100
[2022-09-16] MEDS ORDERED: DEXTROSE 50% SYRINGE 50 ML IV PRN (19:30)
[2022-09-16 20:00] VITALS: BP 135/70; PULSE 74; RESP 20; TEMP 98.1; O2SAT 100
[2022-09-16 21:00] VITALS: BP 135/70; PULSE 74; RESP 20; TEMP 98.1; O2SAT 100
[2022-09-16] MEDS ORDERED: INSULIN DETEMIR 20 UNIT SC SCH (21:00)
[2022-09-16] MEDS: INSULIN LISPRO 100 UNIT/1 ML 3ML VIAL SQ SCH (21:00)
[2022-09-16 21:30] VITALS: BP 135/70; PULSE 74; RESP 20; TEMP 98.1; O2SAT 100
[2022-09-16] MEDS: INSULIN GLARGINE 100 UNITS/ML VIAL SQ SCH (21:38)
[2022-09-17] VITALS (8 sets, daily range): BP systolic 114–143; BP diastolic 58–68; PULSE 59–73; RESP 18–20; TEMP 97.7–98.1; O2SAT 94–100
[2022-09-17] MEDS ORDERED: SODIUM CHLORIDE 0.9% 250ML 250 ML ONE (00:31)
[2022-09-17] MEDS: METRONIDAZOLE 500MG/NS 100ML 100 ML IV SCH ×2 (00:57→04:35)
[2022-09-17] MEDS: ONDANSETRON HCL INJ 2MG/ML 2ML 2 MG/ML VIAL IV PRN ×3 (04:30→21:03)
[2022-09-17] MEDS: Morphine 4mg INJECTION 4 MG/ML INJ IV PRN ×3 (04:30→21:03)
[2022-09-17] MEDS: VANCOMYCIN HCL 125 MG CAPSULE PO SCH ×3 (04:31→21:03)
[2022-09-17 06:02] LABS: BASOPHILS % 0.3 % (0.0-1.0); EOSINOPHILS % 0.3 % (0.0-6.0); LYMPHOCYTES % 8.2 % (18.0-39.1); MEAN CORPUSCULAR HEMOGLOBIN 31.5 pg (28-32); MEAN CORPUSCULAR VOLUME 98.4 fL (81-99); MONOCYTES # (AUTO) 0.8 (0.2-0.8); MONOCYTES % 6.5 % (4.4-11.3); NEUTROPHILS # (AUTO) 9.7 (2.1-6.9); NEUTROPHILS % 83.9 % (38.7-80.0); PLATELET COUNT 206 x10e3/uL (140-360); RED BLOOD COUNT 2.54 x10e6/uL (4.3-5.7); RED CELL DISTRIBUTION WIDTH 13.8 % (11.7-14.4)
[2022-09-17 06:24] LABS: ALBUMIN 1.6 g/dL (3.5-5.0); ALBUMIN/GLOBULIN RATIO 0.4 (0.8-2.0); ANION GAP 15.8 mmol/L (8-16); CREATININE, SERUM 4.18 mg/dL (0.72-1.25); MAGNESIUM 1.2 MG/DL (1.3-2.1); PHOSPHORUS 4.6 MG/DL (2.3-4.7); POTASSIUM 3.8 mmol/L (3.5-5.1)
[2022-09-17 06:30] LABS: CALCIUM 6.8 mg/dL (8.4-10.2)
[2022-09-17] MEDS: INSULIN LISPRO 100 UNIT/1 ML 3ML VIAL SQ SCH ×4 (07:30→21:00)
[2022-09-17] MEDS ORDERED: ATORVASTATIN 20 MG TAB PO SCH (09:00)
[2022-09-17] MEDS ORDERED: ISOSORBIDE MONONITRATE 20 MG TAB PO SCH (09:00)
[2022-09-17] MEDS: CLOPIDOGREL BISULFATE 75 MG TAB PO SCH (09:23)
[2022-09-17] MEDS: METOPROLOL SUCCINATE 25 MG TAB XL PO SCH (09:23)
[2022-09-17] MEDS: AMLODIPINE BESYLATE 5 MG TAB PO SCH (09:23)
[2022-09-17] MEDS: ISOSORBIDE MONONITRATE 30 MG TAB CR PO SCH (09:24)
[2022-09-17] MEDS: ATORVASTATIN 40 MG TAB PO SCH (09:24)
[2022-09-17] MEDS ORDERED: MAGNESIUM SULFATE 2GM/50ML 50 ML IV ONE (11:30)
[2022-09-17] MEDS ORDERED: CALCIUM GLUC 1 G/50 ML NACL 50 ML IV ONE (11:30)
[2022-09-17] MEDS ORDERED: POTASSIUM CHLORIDE 20 MEQ TAB CR PO ONE (11:30)
[2022-09-17] MEDS: CALCIUM CARBONATE 500 MG CHEWABLE TABS PO SCH ×2 (14:20→21:03)
[2022-09-17] MEDS: INSULIN GLARGINE 100 UNITS/ML VIAL SQ SCH (21:56)
[2022-09-18] VITALS (8 sets, daily range): BP systolic 111–117; BP diastolic 47–76; PULSE 61–81; RESP 16–18; TEMP 97.3–98.9; O2SAT 95–100
[2022-09-18] MEDS ORDERED: METOCLOPRAMIDE HCL 10 MG/2ML VIAL IV ONE (02:15)
[2022-09-18] MEDS: ONDANSETRON HCL INJ 2MG/ML 2ML 2 MG/ML VIAL IV PRN ×3 (02:34→11:10)
[2022-09-18] MEDS: Morphine 4mg INJECTION 4 MG/ML INJ IV PRN ×3 (02:34→11:10)
[2022-09-18] MEDS: VANCOMYCIN HCL 125 MG CAPSULE PO SCH ×3 (04:56→21:41)
[2022-09-18 05:36] LABS: BASOPHILS % 0.3 % (0.0-1.0); EOSINOPHILS # (AUTO) 0.2 (0.0-0.4); EOSINOPHILS % 1.5 % (0.0-6.0); HEMATOCRIT 22.9 % (38.2-49.6); HEMOGLOBIN 7.4 g/dL (14.0-18.0); LYMPHOCYTES # (AUTO) 0.8 (1.0-3.2); LYMPHOCYTES % 6.9 % (18.0-39.1); MEAN CORPUSCULAR HEMOGLOBIN 31.6 pg (28-32); MEAN CORPUSCULAR HGB CONC 32.3 g/dL (31-35); MEAN CORPUSCULAR VOLUME 97.9 fL (81-99); MONOCYTES # (AUTO) 0.6 (0.2-0.8); NEUTROPHILS # (AUTO) 9.4 (2.1-6.9); NEUTROPHILS % 85.3 % (38.7-80.0); PLATELET COUNT 202 x10e3/uL (140-360); RED BLOOD COUNT 2.34 x10e6/uL (4.3-5.7); RED CELL DISTRIBUTION WIDTH 13.8 % (11.7-14.4)
[2022-09-18 06:06] LABS: ALBUMIN 1.5 g/dL (3.5-5.0); ALBUMIN/GLOBULIN RATIO 0.4 (0.8-2.0); ANION GAP 13.7 mmol/L (8-16); CREATININE, SERUM 4.9 mg/dL (0.72-1.25); POTASSIUM 3.7 mmol/L (3.5-5.1)
[2022-09-18] MEDS: INSULIN LISPRO 100 UNIT/1 ML 3ML VIAL SQ SCH ×4 (07:30→21:00)
[2022-09-18] MEDS: AMLODIPINE BESYLATE 5 MG TAB PO SCH (09:00)
[2022-09-18] MEDS: ISOSORBIDE MONONITRATE 30 MG TAB CR PO SCH (09:00)
[2022-09-18] MEDS: ATORVASTATIN 40 MG TAB PO SCH (09:00)
[2022-09-18] MEDS: CALCIUM CARBONATE 500 MG CHEWABLE TABS PO SCH ×3 (09:00→21:41)
[2022-09-18] MEDS: CALCITRIOL 0.25 MCG CAP PO SCH (09:00)
[2022-09-18] MEDS: CLOPIDOGREL BISULFATE 75 MG TAB PO SCH (09:00)
[2022-09-18] MEDS: METOPROLOL SUCCINATE 25 MG TAB XL PO SCH (09:00)
[2022-09-18] MEDS ORDERED: SODIUM CHLORIDE 0.9% 250ML 250 ML IV ONE (10:00)
[2022-09-18] MEDS ORDERED: Vancomycin IV 1 GM in SODIUM CHLORIDE 0.9% 250ML 250 ML IV ONE (10:30)
[2022-09-18] MEDS ORDERED: GENTAMICIN 120MG/NS 100ML 100 ML IV ONE (10:30)
[2022-09-18 10:41] LABS: INR 1.31; PROTHROMBIN TIME 16.8 seconds (11.9-14.5)
[2022-09-18] MEDS: METOCLOPRAMIDE HCL 10 MG/2ML VIAL IV SCH ×4 (11:10→21:42)
[2022-09-18] MEDS ORDERED: SODIUM CHLORIDE 0.9% 250ML 250 ML ONE ×3 (13:20→16:54)
[2022-09-18] MEDS ORDERED: HEPARIN SOD (PORCINE) 1000 UNIT/ML SDV ONE (13:20)
[2022-09-18] MEDS ORDERED: LIDOCAINE HCL 1% LOCAL INJ 20 ML VIAL ONE (13:34)
[2022-09-18] MEDS ORDERED: FENTANYL CITRATE/PF 100MCG/2 ML INJ ONE (14:08)
[2022-09-18] MEDS ORDERED: MIDAZOLAM HCL 2 MG/2 ML VIAL ONE (14:08)
[2022-09-18] MEDS ORDERED: SODIUM CHLORIDE 0.9% 1000ML 1,000 ML ONE (15:25)
[2022-09-18] MEDS ORDERED: HEPARIN SOD (PORCINE) 1000 UNIT/ML SDV IV PRN (18:15)
[2022-09-18] MEDS ORDERED: SODIUM CHLORIDE 0.9% 1000ML 2,000 ML IV PRN (18:15)
[2022-09-18] MEDS ORDERED: TRAMADOL/APAP 37.5MG-325MG TAB PO PRN (19:30)
[2022-09-18] MEDS: INSULIN GLARGINE 100 UNITS/ML VIAL SQ SCH (22:11)
[2022-09-19] VITALS (7 sets, daily range): BP systolic 106–134; BP diastolic 45–64; PULSE 72–93; RESP 18–20; TEMP 97–98.9; O2SAT 92–100
[2022-09-19] MEDS: VANCOMYCIN HCL 125 MG CAPSULE PO SCH (05:27)
[2022-09-19] MEDS: INSULIN LISPRO 100 UNIT/1 ML 3ML VIAL SQ SCH ×4 (07:16→21:00)
[2022-09-19] MEDS: METOPROLOL SUCCINATE 25 MG TAB XL PO SCH (09:00)
[2022-09-19 09:21] LABS: BASOPHILS % 0.1 % (0.0-1.0); EOSINOPHILS # (AUTO) 0.1 (0.0-0.4); EOSINOPHILS % 1.9 % (0.0-6.0); HEMATOCRIT 28.7 % (38.2-49.6); HEMOGLOBIN 9.2 g/dL (14.0-18.0); LYMPHOCYTES # (AUTO) 0.6 (1.0-3.2); LYMPHOCYTES % 7.4 % (18.0-39.1); MEAN CORPUSCULAR HEMOGLOBIN 30.3 pg (28-32); MEAN CORPUSCULAR HGB CONC 32.1 g/dL (31-35); MEAN CORPUSCULAR VOLUME 94.4 fL (81-99); MONOCYTES # (AUTO) 0.6 (0.2-0.8); MONOCYTES % 7.4 % (4.4-11.3); NEUTROPHILS # (AUTO) 6.1 (2.1-6.9); NEUTROPHILS % 82.7 % (38.7-80.0); PLATELET COUNT 153 x10e3/uL (140-360); RED BLOOD COUNT 3.04 x10e6/uL (4.3-5.7)
[2022-09-19 09:43] LABS: ALBUMIN 1.6 g/dL (3.5-5.0); ALBUMIN/GLOBULIN RATIO 0.4 (0.8-2.0); ANION GAP 13.7 mmol/L (8-16); CALCIUM 7.3 mg/dL (8.4-10.2); CREATININE, SERUM 5.23 mg/dL (0.72-1.25); POTASSIUM 3.7 mmol/L (3.5-5.1)
[2022-09-19] MEDS: METOCLOPRAMIDE HCL 10 MG/2ML VIAL IV SCH ×4 (09:56→21:38)
[2022-09-19] MEDS: ATORVASTATIN 40 MG TAB PO SCH (09:57)
[2022-09-19] MEDS: AMLODIPINE BESYLATE 5 MG TAB PO SCH (09:57)
[2022-09-19] MEDS: ISOSORBIDE MONONITRATE 30 MG TAB CR PO SCH (09:57)
[2022-09-19] MEDS: CALCIUM CARBONATE 500 MG CHEWABLE TABS PO SCH ×3 (09:57→21:38)
[2022-09-19] MEDS: CLOPIDOGREL BISULFATE 75 MG TAB PO SCH (09:57)
[2022-09-19] MEDS: CALCITRIOL 0.25 MCG CAP PO SCH (09:58)
[2022-09-19] MEDS: ONDANSETRON HCL INJ 2MG/ML 2ML 2 MG/ML VIAL IV PRN (10:06)
[2022-09-19] MEDS: Morphine 4mg INJECTION 4 MG/ML INJ IV PRN (10:06)
[2022-09-19] MEDS: LOPERAMIDE HCL 2 MG CAP PO PRN (13:08)
[2022-09-19] MEDS: INSULIN GLARGINE 100 UNITS/ML VIAL SQ SCH (21:00)
[2022-09-19] MEDS: METRONIDAZOLE 500 MG TAB PO SCH (21:38)
[2022-09-20] VITALS (11 sets, daily range): BP systolic 99–131; BP diastolic 52–61; PULSE 58–92; RESP 16–20; TEMP 97.1–99; O2SAT 65–100
[2022-09-20] MEDS: INSULIN LISPRO 100 UNIT/1 ML 3ML VIAL SQ SCH ×4 (07:30→21:00)
[2022-09-20] MEDS: ISOSORBIDE MONONITRATE 30 MG TAB CR PO SCH (09:12)
[2022-09-20] MEDS: CALCIUM CARBONATE 500 MG CHEWABLE TABS PO SCH ×3 (09:12→21:30)
[2022-09-20] MEDS: METOCLOPRAMIDE HCL 10 MG/2ML VIAL IV SCH ×4 (09:12→21:31)
[2022-09-20] MEDS: CALCITRIOL 0.25 MCG CAP PO SCH (09:12)
[2022-09-20] MEDS: METOPROLOL SUCCINATE 25 MG TAB XL PO SCH (09:13)
[2022-09-20] MEDS: ATORVASTATIN 40 MG TAB PO SCH (09:13)
[2022-09-20] MEDS: METRONIDAZOLE 500 MG TAB PO SCH ×4 (09:13→21:31)
[2022-09-20] MEDS: CLOPIDOGREL BISULFATE 75 MG TAB PO SCH (09:13)
[2022-09-20] MEDS: AMLODIPINE BESYLATE 5 MG TAB PO SCH (09:13)
[2022-09-20] MEDS: LOPERAMIDE HCL 2 MG CAP PO PRN ×3 (13:35→21:29)
[2022-09-20] MEDS: INSULIN GLARGINE 100 UNITS/ML VIAL SQ SCH (21:41)
[2022-09-21] VITALS (9 sets, daily range): BP systolic 94–136; BP diastolic 47–67; PULSE 64–71; RESP 18–20; TEMP 97.1–98.1; O2SAT 93–99
[2022-09-21] MEDS ORDERED: LOPERAMIDE HCL 2 MG CAP PO ONE (02:45)
[2022-09-21] MEDS ORDERED: LOPERAMIDE HCL 2 MG CAP PO PRN (03:15)
[2022-09-21] MEDS: METRONIDAZOLE 500 MG TAB PO SCH ×5 (05:12→22:00)
[2022-09-21] MEDS: INSULIN LISPRO 100 UNIT/1 ML 3ML VIAL SQ SCH ×4 (07:30→21:00)
[2022-09-21] MEDS: ISOSORBIDE MONONITRATE 30 MG TAB CR PO SCH (09:00)
[2022-09-21] MEDS: METOPROLOL SUCCINATE 25 MG TAB XL PO SCH (09:00)
[2022-09-21] MEDS: ATORVASTATIN 40 MG TAB PO SCH (09:55)
[2022-09-21] MEDS: CLOPIDOGREL BISULFATE 75 MG TAB PO SCH (09:56)
[2022-09-21] MEDS: CALCITRIOL 0.25 MCG CAP PO SCH (09:56)
[2022-09-21] MEDS: CALCIUM CARBONATE 500 MG CHEWABLE TABS PO SCH ×3 (09:56→21:00)
[2022-09-21] MEDS: METOCLOPRAMIDE HCL 10 MG/2ML VIAL IV SCH ×4 (09:57→21:00)
[2022-09-21] MEDS: AMLODIPINE BESYLATE 5 MG TAB PO SCH (09:58)
[2022-09-21] MEDS ORDERED: EPOETIN ALFA-EPBX 10,000 UNIT/ML VIAL SC SCH (10:15)
[2022-09-21] MEDS ORDERED: ALTEPLASE RECOMBINANT 2 MG/2 ML VIAL IV PRN (14:45)
[2022-09-21] MEDS: INSULIN GLARGINE 100 UNITS/ML VIAL SQ SCH (21:00)
[2022-09-22] VITALS (11 sets, daily range): BP systolic 99–126; BP diastolic 41–62; PULSE 56–69; RESP 17–21; TEMP 97.3–98.9; O2SAT 92–100
[2022-09-22] MEDS: METRONIDAZOLE 500 MG TAB PO SCH ×5 (05:31→22:00)
[2022-09-22] MEDS: INSULIN LISPRO 100 UNIT/1 ML 3ML VIAL SQ SCH ×4 (07:30→21:00)
[2022-09-22] MEDS: Morphine 4mg INJECTION 4 MG/ML INJ IV PRN ×2 (08:12→18:28)
[2022-09-22] MEDS: METOCLOPRAMIDE HCL 10 MG/2ML VIAL IV SCH ×4 (08:12→21:21)
[2022-09-22] MEDS: CALCITRIOL 0.25 MCG CAP PO SCH (08:13)
[2022-09-22] MEDS: AMLODIPINE BESYLATE 5 MG TAB PO SCH (08:13)
[2022-09-22] MEDS: CALCIUM CARBONATE 500 MG CHEWABLE TABS PO SCH ×3 (08:13→21:23)
[2022-09-22] MEDS: METOPROLOL SUCCINATE 25 MG TAB XL PO SCH (08:13)
[2022-09-22] MEDS: ATORVASTATIN 40 MG TAB PO SCH (08:14)
[2022-09-22] MEDS: CLOPIDOGREL BISULFATE 75 MG TAB PO SCH (09:26)
[2022-09-22] MEDS: ISOSORBIDE MONONITRATE 30 MG TAB CR PO SCH (09:27)
[2022-09-22] MEDS: DIPHENOXYLATE/ATROPINE TAB PO PRN (10:40)
[2022-09-22] MEDS: ONDANSETRON HCL INJ 2MG/ML 2ML 2 MG/ML VIAL IV PRN (18:29)
[2022-09-22] MEDS: INSULIN GLARGINE 100 UNITS/ML VIAL SQ SCH (21:00)
[2022-09-23] VITALS (11 sets, daily range): BP systolic 103–118; BP diastolic 51–77; PULSE 56–65; RESP 16–20; TEMP 97.4–97.9; O2SAT 95–100
[2022-09-23] MEDS ORDERED: ENOXAPARIN SOD INJ 40 MG/0.4 ML SYR SC STA (00:38)
[2022-09-23 01:20] LABS: BASOPHILS % 0.1 % (0.0-1.0); EOSINOPHILS # (AUTO) 0.1 (0.0-0.4); EOSINOPHILS % 0.8 % (0.0-6.0); HEMATOCRIT 30.7 % (38.2-49.6); HEMOGLOBIN 9.8 g/dL (14.0-18.0); LYMPHOCYTES # (AUTO) 0.7 (1.0-3.2); LYMPHOCYTES % 7.6 % (18.0-39.1); MEAN CORPUSCULAR HEMOGLOBIN 30.5 pg (28-32); MEAN CORPUSCULAR HGB CONC 31.9 g/dL (31-35); MEAN CORPUSCULAR VOLUME 95.6 fL (81-99); MONOCYTES # (AUTO) 0.3 (0.2-0.8); MONOCYTES % 3.5 % (4.4-11.3); NEUTROPHILS % 86.5 % (38.7-80.0); PLATELET COUNT 112 x10e3/uL (140-360); RED BLOOD COUNT 3.21 x10e6/uL (4.3-5.7); RED CELL DISTRIBUTION WIDTH 16.4 % (11.7-14.4)
[2022-09-23 01:35] LABS: CALCIUM 7.4 mg/dL (8.4-10.2); CREATININE, SERUM 6.19 mg/dL (0.72-1.25)
[2022-09-23 02:12] LABS: ANION GAP 15.7 mmol/L (8-16); POTASSIUM 3.7 mmol/L (3.5-5.1)
[2022-09-23] MEDS ORDERED: DEXAMETHASONE 10MG/ML PF INJ IV ONE (02:30)
[2022-09-23] MEDS ORDERED: SODIUM CHLORIDE 0.9% 250ML 250 ML ONE (03:04)
[2022-09-23] MEDS ORDERED: DEXAMETHASONE SOD PHOS 10 MG/1 ML VIAL IV ONE (03:15)
[2022-09-23] MEDS: METRONIDAZOLE 500 MG TAB PO SCH ×5 (05:09→21:09)
[2022-09-23 06:08] LABS: BASOPHILS # (AUTO) 0.1 (0.0-0.1); BASOPHILS % 0.5 % (0.0-1.0); EOSINOPHILS % 0.4 % (0.0-6.0); HEMATOCRIT 30.3 % (38.2-49.6); HEMOGLOBIN 9.3 g/dL (14.0-18.0); LYMPHOCYTES # (AUTO) 0.5 (1.0-3.2); LYMPHOCYTES % 4.9 % (18.0-39.1); MEAN CORPUSCULAR HEMOGLOBIN 30.4 pg (28-32); MEAN CORPUSCULAR HGB CONC 30.7 g/dL (31-35); MONOCYTES # (AUTO) 0.3 (0.2-0.8); MONOCYTES % 2.5 % (4.4-11.3); NEUTROPHILS # (AUTO) 9.7 (2.1-6.9); NEUTROPHILS % 89.9 % (38.7-80.0); PLATELET COUNT 116 x10e3/uL (140-360); RED BLOOD COUNT 3.06 x10e6/uL (4.3-5.7); RED CELL DISTRIBUTION WIDTH 16.2 % (11.7-14.4)
[2022-09-23 07:24] LABS: ALBUMIN 1.6 g/dL (3.5-5.0); ALBUMIN/GLOBULIN RATIO 0.4 (0.8-2.0); ANION GAP 16.7 mmol/L (8-16); CALCIUM 7.4 mg/dL (8.4-10.2); CREATININE, SERUM 6.34 mg/dL (0.72-1.25); POTASSIUM 3.7 mmol/L (3.5-5.1)
[2022-09-23] MEDS: INSULIN LISPRO 100 UNIT/1 ML 3ML VIAL SQ SCH ×4 (07:30→21:25)
[2022-09-23] MEDS ORDERED: SODIUM CHLORIDE 0.9% 250ML 250 ML IV ONE ×2 (08:00)
[2022-09-23] MEDS: CALCIUM CARBONATE 500 MG CHEWABLE TABS PO SCH ×3 (09:00→21:09)
[2022-09-23] MEDS: ISOSORBIDE MONONITRATE 30 MG TAB CR PO SCH (09:00)
[2022-09-23] MEDS: ATORVASTATIN 40 MG TAB PO SCH (09:00)
[2022-09-23] MEDS: METOPROLOL SUCCINATE 25 MG TAB XL PO SCH (09:00)
[2022-09-23] MEDS: CLOPIDOGREL BISULFATE 75 MG TAB PO SCH (09:00)
[2022-09-23] MEDS: CALCITRIOL 0.25 MCG CAP PO SCH (09:00)
[2022-09-23] MEDS: AMLODIPINE BESYLATE 5 MG TAB PO SCH (09:00)
[2022-09-23] MEDS: METOCLOPRAMIDE HCL 10 MG/2ML VIAL IV SCH ×4 (09:09→21:10)
[2022-09-23] MEDS ORDERED: DIPHENHYDRAMINE HCL INJ 50 MG/ML VIAL IV PRN (10:15)
[2022-09-23] MEDS ORDERED: HYDROXYZINE HCL 25 MG TAB PO PRN (10:15)
[2022-09-23] MEDS: DIPHENHYDRAMINE HCL INJ 50 MG/ML VIAL IV PRN ×2 (10:47→23:01)
[2022-09-23] MEDS ORDERED: CHOLESTYRAMINE 4 GM PACKET PO PRN (16:45)
[2022-09-23] MEDS: ENOXAPARIN SOD INJ 40 MG/0.4 ML SYR SC SCH ×3 (16:49→17:00)
[2022-09-23] MEDS: INSULIN GLARGINE 100 UNITS/ML VIAL SQ SCH (21:26)
[2022-09-23] MEDS: DIPHENOXYLATE/ATROPINE TAB PO PRN (23:02)
[2022-09-24] VITALS (9 sets, daily range): BP systolic 92–125; BP diastolic 49–79; PULSE 56–92; RESP 16–19; TEMP 97.4–98.2; O2SAT 96–100
[2022-09-24] MEDS: METRONIDAZOLE 500 MG TAB PO SCH ×5 (05:49→21:47)
[2022-09-24 06:12] LABS: BASOPHILS % 0.3 % (0.0-1.0); HEMATOCRIT 29.6 % (38.2-49.6); HEMOGLOBIN 9.1 g/dL (14.0-18.0); LYMPHOCYTES # (AUTO) 0.9 (1.0-3.2); LYMPHOCYTES % 8.8 % (18.0-39.1); MEAN CORPUSCULAR HEMOGLOBIN 29.7 pg (28-32); MEAN CORPUSCULAR HGB CONC 30.7 g/dL (31-35); MEAN CORPUSCULAR VOLUME 96.7 fL (81-99); MONOCYTES # (AUTO) 0.3 (0.2-0.8); MONOCYTES % 3.5 % (4.4-11.3); NEUTROPHILS # (AUTO) 8.4 (2.1-6.9); NEUTROPHILS % 85.4 % (38.7-80.0); PLATELET COUNT 110 x10e3/uL (140-360); RED BLOOD COUNT 3.06 x10e6/uL (4.3-5.7)
[2022-09-24 06:58] LABS: CALCIUM 7.8 mg/dL (8.4-10.2)
[2022-09-24 07:23] LABS: ANION GAP 13.5 mmol/L (8-16); CREATININE, SERUM 4.79 mg/dL (0.72-1.25); POTASSIUM 3.5 mmol/L (3.5-5.1)
[2022-09-24] MEDS: INSULIN LISPRO 100 UNIT/1 ML 3ML VIAL SQ SCH ×4 (07:30→21:00)
[2022-09-24] MEDS: METOCLOPRAMIDE HCL 10 MG/2ML VIAL IV SCH ×4 (07:54→21:46)
[2022-09-24] MEDS: ATORVASTATIN 40 MG TAB PO SCH (07:54)
[2022-09-24] MEDS: METOPROLOL SUCCINATE 25 MG TAB XL PO SCH (07:55)
[2022-09-24] MEDS: ISOSORBIDE MONONITRATE 30 MG TAB CR PO SCH (07:55)
[2022-09-24] MEDS: AMLODIPINE BESYLATE 5 MG TAB PO SCH (07:56)
[2022-09-24] MEDS: CALCIUM CARBONATE 500 MG CHEWABLE TABS PO SCH ×3 (07:56→21:48)
[2022-09-24] MEDS: CALCITRIOL 0.25 MCG CAP PO SCH (07:56)
[2022-09-24] MEDS: DIPHENHYDRAMINE HCL INJ 50 MG/ML VIAL IV PRN ×2 (07:58→21:58)
[2022-09-24] MEDS: CLOPIDOGREL BISULFATE 75 MG TAB PO SCH (07:59)
[2022-09-24] MEDS ORDERED: ENOXAPARIN 30 MG/0.3 ML SYR SC SCH (17:00)
[2022-09-24 19:56] LABS: BASOPHILS % 0.1 % (0.0-1.0); EOSINOPHILS % 0.4 % (0.0-6.0); HEMATOCRIT 29.3 % (38.2-49.6); HEMOGLOBIN 9.3 g/dL (14.0-18.0); LYMPHOCYTES # (AUTO) 0.9 (1.0-3.2); LYMPHOCYTES % 8.9 % (18.0-39.1); MEAN CORPUSCULAR HEMOGLOBIN 30.4 pg (28-32); MEAN CORPUSCULAR HGB CONC 31.7 g/dL (31-35); MEAN CORPUSCULAR VOLUME 95.8 fL (81-99); MONOCYTES # (AUTO) 0.3 (0.2-0.8); MONOCYTES % 2.8 % (4.4-11.3); NEUTROPHILS % 84.9 % (38.7-80.0); PLATELET COUNT 105 x10e3/uL (140-360); RED BLOOD COUNT 3.06 x10e6/uL (4.3-5.7)
[2022-09-24 20:13] LABS: ANION GAP 14.4 mmol/L (8-16); CALCIUM 7.8 mg/dL (8.4-10.2); CREATININE, SERUM 5.55 mg/dL (0.72-1.25); POTASSIUM 3.4 mmol/L (3.5-5.1)
[2022-09-24] MEDS: INSULIN GLARGINE 100 UNITS/ML VIAL SQ SCH (21:49)
[2022-09-24] MEDS: DIPHENOXYLATE/ATROPINE TAB PO PRN (21:58)
[2022-09-25] VITALS (9 sets, daily range): BP systolic 100–127; BP diastolic 46–59; PULSE 58–83; RESP 16–22; TEMP 97.5–98.5; O2SAT 92–99
[2022-09-25] MEDS: METRONIDAZOLE 500 MG TAB PO SCH ×5 (05:14→21:27)
[2022-09-25 06:32] LABS: BASOPHILS % 0.2 % (0.0-1.0); EOSINOPHILS # (AUTO) 0.1 (0.0-0.4); EOSINOPHILS % 0.6 % (0.0-6.0); HEMATOCRIT 30.2 % (38.2-49.6); HEMOGLOBIN 9.6 g/dL (14.0-18.0); LYMPHOCYTES # (AUTO) 0.9 (1.0-3.2); LYMPHOCYTES % 9.6 % (18.0-39.1); MEAN CORPUSCULAR HEMOGLOBIN 30.4 pg (28-32); MEAN CORPUSCULAR HGB CONC 31.8 g/dL (31-35); MEAN CORPUSCULAR VOLUME 95.6 fL (81-99); MONOCYTES # (AUTO) 0.3 (0.2-0.8); MONOCYTES % 3.1 % (4.4-11.3); NEUTROPHILS # (AUTO) 7.9 (2.1-6.9); NEUTROPHILS % 83.9 % (38.7-80.0); RED BLOOD COUNT 3.16 x10e6/uL (4.3-5.7); RED CELL DISTRIBUTION WIDTH 16.1 % (11.7-14.4)
[2022-09-25 06:39] LABS: PLATELET COUNT 85 x10e3/uL (140-360)
[2022-09-25 06:47] LABS: ANION GAP 14.2 mmol/L (8-16); CALCIUM 7.7 mg/dL (8.4-10.2); CREATININE, SERUM 5.84 mg/dL (0.72-1.25); POTASSIUM 3.2 mmol/L (3.5-5.1)
[2022-09-25] MEDS: INSULIN LISPRO 100 UNIT/1 ML 3ML VIAL SQ SCH ×4 (07:30→21:00)
[2022-09-25] MEDS: METOCLOPRAMIDE HCL 10 MG/2ML VIAL IV SCH ×4 (09:35→21:28)
[2022-09-25] MEDS: CALCIUM CARBONATE 500 MG CHEWABLE TABS PO SCH ×3 (09:36→21:26)
[2022-09-25] MEDS: ATORVASTATIN 40 MG TAB PO SCH (09:36)
[2022-09-25] MEDS: AMLODIPINE BESYLATE 5 MG TAB PO SCH (09:38)
[2022-09-25] MEDS: CALCITRIOL 0.25 MCG CAP PO SCH (09:39)
[2022-09-25] MEDS: ISOSORBIDE MONONITRATE 30 MG TAB CR PO SCH (09:39)
[2022-09-25] MEDS: METOPROLOL SUCCINATE 25 MG TAB XL PO SCH (09:40)
[2022-09-25] MEDS: INSULIN GLARGINE 100 UNITS/ML VIAL SQ SCH (21:00)
[2022-09-26] VITALS (7 sets, daily range): BP systolic 100–144; BP diastolic 49–61; PULSE 59–69; RESP 15–22; TEMP 97.3–98.3; O2SAT 94–100
[2022-09-26] MEDS: METRONIDAZOLE 500 MG TAB PO SCH ×2 (05:33→09:46)
[2022-09-26] MEDS: DIPHENOXYLATE/ATROPINE TAB PO PRN (05:34)
[2022-09-26] MEDS: INSULIN LISPRO 100 UNIT/1 ML 3ML VIAL SQ SCH ×2 (07:30→11:30)
[2022-09-26] MEDS: DIPHENHYDRAMINE HCL INJ 50 MG/ML VIAL IV PRN (09:38)
[2022-09-26] MEDS: AMLODIPINE BESYLATE 5 MG TAB PO SCH (09:39)
[2022-09-26] MEDS: CALCIUM CARBONATE 500 MG CHEWABLE TABS PO SCH (09:40)
[2022-09-26] MEDS: ISOSORBIDE MONONITRATE 30 MG TAB CR PO SCH (09:40)
[2022-09-26] MEDS: ATORVASTATIN 40 MG TAB PO SCH (09:40)
[2022-09-26] MEDS: CALCITRIOL 0.25 MCG CAP PO SCH (09:40)
[2022-09-26] MEDS: METOCLOPRAMIDE HCL 10 MG/2ML VIAL IV SCH ×2 (09:46→12:36)
[2022-09-26] MEDS: METOPROLOL SUCCINATE 25 MG TAB XL PO SCH (09:46)
[2022-09-26] MEDS ORDERED: PANTOPRAZOLE SOD 40 MG TABEC PO SCH (21:00)
[2022-09-26] MEDS ORDERED: METRONIDAZOLE 500 MG TAB PO SCH (22:00)
== END 2022-09-26 14:07 | disposition home or self-care (01) | DRG 177 ==
LOC: ER 11:03 → ERHOLD 14:18 → INTOOBSV 14:18 → MED/SURG2 18:11 → OBSVTOIN 09-18 13:35
PROVIDERS: ADMIT Family Medicine; ATTEND Family Medicine
PROC: 3E1M39Z Irrigation of Peritoneal Cavity using Dialysate, Percutaneous Approach (ICD-10-PCS; 2022-09-17)
PROC: 0JH63XZ Insertion of Tunneled Vascular Access Device into Chest Subcutaneous Tissue and Fascia, Percutaneous Approach (ICD-10-PCS; principal; 2022-09-18)
PROC: 02HV33Z Insertion of Infusion Device into Superior Vena Cava, Percutaneous Approach (ICD-10-PCS; 2022-09-18)
PROC: 8E0ZXY6 Isolation (ICD-10-PCS; 2022-09-18)
PROC: 5A1D70Z Performance of Urinary Filtration, Intermittent, Less than 6 Hours Per Day (ICD-10-PCS; 2022-09-18)
PROC: 30243N1 Transfusion of Nonautologous Red Blood Cells into Central Vein, Percutaneous Approach (ICD-10-PCS; 2022-09-18)
DX: U07.1 COVID-19 (principal); N18.6 End stage renal disease; I69.351 Hemiplegia and hemiparesis following cerebral infarction affecting right dominant side; T82.898A Other specified complication of vascular prosthetic devices, implants and grafts, initial encounter; K52.1 Toxic gastroenteritis and colitis; I12.0 Hypertensive chronic kidney disease with stage 5 chronic kidney disease or end stage renal disease; E44.0 Moderate protein-calorie malnutrition; I25.10 Atherosclerotic heart disease of native coronary artery without angina pectoris; E78.5 Hyperlipidemia, unspecified; I25.2 Old myocardial infarction; E11.22 Type 2 diabetes mellitus with diabetic chronic kidney disease; Z99.2 Dependence on renal dialysis; Z79.4 Long term (current) use of insulin; Z89.511 Acquired absence of right leg below knee; Z88.5 Allergy status to narcotic agent; Z88.0 Allergy status to penicillin; Z91.013 Allergy to seafood; E83.42 Hypomagnesemia; E83.51 Hypocalcemia; E11.69 Type 2 diabetes mellitus with other specified complication; T85.838A Hemorrhage due to other internal prosthetic devices, implants and grafts, initial encounter; E66.09 Other obesity due to excess calories; Z68.32 Body mass index [BMI] 32.0-32.9, adult; T36.1X5A Adverse effect of cephalosporins and other beta-lactam antibiotics, initial encounter; M54.50 Low back pain, unspecified
CPT/HCPCS: 0223U; 36415; 36558; 71045; 71046; 72110; 74018; 74176; 74177; 74470; 76937; 77001; 80048; 80053; 81001; 82948; 83605; 83630; 83735; 84100; 84484; 85025; 85610; 85730; 86704; 86706; 86850; 86900; 86920; 87040; 87045; 87070; 87177; 87205; 87324; 87328; 87340; 87350; 87449; 93005; 93970; 93971; 94799; 99152; 99153; 99252; 99284; C1769; C1892; G0378; J0696; J1100; J1200; J1580; J1644; J1650; J1815; J2001; J2250; J2270; J2405; J2765; J2997; J3475; J7030; J7050; P9016; Q9967

== ENCOUNTER 2022-09-30 15:16 | Inpatient (IN) | payer MEDICARE ==
[~2022-09-30] VITALS: Ht 170.2 cm; Wt 91.6 kg
[2022-09-30 16:38] LABS: BASOPHILS % 0.3 % (0.0-1.0); EOSINOPHILS # (AUTO) 0.1 (0.0-0.4); EOSINOPHILS % 1.2 % (0.0-6.0); HEMATOCRIT 31.8 % (38.2-49.6); HEMOGLOBIN 9.9 g/dL (14.0-18.0); LYMPHOCYTES # (AUTO) 0.7 (1.0-3.2); LYMPHOCYTES % 9.8 % (18.0-39.1); MEAN CORPUSCULAR HEMOGLOBIN 30.5 pg (28-32); MEAN CORPUSCULAR HGB CONC 31.1 g/dL (31-35); MEAN CORPUSCULAR VOLUME 97.8 fL (81-99); MONOCYTES # (AUTO) 0.4 (0.2-0.8); MONOCYTES % 5.7 % (4.4-11.3); NEUTROPHILS # (AUTO) 5.9 (2.1-6.9); NEUTROPHILS % 80.6 % (38.7-80.0); PLATELET COUNT 103 x10e3/uL (140-360); RED BLOOD COUNT 3.25 x10e6/uL (4.3-5.7); RED CELL DISTRIBUTION WIDTH 16.7 % (11.7-14.4)
[2022-09-30 16:54] LABS: ALBUMIN 1.8 g/dL (3.5-5.0); ALBUMIN/GLOBULIN RATIO 0.4 (0.8-2.0); CALCIUM 7.7 mg/dL (8.4-10.2); CREATININE, SERUM 5.72 mg/dL (0.72-1.25)
[2022-09-30] MEDS ORDERED: HYDROCODONE/APAP 5MG-325MG TAB PO ONE (18:00)
[2022-09-30] MEDS ORDERED: SODIUM CHLORIDE FLUSH 10 ML SYR INJ PRN (18:15)
[2022-09-30] MEDS: METRONIDAZOLE 500MG/NS 100ML 100 ML IV SCH ×2 (19:04→23:44)
[2022-09-30] MEDS: INSULIN GLARGINE 100 UNITS/ML VIAL SC SCH (21:00)
[2022-09-30 21:58] VITALS: BP 128/69
[2022-09-30] MEDS ORDERED: SODIUM CHLORIDE 0.9% 250ML 250 ML ONE (23:29)
[2022-09-30] MEDS: ATORVASTATIN 40 MG TAB PO SCH (23:44)
[2022-10-01] VITALS (10 sets, daily range): BP systolic 96–128; BP diastolic 52–79
[2022-10-01] MEDS: ONDANSETRON HCL INJ 2MG/ML 2ML 2 MG/ML VIAL IV PRN (00:08)
[2022-10-01] MEDS: Morphine 4mg INJECTION 4 MG/ML INJ IV PRN ×3 (00:09→20:07)
[2022-10-01] MEDS: METRONIDAZOLE 500MG/NS 100ML 100 ML IV SCH ×4 (05:46→23:41)
[2022-10-01 05:54] LABS: BASOPHILS % 0.3 % (0.0-1.0); EOSINOPHILS # (AUTO) 0.1 (0.0-0.4); EOSINOPHILS % 1.8 % (0.0-6.0); HEMATOCRIT 28.7 % (38.2-49.6); HEMOGLOBIN 9.1 g/dL (14.0-18.0); LYMPHOCYTES # (AUTO) 0.9 (1.0-3.2); LYMPHOCYTES % 11.9 % (18.0-39.1); MEAN CORPUSCULAR HEMOGLOBIN 30.6 pg (28-32); MEAN CORPUSCULAR HGB CONC 31.7 g/dL (31-35); MEAN CORPUSCULAR VOLUME 96.6 fL (81-99); MONOCYTES # (AUTO) 0.5 (0.2-0.8); MONOCYTES % 7.2 % (4.4-11.3); NEUTROPHILS # (AUTO) 5.6 (2.1-6.9); NEUTROPHILS % 75.8 % (38.7-80.0); PLATELET COUNT 100 x10e3/uL (140-360); RED BLOOD COUNT 2.97 x10e6/uL (4.3-5.7); RED CELL DISTRIBUTION WIDTH 16.8 % (11.7-14.4)
[2022-10-01 06:36] LABS: ANION GAP 13.3 mmol/L (8-16); CALCIUM 7.3 mg/dL (8.4-10.2); CREATININE, SERUM 5.48 mg/dL (0.72-1.25); POTASSIUM 4.3 mmol/L (3.5-5.1)
[2022-10-01] MEDS: ASPIRIN 81 MG CHEW TAB PO SCH (08:44)
[2022-10-01] MEDS: CLOPIDOGREL BISULFATE 75 MG TAB PO SCH (08:44)
[2022-10-01] MEDS: AMLODIPINE BESYLATE 5 MG TAB PO SCH (09:00)
[2022-10-01] MEDS: ISOSORBIDE MONONITRATE 20 MG TAB PO SCH (09:00)
[2022-10-01] MEDS: METOPROLOL SUCCINATE 25 MG TAB XL PO SCH (09:00)
[2022-10-01] MEDS ORDERED: HEPARIN SOD (PORCINE) 1000 UNIT/ML SDV IV PRN (09:30)
[2022-10-01] MEDS ORDERED: SODIUM CHLORIDE 0.9% 1000ML 2,000 ML IV PRN (09:30)
[2022-10-01] MEDS ORDERED: ALBUMIN 25% 12.5GM 0.25 GM/ML BTL IV PRN (10:30)
[2022-10-01] MEDS: ATORVASTATIN 40 MG TAB PO SCH (20:07)
[2022-10-01] MEDS: INSULIN GLARGINE 100 UNITS/ML VIAL SC SCH (23:44)
[2022-10-02] VITALS (28 sets, daily range): BP systolic 91–140; BP diastolic 49–95
[2022-10-02] MEDS: Morphine 4mg INJECTION 4 MG/ML INJ IV PRN ×4 (00:12→14:35)
[2022-10-02] MEDS: METRONIDAZOLE 500MG/NS 100ML 100 ML IV SCH ×3 (06:08→18:00)
[2022-10-02] MEDS: AMLODIPINE BESYLATE 5 MG TAB PO SCH (09:03)
[2022-10-02] MEDS: METOPROLOL SUCCINATE 25 MG TAB XL PO SCH (09:03)
[2022-10-02] MEDS: ASPIRIN 81 MG CHEW TAB PO SCH (09:03)
[2022-10-02] MEDS: CLOPIDOGREL BISULFATE 75 MG TAB PO SCH (09:03)
[2022-10-02] MEDS: ISOSORBIDE MONONITRATE 20 MG TAB PO SCH (09:04)
[2022-10-02] MEDS: ONDANSETRON HCL INJ 2MG/ML 2ML 2 MG/ML VIAL IV PRN ×2 (10:11→14:35)
[2022-10-02] MEDS ORDERED: FLUTICASONE PROPIONATE NASAL SPRAY NS PRN (12:45)
[2022-10-02] MEDS ORDERED: CALCIUM CHLORIDE 10% 1.36 MEQ/ML 10ML SYR IV ONE (13:09)
[2022-10-02] MEDS ORDERED: EPINEPHRINE HCL SYRINGE ONE (13:09)
[2022-10-02] MEDS ORDERED: SODIUM BICARBONATE 8.4% INJ 50 ML SYR ONE (13:09)
[2022-10-02] MEDS ORDERED: SODIUM BICARBONATE 8.4% SYRING 100 ML ONE (17:02)
[2022-10-02 17:15] LABS: HEMATOCRIT 33.4 % (38.2-49.6); HEMOGLOBIN 9.7 g/dL (14.0-18.0); MEAN CORPUSCULAR HEMOGLOBIN 29.9 pg (28-32); MEAN CORPUSCULAR VOLUME 103.1 fL (81-99); PLATELET COUNT 89 x10e3/uL (140-360); RED BLOOD COUNT 3.24 x10e6/uL (4.3-5.7)
[2022-10-02 17:30] LABS: ANION GAP 15.7 mmol/L (8-16); CALCIUM 7.7 mg/dL (8.4-10.2); CREATININE, SERUM 3.96 mg/dL (0.72-1.25); POTASSIUM 4.7 mmol/L (3.5-5.1)
[2022-10-02 17:36] LABS: CREATINE KINASE MB 13.2 ng/mL (0-5.0)
[2022-10-02 17:37] LABS: EOSINOPHILS % (MANUAL) 1 % (0-7); HYPOCHROMASIA SLIGHT; LYMPHOCYTES % (MANUAL) 40 % (19-48); MONOCYTES % (MANUAL) 9 % (3.4-9.0); NEUTROPHILS % (MANUAL) 50 % (40-74); PLATELET ESTIMATE SLIGHTLY DECREASED; PLATELET MORPHOLOGY COMMENT NORMAL; RBC MORPHOLOGY COMMENT NORMAL
[2022-10-02 17:40] LABS: ABG HCO3 33 mmol/L (22-26); ABG PCO2 57 mmHg (35-45); ABG PH 7.38 (7.35-7.45); ABG PO2 152 mmHg (80-105); ABG TCO2 35
[2022-10-02] MEDS: INSULIN REGULAR, HUMAN 100 UNIT/1 ML SQ SCH (18:00)
[2022-10-02] MEDS ORDERED: LEVOFLOXACIN 500MG/D5W 100ML 100 ML IV ONE (18:00)
[2022-10-02] MEDS ORDERED: Vancomycin IV 1.25 GM in SODIUM CHLORIDE 0.9% 250ML 250 ML IV ONE (18:30)
[2022-10-02 19:55] LABS: ABG HCO3 29 mmol/L (22-26); ABG PCO2 50 mmHg (35-45); ABG PH 7.38 (7.35-7.45); ABG PO2 54 mmHg (80-105); ABG TCO2 31
[2022-10-02] MEDS: ATORVASTATIN 40 MG TAB PO SCH (21:00)
[2022-10-02] MEDS ORDERED: CHOLESTYRAMINE 4 GM PACKET PO SCH (21:00)
[2022-10-02] MEDS ORDERED: FENTANYL 2000MCG/NS 250 250 ML IV PRN (21:15)
[2022-10-02] MEDS: EPINEPHRINE HCL 1:1000 1ML 4 MG in DEXTROSE 5% 250ML 250 ML IV SCH (22:12)
[2022-10-02] MEDS: INSULIN GLARGINE 100 UNITS/ML VIAL SC SCH (22:57)
[2022-10-03] VITALS (72 sets, daily range): BP systolic 83–137; BP diastolic 41–91
[2022-10-03] MEDS: METRONIDAZOLE 500MG/NS 100ML 100 ML IV SCH ×5 (00:07→23:57)
[2022-10-03] MEDS: EPINEPHRINE HCL 1:1000 1ML 4 MG in DEXTROSE 5% 250ML 250 ML IV SCH ×6 (00:07→23:10)
[2022-10-03] MEDS: INSULIN REGULAR, HUMAN 100 UNIT/1 ML SQ SCH ×4 (01:12→18:00)
[2022-10-03 04:56] LABS: BASOPHILS # (AUTO) 0.1 (0.0-0.1); BASOPHILS % 0.2 % (0.0-1.0); HEMATOCRIT 30.9 % (38.2-49.6); HEMOGLOBIN 9.7 g/dL (14.0-18.0); LYMPHOCYTES # (AUTO) 0.9 (1.0-3.2); LYMPHOCYTES % 4.6 % (18.0-39.1); MEAN CORPUSCULAR HEMOGLOBIN 30.6 pg (28-32); MEAN CORPUSCULAR HGB CONC 31.4 g/dL (31-35); MEAN CORPUSCULAR VOLUME 97.5 fL (81-99); NEUTROPHILS % 88.5 % (38.7-80.0); PLATELET COUNT 148 x10e3/uL (140-360); RED BLOOD COUNT 3.17 x10e6/uL (4.3-5.7); RED CELL DISTRIBUTION WIDTH 17.4 % (11.7-14.4)
[2022-10-03 05:14] LABS: ALBUMIN 1.7 g/dL (3.5-5.0); ALBUMIN/GLOBULIN RATIO 0.4 (0.8-2.0); ANION GAP 18.6 mmol/L (8-16); CALCIUM 7.5 mg/dL (8.4-10.2); CREATININE, SERUM 4.71 mg/dL (0.72-1.25); MAGNESIUM 1.7 MG/DL (1.3-2.1); PHOSPHORUS 4.6 MG/DL (2.3-4.7); POTASSIUM 3.6 mmol/L (3.5-5.1)
[2022-10-03 08:50] LABS: ABG HCO3 25 mmol/L (22-26); ABG PCO2 36 mmHg (35-45); ABG PH 7.45 (7.35-7.45); ABG PO2 195 mmHg (80-105); ABG TCO2 26
[2022-10-03] MEDS: ASPIRIN 81 MG CHEW TAB PO SCH (08:55)
[2022-10-03] MEDS: ISOSORBIDE MONONITRATE 20 MG TAB PO SCH (08:56)
[2022-10-03] MEDS: METOPROLOL SUCCINATE 25 MG TAB XL PO SCH (08:56)
[2022-10-03] MEDS: CLOPIDOGREL BISULFATE 75 MG TAB PO SCH (08:56)
[2022-10-03] MEDS: INSULIN GLARGINE 100 UNITS/ML VIAL SC SCH (20:48)
[2022-10-03] MEDS: ATORVASTATIN 40 MG TAB PO SCH (20:48)
[2022-10-04] VITALS (62 sets, daily range): BP systolic 89–142; BP diastolic 58–80
[2022-10-04] MEDS: INSULIN REGULAR, HUMAN 100 UNIT/1 ML SQ SCH ×4 (00:45→17:02)
[2022-10-04] MEDS: METRONIDAZOLE 500MG/NS 100ML 100 ML IV SCH (05:42)
[2022-10-04] MEDS: EPINEPHRINE HCL 1:1000 1ML 4 MG in DEXTROSE 5% 250ML 250 ML IV SCH ×3 (05:44→19:06)
[2022-10-04 07:57] LABS: BASOPHILS % 0.3 % (0.0-1.0); EOSINOPHILS # (AUTO) 0.1 (0.0-0.4); EOSINOPHILS % 0.5 % (0.0-6.0); HEMATOCRIT 29.1 % (38.2-49.6); HEMOGLOBIN 9.2 g/dL (14.0-18.0); LYMPHOCYTES # (AUTO) 0.8 (1.0-3.2); LYMPHOCYTES % 6.2 % (18.0-39.1); MEAN CORPUSCULAR HEMOGLOBIN 30.6 pg (28-32); MEAN CORPUSCULAR HGB CONC 31.6 g/dL (31-35); MEAN CORPUSCULAR VOLUME 96.7 fL (81-99); MONOCYTES # (AUTO) 0.9 (0.2-0.8); MONOCYTES % 6.3 % (4.4-11.3); NEUTROPHILS # (AUTO) 11.6 (2.1-6.9); NEUTROPHILS % 85.7 % (38.7-80.0); PLATELET COUNT 107 x10e3/uL (140-360); RED BLOOD COUNT 3.01 x10e6/uL (4.3-5.7); RED CELL DISTRIBUTION WIDTH 17.8 % (11.7-14.4)
[2022-10-04 08:08] LABS: ABG HCO3 29 mmol/L (22-26); ABG PCO2 39 mmHg (35-45); ABG PH 7.48 (7.35-7.45); ABG PO2 171 mmHg (80-105); ABG TCO2 30
[2022-10-04 08:21] LABS: ALBUMIN 1.6 g/dL (3.5-5.0); ALBUMIN/GLOBULIN RATIO 0.4 (0.8-2.0); ANION GAP 12.7 mmol/L (8-16); CALCIUM 7.5 mg/dL (8.4-10.2); CREATININE, SERUM 4.26 mg/dL (0.72-1.25); POTASSIUM 3.7 mmol/L (3.5-5.1)
[2022-10-04] MEDS ORDERED: LEVOFLOXACIN 250MG/D5W 50ML 50 ML IV SCH (09:00)
[2022-10-04] MEDS: ISOSORBIDE MONONITRATE 20 MG TAB PO SCH (09:25)
[2022-10-04] MEDS: ASPIRIN 81 MG CHEW TAB PO SCH (09:25)
[2022-10-04] MEDS: CLOPIDOGREL BISULFATE 75 MG TAB PO SCH (09:25)
[2022-10-04] MEDS: METOPROLOL SUCCINATE 25 MG TAB XL PO SCH (09:26)
[2022-10-04] MEDS ORDERED: LEVETIRACETAM 500MG/5ML VIAL 2,000 MG in SODIUM CHLORIDE 0.9% 100 ML IV ONE (11:00)
[2022-10-04] MEDS ORDERED: MIDAZOLAM HCL 2 MG/2 ML VIAL ONE (11:32)
[2022-10-04] MEDS ORDERED: MIDAZOLAM HCL 2 MG/2 ML VIAL IV ONE (12:00)
[2022-10-04] MEDS ORDERED: HYDROCORTISONE 1% CREAM 30 GM TUBE TOP PRN (13:15)
[2022-10-04] MEDS: METRONIDAZOLE 250MG/NS 50ML 50 ML IV SCH ×2 (14:02→21:56)
[2022-10-04 17:58] LABS: BODY FLUID APPEARANCE SL.CLOUDY; BODY FLUID COLOR YELLOW; BODY FLUID TYPE PERITONEAL
[2022-10-04 18:05] LABS: WBC,BODY FLUID 156 cells/uL
[2022-10-04 18:06] LABS: RBC,BODY FLUID 2000 cells/uL
[2022-10-04 20:04] LABS: LYMPHOCYTES,BODY FLUID 98 %; MONO/MACROPHG,BODY FLUID 2 %; NEUTROPHILS,BODY FLUID 0 %
[2022-10-04] MEDS: ATORVASTATIN 40 MG TAB PO SCH (21:56)
[2022-10-04] MEDS: INSULIN GLARGINE 100 UNITS/ML VIAL SC SCH (21:58)
[2022-10-05] VITALS (91 sets, daily range): BP systolic 51–152; BP diastolic 40–114
[2022-10-05] MEDS: LEVETIRACETAM 500MG/5ML VIAL 1,500 MG in SODIUM CHLORIDE 0.9% 100 ML IV SCH ×3 (00:16→20:41)
[2022-10-05] MEDS: INSULIN REGULAR, HUMAN 100 UNIT/1 ML SQ SCH ×4 (00:32→17:34)
[2022-10-05] MEDS: EPINEPHRINE HCL 1:1000 1ML 4 MG in DEXTROSE 5% 250ML 250 ML IV SCH ×2 (01:52→18:44)
[2022-10-05 07:19] LABS: BASOPHILS # (AUTO) 0.1 (0.0-0.1); BASOPHILS % 0.6 % (0.0-1.0); EOSINOPHILS # (AUTO) 0.1 (0.0-0.4); HEMATOCRIT 28.9 % (38.2-49.6); LYMPHOCYTES # (AUTO) 1.1 (1.0-3.2); LYMPHOCYTES % 11.1 % (18.0-39.1); MEAN CORPUSCULAR HEMOGLOBIN 30.8 pg (28-32); MEAN CORPUSCULAR HGB CONC 31.1 g/dL (31-35); MONOCYTES # (AUTO) 0.8 (0.2-0.8); MONOCYTES % 7.6 % (4.4-11.3); NEUTROPHILS # (AUTO) 8.1 (2.1-6.9); NEUTROPHILS % 78.2 % (38.7-80.0); PLATELET COUNT 112 x10e3/uL (140-360); RED BLOOD COUNT 2.92 x10e6/uL (4.3-5.7); RED CELL DISTRIBUTION WIDTH 17.7 % (11.7-14.4)
[2022-10-05 07:29] LABS: ALBUMIN 1.5 g/dL (3.5-5.0); ALBUMIN/GLOBULIN RATIO 0.4 (0.8-2.0); ANION GAP 13.6 mmol/L (8-16); CALCIUM 7.7 mg/dL (8.4-10.2); CREATININE, SERUM 4.46 mg/dL (0.72-1.25); POTASSIUM 3.6 mmol/L (3.5-5.1)
[2022-10-05 08:04] LABS: ABG HCO3 25 mmol/L (22-26); ABG PCO2 38 mmHg (35-45); ABG PH 7.43 (7.35-7.45); ABG PO2 94 mmHg (80-105)
[2022-10-05 08:05] LABS: ABG TCO2 26
[2022-10-05] MEDS: CLOPIDOGREL BISULFATE 75 MG TAB PO SCH (08:13)
[2022-10-05] MEDS: ISOSORBIDE MONONITRATE 20 MG TAB PO SCH (08:14)
[2022-10-05] MEDS: ASPIRIN 81 MG CHEW TAB PO SCH (08:14)
[2022-10-05] MEDS: METOPROLOL SUCCINATE 25 MG TAB XL PO SCH (08:15)
[2022-10-05] MEDS: METRONIDAZOLE 250MG/NS 50ML 50 ML IV SCH ×2 (09:13→20:40)
[2022-10-05] MEDS ORDERED: FENTANYL 2000MCG/NS 250 250 ML IV PRN (09:30)
[2022-10-05] MEDS ORDERED: ALBUMIN 25% 25GM 100ML 0.25 GM/ML BTL IV ONE (09:45)
[2022-10-05] MEDS ORDERED: MAGNESIUM HYDROXIDE 30 ML UDC PO ONE (10:30)
[2022-10-05] MEDS ORDERED: MIDAZOLAM HCL 2 MG/2 ML VIAL IV ONE (10:30)
[2022-10-05] MEDS ORDERED: BISACODYL 10 MG SUPP PR ONE (10:30)
[2022-10-05] MEDS ORDERED: HEPARIN SOD (PORCINE) 1000 UNIT/ML SDV ONE (15:34)
[2022-10-05] MEDS: ATORVASTATIN 40 MG TAB PO SCH (20:41)
[2022-10-05] MEDS: INSULIN GLARGINE 100 UNITS/ML VIAL SC SCH (21:04)
[2022-10-06] VITALS (66 sets, daily range): BP systolic 80–132; BP diastolic 39–103
[2022-10-06] MEDS: INSULIN REGULAR, HUMAN 100 UNIT/1 ML SQ SCH ×4 (00:35→20:18)
[2022-10-06 06:38] LABS: BASOPHILS # (AUTO) 0.1 (0.0-0.1); BASOPHILS % 0.9 % (0.0-1.0); EOSINOPHILS # (AUTO) 0.2 (0.0-0.4); EOSINOPHILS % 2.4 % (0.0-6.0); HEMATOCRIT 28.9 % (38.2-49.6); HEMOGLOBIN 8.8 g/dL (14.0-18.0); LYMPHOCYTES # (AUTO) 1.2 (1.0-3.2); LYMPHOCYTES % 14.2 % (18.0-39.1); MEAN CORPUSCULAR HEMOGLOBIN 30.4 pg (28-32); MEAN CORPUSCULAR HGB CONC 30.4 g/dL (31-35); MONOCYTES # (AUTO) 0.6 (0.2-0.8); MONOCYTES % 7.4 % (4.4-11.3); NEUTROPHILS # (AUTO) 6.3 (2.1-6.9); NEUTROPHILS % 73.7 % (38.7-80.0); PLATELET COUNT 97 x10e3/uL (140-360); RED BLOOD COUNT 2.89 x10e6/uL (4.3-5.7); RED CELL DISTRIBUTION WIDTH 17.8 % (11.7-14.4)
[2022-10-06 06:59] LABS: ALBUMIN 1.7 g/dL (3.5-5.0); ALBUMIN/GLOBULIN RATIO 0.5 (0.8-2.0); ANION GAP 12.3 mmol/L (8-16); CALCIUM 7.5 mg/dL (8.4-10.2); CREATININE, SERUM 4.48 mg/dL (0.72-1.25); POTASSIUM 3.3 mmol/L (3.5-5.1)
[2022-10-06 07:59] LABS: ABG HCO3 26 mmol/L (22-26); ABG PCO2 41 mmHg (35-45); ABG PH 7.41 (7.35-7.45); ABG PO2 70 mmHg (80-105); ABG TCO2 27
[2022-10-06] MEDS ORDERED: ALBUTEROL/IPRATROPIUM 3 ML NEB ONE (09:58)
[2022-10-06] MEDS: LEVETIRACETAM 500MG/5ML VIAL 1,500 MG in SODIUM CHLORIDE 0.9% 100 ML IV SCH ×2 (10:37→20:54)
[2022-10-06] MEDS: CLOPIDOGREL BISULFATE 75 MG TAB PO SCH (10:37)
[2022-10-06] MEDS: ASPIRIN 81 MG CHEW TAB PO SCH (10:37)
[2022-10-06] MEDS: METRONIDAZOLE 250MG/NS 50ML 50 ML IV SCH ×2 (10:37→20:54)
[2022-10-06] MEDS: ISOSORBIDE MONONITRATE 20 MG TAB PO SCH (10:38)
[2022-10-06] MEDS: METOPROLOL SUCCINATE 25 MG TAB XL PO SCH (10:39)
[2022-10-06 11:21] LABS: ABG HCO3 27 mmol/L (22-26); ABG PCO2 37 mmHg (35-45); ABG PH 7.46 (7.35-7.45); ABG PO2 117 mmHg (80-105); ABG TCO2 28
[2022-10-06] MEDS ORDERED: POTASSIUM CHLORIDE 20MEQ/100ML 100 ML IV ONE (11:30)
[2022-10-06] MEDS ORDERED: FUROSEMIDE INJ 10 MG/ML 10 ML VIAL IV ONE (13:00)
[2022-10-06] MEDS: DEXTROSE 50% SYRINGE 50 ML IV PRN (13:05)
[2022-10-06] MEDS ORDERED: HEPARIN SOD (PORCINE) 1000 UNIT/ML SDV IV ONE (18:00)
[2022-10-06] MEDS: ATORVASTATIN 40 MG TAB PO SCH (20:54)
[2022-10-06] MEDS: Morphine 2mg Syringe 2 MG/ML SYR IV PRN (22:28)
[2022-10-06] MEDS: INSULIN GLARGINE 100 UNITS/ML VIAL SC SCH (22:33)
[2022-10-07] VITALS (86 sets, daily range): BP systolic 73–143; BP diastolic 35–103
[2022-10-07] MEDS ORDERED: METOCLOPRAMIDE HCL 10 MG/2ML VIAL IV ONE (02:00)
[2022-10-07] MEDS: Morphine 2mg Syringe 2 MG/ML SYR IV PRN ×2 (04:29→21:03)
[2022-10-07] MEDS: EPINEPHRINE HCL 1:1000 1ML 4 MG in DEXTROSE 5% 250ML 250 ML IV SCH (05:34)
[2022-10-07] MEDS: METOCLOPRAMIDE HCL 10 MG/2ML VIAL IV SCH ×4 (06:11→23:09)
[2022-10-07 06:41] LABS: BASOPHILS % 0.4 % (0.0-1.0); EOSINOPHILS # (AUTO) 0.1 (0.0-0.4); EOSINOPHILS % 0.8 % (0.0-6.0); HEMATOCRIT 27.2 % (38.2-49.6); HEMOGLOBIN 8.4 g/dL (14.0-18.0); LYMPHOCYTES # (AUTO) 0.8 (1.0-3.2); MEAN CORPUSCULAR HEMOGLOBIN 30.4 pg (28-32); MEAN CORPUSCULAR HGB CONC 30.9 g/dL (31-35); MEAN CORPUSCULAR VOLUME 98.6 fL (81-99); MONOCYTES # (AUTO) 0.8 (0.2-0.8); MONOCYTES % 8.5 % (4.4-11.3); NEUTROPHILS # (AUTO) 7.9 (2.1-6.9); NEUTROPHILS % 80.9 % (38.7-80.0); PLATELET COUNT 120 x10e3/uL (140-360); RED BLOOD COUNT 2.76 x10e6/uL (4.3-5.7); RED CELL DISTRIBUTION WIDTH 18.1 % (11.7-14.4)
[2022-10-07] MEDS: INSULIN REGULAR, HUMAN 100 UNIT/1 ML SQ SCH ×5 (06:57→23:24)
[2022-10-07 07:01] LABS: ALBUMIN 1.7 g/dL (3.5-5.0); ALBUMIN/GLOBULIN RATIO 0.4 (0.8-2.0); ANION GAP 15.6 mmol/L (8-16); CALCIUM 7.8 mg/dL (8.4-10.2); CREATININE, SERUM 5.17 mg/dL (0.72-1.25); POTASSIUM 3.6 mmol/L (3.5-5.1)
[2022-10-07] MEDS: LEVETIRACETAM 500MG/5ML VIAL 1,500 MG in SODIUM CHLORIDE 0.9% 100 ML IV SCH ×2 (08:10→20:23)
[2022-10-07] MEDS: CLOPIDOGREL BISULFATE 75 MG TAB PO SCH (08:10)
[2022-10-07] MEDS: METRONIDAZOLE 250MG/NS 50ML 50 ML IV SCH ×2 (08:10→20:01)
[2022-10-07] MEDS: ISOSORBIDE MONONITRATE 20 MG TAB PO SCH (08:11)
[2022-10-07] MEDS: METOPROLOL SUCCINATE 25 MG TAB XL PO SCH (08:12)
[2022-10-07] MEDS: ASPIRIN 81 MG CHEW TAB PO SCH (08:12)
[2022-10-07] MEDS: ALBUTEROL SULF 0.083% NEB SOLN 3 ML NEB NEB PRN ×2 (08:22→11:07)
[2022-10-07] MEDS: MIDODRINE HCL 5 MG TABLET PO SCH ×3 (09:53→15:43)
[2022-10-07] MEDS ORDERED: HEPARIN SOD (PORCINE) 1000 UNIT/ML SDV IV PRN (13:45)
[2022-10-07] MEDS: INSULIN GLARGINE 100 UNITS/ML VIAL SC SCH (21:00)
[2022-10-07] MEDS: ATORVASTATIN 40 MG TAB PO SCH (21:00)
[2022-10-08] VITALS (65 sets, daily range): BP systolic 95–135; BP diastolic 52–72
[2022-10-08] MEDS: METOCLOPRAMIDE HCL 10 MG/2ML VIAL IV SCH ×3 (05:49→17:20)
[2022-10-08] MEDS: INSULIN REGULAR, HUMAN 100 UNIT/1 ML SQ SCH ×3 (06:00→17:21)
[2022-10-08 06:27] LABS: BASOPHILS % 0.4 % (0.0-1.0); EOSINOPHILS # (AUTO) 0.2 (0.0-0.4); EOSINOPHILS % 1.7 % (0.0-6.0); HEMATOCRIT 27.1 % (38.2-49.6); HEMOGLOBIN 8.5 g/dL (14.0-18.0); LYMPHOCYTES # (AUTO) 1.2 (1.0-3.2); LYMPHOCYTES % 11.4 % (18.0-39.1); MEAN CORPUSCULAR HEMOGLOBIN 30.4 pg (28-32); MEAN CORPUSCULAR HGB CONC 31.4 g/dL (31-35); MEAN CORPUSCULAR VOLUME 96.8 fL (81-99); MONOCYTES # (AUTO) 0.8 (0.2-0.8); MONOCYTES % 7.6 % (4.4-11.3); NEUTROPHILS % 77.4 % (38.7-80.0); PLATELET COUNT 113 x10e3/uL (140-360); RED CELL DISTRIBUTION WIDTH 18.3 % (11.7-14.4)
[2022-10-08 06:57] LABS: ALBUMIN 1.9 g/dL (3.5-5.0); ALBUMIN/GLOBULIN RATIO 0.5 (0.8-2.0); ANION GAP 12.7 mmol/L (8-16); CREATININE, SERUM 3.38 mg/dL (0.72-1.25); POTASSIUM 3.7 mmol/L (3.5-5.1)
[2022-10-08] MEDS: METRONIDAZOLE 250MG/NS 50ML 50 ML IV SCH ×2 (08:10→21:00)
[2022-10-08] MEDS: ASPIRIN 81 MG CHEW TAB PO SCH (08:11)
[2022-10-08] MEDS: CLOPIDOGREL BISULFATE 75 MG TAB PO SCH (08:11)
[2022-10-08] MEDS: MIDODRINE HCL 5 MG TABLET PO SCH ×3 (08:11→16:13)
[2022-10-08] MEDS: LEVETIRACETAM 500MG/5ML VIAL 1,500 MG in SODIUM CHLORIDE 0.9% 100 ML IV SCH ×2 (08:11→21:00)
[2022-10-08] MEDS: METOPROLOL SUCCINATE 25 MG TAB XL PO SCH (08:12)
[2022-10-08] MEDS: ISOSORBIDE MONONITRATE 20 MG TAB PO SCH (08:12)
[2022-10-08] MEDS: EPINEPHRINE HCL 1:1000 1ML 4 MG in DEXTROSE 5% 250ML 250 ML IV SCH (10:00)
[2022-10-08] MEDS ORDERED: ALBUMIN 25% 12.5GM 0.25 GM/ML BTL IV PRN (10:15)
[2022-10-08] MEDS ORDERED: HEPARIN SOD (PORCINE) 1000 UNIT/ML SDV IV PRN (10:15)
[2022-10-08] MEDS: Morphine 2mg Syringe 2 MG/ML SYR IV PRN (20:05)
[2022-10-08] MEDS: ATORVASTATIN 40 MG TAB PO SCH (21:00)
[2022-10-08] MEDS: INSULIN GLARGINE 100 UNITS/ML VIAL SC SCH (21:24)
[2022-10-09] VITALS (26 sets, daily range): BP systolic 90–130; BP diastolic 34–68
[2022-10-09] MEDS: METOCLOPRAMIDE HCL 10 MG/2ML VIAL IV SCH ×4 (00:15→16:01)
[2022-10-09] MEDS: Morphine 2mg Syringe 2 MG/ML SYR IV PRN (02:20)
[2022-10-09] MEDS: INSULIN REGULAR, HUMAN 100 UNIT/1 ML SQ SCH ×4 (06:10→18:00)
[2022-10-09 07:13] LABS: BASOPHILS % 0.5 % (0.0-1.0); EOSINOPHILS # (AUTO) 0.2 (0.0-0.4); EOSINOPHILS % 2.6 % (0.0-6.0); HEMATOCRIT 25.3 % (38.2-49.6); HEMOGLOBIN 7.9 g/dL (14.0-18.0); LYMPHOCYTES # (AUTO) 0.9 (1.0-3.2); LYMPHOCYTES % 11.2 % (18.0-39.1); MEAN CORPUSCULAR HEMOGLOBIN 30.9 pg (28-32); MEAN CORPUSCULAR HGB CONC 31.2 g/dL (31-35); MEAN CORPUSCULAR VOLUME 98.8 fL (81-99); MONOCYTES # (AUTO) 0.5 (0.2-0.8); NEUTROPHILS % 77.4 % (38.7-80.0); PLATELET COUNT 107 x10e3/uL (140-360); RED BLOOD COUNT 2.56 x10e6/uL (4.3-5.7); RED CELL DISTRIBUTION WIDTH 18.7 % (11.7-14.4)
[2022-10-09 07:36] LABS: ALBUMIN/GLOBULIN RATIO 0.6 (0.8-2.0); ANION GAP 11.3 mmol/L (8-16); CALCIUM 8.1 mg/dL (8.4-10.2); CREATININE, SERUM 3.85 mg/dL (0.72-1.25); POTASSIUM 3.3 mmol/L (3.5-5.1)
[2022-10-09] MEDS: METRONIDAZOLE 250MG/NS 50ML 50 ML IV SCH ×2 (08:14→21:16)
[2022-10-09] MEDS: ISOSORBIDE MONONITRATE 20 MG TAB PO SCH ×4 (08:14→11:05)
[2022-10-09] MEDS: CLOPIDOGREL BISULFATE 75 MG TAB PO SCH (08:14)
[2022-10-09] MEDS: MIDODRINE HCL 5 MG TABLET PO SCH ×3 (08:14→17:29)
[2022-10-09] MEDS: ASPIRIN 81 MG CHEW TAB PO SCH (08:14)
[2022-10-09] MEDS: LEVETIRACETAM 500MG/5ML VIAL 1,500 MG in SODIUM CHLORIDE 0.9% 100 ML IV SCH ×2 (08:14→21:16)
[2022-10-09] MEDS: METOPROLOL SUCCINATE 25 MG TAB XL PO SCH (09:00)
[2022-10-09] MEDS: EPINEPHRINE HCL 1:1000 1ML 4 MG in DEXTROSE 5% 250ML 250 ML IV SCH (09:30)
[2022-10-09 09:39] LABS: ABG HCO3 29 mmol/L (22-26); ABG PCO2 41 mmHg (35-45); ABG PH 7.45 (7.35-7.45); ABG PO2 55 mmHg (80-105); ABG TCO2 30
[2022-10-09] MEDS ORDERED: POTASSIUM CHLORIDE 20MEQ/15ML UDC NG ONE (11:00)
[2022-10-09] MEDS ORDERED: ALBUMIN 25% 12.5GM 0.25 GM/ML BTL IV SCH (11:00)
[2022-10-09] MEDS ORDERED: KCL 20 MEQ PACKET/ ORAL SOLN NG ONE (11:30)
[2022-10-09] MEDS ORDERED: ALBUMIN 25% 12.5GM 0.25 GM/ML BTL IV ONE (12:00)
[2022-10-09] MEDS: ATORVASTATIN 40 MG TAB PO SCH (21:16)
[2022-10-09] MEDS: INSULIN GLARGINE 100 UNITS/ML VIAL SC SCH (21:36)
[2022-10-10] VITALS (27 sets, daily range): BP systolic 84–122; BP diastolic 46–86
[2022-10-10] MEDS: METOCLOPRAMIDE HCL 10 MG/2ML VIAL IV SCH ×3 (00:23→12:00)
[2022-10-10] MEDS: INSULIN REGULAR, HUMAN 100 UNIT/1 ML SQ SCH ×2 (06:00)
[2022-10-10] MEDS: DEXTROSE 50% SYRINGE 50 ML IV PRN (06:19)
[2022-10-10 06:49] LABS: BASOPHILS # (AUTO) 0.1 (0.0-0.1); BASOPHILS % 0.6 % (0.0-1.0); EOSINOPHILS # (AUTO) 0.2 (0.0-0.4); EOSINOPHILS % 2.3 % (0.0-6.0); HEMATOCRIT 27.1 % (38.2-49.6); HEMOGLOBIN 8.3 g/dL (14.0-18.0); LYMPHOCYTES # (AUTO) 1.2 (1.0-3.2); LYMPHOCYTES % 14.4 % (18.0-39.1); MEAN CORPUSCULAR HEMOGLOBIN 30.5 pg (28-32); MEAN CORPUSCULAR HGB CONC 30.6 g/dL (31-35); MEAN CORPUSCULAR VOLUME 99.6 fL (81-99); MONOCYTES # (AUTO) 0.7 (0.2-0.8); MONOCYTES % 8.2 % (4.4-11.3); NEUTROPHILS # (AUTO) 5.9 (2.1-6.9); NEUTROPHILS % 71.9 % (38.7-80.0); PLATELET COUNT 113 x10e3/uL (140-360); RED BLOOD COUNT 2.72 x10e6/uL (4.3-5.7); RED CELL DISTRIBUTION WIDTH 18.9 % (11.7-14.4)
[2022-10-10 07:07] LABS: ALBUMIN 1.9 g/dL (3.5-5.0); ALBUMIN/GLOBULIN RATIO 0.5 (0.8-2.0); CALCIUM 8.1 mg/dL (8.4-10.2); CREATININE, SERUM 4.73 mg/dL (0.72-1.25)
[2022-10-10] MEDS: MIDODRINE HCL 5 MG TABLET PO SCH ×2 (08:00→12:00)
[2022-10-10] MEDS: Morphine 2mg Syringe 2 MG/ML SYR IV PRN ×2 (08:16→14:26)
[2022-10-10] MEDS: CLOPIDOGREL BISULFATE 75 MG TAB PO SCH (09:00)
[2022-10-10] MEDS: ASPIRIN 81 MG CHEW TAB PO SCH (09:00)
[2022-10-10] MEDS: METOPROLOL SUCCINATE 25 MG TAB XL PO SCH (09:00)
[2022-10-10] MEDS: ISOSORBIDE MONONITRATE 20 MG TAB PO SCH (09:00)
[2022-10-10] MEDS: EPINEPHRINE HCL 1:1000 1ML 4 MG in DEXTROSE 5% 250ML 250 ML IV SCH (09:30)
[2022-10-10] MEDS: LEVETIRACETAM 500MG/5ML VIAL 1,500 MG in SODIUM CHLORIDE 0.9% 100 ML IV SCH (09:39)
[2022-10-10] MEDS: METRONIDAZOLE 250MG/NS 50ML 50 ML IV SCH (09:40)
== END 2022-10-10 16:38 | disposition hospice, inpatient (51) | DRG 951 ==
LOC: ER 15:33 → ERHOLD 18:20 → INTOOBSV 18:20 → MED/SURG3 21:47 → OBSVTOIN 10-02 11:56 → ICU 10-02 17:30
PROVIDERS: ADMIT Family Medicine; ATTEND Family Medicine
PROC: 3E1M39Z Irrigation of Peritoneal Cavity using Dialysate, Percutaneous Approach (ICD-10-PCS; 2022-10-01)
PROC: 0BH17EZ Insertion of Endotracheal Airway into Trachea, Via Natural or Artificial Opening (ICD-10-PCS; principal; 2022-10-02)
PROC: 5A1955Z Respiratory Ventilation, Greater than 96 Consecutive Hours (ICD-10-PCS; 2022-10-02)
PROC: 3E043XZ Introduction of Vasopressor into Central Vein, Percutaneous Approach (ICD-10-PCS; 2022-10-02)
PROC: 5A12012 Performance of Cardiac Output, Single, Manual (ICD-10-PCS; 2022-10-02)
PROC: 8E0ZXY6 Isolation (ICD-10-PCS; 2022-10-02)
PROC: 02HV33Z Insertion of Infusion Device into Superior Vena Cava, Percutaneous Approach (ICD-10-PCS; 2022-10-02)
PROC: 4A033R1 Measurement of Arterial Saturation, Peripheral, Percutaneous Approach (ICD-10-PCS; 2022-10-04)
DX: Z51.5 Encounter for palliative care (principal); A41.9 Sepsis, unspecified organism; R65.21 Severe sepsis with septic shock; I46.9 Cardiac arrest, cause unspecified; J96.00 Acute respiratory failure, unspecified whether with hypoxia or hypercapnia; N18.6 End stage renal disease; U07.1 COVID-19; K55.9 Vascular disorder of intestine, unspecified; G93.1 Anoxic brain damage, not elsewhere classified; I13.2 Hypertensive heart and chronic kidney disease with heart failure and with stage 5 chronic kidney disease, or end stage renal disease; I50.22 Chronic systolic (congestive) heart failure; I42.9 Cardiomyopathy, unspecified; I24.9 Acute ischemic heart disease, unspecified; E11.69 Type 2 diabetes mellitus with other specified complication; Z66 Do not resuscitate; E87.70 Fluid overload, unspecified; Z99.2 Dependence on renal dialysis; Z86.73 Personal history of transient ischemic attack (TIA), and cerebral infarction without residual deficits; E78.5 Hyperlipidemia, unspecified; Z89.519 Acquired absence of unspecified leg below knee; E87.6 Hypokalemia; Z88.5 Allergy status to narcotic agent; Z88.0 Allergy status to penicillin; Z91.013 Allergy to seafood
CPT/HCPCS: 0223U; 36415; 36600; 70450; 71045; 74018; 80048; 80053; 82550; 82553; 82805; 82948; 83630; 83690; 83735; 84100; 84484; 85007; 85025; 85027; 86704; 86706; 87045; 87070; 87177; 87205; 87324; 87328; 87340; 87449; 89051; 93005; 93306; 93971; 94003; 94640; 94799; 95822; 96360; 96372; 99284; G0378; J0171; J0692; J1644; J1815; J1940; J1956; J2250; J2270; J2405; J2765; J3480; J7030; J7050; J7070; J7799; P9047

== ENCOUNTER 2022-10-10 16:39 | Inpatient (IN) | payer OTHER ==
[~2022-10-10] VITALS: Ht 170.2 cm; Wt 91.6 kg
[2022-10-10] MEDS ORDERED: Morphine 4mg INJECTION 4 MG/ML INJ IV PRN (18:15)
[2022-10-10] MEDS ORDERED: SCOPOLAMINE 1 MG PATCH TOP PRN ×2 (18:15→19:00)
[2022-10-10] MEDS ORDERED: HYOSCYAMINE 0.125 MG TAB PO PRN (18:15)
[2022-10-10] MEDS ORDERED: ACETAMINOPHEN 325 MG SUPP PR PRN (18:15)
[2022-10-10] MEDS ORDERED: ONDANSETRON HCL INJ 2MG/ML 2ML 2 MG/ML VIAL IV PRN (18:15)
[2022-10-10] MEDS ORDERED: LORAZEPAM INJ 2 MG/ML VIAL IV PRN (18:15)
[2022-10-10] MEDS ORDERED: BISACODYL 10 MG SUPP PR PRN (18:15)
[2022-10-10] MEDS: Morphine 4mg INJECTION 4 MG/ML INJ IV SCH ×2 (18:59→22:20)
[2022-10-10 19:00] VITALS: BP 93/52
[2022-10-10 19:24] VITALS: BP 93/52
[2022-10-10 22:00] VITALS: BP_SYST 91; BP_SYST 93; BP_DIAS 49; BP_DIAS 54
[2022-10-10] MEDS: LORAZEPAM INJ 2 MG/ML VIAL IV SCH (22:16)
[2022-10-11] VITALS (10 sets, daily range): BP systolic 63–95; BP diastolic 37–78
[2022-10-11] MEDS: Morphine 4mg INJECTION 4 MG/ML INJ IV SCH ×4 (02:19→13:42)
[2022-10-11] MEDS: LORAZEPAM INJ 2 MG/ML VIAL IV SCH ×4 (02:19→13:42)
== END 2022-10-11 18:06 | disposition expired | DRG 951 ==
LOC: ICU 16:39
PROVIDERS: ADMIT Family Medicine; ATTEND Family Medicine
DX: Z51.5 Encounter for palliative care (principal); N18.6 End stage renal disease; G93.1 Anoxic brain damage, not elsewhere classified; I13.2 Hypertensive heart and chronic kidney disease with heart failure and with stage 5 chronic kidney disease, or end stage renal disease; I50.22 Chronic systolic (congestive) heart failure; Z86.73 Personal history of transient ischemic attack (TIA), and cerebral infarction without residual deficits; I25.10 Atherosclerotic heart disease of native coronary artery without angina pectoris; Z88.2 Allergy status to sulfonamides; Z91.041 Radiographic dye allergy status; Z88.5 Allergy status to narcotic agent; Z91.013 Allergy to seafood; Z66 Do not resuscitate
CPT/HCPCS: 94799; 99252; J2060; J2270